=== PATIENT | male | born 1935 | race Caucasian/White ===

== ENCOUNTER 2017-02-11 15:13 | Inpatient (IN) | payer MEDICARE, BC ==
[~2017-02-11] VITALS: Ht 172.7 cm; Wt 70.3 kg
[2017-02-11 16:18] VITALS: BP 129/75
[2017-02-11] MEDS ORDERED: Zolpidem 5mg tab ORAL PRN (16:45)
--- NOTE | 2017-02-11 17:42 | General Progress Note ---
Subjective Allergies: Coded Allergies: No Known Allergies (Unverified , 02/11/17) info obtained from caregiver Objective Last 24 Hour Vital Signs Date Time Temp Pulse Resp B/P (MAP) Pulse Ox O2 Delivery O2 Flow Rate FiO2 02/11/17 16:18 97.7 73 20 129/75 99 Room Air Laboratory Tests 02/11/17 17:25: White Blood Count [Pending], Red Blood Count [Pending], Hemoglobin [Pending], Hematocrit [Pending], Mean Corpuscular Volume [Pending], Mean Corpuscular Hemoglobin [Pending], Mean Corpuscular Hemoglobin Concent [Pending], Red Cell Distribution Width [Pending], Platelet Count [Pending], Mean Platelet Volume [ Pending], Neutrophils (%) (Auto) [Pending], Lymphocytes (%) (Auto) [Pending], Monocytes (%) (Auto) [Pending], Eosinophils (%) (Auto) [Pending], Basophils (%) (Auto) [Pending], Sodium Level [Pending], Potassium Level [Pending], Chloride Level [Pending], Carbon Dioxide Level [Pending], Blood Urea Nitrogen [Pending], Creatinine [Pending], Estimat Glomerular Filtration Rate [Pending], Glucose Level [Pending], Uric Acid [Pending], Calcium Level [Pending], Lactate Dehydrogenase [Pending] Height (Feet): 5 Height (Inches): 8.00 Weight (Pounds): 155 WU SANTOS Feb 11, 2017 17:42
--- NOTE | 2017-02-11 17:43 | History & Physical ---
History and Physical History & Physicial HPI 81 year old male with known mild renal insufficiency noted to have significant worsening in his labs on routine lab draw with worsening lab parameters. Patient without any new intervention at home. He is only using Remeron for now. Patient without falls. Patient without trauma. NO fevers or chills. Care noted and reviewed with the son and patient now being admitted for further evaluation. Patient noted to have adequate urine output. Patient currently comfortable but confused Last 24 Hour Vital Signs Date Time Temp Pulse Resp B/P (MAP) Pulse Ox O2 Delivery O2 Flow Rate FiO2 02/11/17 16:18 97.7 73 20 129/75 99 Room Air Laboratory Tests 02/11/17 17:25: still pending Active Medications (reviewed today): REMERON 15 MG ORAL TABS (MIRTAZAPINE) 1 qhs No Known Drug Allergies Past History Past Medical History: dementia urinary incontinence anemia mildly elevated PSA Surgical History (reviewed - no changes required): None Family History (reviewed - no changes required): Father ; unknown Mother ; alzheimer's Social History (reviewed - no changes required): ; 1 child: lives alone; born in [place]; 4 dogs at home; house with caregivers [employer] (resides in [facility]) Risk Factors: Smoked Tobacco Use: Never smoker Tobacco Use Comments: remote [facility] Caffeine use: <1 drinks per day Alcohol use: no Review of Systems General: fatigue disheveled Eyes: denies blurring, diplopia, irritation, discharge, vision loss, eye pain, photophobia Ear/Nose/Throat: denies ear pain or discharge, tinnitus, decreased hearing, nasal obstruction or discharge, nosebleeds, sore throat, hoarseness, dysphagia Cardiovascular: Denies chest pain, palpitations, syncope, dyspnea on exertion, orthopnea, PND, peripheral edema Respiratory: Denies cough, dyspnea, excessive sputum, hemoptysis, wheezing Gastrointestinal: Denies nausea, vomiting, diarrhea, constipation, change in bowel habits, abdominal pain, melena, hematochezia, jaundice Genitourinary: incontinence Musculoskeletal: fall with coccyx injury Skin: denies rash, itching, dryness, suspicious lesions Neurologic: denies transient paralysis, weakness, paresthesias, seizures, syncope, tremors, vertigo Psychiatric: SEE HPI Endocrine: denies cold intolerance, heat intolerance, polydipsia, polyphagia, polyuria, weight change Hematologic/Lymphatic: denies abnormal bruising, bleeding, enlarged lymph nodes Allergic/Immunologic: denies urticaria, hay fever, persistent infections, HIV exposure Physical Exam General Appearance: well nourished, well hydrated, no acute distress WDWN NAD clear breath sounds bilaterally without rhonchi or wheeze [id number] without MRG NABS nontender no HSM no CCE nonfocal IMPRESSION Dementia acute on chronic renal failure agitation incontinence confusion PLAN IV hydration renal US check labs consider renal evaluation check urine and culture check CK level update son HOMARWU JOHNSON Feb 11, 2017 17:43
[2017-02-11 17:45] LABS: MEAN CORPUSCULAR HEMOGLOBIN 34.1 PG (27.0-31.0); MEAN CORPUSCULAR HGB CONC 31.8 G/DL (32.0-36.0); MEAN CORPUSCULAR VOLUME 107 FL (80-99); MEAN PLATELET VOLUME 5.8 FL (6.5-10.1); PLATELET COUNT 479 K/UL (150-450); RED BLOOD COUNT 2.44 M/UL (4.70-6.10); RED CELL DISTRIBUTION WIDTH 12.4 % (11.6-14.8); WHITE BLOOD COUNT 15.1 K/UL (4.8-10.8)
[2017-02-11] MEDS ORDERED: MIRTAZAPINE15 MG ORAL (17:48)
[2017-02-11] MEDS ORDERED: DOCUSATE SODIU250 MG ORAL (17:48)
[2017-02-11] MEDS ORDERED: MULTIVITAMINS1 EAC2 ORAL (17:48)
[2017-02-11] MEDS ORDERED: Docusate 100mg cap ORAL PRN (18:00)
[2017-02-11 18:19] LABS: ANION GAP 14 mmol/L (5-15); CARBON DIOXIDE 19 MMOL/L (21-32); CHLORIDE 109 MMOL/L (98-107); CREATININE 4.7 MG/DL (0.55-1.30); LACTATE DEHYDROGENASE 147 U/L (81-234); POTASSIUM 5.7 MMOL/L (3.5-5.1); SODIUM 142 MMOL/L (136-145); URIC ACID 8.3 MG/DL (2.6-7.2)
[2017-02-11 18:32] LABS: BAND NEUTROPHILS % (MANUAL) 2 % (0-8); LYMPHOCYTES % (MANUAL) 11 % (20-45); NEUTROPHILS % (MANUAL) 84 % (45-75); TOTAL CELLS COUNTED 100
[2017-02-11 18:33] LABS: ANISOCYTOSIS 1+; BASOPHILS % (MANUAL) 0 % (0-2); EOSINOPHILS % (MANUAL) 0 % (0-3); PLATELET ESTIMATE INCREASED
[2017-02-11 18:34] LABS: MACROCYTES 2+; PLATELET MORPHOLOGY NORMAL; POLYCHROMASIA 1+
[2017-02-11 18:37] LABS: PATH BLOOD SMEAR/OMC SENT TO PATHOLOGIST
[2017-02-11] MEDS ORDERED: Sodium Polystyrene Sulfonate 15gm Powder ORAL ONE (19:45)
[2017-02-11 20:00] VITALS: BP 125/72
[2017-02-11] MEDS ORDERED: Cefepime HCl 1 GM in D5W 55 ML IVPB ONE (20:30)
[2017-02-11 21:52] LABS: APPEARANCE,URINE CLOUDY; KETONES,URINE NEGATIVE (NEGATIVE); LEUKOCYTE ESTERASE ,URINE 3+ (NEGATIVE); NITRITE,URINE NEGATIVE (NEGATIVE); PH,URINE 5 (4.5-8.0); PROTEIN,URINE 3+ (NEGATIVE); UROBILINOGEN,URINE NORMAL MG/DL (0.0-1.0)
[2017-02-11 22:05] LABS: BACTERIA,URINE MODERATE /HPF; WBC,URINE TNTC /HPF (0 - 0)
[2017-02-12 00:11] VITALS: BP 153/76
[2017-02-12 04:00] VITALS: BP 139/69
[2017-02-12 08:00] VITALS: BP 147/76
--- NOTE | 2017-02-12 08:41 | General Progress Note ---
Assessment/Plan Assessment/Plan IMPRESSION Dementia acute on chronic renal failure agitation incontinence confusion leukocytosis elevated PSA PLAN IV hydration renal US check labs on follow up consider renal evaluation check urine and culture check CK level- normal renal evaluation pending update son Subjective Allergies: Coded Allergies: No Known Allergies (Unverified , 02/11/17) info obtained from caregiver Subjective comfortable underwent transfusion Objective Last 24 Hour Vital Signs Date Time Temp Pulse Resp B/P (MAP) Pulse Ox O2 Delivery O2 Flow Rate FiO2 02/12/17 04:00 96 Room Air 02/12/17 04:00 97.6 61 18 139/69 96 02/12/17 00:11 97.8 61 18 153/76 95 Room Air 02/11/17 20:00 97.7 64 18 125/72 97 02/11/17 20:00 97 Room Air 02/11/17 16:18 97.7 73 20 129/75 99 Room Air Laboratory Tests 02/11/17 17:25: White Blood Count 15.1H, Red Blood Count 2.44L, Hemoglobin 8.3L, Hematocrit 26.1L, Mean Corpuscular Volume 107H, Mean Corpuscular Hemoglobin 34.1H, Mean Corpuscular Hemoglobin Concent 31.8L, Red Cell Distribution Width 12.4, Platelet Count 479H, Mean Platelet Volume 5.8L, Neutrophils (%) (Auto) , Lymphocytes (%) (Auto) , Monocytes (%) (Auto) , Eosinophils (%) (Auto) , Basophils (%) (Auto) , Differential Total Cells Counted 100, Neutrophils % ( Manual) 84H, Lymphocytes % (Manual) 11L, Monocytes % (Manual) 3, Eosinophils % ( Manual) 0, Basophils % (Manual) 0, Band Neutrophils 2, Platelet Estimate IncreasedH, Platelet Morphology Normal, Polychromasia 1+, Anisocytosis 1+, Macrocytosis 2+, Sodium Level 142, Potassium Level 5.7H, Chloride Level 109H, Carbon Dioxide Level 19L, Anion Gap 14, Blood Urea Nitrogen 110H, Creatinine 4.7H, Estimat Glomerular Filtration Rate , Glucose Level 119H, Uric Acid 8.3H, Calcium Level 9.0, Lactate Dehydrogenase 147, Total Creatine Kinase 24L 02/11/17 20:45: Urine Color Pale yellow, Urine Appearance Cloudy, Urine pH 5, Urine Specific Crystal 1.010, Urine Protein 3+H, Urine Glucose (UA) Negative, Urine Ketones Negative, Urine Occult Blood 4+H, Urine Nitrite Negative, Urine Bilirubin Negative, Urine Urobilinogen Normal, Urine Leukocyte Esterase 3+H, Urine RBC 5- 10H, Urine WBC TntcH, Urine Squamous Epithelial Cells None, Urine Bacteria ModerateH Height (Feet): 5 Height (Inches): 8.00 Weight (Pounds): 155 Objective WDWN NAD clear breath sounds bilaterally without rhonchi or wheeze [id number] without MRG NABS nontender no HSM no CCE nonfocal WU SANTOS Feb 12, 2017 08:41
--- NOTE | 2017-02-12 11:45 | Consultation ---
Consult Note Consult Note asked to eval for renal failure 81 year old male with known mild renal insufficiency noted to have significant worsening in his labs on routine lab draw with worsening lab parameters. Patient without any new intervention at home. He is only using Remeron for now. Patient without falls. Patient without trauma. NO fevers or chills. Care noted and reviewed with the son and patient now being admitted for further evaluation. Patient noted to have adequate urine output. Patient currently comfortable but confused examined- not historian- talked to RN and disabilities caregiver Assessment/Plan 1- Renal failure, etiology? Seems acute on chronic 2- Anemia: Etiology ? CKD ? GI loss 3- Proteinuria Partly UTI, Partly Renal Ds Other conditions: - Dementia with periodic agitation - Urinary incontinence - High PSA Plan: Kidney SALINA Bladder scan: Zero urine Anemia dinero monitor renal parameters avoid Nephrotoxics Urine studies per orders KIERA MOY Feb 12, 2017 11:45
[2017-02-12 12:00] VITALS: BP 134/76
[2017-02-12] MEDS ORDERED: Docusate 100mg cap ORAL SCH (15:00)
[2017-02-12] MEDS ORDERED: Milk of Magnesia 30ml Ud ORAL PRN (15:00)
[2017-02-12 16:00] VITALS: BP 128/84
--- NOTE | 2017-02-12 17:00 | Consultation ---
DATE OF CONSULTATION: 02/12/2017 PODIATRIC CONSULTATION HISTORY OF PRESENT ILLNESS: This is an 81-year-old white male, who was admitted to the hospital on 02/11/2017 for workup of abnormal kidneys lab tests. His caregiver requested podiatric care for neglected nails and foot hygiene. PAST MEDICAL HISTORY: He is remarkable for dementia, anemia, and urinary incontinence. MEDICATIONS: Remeron. ALLERGIES: No known drug allergies. PODIATRIC PHYSICAL EXAMINATION: VASCULAR EXAM: Dorsalis pedis and posterior tibial arteries are not palpable bilaterally. The capillary filling time is less than 6 seconds to all digits bilaterally. Homans sign is negative. Mild varicosities are noted in bilateral lower extremity. NEUROLOGICAL EXAMINATION: Reflexes, Achilles and patellar are measuring 1/4 bilaterally. Sensation and vibration examinations were deferred due to non-response from the patient. Babinski was negative. Clonus was absent in bilateral lower extremity. MUSCULOSKELETAL EXAMINATION: Reveals bilateral hallux abductovalgus with bunion deformity. The digits second through fifth are exhibiting semi-reducible hammertoe deformities. Range of motions of the digits, metatarsophalangeal joints is reduced bilaterally. No crepitation was noted. Range of motion of the ankle joint was also reduced bilaterally. DERMATOLOGICAL EXAMINATION: Reveals cold and atrophic skin bilaterally. The nails where dystrophic, mycotic, and elongated bilaterally. There were no ulcerations, scars, or lesions in bilateral foot and ankle. ASSESSMENT: 1. Onychomycosis/onychogryphosis bilaterally. 2. Dementia. PLAN: Debridement of nails, 1 through 5 performed at bedside. Thank you, Dr. Marcos, for allowing me to see this patient in consultation. Steve Valero D.P.M. DR: SOULEYMANE JOB#: [id number] CC:
--- NOTE | 2017-02-12 18:09 | Diagnostic Imaging Report ---
Indication: Cough Technique: XRAY CHEST 1 V Comparison: None Findings: Heart size and mediastinal contours are within normal limits given technique. There is no focal consolidation, pneumothorax or pleural effusion. Osseous structures demonstrate no acute abnormality. Impression: No focal airspace consolidation.
[2017-02-12] MEDS: Docusate 100mg cap ORAL SCH (18:30)
[2017-02-12] MEDS ORDERED: Cefepime 500mg in D5W 55ml IVPB SCH (20:30)
[2017-02-12] MEDS: Epogen (for non ESRD use) SUBQ SCH (21:15)
[2017-02-13] VITALS: BP 123/56
[2017-02-13 04:00] VITALS: BP 124/65
--- NOTE | 2017-02-13 04:00 | Consultation ---
DATE OF CONSULTATION: 02/12/2017 UROLOGY CONSULTATION REASON FOR CONSULTATION: The patient is an 81-year-old male, admitted with multiple medical problems and urinary retention. Nurses were unable to place the Mark catheter. I was consulted to place a Mark catheter. PHYSICAL EXAMINATION: Bladder felt distended and I proceeded with procedure of complicated Mark catheter placement. PROCEDURE PERFORMED: I prepped the penis. I then, per local anesthetic into the urethra, proceeded with a catheter guide with a 16-Green[place]ic Mark catheter and placed it into the bladder with mild resistance in the bulbar urethra and clear urine came from Mark catheter. RECOMMENDATIONS: My recommendations are to leave the Mark catheter in place as long as is beneficial for the medical care of this patient however after the Mark catheter may be removed and replaced if needed in the future. Thank you very much for requesting urologic consultation on this patent. Escobar Tracy DR: LITO JOB#: [id number] CC:
[2017-02-13 08:00] VITALS: BP 134/52
[2017-02-13] MEDS: Docusate 100mg cap ORAL SCH ×3 (09:00→17:35)
--- NOTE | 2017-02-13 09:07 | Nephrology Progress Note ---
Assessment/Plan Problem List: (1) Acute renal failure (2) Obstructive uropathy Assessment 1- Renal failure, etiology? Seems acute on chronic, rule out Obstruction 2- Anemia: Etiology ? CKD ? GI loss 3- Proteinuria Partly UTI, Partly Renal Ds Other conditions: - Dementia with periodic agitation - Urinary incontinence - High PSA Plan Plan: Kidney SALINA: verbal report , bilateral hydro and urinary retention: LOPEZ is in now Bladder scan: Zero urine was reported initially Anemia dinero monitor renal parameters avoid Nephrotoxics Urine studies per orders Subjective ROS Limited/Unobtainable: No Objective Objective Last 24 Hour Vital Signs Date Time Temp Pulse Resp B/P (MAP) Pulse Ox O2 Delivery O2 Flow Rate FiO2 02/13/17 04:00 97.7 80 20 124/65 95 Room Air 02/13/17 00:00 98.6 83 20 123/56 95 Room Air 02/12/17 16:00 97.1 78 20 128/84 99 02/12/17 12:00 97.3 66 20 134/76 98 Laboratory Tests 02/13/17 05:00: Urine Eosinophils [Pending] Height (Feet): 5 Height (Inches): 8.00 Weight (Pounds): 155 General Appearance: no apparent distress Cardiovascular: normal rate Respiratory/Chest: lungs clear Abdomen: soft Genitourinary/Rectal: other - lopez in KIERA MOY Feb 13, 2017 09:07
[2017-02-13 09:48] LABS: ANION GAP 14 mmol/L (5-15); CALCIUM 8.9 MG/DL (8.5-10.1); CARBON DIOXIDE 20 MMOL/L (21-32); CHLORIDE 115 MMOL/L (98-107); CREATININE 4.4 MG/DL (0.55-1.30); MEAN CORPUSCULAR HGB CONC 32.5 G/DL (32.0-36.0); MEAN CORPUSCULAR VOLUME 105 FL (80-99); MEAN PLATELET VOLUME 6.4 FL (6.5-10.1); PLATELET COUNT 434 K/UL (150-450); RED BLOOD COUNT 3.15 M/UL (4.70-6.10); RED CELL DISTRIBUTION WIDTH 14.3 % (11.6-14.8); SODIUM 149 MMOL/L (136-145)
[2017-02-13 09:51] LABS: WHITE BLOOD COUNT 24.9 K/UL (4.8-10.8)
--- NOTE | 2017-02-13 09:52 | General Progress Note ---
Assessment/Plan Assessment/Plan IMPRESSION Dementia acute on chronic renal failure agitation incontinence confusion leukocytosis elevated PSA urinary retention hydronephrosis bacteremia ? contaminant onychomycosis PLAN add Vanco for now IV hydration renal US noted follow up labs await labs call ID with positive Bcx renal evaluation pending update son Subjective ROS Limited/Unobtainable: Yes Allergies: Coded Allergies: No Known Allergies (Unverified , 02/11/17) info obtained from caregiver Subjective significant urinary retention lopez placed hydronephrosis noted d/w renal and uro Objective Last 24 Hour Vital Signs Date Time Temp Pulse Resp B/P (MAP) Pulse Ox O2 Delivery O2 Flow Rate FiO2 02/13/17 04:00 97.7 80 20 124/65 95 Room Air 02/13/17 00:00 98.6 83 20 123/56 95 Room Air 02/12/17 16:00 97.1 78 20 128/84 99 02/12/17 12:00 97.3 66 20 134/76 98 Laboratory Tests 02/13/17 05:00: Urine Eosinophils None seen 02/13/17 08:52: White Blood Count [Pending], Red Blood Count [Pending], Hemoglobin [Pending], Hematocrit [Pending], Mean Corpuscular Volume [Pending], Mean Corpuscular Hemoglobin [Pending], Mean Corpuscular Hemoglobin Concent [Pending], Red Cell Distribution Width [Pending], Platelet Count [Pending], Mean Platelet Volume [ Pending], Neutrophils (%) (Auto) [Pending], Lymphocytes (%) (Auto) [Pending], Monocytes (%) (Auto) [Pending], Eosinophils (%) (Auto) [Pending], Basophils (%) (Auto) [Pending], Sodium Level [Pending], Potassium Level [Pending], Chloride Level [Pending], Carbon Dioxide Level [Pending], Blood Urea Nitrogen [Pending], Creatinine [Pending], Estimat Glomerular Filtration Rate [Pending], Glucose Level [Pending], Hemoglobin A1c [Pending], Uric Acid [Pending], Calcium Level [ Pending], Phosphorus Level [Pending], Magnesium Level [Pending], Ferritin [ Pending], Total Bilirubin [Pending], Gamma Glutamyl Transpeptidase [Pending], Aspartate Amino Transf (AST/SGOT) [Pending], Alanine Aminotransferase (ALT/SGPT ) [Pending], Alkaline Phosphatase [Pending], C-Reactive Protein, Quantitative [ Pending], Pro-B-Type Natriuretic Peptide [Pending], Total Protein [Pending], Albumin [Pending], Globulin [Pending], Triglycerides Level [Pending], Cholesterol Level [Pending], LDL Cholesterol [Pending], HDL Cholesterol [Pending ], Cholesterol/HDL Ratio [Pending], Prostate Specific Antigen [Pending], Vitamin B12 Level [Pending], Folate [Pending], Thyroid Stimulating Hormone (TSH ) [Pending] Height (Feet): 5 Height (Inches): 8.00 Weight (Pounds): 155 Objective WDWN NAD clear breath sounds bilaterally without rhonchi or wheeze [id number] without MRG NABS nontender no HSM no CCE nonfocal WU SANTOS Feb 13, 2017 09:52
[2017-02-13] MEDS: Tamsulosin 0.4mg cap ORAL SCH ×2 (09:58→17:35)
[2017-02-13] MEDS ORDERED: Vancomycin 1.5 GM/D5W 250ML IVPB ONE (10:00)
[2017-02-13 10:03] LABS: ALANINE AMINOTRANSFERASE 32 U/L (12-78); ALBUMIN/GLOBULIN RATIO 0.4 (1.0-2.7); ASPARTATE AMINO TRANSFERASE 24 U/L (15-37); CHOLESTEROL 125 MG/DL (< 200); CHOLESTEROL/HDL RATIO 2.9 (3.3-4.4); CRP QUANT 15.7 mg/dL (0.00-0.90); FERRITIN 745 NG/ML (8-388); MAGNESIUM 2.4 MG/DL (1.8-2.4); THYROID STIMULATING HORMONE 1.198 uiU/mL (0.358-3.740); TOTAL PROTEIN 8.5 G/DL (6.4-8.2)
[2017-02-13 10:27] LABS: FOLIC ACID 33.9 NG/ML (8.6-58.9)
[2017-02-13 10:49] LABS: ANION GAP 17 mmol/L (5-15); CALCIUM 8.7 MG/DL (8.5-10.1); CARBON DIOXIDE 18 MMOL/L (21-32); CHLORIDE 119 MMOL/L (98-107); CREATININE 4.5 MG/DL (0.55-1.30); POTASSIUM 4.3 MMOL/L (3.5-5.1); SODIUM 154 MMOL/L (136-145)
[2017-02-13 10:54] LABS: ANISOCYTOSIS 1+; BAND NEUTROPHILS % (MANUAL) 1 % (0-8); BASOPHILS % (MANUAL) 0 % (0-2); EOSINOPHILS % (MANUAL) 0 % (0-3); HYPOCHROMASIA 1+; LYMPHOCYTES % (MANUAL) 3 % (20-45); MACROCYTES 1+; NEUTROPHILS % (MANUAL) 94 % (45-75); PLATELET ESTIMATE ADEQUATE; PLATELET MORPHOLOGY NORMAL; TOTAL CELLS COUNTED 100
--- NOTE | 2017-02-13 11:03 | Diagnostic Imaging Report ---
Indication: Abnormal renal function test Technique: Renal ultrasound Comparison: None Findings: Right kidney measures 11.1 cm in length. Left kidney measures 11.6 cm in length. Moderate bilateral hydronephrosis is seen. No sonographically evident renal calculi are identified. Bladder is distended with debris. Visualized IVC is grossly unremarkable. Impression: Moderate bilateral hydronephrosis. Distended bladder with debris. Correlation with urinalysis recommended. Findings discussed with the patient's 4E nurse reporting a Mark catheter has been placed.
[2017-02-13 11:10] LABS: HEMOGLOBIN A1C 6.8 % (4.3-6.0)
[2017-02-13] MEDS ORDERED: Vancomycin 1.5gm/D5W 250ml 250 ML IVPB ONE (11:15)
[2017-02-13 12:00] VITALS: BP 136/58
[2017-02-13 12:01] LABS: FOLIC ACID 33.4 NG/ML (8.6-58.9)
[2017-02-13] MEDS: D5 1/2NS 1,000 ML IV SCH ×2 (12:21→20:43)
--- NOTE | 2017-02-13 12:29 | Neurology Progress Note ---
Interim History Interim History ROS Limited/Unobtainable: Yes Objective Physical Exam Last Vital Signs Date Time Temp Pulse Resp B/P (MAP) Pulse Ox O2 Delivery O2 Flow Rate FiO2 02/13/17 08:00 97.0 100 20 134/52 95 Room Air Laboratory Tests Test 02/13/17 05:00 02/13/17 08:52 Urine Eosinophils None seen White Blood Count 24.9 K/UL (4.8-10.8) *H Red Blood Count 3.15 M/UL (4.70-6.10) L Hemoglobin 10.7 G/DL (14.2-18.0) L Hematocrit 33.0 % (42.0-52.0) L Mean Corpuscular Volume 105 FL (80-99) H Mean Corpuscular Hemoglobin 34.0 PG (27.0-31.0) H Mean Corpuscular Hemoglobin Concent 32.5 G/DL (32.0-36.0) Red Cell Distribution Width 14.3 % (11.6-14.8) Platelet Count 434 K/UL (150-450) Mean Platelet Volume 6.4 FL (6.5-10.1) L Neutrophils (%) (Auto) % (45.0-75.0) Lymphocytes (%) (Auto) % (20.0-45.0) Monocytes (%) (Auto) % (1.0-10.0) Eosinophils (%) (Auto) % (0.0-3.0) Basophils (%) (Auto) % (0.0-2.0) Differential Total Cells Counted 100 Neutrophils % (Manual) 94 % (45-75) H Lymphocytes % (Manual) 3 % (20-45) L Monocytes % (Manual) 2 % (1-10) Eosinophils % (Manual) 0 % (0-3) Basophils % (Manual) 0 % (0-2) Band Neutrophils 1 % (0-8) Platelet Estimate Adequate Platelet Morphology Normal Hypochromasia 1+ Anisocytosis 1+ Macrocytosis 1+ Sodium Level 149 MMOL/L (136-145) H Potassium Level 4.0 MMOL/L (3.5-5.1) Chloride Level 115 MMOL/L (98-107) H Carbon Dioxide Level 20 MMOL/L (21-32) L Anion Gap 14 mmol/L (5-15) Blood Urea Nitrogen 97 mg/dL (7-18) H Creatinine 4.4 MG/DL (0.55-1.30) H Estimat Glomerular Filtration Rate mL/min (>60) Glucose Level 132 MG/DL (74-106) H Hemoglobin A1c 6.8 % (4.3-6.0) H Uric Acid Pending Calcium Level 8.9 MG/DL (8.5-10.1) Phosphorus Level Pending Magnesium Level Pending Ferritin Pending Total Bilirubin 0.5 MG/DL (0.2-1.0) Gamma Glutamyl Transpeptidase Pending Aspartate Amino Transf (AST/SGOT) 24 U/L (15-37) Alanine Aminotransferase (ALT/SGPT) 32 U/L (12-78) Alkaline Phosphatase 90 U/L (46-116) C-Reactive Protein, Quantitative Pending Pro-B-Type Natriuretic Peptide Pending Total Protein 8.5 G/DL (6.4-8.2) H Albumin 2.6 G/DL (3.4-5.0) L Globulin 5.9 g/dL Albumin/Globulin Ratio 0.4 (1.0-2.7) L Triglycerides Level Pending Cholesterol Level Pending LDL Cholesterol Pending HDL Cholesterol Pending Cholesterol/HDL Ratio Pending Prostate Specific Antigen Pending Vitamin B12 Level 1030 PG/ML (193-986) H Folate 33.4 NG/ML (8.6-58.9) Thyroid Stimulating Hormone (TSH) Pending Impression/Recommendations Problems: (1) senile dementia, advanced (2) Parkinsonian syndrome (3) Depressed affect (4) abnormal gait (5) Obstructive uropathy (6) Acute renal failure Status: unchanged Recommendations #[id number] NADINE RUIZ Feb 13, 2017 12:29
[2017-02-13] MEDS: Depakote 125mg Sprinkles ORAL SCH ×2 (12:49→20:41)
[2017-02-13 14:06] LABS: CHOLESTEROL 132 MG/DL (< 200); CRP QUANT 17.1 mg/dL (0.00-0.90); FERRITIN 800 NG/ML (8-388); MAGNESIUM 2.5 MG/DL (1.8-2.4); PHOSPHORUS 5.2 MG/DL (2.5-4.9); PSA TOTAL 11.59 ng/mL (0.13-4.0); THYROID STIMULATING HORMONE 1.291 uiU/mL (0.358-3.740); URIC ACID 7.6 MG/DL (2.6-7.2)
[2017-02-13] MEDS: Piperacillin/Tazobactam 2.25 GM in D5W 55 ML IVPB SCH ×2 (14:10→21:47)
[2017-02-13 16:15] VITALS: BP 117/56
--- NOTE | 2017-02-13 16:30 | Consultation ---
DATE OF CONSULTATION: 02/13/2017 INFECTIOUS DISEASES CONSULTATION CONSULTING PHYSICIAN: April Orourke M.D. REFERRING PHYSICIAN: Catracho Marcos M.D. REASON FOR CONSULTATION: Sepsis. HISTORY OF PRESENTING ILLNESS: This is an 81-year-old gentleman with history of . PAST MEDICAL HISTORY: 1. History of dementia. 2. Urinary incontinence. 3. Elevated PSA. SOCIAL HISTORY: Unknown. FAMILY HISTORY: Unknown. REVIEW OF SYSTEMS: Unable to obtain currently. MEDICATIONS: As an inpatient, the patient is on IV vancomycin, Flomax, Epogen, Cefepime, Protonix, Remeron, Tylenol, and Ambien. ALLERGIES: No known drug allergies. PHYSICAL EXAMINATION: VITAL SIGNS: Temperature of 97 degrees, T-max of 98.6 degrees, pulse of 100, respiratory rate 20, blood pressure 134/52, and O2 saturation of 95% . HEENT: Pupils equally reactive to light and accommodation. Mouth appears clean without thrush. NECK: Supple. No adenopathy. No JVD. CARDIOVASCULAR: Regular rate and rhythm. No murmurs. LUNGS: Clear to auscultation bilaterally. No crackles. No wheezes. ABDOMEN: Soft and nontender. No organomegaly. EXTREMITIES: No cyanosis, no clubbing, no edema. LABORATORY DATA: White count of 24.9, hemoglobin 10.7, hematocrit 33, MCV 105, platelet count of 434,000, neutrophils of 94%. Sodium 149, potassium 4, chloride 115, bicarbonate 20, BUN 97, creatinine 4.4, glucose 132, calcium 8.9. AST 24, ALT 32, and alkaline phosphatase 90. LDH 147. CK of 24. Beta-natriuretic peptide 2820. Total protein 8.5. Albumin 2.6. Cholesterol of 125. UA showing too numerous to count white cells. Blood culture is growing gram-positive cocci. Urine culture is growing gram-negative rods, two types. Chest x-ray is showing no consolidation. Renal ultrasound showing moderate bilateral hydronephrosis. ASSESSMENT: 1. This is an 81-year-old gentleman with history of dementia and urinary incontinence, who comes in and is found to have gram-positive sepsis. 2. The patient has a gram-negative urinary tract infection. 3. Renal failure. 4. Leukocytosis is increasing. PLAN: 1. Discontinue vancomycin and cefepime. 2. We will start the patient on linezolid and Zosyn. 3. We will follow up cultures and adjust antibiotics accordingly. I would like to thank Dr. Marcos for this consultation. [place] Zoie Orourke DR: MELISSA JOB#: [id number] CC: Catracho Marcos M.D.; Fax#: [phone]
[2017-02-13] MEDS ORDERED: Tubing Blood Filter IV ONE (17:34)
[2017-02-13] MEDS ORDERED: Tubing IV Secondary IV ONE (17:34)
[2017-02-13] MEDS ORDERED: NS 500ML ONE (17:34)
[2017-02-13] MEDS ORDERED: D5 1/2NS 1000ml IV ONE (17:34)
--- NOTE | 2017-02-13 19:15 | Consultation ---
DATE OF CONSULTATION: 02/13/2017 NEUROLOGICAL CONSULTATION CONSULTING PHYSICIAN: Myles Box M.D. REQUESTING PHYSICIAN: Catracho Marcos M.D. HISTORY OF PRESENT ILLNESS: This is an 81-year-old man, who is seen in neurological consultation to evaluate the progressive changes in mental status, involuntary tremors, and abnormal gait. The patient was admitted to this hospital after it was noted that he developed abnormal labs. The patient was unable to provide me with any history and this was compiled from medical records and my conversation with the two caregivers. Currently, the patient who had no major medical problems, lived alone with a couple of dogs, started to develop behavioral abnormalities with some cognitive deficiency, and in November 2015, his son, who lives in [facility] hired a caregiver. They noticed that the patient continues to be rapidly deteriorating cognitively and behaviorally. Finally, in the last couple of months, he was unable to recognize his son. He developed the tremors in his both upper extremities, shuffling unsteady gait, spending most of the day predominantly lying in bed or sitting. He developed urinary incontinence and now unable to provide himself with any activities of daily living. The patient was brought today for the assessment. His vital signs described as stable. He was afebrile with blood pressure 129/75 and temperature 97.7 degrees. His imaging studies included renal ultrasound. Renal ultrasound revealed moderate bilateral hydronephrosis and distended bladder. His chest x-ray, no acute abnormality. His lab work included a CBC study with WBC 15.1, repeat study 12.9, anemia with hemoglobin 8.3, hematocrit 26.1, and elevated MCV and MCH. Chemistry panel included potassium 5.7, BUN of 110, creatinine 4.7, and glucose 119. Elevated SGOT 15.7, BNP of 20, elevated total protein 8.5, but normal B12, folate, and TSH. Anion gap was elevated at 17. Blood sugar was 130. He developed hypernatremia at 154 and hemoglobin A1c of 6.8. His urinalysis, WBC too numerous to count, 3+ protein. Since admission until present time, there were no further changes in his status. SOCIAL HISTORY: He lives alone, but has around the clock caregivers for the last year. No evidence of alcohol or drug abuse. Nonsmoker. FAMILY HISTORY: Unavailable. REVIEW OF SYMPTOMS: Unable to obtain due the patient's status. PHYSICAL EXAMINATION: GENERAL: A well-developed, well-nourished man, not in acute distress, lying in bed. His caregivers are at bedside. VITAL SIGNS: Now stable. Temperature 97.3 degrees and blood pressure 134/76. HEENT: Head, normocephalic. There is no evidence of trauma. Eyes, ears, and throat are clear. NECK: Rigid in all directions. MUSCULOSKELETAL EXAMINATION: No deformities noted. Peripheral pulses 1+ symmetric. MENTAL STATUS: The patient fully awake. He has a very angry expression. He is not compliant with examination. Withdrawing his arms and legs when touched. He is responding yes or no. Indicating his age as 31. He is unable to give the place, time, or describe his condition. He was noncompliant and non-cooperative. CRANIAL NERVES II: Pupils, 2 mm responding to light and accommodation. Extraocular movements full range. CRANIAL NERVES V: Normal corneal responses. CRANIAL NERVES VII: No facial asymmetry. CRANIAL NERVES VIII: Grossly normal hearing. CRANIAL NERVES IX THROUGH XII: Tongue is in midline. Symmetric palate elevation. MOTOR EXAMINATION: Revealed diffuse rigidity. Some slowness of movement. There are intermittent resting tremors of both upper extremities. Deep tendon reflexes are 1+, bilaterally symmetric. Plantar responses flexor. SENSORY EXAMINATION: Withdrawing to pin stimulation. Gait, the patient was reluctant to sit or stand up, but caregiver described the patient having a shuffling slow gait, able to ambulate without assistance, prefers to stay in bed or in chair. IMPRESSION: 1. Senile dementia, advanced. 2. Parkinsonian features. 3. Depression. 4. Acute renal failure. 5. Urinary tract infection. RECOMMENDATIONS: A baseline CT scan of the brain (the patient will be unable to comply with MRI). The patient to start on Aricept 5 mg, Depakote 125 mg b.i.d. for mood stabilization and presence of behavioral abnormalities. Vitamin D, okay with Remeron 7.5 mg daily. Hold use of Sinemet or antiparkinson agents at this time. Continue with the current treatment related to urinary tract infection and renal failure. Thank you for allowing me to see this interesting patient in neurological consultation. Myles Box M.D. DR: Garima JOB#: [id number] CC:
[2017-02-13 20:00] VITALS: BP 122/67
[2017-02-13] MEDS: Donepezil 5mg Tab ORAL SCH (20:41)
[2017-02-14] VITALS (7 sets, daily range): BP systolic 104–121; BP diastolic 55–78
[2017-02-14] MEDS: Piperacillin/Tazobactam 2.25 GM in D5W 55 ML IVPB SCH ×2 (05:49→14:32)
[2017-02-14] MEDS: D5 1/2NS 1,000 ML IV SCH ×3 (07:15→21:07)
[2017-02-14] MEDS: Depakote 125mg Sprinkles ORAL SCH ×2 (08:45→21:00)
[2017-02-14] MEDS: Docusate 100mg cap ORAL SCH ×3 (08:46→17:42)
[2017-02-14] MEDS: Tamsulosin 0.4mg cap ORAL SCH ×2 (08:47→17:42)
[2017-02-14] MEDS ORDERED: D5 1/2NS 1000ml IV ONE (10:02)
--- NOTE | 2017-02-14 10:03 | Infectious Diseases Prog Note ---
Assessment/Plan Assessment/Plan A; Sepsis UTI CoANS in blood likely contamination Acute renal failure Bilateral Hydronephrosis Dementia P: Continue Zosyn Discontinue Linezolid will f/u cultures Subjective ROS Limited/Unobtainable: Yes Allergies: Coded Allergies: No Known Allergies (Unverified , 02/11/17) info obtained from caregiver Objective Vital Signs Last 24 Hour Vital Signs Date Time Temp Pulse Resp B/P (MAP) Pulse Ox O2 Delivery O2 Flow Rate FiO2 02/14/17 08:00 96.4 58 20 117/63 98 02/14/17 04:00 97.2 55 21 104/55 100 02/14/17 00:00 97.7 63 20 116/78 96 02/13/17 20:00 99.3 74 20 122/67 98 02/13/17 16:15 99.5 77 21 117/56 97 Room Air 02/13/17 12:00 97.7 70 18 136/58 96 Height (Feet): 5 Height (Inches): 8.00 Weight (Pounds): 155 General Appearance: no acute distress HEENT: mucous membranes moist Respiratory/Chest: lungs clear Cardiovascular: normal rate Abdomen: soft, non tender Extremities: no edema Neurologic/Psychiatric: other - sleeping Microbiology Date/Time Source Procedure Growth Status 02/11/17 19:43 Blood Blood Culture - Preliminary Staphylococcus Sp Coag Neg Resulted 02/11/17 19:15 Blood Blood Culture - Preliminary Staphylococcus Sp Coag Neg Resulted 02/11/17 20:45 Urine,Clean Catch Urine Culture - Final Escherichia Coli Proteus Mirabilis Complete 02/11/17 20:45 Urine,Ureter/Kidney Urine Culture - Final Escherichia Coli Complete Laboratory Tests Test 02/14/17 05:50 Urine Eosinophils Positive Current Medications Medications (Trade) Dose Ordered Sig/Tracee Route PRN Reason Start Time Stop Time Status Last Admin Dose Admin Acetaminophen (Tylenol) 650 mg Q4H PRN ORAL Mild Pain/Temp > 100.5 02/11/17 16:45 03/13/17 16:44 Dextrose/Sodium Chloride 1,000 ml @ 100 mls/hr Q10H IV 02/13/17 11:15 03/15/17 11:14 02/13/17 20:43 Divalproex Sodium (Depakote Sprinkles) 125 mg EVERY 12 HOURS ORAL 02/13/17 12:30 03/15/17 12:29 02/14/17 08:45 Docusate Sodium (Colace) 100 mg THREE TIMES A DAY ORAL 02/13/17 13:00 03/15/17 12:59 02/14/17 08:46 Donepezil HCl (Aricept) 5 mg QHS ORAL 02/13/17 21:00 03/15/17 20:59 02/13/17 20:41 Epoetin Mykel (Procrit (for non ESRD use)) 10,000 units WED-WED-WED SUBQ 02/12/17 21:00 03/14/17 20:59 02/12/17 21:15 Linezolid 300 ml @ 300 mls/hr Q12H IVPB 02/13/17 13:00 02/20/17 12:59 02/14/17 01:21 Mirtazapine (Remeron) 7.5 mg BEDTIME ORAL 02/11/17 21:00 03/13/17 20:59 02/13/17 20:41 Pantoprazole (Protonix) 40 mg DAILY ORAL 02/12/17 09:00 03/14/17 08:59 02/14/17 08:45 Piperacillin Sod/ Tazobactam Sod 2.25 gm/Dextrose 55 ml @ 110 mls/hr Q8HR IVPB 02/13/17 14:00 02/20/17 13:59 02/14/17 05:49 Tamsulosin HCl (Flomax) 0.4 mg BID ORAL 02/13/17 09:15 03/15/17 09:14 02/14/17 08:47 Zolpidem Tartrate (Ambien) 5 mg HSPRN PRN ORAL Insomnia 02/11/17 16:45 02/18/17 16:44 KAREY HAILE Feb 14, 2017 10:03
--- NOTE | 2017-02-14 10:20 | Diagnostic Imaging Report ---
Indication: Chest pain Technique: XRAY CHEST 1 V. Comparison: 02/12/17 Findings: The cardiomediastinal silhouette is unchanged. No new infiltrates are identified. Impression: No significant change from prior examination.
[2017-02-14 10:34] LABS: BASOPHILS % (AUTO) 0.6 % (0.0-2.0); EOSINOPHILS % (AUTO) 2.8 % (0.0-3.0); LYMPHOCYTES % (AUTO) 16.2 % (20.0-45.0); MEAN CORPUSCULAR HEMOGLOBIN 34.6 PG (27.0-31.0); MEAN CORPUSCULAR HGB CONC 33.2 G/DL (32.0-36.0); MEAN CORPUSCULAR VOLUME 104 FL (80-99); MONOCYTES % (AUTO) 8.5 % (1.0-10.0); NEUTROPHILS % (AUTO) 71.9 % (45.0-75.0); PLATELET COUNT 279 K/UL (150-450); RED BLOOD COUNT 2.49 M/UL (4.70-6.10); RED CELL DISTRIBUTION WIDTH 13.8 % (11.6-14.8); WHITE BLOOD COUNT 10.2 K/UL (4.8-10.8)
--- NOTE | 2017-02-14 10:50 | General Progress Note ---
Assessment/Plan Assessment/Plan IMPRESSION Dementia acute on chronic renal failure agitation incontinence confusion leukocytosis elevated PSA urinary retention hydronephrosis bacteremia ? contaminant onychomycosis PLAN antibiotics noted await further improvement renal US noted follow up labs await labs cxr negative renal noted uro noted updated son not stable for dc Subjective Allergies: Coded Allergies: No Known Allergies (Unverified , 02/11/17) info obtained from caregiver Subjective labs pending care reviewed ID noted d/w renal and uro Objective Last 24 Hour Vital Signs Date Time Temp Pulse Resp B/P (MAP) Pulse Ox O2 Delivery O2 Flow Rate FiO2 02/14/17 08:00 96.4 58 20 117/63 98 02/14/17 04:00 97.2 55 21 104/55 100 02/14/17 00:00 97.7 63 20 116/78 96 02/13/17 20:00 99.3 74 20 122/67 98 02/13/17 16:15 99.5 77 21 117/56 97 Room Air 02/13/17 12:00 97.7 70 18 136/58 96 Intake and Output 02/14/17 02/15/17 19:00 07:00 Intake Total 200 ml Balance 200 ml IV Total 200 ml Laboratory Tests 02/14/17 05:50: Urine Eosinophils Positive 02/14/17 10:20: White Blood Count [Pending], Red Blood Count [Pending], Hemoglobin [Pending], Hematocrit [Pending], Mean Corpuscular Volume [Pending], Mean Corpuscular Hemoglobin [Pending], Mean Corpuscular Hemoglobin Concent [Pending], Red Cell Distribution Width [Pending], Platelet Count [Pending], Mean Platelet Volume [ Pending], Neutrophils (%) (Auto) [Pending], Lymphocytes (%) (Auto) [Pending], Monocytes (%) (Auto) [Pending], Eosinophils (%) (Auto) [Pending], Basophils (%) (Auto) [Pending], Sodium Level [Pending], Potassium Level [Pending], Chloride Level [Pending], Carbon Dioxide Level [Pending], Blood Urea Nitrogen [Pending], Creatinine [Pending], Estimat Glomerular Filtration Rate [Pending], Glucose Level [Pending], Calcium Level [Pending], Phosphorus Level [Pending], Magnesium Level [Pending], Total Bilirubin [Pending], Aspartate Amino Transf (AST/SGOT) [ Pending], Alanine Aminotransferase (ALT/SGPT) [Pending], Alkaline Phosphatase [ Pending], Total Protein [Pending], Albumin [Pending], Globulin [Pending] Height (Feet): 5 Height (Inches): 8.00 Weight (Pounds): 155 Objective WDWN NAD clear breath sounds bilaterally without rhonchi or wheeze [id number] without MRG NABS nontender no HSM no CCE nonfocal WU SANTOS Feb 14, 2017 10:49
--- NOTE | 2017-02-14 11:19 | Nephrology Progress Note ---
Assessment/Plan Problem List: (1) Acute renal failure (2) Obstructive uropathy Assessment 1- Renal failure, etiology? Seems acute on chronic, rule out Obstruction 2- Anemia: Etiology ? CKD ? GI loss 3- Proteinuria Partly UTI, Partly Renal Ds Other conditions: - Dementia with periodic agitation - Urinary incontinence - High PSA Plan Plan: Kidney SALINA: verbal report , bilateral hydro and urinary retention: JOHNSON is in now Bladder scan: Zero urine was reported initially Anemia dinero monitor renal parameters avoid Nephrotoxics Urine studies per orders Subjective ROS Limited/Unobtainable: No Constitutional: Reports: malaise Objective Objective Last 24 Hour Vital Signs Date Time Temp Pulse Resp B/P (MAP) Pulse Ox O2 Delivery O2 Flow Rate FiO2 02/14/17 08:00 96.4 58 20 117/63 98 02/14/17 04:00 97.2 55 21 104/55 100 02/14/17 00:00 97.7 63 20 116/78 96 02/13/17 20:00 99.3 74 20 122/67 98 02/13/17 16:15 99.5 77 21 117/56 97 Room Air 02/13/17 12:00 97.7 70 18 136/58 96 Intake and Output 02/14/17 02/15/17 19:00 07:00 Intake Total 300 ml Balance 300 ml IV Total 300 ml Laboratory Tests 02/14/17 05:50: Urine Eosinophils Positive 02/14/17 10:20: White Blood Count 10.2#, Red Blood Count 2.49L, Hemoglobin 8.6L, Hematocrit 26.0L, Mean Corpuscular Volume 104H, Mean Corpuscular Hemoglobin 34.6H, Mean Corpuscular Hemoglobin Concent 33.2, Red Cell Distribution Width 13.8, Platelet Count 279, Mean Platelet Volume 6.0L, Neutrophils (%) (Auto) 71.9, Lymphocytes ( %) (Auto) 16.2L, Monocytes (%) (Auto) 8.5, Eosinophils (%) (Auto) 2.8, Basophils (%) (Auto) 0.6, Sodium Level [Pending], Potassium Level [Pending], Chloride Level [Pending], Carbon Dioxide Level [Pending], Blood Urea Nitrogen [ Pending], Creatinine [Pending], Estimat Glomerular Filtration Rate [Pending], Glucose Level [Pending], Calcium Level [Pending], Phosphorus Level [Pending], Magnesium Level [Pending], Total Bilirubin [Pending], Aspartate Amino Transf ( AST/SGOT) [Pending], Alanine Aminotransferase (ALT/SGPT) [Pending], Alkaline Phosphatase [Pending], Total Protein [Pending], Albumin [Pending], Globulin [ Pending] Height (Feet): 5 Height (Inches): 8.00 Weight (Pounds): 155 General Appearance: no apparent distress Objective no change KIERA MOY Feb 14, 2017 11:19
[2017-02-14 11:20] LABS: MAGNESIUM 1.9 MG/DL (1.8-2.4); PHOSPHORUS 4.1 MG/DL (2.5-4.9)
[2017-02-14 11:23] LABS: ALANINE AMINOTRANSFERASE 21 U/L (12-78); ALBUMIN/GLOBULIN RATIO 0.4 (1.0-2.7); ANION GAP 13 mmol/L (5-15); ASPARTATE AMINO TRANSFERASE 15 U/L (15-37); CALCIUM 7.6 MG/DL (8.5-10.1); CARBON DIOXIDE 18 MMOL/L (21-32); CHLORIDE 111 MMOL/L (98-107); CREATININE 3.9 MG/DL (0.55-1.30); POTASSIUM 3.3 MMOL/L (3.5-5.1); SODIUM 142 MMOL/L (136-145); TOTAL PROTEIN 6.7 G/DL (6.4-8.2)
--- NOTE | 2017-02-14 17:44 | Wound Care Consultation ---
Wound Assessment Wound Assessment #1: Wound Number: 1 Wound Present on Admission: Yes New Wound: No Status Change of Wound: No Wound Location Body Site Modif: left Wound Location Body Site: temporal region Wound Type: traumatic injury Jinny Test: Does not Jinny Wound Length: 2.0 Wound Width: 1.0 Wound Depth: utd Percent of Wound Purple/Maroon: 100 - dry Wound Drainage Amount: None Wound Drainage Odor: None/Absent Tissue Surrounding Wound: Intact Wound General Appearance: Reddened Wound Assessment #2: Wound Number: 2 Wound Present on Admission: Yes New Wound: No Status Change of Wound: No Wound Location Body Site Modif: right Wound Location Body Site: buttocks Wound Type: other - folloculitis Jinny Test: Does not Jinny Description: Single Site Wound Thickness: Full Thickness Wound Length: 0.2 Wound Width: 0.2 Wound Depth: utd Percent of Wound Bed Yellow/Wh: 100 Wound Drainage Amount: None Wound Drainage Odor: None/Absent Tissue Surrounding Wound: Intact Wound General Appearance: Open to air Wound Comment #1 Left temporal bone area traumatic dry wound. #2 Right buttock with one single folliculitis. Recommendation -Leave areas open to air -Assess and f/u with MD for s/s of infection -Optimize nutrition -Keep clean and dry BENJAMÍN AVENDANO RN Feb 14, 2017 17:44
[2017-02-14] MEDS: Donepezil 5mg Tab ORAL SCH (20:59)
[2017-02-14] MEDS: Zosyn 3.375gm q12h **Extended infusion IVPB SCH ×2 (22:04)
[2017-02-15 04:00] VITALS: BP 123/63
[2017-02-15 08:00] VITALS: BP 133/65
--- NOTE | 2017-02-15 08:52 | General Progress Note ---
Assessment/Plan Assessment/Plan IMPRESSION Dementia acute on chronic renal failure agitation incontinence confusion leukocytosis elevated PSA urinary retention hydronephrosis bacteremia ? contaminant onychomycosis PLAN antibiotics noted await further improvement and clearance by ID follow up labs cxr negative renal noted uro noted updated son as to plan not stable for dc as of yet impression, plan, and exam edited and reviewed in detail care discussed with RN Subjective Allergies: Coded Allergies: No Known Allergies (Unverified , 02/11/17) info obtained from caregiver Subjective labs pending care reviewed ID noted d/w renal and uro appears nontoxic Objective Last 24 Hour Vital Signs Date Time Temp Pulse Resp B/P (MAP) Pulse Ox O2 Delivery O2 Flow Rate FiO2 02/15/17 08:00 98.2 63 20 133/65 97 02/15/17 04:00 97.3 57 18 123/63 97 02/14/17 23:59 97.6 58 18 118/60 98 02/14/17 20:00 97.4 59 18 120/63 97 02/14/17 16:00 97.3 61 18 112/57 98 02/14/17 12:00 97.0 62 18 121/66 96 Laboratory Tests 02/14/17 10:20: White Blood Count 10.2#, Red Blood Count 2.49L, Hemoglobin 8.6L, Hematocrit 26.0L, Mean Corpuscular Volume 104H, Mean Corpuscular Hemoglobin 34.6H, Mean Corpuscular Hemoglobin Concent 33.2, Red Cell Distribution Width 13.8, Platelet Count 279, Mean Platelet Volume 6.0L, Neutrophils (%) (Auto) 71.9, Lymphocytes ( %) (Auto) 16.2L, Monocytes (%) (Auto) 8.5, Eosinophils (%) (Auto) 2.8, Basophils (%) (Auto) 0.6, Sodium Level 142, Potassium Level 3.3L, Chloride Level 111H, Carbon Dioxide Level 18L, Anion Gap 13, Blood Urea Nitrogen 74H, Creatinine 3.9H, Estimat Glomerular Filtration Rate , Glucose Level 151H, Calcium Level 7.6L, Phosphorus Level 4.1, Magnesium Level 1.9, Total Bilirubin 0.3, Aspartate Amino Transf (AST/SGOT) 15, Alanine Aminotransferase (ALT/SGPT) 21, Alkaline Phosphatase 64, Total Protein 6.7, Albumin 1.9L, Globulin 4.8, Albumin/Globulin Ratio 0.4L 02/15/17 05:50: Sodium Level [Pending], Potassium Level [Pending], Chloride Level [Pending], Carbon Dioxide Level [Pending], Blood Urea Nitrogen [Pending], Creatinine [ Pending], Estimat Glomerular Filtration Rate [Pending], Glucose Level [Pending] , Calcium Level [Pending], Magnesium Level [Pending], Total Bilirubin [Pending] , Aspartate Amino Transf (AST/SGOT) [Pending], Alanine Aminotransferase (ALT/ SGPT) [Pending], Alkaline Phosphatase [Pending], Total Protein [Pending], Albumin [Pending], Globulin [Pending], Random Vancomycin Level 10.3 02/15/17 07:15: Urine Eosinophils Occasional Height (Feet): 5 Height (Inches): 8.00 Weight (Pounds): 155 Objective WDWN NAD clear breath sounds bilaterally without rhonchi or wheeze [id number] without MRG NABS nontender no HSM no CCE nonfocal WU SANTOS Feb 15, 2017 08:51
[2017-02-15 09:02] LABS: ANION GAP 12 mmol/L (5-15); CALCIUM 7.8 MG/DL (8.5-10.1); CARBON DIOXIDE 20 MMOL/L (21-32); CHLORIDE 109 MMOL/L (98-107); CREATININE 3.5 MG/DL (0.55-1.30); POTASSIUM 4.8 MMOL/L (3.5-5.1); SODIUM 141 MMOL/L (136-145)
[2017-02-15 09:06] LABS: ALANINE AMINOTRANSFERASE 26 U/L (12-78); ALBUMIN/GLOBULIN RATIO 0.4 (1.0-2.7); ASPARTATE AMINO TRANSFERASE 26 U/L (15-37); MAGNESIUM 1.9 MG/DL (1.8-2.4); TOTAL PROTEIN 6.8 G/DL (6.4-8.2)
[2017-02-15] MEDS: Docusate 100mg cap ORAL SCH ×3 (09:22→18:14)
[2017-02-15] MEDS: Zosyn 3.375gm q12h **Extended infusion IVPB SCH ×2 (09:22)
[2017-02-15] MEDS: Tamsulosin 0.4mg cap ORAL SCH ×2 (09:22→18:14)
[2017-02-15] MEDS: Depakote 125mg Sprinkles ORAL SCH ×2 (09:23→20:36)
--- NOTE | 2017-02-15 10:04 | Nephrology Progress Note ---
Assessment/Plan Problem List: (1) Acute renal failure (2) Obstructive uropathy Assessment 1- Renal failure, etiology? cr lowering Seems acute on chronic, rule out Obstruction 2- Anemia: Etiology ? CKD ? GI loss 3- Proteinuria Partly UTI, Partly Renal Ds Other conditions: - Dementia with periodic agitation - Urinary incontinence - High PSA Plan Plan: Kidney SALINA: verbal report , bilateral hydro and urinary retention: JOHNSON is in now Bladder scan: Zero urine was reported initially Anemia dinero monitor renal parameters avoid Nephrotoxics Urine studies per orders Subjective ROS Limited/Unobtainable: No Constitutional: Reports: malaise Objective Objective Last 24 Hour Vital Signs Date Time Temp Pulse Resp B/P (MAP) Pulse Ox O2 Delivery O2 Flow Rate FiO2 02/15/17 08:00 98.2 63 20 133/65 97 02/15/17 04:00 97.3 57 18 123/63 97 02/14/17 23:59 97.6 58 18 118/60 98 02/14/17 20:00 97.4 59 18 120/63 97 02/14/17 16:00 97.3 61 18 112/57 98 02/14/17 12:00 97.0 62 18 121/66 96 Laboratory Tests 02/14/17 10:20: White Blood Count 10.2#, Red Blood Count 2.49L, Hemoglobin 8.6L, Hematocrit 26.0L, Mean Corpuscular Volume 104H, Mean Corpuscular Hemoglobin 34.6H, Mean Corpuscular Hemoglobin Concent 33.2, Red Cell Distribution Width 13.8, Platelet Count 279, Mean Platelet Volume 6.0L, Neutrophils (%) (Auto) 71.9, Lymphocytes ( %) (Auto) 16.2L, Monocytes (%) (Auto) 8.5, Eosinophils (%) (Auto) 2.8, Basophils (%) (Auto) 0.6, Sodium Level 142, Potassium Level 3.3L, Chloride Level 111H, Carbon Dioxide Level 18L, Anion Gap 13, Blood Urea Nitrogen 74H, Creatinine 3.9H, Estimat Glomerular Filtration Rate , Glucose Level 151H, Calcium Level 7.6L, Phosphorus Level 4.1, Magnesium Level 1.9, Total Bilirubin 0.3, Aspartate Amino Transf (AST/SGOT) 15, Alanine Aminotransferase (ALT/SGPT) 21, Alkaline Phosphatase 64, Total Protein 6.7, Albumin 1.9L, Globulin 4.8, Albumin/Globulin Ratio 0.4L 02/15/17 05:50: Sodium Level 141, Potassium Level 4.8, Chloride Level 109H, Carbon Dioxide Level 20L, Anion Gap 12, Blood Urea Nitrogen 61H, Creatinine 3.5H, Estimat Glomerular Filtration Rate , Glucose Level 124H, Calcium Level 7.8L, Magnesium Level 1.9, Total Bilirubin 0.3, Aspartate Amino Transf (AST/SGOT) 26, Alanine Aminotransferase (ALT/SGPT) 26, Alkaline Phosphatase 67, Total Protein 6.8, Albumin 2.1L, Globulin 4.7, Albumin/Globulin Ratio 0.4L, Random Vancomycin Level 10.3 02/15/17 07:15: Urine Eosinophils Occasional Height (Feet): 5 Height (Inches): 8.00 Weight (Pounds): 155 General Appearance: confused Objective no change KIERA MOY Feb 15, 2017 10:04
[2017-02-15 12:00] VITALS: BP 141/76
[2017-02-15] MEDS: D5 1/2NS 1,000 ML IV SCH (12:56)
--- NOTE | 2017-02-15 13:10 | Infectious Diseases Prog Note ---
Assessment/Plan Assessment/Plan A; Sepsis UTI with E. Coli & Proteus CoANS in blood likely contamination Acute renal failure Bilateral Hydronephrosis Dementia P: Change Zosyn to PO Levaquin Subjective ROS Limited/Unobtainable: Yes Allergies: Coded Allergies: No Known Allergies (Unverified , 02/11/17) info obtained from caregiver Objective Vital Signs Last 24 Hour Vital Signs Date Time Temp Pulse Resp B/P (MAP) Pulse Ox O2 Delivery O2 Flow Rate FiO2 02/15/17 12:00 97.3 59 20 141/76 99 02/15/17 08:00 98.2 63 20 133/65 97 02/15/17 04:00 97.3 57 18 123/63 97 02/14/17 23:59 97.6 58 18 118/60 98 02/14/17 20:00 97.4 59 18 120/63 97 02/14/17 16:00 97.3 61 18 112/57 98 Height (Feet): 5 Height (Inches): 8.00 Weight (Pounds): 155 General Appearance: no acute distress HEENT: mucous membranes moist Respiratory/Chest: lungs clear Cardiovascular: normal rate Extremities: no edema Neurologic/Psychiatric: alert, responsive, disoriented Laboratory Tests Test 02/15/17 05:50 02/15/17 07:15 Sodium Level 141 MMOL/L (136-145) Potassium Level 4.8 MMOL/L (3.5-5.1) Chloride Level 109 MMOL/L (98-107) H Carbon Dioxide Level 20 MMOL/L (21-32) L Anion Gap 12 mmol/L (5-15) Blood Urea Nitrogen 61 mg/dL (7-18) H Creatinine 3.5 MG/DL (0.55-1.30) H Estimat Glomerular Filtration Rate mL/min (>60) Glucose Level 124 MG/DL (74-106) H Calcium Level 7.8 MG/DL (8.5-10.1) L Magnesium Level 1.9 MG/DL (1.8-2.4) Total Bilirubin 0.3 MG/DL (0.2-1.0) Aspartate Amino Transf (AST/SGOT) 26 U/L (15-37) Alanine Aminotransferase (ALT/SGPT) 26 U/L (12-78) Alkaline Phosphatase 67 U/L (46-116) Total Protein 6.8 G/DL (6.4-8.2) Albumin 2.1 G/DL (3.4-5.0) L Globulin 4.7 g/dL Albumin/Globulin Ratio 0.4 (1.0-2.7) L Random Vancomycin Level 10.3 ug/mL Urine Eosinophils Occasional Current Medications Medications (Trade) Dose Ordered Sig/Tracee Route PRN Reason Start Time Stop Time Status Last Admin Dose Admin Acetaminophen (Tylenol) 650 mg Q4H PRN ORAL Mild Pain/Temp > 100.5 02/11/17 16:45 03/13/17 16:44 Dextrose/Sodium Chloride 1,000 ml @ 75 mls/hr [id number] IV 02/15/17 11:00 03/17/17 10:59 02/15/17 12:56 Divalproex Sodium (Depakote Sprinkles) 125 mg EVERY 12 HOURS ORAL 02/13/17 12:30 03/15/17 12:29 02/15/17 09:23 Docusate Sodium (Colace) 100 mg THREE TIMES A DAY ORAL 02/13/17 13:00 03/15/17 12:59 02/15/17 09:22 Donepezil HCl (Aricept) 10 mg QHS ORAL 02/15/17 21:00 03/17/17 20:59 Epoetin Mykle (Procrit (for non ESRD use)) 10,000 units WED-WED-WED SUBQ 02/12/17 21:00 03/14/17 20:59 02/12/17 21:15 Mirtazapine (Remeron) 7.5 mg BEDTIME ORAL 02/11/17 21:00 03/13/17 20:59 02/14/17 20:59 Pantoprazole (Protonix) 40 mg DAILY ORAL 02/12/17 09:00 03/14/17 08:59 02/15/17 09:23 Piperacillin Sod/ Tazobactam Sod 3.375 gm/Dextrose 55 ml @ 13.75 mls/ hr EVERY 12 HOURS IVPB 02/14/17 21:00 02/19/17 20:59 02/15/17 09:22 Tamsulosin HCl (Flomax) 0.4 mg BID ORAL 02/13/17 09:15 03/15/17 09:14 02/15/17 09:22 Zolpidem Tartrate (Ambien) 5 mg HSPRN PRN ORAL Insomnia 02/11/17 16:45 02/18/17 16:44 KAREY HAILE Feb 15, 2017 13:10
[2017-02-15 16:00] VITALS: BP 156/80
[2017-02-15] MEDS ORDERED: D5 1/2NS 1000ml IV ONE ×2 (16:54→16:57)
[2017-02-15 20:00] VITALS: BP 126/70
[2017-02-15] MEDS: Donepezil 10mg tab ORAL SCH (20:36)
[2017-02-15] MEDS: Epogen (for non ESRD use) SUBQ SCH (20:37)
[2017-02-16] VITALS: BP 147/78
[2017-02-16] MEDS: D5 1/2NS 1,000 ML IV SCH ×2 (00:38→14:40)
[2017-02-16 04:00] VITALS: BP 135/87
[2017-02-16 06:47] LABS: BASOPHILS % (AUTO) 0.9 % (0.0-2.0); EOSINOPHILS % (AUTO) 5.2 % (0.0-3.0); LYMPHOCYTES % (AUTO) 17.9 % (20.0-45.0); MEAN CORPUSCULAR HEMOGLOBIN 35.6 PG (27.0-31.0); MEAN CORPUSCULAR HGB CONC 34.4 G/DL (32.0-36.0); MEAN CORPUSCULAR VOLUME 103 FL (80-99); MEAN PLATELET VOLUME 6.4 FL (6.5-10.1); MONOCYTES % (AUTO) 8.5 % (1.0-10.0); NEUTROPHILS % (AUTO) 67.5 % (45.0-75.0); PLATELET COUNT 345 K/UL (150-450); RED BLOOD COUNT 2.88 M/UL (4.70-6.10); RED CELL DISTRIBUTION WIDTH 13.6 % (11.6-14.8); WHITE BLOOD COUNT 9.7 K/UL (4.8-10.8)
[2017-02-16 07:30] LABS: ALANINE AMINOTRANSFERASE 28 U/L (12-78); ALBUMIN/GLOBULIN RATIO 0.4 (1.0-2.7); ANION GAP 10 mmol/L (5-15); ASPARTATE AMINO TRANSFERASE 17 U/L (15-37); CALCIUM 8.7 MG/DL (8.5-10.1); CARBON DIOXIDE 23 MMOL/L (21-32); CHLORIDE 110 MMOL/L (98-107); CREATININE 3.5 MG/DL (0.55-1.30); CRP QUANT 5.1 mg/dL (0.00-0.90); MAGNESIUM 1.8 MG/DL (1.8-2.4); PHOSPHORUS 3.7 MG/DL (2.5-4.9); POTASSIUM 4.4 MMOL/L (3.5-5.1); SODIUM 143 MMOL/L (136-145); TOTAL PROTEIN 7.4 G/DL (6.4-8.2)
[2017-02-16 08:17] VITALS: BP 144/72
[2017-02-16] MEDS ORDERED: Flu Vaccine Quadrivalent 0.5ml IM ONE (10:00)
[2017-02-16] MEDS: Docusate 100mg cap ORAL SCH ×3 (10:42→17:56)
[2017-02-16] MEDS: Depakote 125mg Sprinkles ORAL SCH ×2 (10:43→21:19)
[2017-02-16] MEDS: Tamsulosin 0.4mg cap ORAL SCH ×2 (10:43→17:55)
[2017-02-16 11:34] VITALS: BP 141/77
--- NOTE | 2017-02-16 11:35 | General Progress Note ---
Assessment/Plan Assessment/Plan IMPRESSION Dementia acute on chronic renal failure agitation incontinence confusion leukocytosis elevated PSA urinary retention hydronephrosis bacteremia ? contaminant onychomycosis PLAN antibiotics noted await further improvement and clearance by ID follow up labs uro noted updated son as to plan not stable for dc as of yet await ID and renal clearance impression, plan, and exam edited and reviewed in detail care discussed with RN Subjective Allergies: Coded Allergies: No Known Allergies (Unverified , 02/11/17) info obtained from caregiver Subjective labs pending care reviewed ID noted d/w renal and uro appears nontoxic and comfortable Objective Last 24 Hour Vital Signs Date Time Temp Pulse Resp B/P (MAP) Pulse Ox O2 Delivery O2 Flow Rate FiO2 02/16/17 08:17 97.6 58 19 144/72 99 Room Air 02/16/17 04:00 98.1 72 19 135/87 92 02/16/17 04:00 Room Air 02/16/17 00:00 98.1 59 17 147/78 97 02/16/17 00:00 Room Air 02/15/17 20:00 97.9 61 19 126/70 97 02/15/17 20:00 Room Air 02/15/17 16:00 98.0 67 20 156/80 98 02/15/17 12:00 97.3 59 20 141/76 99 Intake and Output 02/16/17 02/17/17 19:00 07:00 # Bowel Movements 1 Laboratory Tests 02/15/17 19:20: Urine Osmolality 224L 02/16/17 04:55: White Blood Count 9.7, Red Blood Count 2.88L, Hemoglobin 10.2L, Hematocrit 29.8L , Mean Corpuscular Volume 103H, Mean Corpuscular Hemoglobin 35.6H, Mean Corpuscular Hemoglobin Concent 34.4, Red Cell Distribution Width 13.6, Platelet Count 345, Mean Platelet Volume 6.4L, Neutrophils (%) (Auto) 67.5, Lymphocytes ( %) (Auto) 17.9L, Monocytes (%) (Auto) 8.5, Eosinophils (%) (Auto) 5.2H, Basophils (%) (Auto) 0.9, Sodium Level 143, Potassium Level 4.4, Chloride Level 110H, Carbon Dioxide Level 23, Anion Gap 10, Blood Urea Nitrogen 49H, Creatinine 3.5H, Estimat Glomerular Filtration Rate , Glucose Level 118H, Uric Acid 6.0, Calcium Level 8.7, Phosphorus Level 3.7, Magnesium Level 1.8, Total Bilirubin 0.3, Aspartate Amino Transf (AST/SGOT) 17, Alanine Aminotransferase ( ALT/SGPT) 28, Alkaline Phosphatase 76, C-Reactive Protein, Quantitative 5.1H, Pro-B-Type Natriuretic Peptide 1872H, Total Protein 7.4, Albumin 2.1L, Globulin 5.3, Albumin/Globulin Ratio 0.4L Height (Feet): 5 Height (Inches): 8.00 Weight (Pounds): 155 Objective WDWN NAD clear breath sounds bilaterally without rhonchi or wheeze [id number] without MRG NABS nontender no HSM no CCE nonfocal WU SANTOS Feb 16, 2017 11:35
--- NOTE | 2017-02-16 11:47 | Nephrology Progress Note ---
Assessment/Plan Problem List: (1) Acute renal failure (2) Obstructive uropathy (3) Encephalopathy acute Assessment mental status somewhat improved 1- Renal failure, etiology? cr lowering. 3.5 stable Seems acute on chronic, rule out Obstruction 2- Anemia: Etiology ? CKD ? GI loss 3- Proteinuria Partly UTI, Partly Renal Ds Other conditions: - Dementia with periodic agitation - Urinary incontinence - High PSA Plan Plan: as is- OK to DC from renal stand point , foly stays in , Uro eval as out patient Kidney SALINA: verbal report , bilateral hydro and urinary retention: JOHNSON is in now Bladder scan: Zero urine was reported initially Anemia dinero monitor renal parameters avoid Nephrotoxics Urine studies per orders Subjective ROS Limited/Unobtainable: No Constitutional: Reports: malaise Objective Objective Last 24 Hour Vital Signs Date Time Temp Pulse Resp B/P (MAP) Pulse Ox O2 Delivery O2 Flow Rate FiO2 02/16/17 11:34 97.5 65 19 141/77 98 Room Air 02/16/17 08:17 97.6 58 19 144/72 99 Room Air 02/16/17 04:00 98.1 72 19 135/87 92 02/16/17 04:00 Room Air 02/16/17 00:00 98.1 59 17 147/78 97 02/16/17 00:00 Room Air 02/15/17 20:00 97.9 61 19 126/70 97 02/15/17 20:00 Room Air 02/15/17 16:00 98.0 67 20 156/80 98 02/15/17 12:00 97.3 59 20 141/76 99 Intake and Output 02/16/17 02/17/17 19:00 07:00 Intake Total 375 ml Balance 375 ml IV Total 375 ml # Bowel Movements 1 Laboratory Tests 02/15/17 19:20: Urine Osmolality 224L 02/16/17 04:55: White Blood Count 9.7, Red Blood Count 2.88L, Hemoglobin 10.2L, Hematocrit 29.8L , Mean Corpuscular Volume 103H, Mean Corpuscular Hemoglobin 35.6H, Mean Corpuscular Hemoglobin Concent 34.4, Red Cell Distribution Width 13.6, Platelet Count 345, Mean Platelet Volume 6.4L, Neutrophils (%) (Auto) 67.5, Lymphocytes ( %) (Auto) 17.9L, Monocytes (%) (Auto) 8.5, Eosinophils (%) (Auto) 5.2H, Basophils (%) (Auto) 0.9, Sodium Level 143, Potassium Level 4.4, Chloride Level 110H, Carbon Dioxide Level 23, Anion Gap 10, Blood Urea Nitrogen 49H, Creatinine 3.5H, Estimat Glomerular Filtration Rate , Glucose Level 118H, Uric Acid 6.0, Calcium Level 8.7, Phosphorus Level 3.7, Magnesium Level 1.8, Total Bilirubin 0.3, Aspartate Amino Transf (AST/SGOT) 17, Alanine Aminotransferase ( ALT/SGPT) 28, Alkaline Phosphatase 76, C-Reactive Protein, Quantitative 5.1H, Pro-B-Type Natriuretic Peptide 1872H, Total Protein 7.4, Albumin 2.1L, Globulin 5.3, Albumin/Globulin Ratio 0.4L Height (Feet): 5 Height (Inches): 8.00 Weight (Pounds): 155 General Appearance: confused Cardiovascular: normal rate Respiratory/Chest: lungs clear Abdomen: soft Objective no change KIERA MOY Feb 16, 2017 11:47
--- NOTE | 2017-02-16 12:25 | Infectious Diseases Prog Note ---
"Assessment/Plan Assessment/Plan antibiotics : levoquin A 1. e.coli | proteus UTI 2. + blood cultures with coag neg staph likely contaminated 3. renal failure improving 4. leucocytosis resolved P 1. continue levoquin until tomorrow 2. will follow up cultures Subjective Constitutional: Denies: fever, chills Respiratory: Denies: shortness of breath, dry cough Gastrointestinal/Abdominal: Denies: nausea, vomiting, diarrhea Musculoskeletal: Denies: pain Allergies: Coded Allergies: No Known Allergies (Unverified , 02/11/17) info obtained from caregiver Objective Vital Signs Last 24 Hour Vital Signs Date Time Temp Pulse Resp B/P (MAP) Pulse Ox O2 Delivery O2 Flow Rate FiO2 02/16/17 11:34 97.5 65 19 141/77 98 Room Air 02/16/17 08:17 97.6 58 19 144/72 99 Room Air 02/16/17 04:00 98.1 72 19 135/87 92 02/16/17 04:00 Room Air 02/16/17 00:00 98.1 59 17 147/78 97 02/16/17 00:00 Room Air 02/15/17 20:00 97.9 61 19 126/70 97 02/15/17 20:00 Room Air 02/15/17 16:00 98.0 67 20 156/80 98 Height (Feet): 5 Height (Inches): 8.00 Weight (Pounds): 155 Respiratory/Chest: lungs clear Cardiovascular: normal rate, regular rhythm, no gallop/murmur Abdomen: soft, non tender Extremities: no edema Laboratory Tests Test 02/15/17 19:20 02/16/17 04:55 Urine Osmolality 224 mOsm/kg (429-449) L White Blood Count 9.7 K/UL (4.8-10.8) Red Blood Count 2.88 M/UL (4.70-6.10) L Hemoglobin 10.2 G/DL (14.2-18.0) L Hematocrit 29.8 % (42.0-52.0) L Mean Corpuscular Volume 103 FL (80-99) H Mean Corpuscular Hemoglobin 35.6 PG (27.0-31.0) H Mean Corpuscular Hemoglobin Concent 34.4 G/DL (32.0-36.0) Red Cell Distribution Width 13.6 % (11.6-14.8) Platelet Count 345 K/UL (150-450) Mean Platelet Volume 6.4 FL (6.5-10.1) L Neutrophils (%) (Auto) 67.5 % (45.0-75.0) Lymphocytes (%) (Auto) 17.9 % (20.0-45.0) L Monocytes (%) (Auto) 8.5 % (1.0-10.0) Eosinophils (%) (Auto) 5.2 % (0.0-3.0) H Basophils (%) (Auto) 0.9 % (0.0-2.0) Sodium Level 143 MMOL/L (136-145) Potassium Level 4.4 MMOL/L (3.5-5.1) Chloride Level 110 MMOL/L (98-107) H Carbon Dioxide Level 23 MMOL/L (21-32) Anion Gap 10 mmol/L (5-15) Blood Urea Nitrogen 49 mg/dL (7-18) H Creatinine 3.5 MG/DL (0.55-1.30) H Estimat Glomerular Filtration Rate mL/min (>60) Glucose Level 118 MG/DL (74-106) H Uric Acid 6.0 MG/DL (2.6-7.2) Calcium Level 8.7 MG/DL (8.5-10.1) Phosphorus Level 3.7 MG/DL (2.5-4.9) Magnesium Level 1.8 MG/DL (1.8-2.4) Total Bilirubin 0.3 MG/DL (0.2-1.0) Aspartate Amino Transf (AST/SGOT) 17 U/L (15-37) Alanine Aminotransferase (ALT/SGPT) 28 U/L (12-78) Alkaline Phosphatase 76 U/L (46-116) C-Reactive Protein, Quantitative 5.1 mg/dL (0.00-0.90) H Pro-B-Type Natriuretic Peptide 1872 pg/mL (0-125) H Total Protein 7.4 G/DL (6.4-8.2) Albumin 2.1 G/DL (3.4-5.0) L Globulin 5.3 g/dL Albumin/Globulin Ratio 0.4 (1.0-2.7) L MACI MERCADO Feb 16, 2017 12:25"
[2017-02-16 15:46] VITALS: BP 135/78
--- NOTE | 2017-02-16 18:46 | Progress Note ---
DATE: 02/16/2017 UROLOGY PROGRESS NOTE SUBJECTIVE: The patient is currently laying in bed comfortably with a Mark catheter in place. The patient has been draining excellent urine and is without complaints. The patient's abdomen is soft and nontender. Genitourinary exam, Mark catheter is in place. Scrotum is without significant swelling. OBJECTIVE: VITAL SIGNS: He is afebrile. Pulse is 77, respiratory rate of 20, and blood pressure 135/78. HEAD AND NECK: Normal. ABDOMEN: Soft and nontender. LABORATORY DATA: The patient's laboratory values include white blood cell count 9.7 and hemoglobin 10.2. The patient has been treated for urine culture positive for E. coli. Currently, on Levaquin. Renal ultrasound shows bilateral moderate hydronephrosis and his creatinine has come down to 3.5. 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 He is on Flomax twice a day. I recommend that this be continued. If the patient seems to be retaining urine with the volume over 500 mL, then a Mark catheter may be reinserted and I will order that the bladder be scanned at least three times after the Mark catheter is removed and the Mark catheter can be reinserted if needed. Please call with any need for Urology input. Escobar Tracy DR: LAKSHMI JOB#: [id number] CC:
[2017-02-16] MEDS ORDERED: D5 1/2NS 1000ml IV ONE (18:56)
[2017-02-16 20:00] VITALS: BP 139/88
[2017-02-16] MEDS: Donepezil 10mg tab ORAL SCH (21:18)
--- NOTE | 2017-02-16 22:47 | Consultation ---
History of Present Illness General Date patient seen: Feb 15, 2017 Present Illness HPI 81 year old male with known mild renal insufficiency noted to have significant worsening in his labs on routine lab draw with worsening lab parameters. the complex care nurse practitioner was at bedside. the pt responds to internal stimuli and has mood lability. the pt has responded well to remeron. the pt would benefit from an antipsychotics however the family is oppose to that/ Allergies: Coded Allergies: No Known Allergies (Unverified , 02/11/17) info obtained from caregiver Medication History Scheduled Mirtazapine* (Remeron*), 7.5 MG ORAL BEDTIME, (Reported) Multivitamins* (Multivitamins*), 1 TAB ORAL DAILY, (Reported) Miscellaneous Medications Docusate Sodium* (Docusate Sodium*), 250 MG ORAL, (Reported) Patient History Limited by: medical condition History Provided By: Patient, Medical Record, Caregiver, PMD Healthcare decision maker Michele Brothers Resuscitation status Full Code Advanced Directive on File Past Medical/Surgical History Past Medical/Surgical History: (1) Acute renal failure (2) Obstructive uropathy (3) Parkinsonian syndrome (4) Depressed affect (5) abnormal gait (6) senile dementia, advanced (7) Encephalopathy acute Physical Exam Last 24 Hour Vital Signs Date Time Temp Pulse Resp B/P (MAP) Pulse Ox O2 Delivery O2 Flow Rate FiO2 02/16/17 20:00 97.9 68 20 139/88 98 Room Air 02/16/17 15:46 97.5 77 20 135/78 97 Room Air 02/16/17 11:34 97.5 65 19 141/77 98 Room Air 02/16/17 08:17 97.6 58 19 144/72 99 Room Air 02/16/17 04:00 98.1 72 19 135/87 92 02/16/17 04:00 Room Air 02/16/17 00:00 98.1 59 17 147/78 97 02/16/17 00:00 Room Air Intake and Output 02/16/17 02/17/17 19:00 07:00 Intake Total 1095 ml Output Total 1000 ml Balance 95 ml Intake Oral 720 ml IV Total 375 ml Output Urine Total 1000 ml # Bowel Movements 2 Laboratory Tests Test 02/16/17 04:55 White Blood Count 9.7 K/UL (4.8-10.8) Red Blood Count 2.88 M/UL (4.70-6.10) L Hemoglobin 10.2 G/DL (14.2-18.0) L Hematocrit 29.8 % (42.0-52.0) L Mean Corpuscular Volume 103 FL (80-99) H Mean Corpuscular Hemoglobin 35.6 PG (27.0-31.0) H Mean Corpuscular Hemoglobin Concent 34.4 G/DL (32.0-36.0) Red Cell Distribution Width 13.6 % (11.6-14.8) Platelet Count 345 K/UL (150-450) Mean Platelet Volume 6.4 FL (6.5-10.1) L Neutrophils (%) (Auto) 67.5 % (45.0-75.0) Lymphocytes (%) (Auto) 17.9 % (20.0-45.0) L Monocytes (%) (Auto) 8.5 % (1.0-10.0) Eosinophils (%) (Auto) 5.2 % (0.0-3.0) H Basophils (%) (Auto) 0.9 % (0.0-2.0) Sodium Level 143 MMOL/L (136-145) Potassium Level 4.4 MMOL/L (3.5-5.1) Chloride Level 110 MMOL/L (98-107) H Carbon Dioxide Level 23 MMOL/L (21-32) Anion Gap 10 mmol/L (5-15) Blood Urea Nitrogen 49 mg/dL (7-18) H Creatinine 3.5 MG/DL (0.55-1.30) H Estimat Glomerular Filtration Rate mL/min (>60) Glucose Level 118 MG/DL (74-106) H Uric Acid 6.0 MG/DL (2.6-7.2) Calcium Level 8.7 MG/DL (8.5-10.1) Phosphorus Level 3.7 MG/DL (2.5-4.9) Magnesium Level 1.8 MG/DL (1.8-2.4) Total Bilirubin 0.3 MG/DL (0.2-1.0) Aspartate Amino Transf (AST/SGOT) 17 U/L (15-37) Alanine Aminotransferase (ALT/SGPT) 28 U/L (12-78) Alkaline Phosphatase 76 U/L (46-116) C-Reactive Protein, Quantitative 5.1 mg/dL (0.00-0.90) H Pro-B-Type Natriuretic Peptide 1872 pg/mL (0-125) H Total Protein 7.4 G/DL (6.4-8.2) Albumin 2.1 G/DL (3.4-5.0) L Globulin 5.3 g/dL Albumin/Globulin Ratio 0.4 (1.0-2.7) L Height (Feet): 5 Height (Inches): 8.00 Weight (Pounds): 155 Medications Current Medications Medications (Trade) Dose Ordered Sig/Tracee Route PRN Reason Start Time Stop Time Status Last Admin Dose Admin Acetaminophen (Tylenol) 650 mg Q4H PRN ORAL Mild Pain/Temp > 100.5 02/11/17 16:45 03/13/17 16:44 Dextrose/Sodium Chloride 1,000 ml @ 75 mls/hr [id number] IV 02/15/17 11:00 03/17/17 10:59 02/16/17 14:40 Divalproex Sodium (Depakote Sprinkles) 125 mg EVERY 12 HOURS ORAL 02/13/17 12:30 03/15/17 12:29 02/16/17 21:19 Docusate Sodium (Colace) 100 mg THREE TIMES A DAY ORAL 02/13/17 13:00 03/15/17 12:59 02/16/17 17:56 Donepezil HCl (Aricept) 10 mg QHS ORAL 02/15/17 21:00 03/17/17 20:59 02/16/17 21:18 Epoetin Mykel (Procrit (for non ESRD use)) 10,000 units WED-WED-WED SUBQ 02/12/17 21:00 03/14/17 20:59 02/15/17 20:37 Levofloxacin (Levaquin) 250 mg DAILY ORAL 02/15/17 14:00 02/22/17 13:59 02/16/17 10:43 Mirtazapine (Remeron) 7.5 mg BEDTIME ORAL 02/11/17 21:00 03/13/17 20:59 02/16/17 21:18 Pantoprazole (Protonix) 40 mg DAILY ORAL 02/12/17 09:00 03/14/17 08:59 02/16/17 10:43 Tamsulosin HCl (Flomax) 0.4 mg BID ORAL 02/13/17 09:15 03/15/17 09:14 02/16/17 17:55 Zolpidem Tartrate (Ambien) 5 mg HSPRN PRN ORAL Insomnia 02/11/17 16:45 02/18/17 16:44 Assessment/Plan Status: stable Assessment/Plan dementia psychosis -remeron -Lashay Walker M.D. Feb 16, 2017 22:47
[2017-02-17] VITALS: BP 134/60
[2017-02-17] MEDS: D5 1/2NS 1,000 ML IV SCH (03:00)
[2017-02-17 04:00] VITALS: BP 142/82
[2017-02-17 08:38] VITALS: BP 167/87
[2017-02-17] MEDS: Depakote 125mg Sprinkles ORAL SCH ×2 (09:36→21:33)
[2017-02-17] MEDS: Docusate 100mg cap ORAL SCH ×4 (09:36→18:00)
[2017-02-17] MEDS: Tamsulosin 0.4mg cap ORAL SCH ×2 (09:36→17:25)
--- NOTE | 2017-02-17 10:58 | General Progress Note ---
Assessment/Plan Assessment/Plan IMPRESSION Dementia acute on chronic renal failure agitation incontinence confusion leukocytosis elevated PSA urinary retention hydronephrosis bacteremia ? contaminant onychomycosis PLAN ID noted await further improvement and clearance by ID follow up labs today uro noted- voiding trial updated son as to plan not stable for dc as of yet await ID and renal clearance hope to dc in am with uro followup impression, plan, and exam edited and reviewed in detail care discussed with RN Subjective Allergies: Coded Allergies: No Known Allergies (Unverified , 02/11/17) info obtained from caregiver Subjective labs pending for today care reviewed ID noted d/w renal and uro possible voiding trial today Objective Last 24 Hour Vital Signs Date Time Temp Pulse Resp B/P (MAP) Pulse Ox O2 Delivery O2 Flow Rate FiO2 02/17/17 08:38 97.4 111 20 167/87 95 Room Air 02/17/17 04:00 97.3 74 20 142/82 96 Room Air 02/17/17 00:00 97.7 66 20 134/60 98 Room Air 02/16/17 20:00 97.9 68 20 139/88 98 Room Air 02/16/17 15:46 97.5 77 20 135/78 97 Room Air 02/16/17 11:34 97.5 65 19 141/77 98 Room Air Height (Feet): 5 Height (Inches): 8.00 Weight (Pounds): 155 Objective WDWN NAD clear breath sounds bilaterally without rhonchi or wheeze [id number] without MRG NABS nontender no HSM no CCE nonfocal WU SANTOS Feb 17, 2017 10:58
[2017-02-17 12:06] VITALS: BP 156/79
--- NOTE | 2017-02-17 12:13 | Nephrology Progress Note ---
Assessment/Plan Problem List: (1) Acute renal failure (2) Obstructive uropathy (3) Encephalopathy acute Assessment mental status somewhat improved 1- Renal failure, etiology? cr lowering. 3.5 stable Seems acute on chronic, rule out Obstruction 2- Anemia: Etiology ? CKD ? GI loss 3- Proteinuria Partly UTI, Partly Renal Ds Other conditions: - Dementia with periodic agitation - Urinary incontinence - High PSA Plan Plan: as is- OK to DC from renal stand point , DC lopez and voiding trial per Uro Kidney SALINA: verbal report , bilateral hydro and urinary retention: LOPEZ is in now Bladder scan: Zero urine was reported initially Anemia dinero monitor renal parameters avoid Nephrotoxics Urine studies per orders Subjective ROS Limited/Unobtainable: No Objective Objective Last 24 Hour Vital Signs Date Time Temp Pulse Resp B/P (MAP) Pulse Ox O2 Delivery O2 Flow Rate FiO2 02/17/17 12:06 97.5 75 16 156/79 96 Room Air 02/17/17 08:38 97.4 111 20 167/87 95 Room Air 02/17/17 04:00 97.3 74 20 142/82 96 Room Air 02/17/17 00:00 97.7 66 20 134/60 98 Room Air 02/16/17 20:00 97.9 68 20 139/88 98 Room Air 02/16/17 15:46 97.5 77 20 135/78 97 Room Air Laboratory Tests 02/17/17 12:00: White Blood Count [Pending], Red Blood Count [Pending], Hemoglobin [Pending], Hematocrit [Pending], Mean Corpuscular Volume [Pending], Mean Corpuscular Hemoglobin [Pending], Mean Corpuscular Hemoglobin Concent [Pending], Red Cell Distribution Width [Pending], Platelet Count [Pending], Mean Platelet Volume [ Pending], Neutrophils (%) (Auto) [Pending], Lymphocytes (%) (Auto) [Pending], Monocytes (%) (Auto) [Pending], Eosinophils (%) (Auto) [Pending], Basophils (%) (Auto) [Pending], Sodium Level [Pending], Potassium Level [Pending], Chloride Level [Pending], Carbon Dioxide Level [Pending], Blood Urea Nitrogen [Pending], Creatinine [Pending], Estimat Glomerular Filtration Rate [Pending], Glucose Level [Pending], Calcium Level [Pending] Height (Feet): 5 Height (Inches): 8.00 Weight (Pounds): 155 General Appearance: no apparent distress, confused Cardiovascular: normal rate Respiratory/Chest: lungs clear Abdomen: soft Objective no change KIERA MOY Feb 17, 2017 12:13
--- NOTE | 2017-02-17 12:16 | Infectious Diseases Prog Note ---
"Assessment/Plan Assessment/Plan antibiotics : levoquin A 1. e.coli | proteus UTI s/p rx 2. + blood cultures with coag neg staph likely contaminated 3. renal failure improving 4. leucocytosis resolved P 1. d/c levoquin 2. observe off antibiotics Subjective Constitutional: Denies: fever, chills Respiratory: Denies: shortness of breath, dry cough Gastrointestinal/Abdominal: Denies: nausea, vomiting, diarrhea Musculoskeletal: Denies: pain Allergies: Coded Allergies: No Known Allergies (Unverified , 02/11/17) info obtained from caregiver Objective Vital Signs Last 24 Hour Vital Signs Date Time Temp Pulse Resp B/P (MAP) Pulse Ox O2 Delivery O2 Flow Rate FiO2 02/17/17 12:06 97.5 75 16 156/79 96 Room Air 02/17/17 08:38 97.4 111 20 167/87 95 Room Air 02/17/17 04:00 97.3 74 20 142/82 96 Room Air 02/17/17 00:00 97.7 66 20 134/60 98 Room Air 02/16/17 20:00 97.9 68 20 139/88 98 Room Air 02/16/17 15:46 97.5 77 20 135/78 97 Room Air Height (Feet): 5 Height (Inches): 8.00 Weight (Pounds): 155 Respiratory/Chest: lungs clear Cardiovascular: normal rate, regular rhythm, no gallop/murmur Abdomen: soft, non tender Extremities: no edema Laboratory Tests Test 02/17/17 12:00 White Blood Count Pending Red Blood Count Pending Hemoglobin Pending Hematocrit Pending Mean Corpuscular Volume Pending Mean Corpuscular Hemoglobin Pending Mean Corpuscular Hemoglobin Concent Pending Red Cell Distribution Width Pending Platelet Count Pending Mean Platelet Volume Pending Neutrophils (%) (Auto) Pending Lymphocytes (%) (Auto) Pending Monocytes (%) (Auto) Pending Eosinophils (%) (Auto) Pending Basophils (%) (Auto) Pending Sodium Level Pending Potassium Level Pending Chloride Level Pending Carbon Dioxide Level Pending Blood Urea Nitrogen Pending Creatinine Pending Estimat Glomerular Filtration Rate Pending Glucose Level Pending Calcium Level Pending MACI MERCADO Feb 17, 2017 12:16"
[2017-02-17 12:26] LABS: BASOPHILS % (AUTO) 1.3 % (0.0-2.0); EOSINOPHILS % (AUTO) 6.1 % (0.0-3.0); LYMPHOCYTES % (AUTO) 27.3 % (20.0-45.0); MEAN CORPUSCULAR HEMOGLOBIN 31.7 PG (27.0-31.0); MEAN CORPUSCULAR HGB CONC 30.6 G/DL (32.0-36.0); MEAN CORPUSCULAR VOLUME 104 FL (80-99); MEAN PLATELET VOLUME 5.5 FL (6.5-10.1); MONOCYTES % (AUTO) 10.2 % (1.0-10.0); NEUTROPHILS % (AUTO) 55.1 % (45.0-75.0); PLATELET COUNT 400 K/UL (150-450); RED BLOOD COUNT 3.29 M/UL (4.70-6.10); RED CELL DISTRIBUTION WIDTH 13.4 % (11.6-14.8); WHITE BLOOD COUNT 9.2 K/UL (4.8-10.8)
[2017-02-17 12:45] LABS: ANION GAP 9 mmol/L (5-15); CALCIUM 8.8 MG/DL (8.5-10.1); CARBON DIOXIDE 25 MMOL/L (21-32); CHLORIDE 110 MMOL/L (98-107); POTASSIUM 3.8 MMOL/L (3.5-5.1); SODIUM 144 MMOL/L (136-145)
[2017-02-17 16:30] VITALS: BP 130/78
[2017-02-17 20:00] VITALS: BP 143/82
[2017-02-17] MEDS ORDERED: Epogen (for non ESRD use) SUBQ SCH (21:00)
--- NOTE | 2017-02-17 21:30 | Progress Note ---
DATE: 02/17/2017 SUBJECTIVE: The patient is calm. Caregiver at bedside. No behavior issues. Still endorses auditory hallucination. Decreased agitation and cognitive impairment. MENTAL STATUS EXAMINATION: The patient is alert and disoriented. Mood is neutral. Affect is flat. Thought process, there is a paucity of thought content. Thought content, no suicidal or homicidal ideation. Positive auditory hallucinations. Cognition is impaired. ASSESSMENT: 1. Dementia. 2. Agitation. PLAN: 1. The patient will be continued on Remeron 7.5 mg at bedtime. 2. We will continue the risperidone. 3. We will continue to follow and readjust the medications. Lashay Flanagan M.D. DR: PHANI JOB#: [id number] CC:
[2017-02-17] MEDS: Donepezil 10mg tab ORAL SCH (21:32)
[2017-02-18] VITALS: BP 135/73
[2017-02-18 04:00] VITALS: BP 130/76
[2017-02-18 07:21] LABS: BASOPHILS % (AUTO) 1.1 % (0.0-2.0); EOSINOPHILS % (AUTO) 5.3 % (0.0-3.0); LYMPHOCYTES % (AUTO) 22.6 % (20.0-45.0); MEAN CORPUSCULAR HEMOGLOBIN 34.5 PG (27.0-31.0); MEAN CORPUSCULAR HGB CONC 33.3 G/DL (32.0-36.0); MEAN CORPUSCULAR VOLUME 104 FL (80-99); MEAN PLATELET VOLUME 6.6 FL (6.5-10.1); MONOCYTES % (AUTO) 9.2 % (1.0-10.0); NEUTROPHILS % (AUTO) 61.8 % (45.0-75.0); PLATELET COUNT 377 K/UL (150-450); RED BLOOD COUNT 2.85 M/UL (4.70-6.10); RED CELL DISTRIBUTION WIDTH 13.4 % (11.6-14.8); WHITE BLOOD COUNT 9.7 K/UL (4.8-10.8)
[2017-02-18 07:32] LABS: ANION GAP 8 mmol/L (5-15); CALCIUM 9.1 MG/DL (8.5-10.1); CARBON DIOXIDE 25 MMOL/L (21-32); CHLORIDE 110 MMOL/L (98-107); CREATININE 2.9 MG/DL (0.55-1.30); POTASSIUM 4.4 MMOL/L (3.5-5.1); SODIUM 143 MMOL/L (136-145)
[2017-02-18] MEDS: Depakote 125mg Sprinkles ORAL SCH (08:34)
[2017-02-18] MEDS: Tamsulosin 0.4mg cap ORAL SCH (08:34)
[2017-02-18] MEDS: Docusate 100mg cap ORAL SCH ×2 (08:34→13:08)
--- NOTE | 2017-02-18 08:44 | General Progress Note ---
Assessment/Plan Assessment/Plan IMPRESSION Dementia acute on chronic renal failure agitation incontinence confusion leukocytosis elevated PSA urinary retention hydronephrosis bacteremia ? contaminant onychomycosis PLAN dc home lopez out monitor renal function off antibiotics home health Subjective Allergies: Coded Allergies: No Known Allergies (Unverified , 02/11/17) info obtained from caregiver Subjective d/w son lopez out stable off antibiotics Objective Last 24 Hour Vital Signs Date Time Temp Pulse Resp B/P (MAP) Pulse Ox O2 Delivery O2 Flow Rate FiO2 02/18/17 04:00 97.2 58 20 130/76 98 Room Air 02/18/17 00:00 97.9 67 20 135/73 96 Room Air 02/17/17 20:00 97.9 75 20 143/82 95 Room Air 02/17/17 16:30 97.7 73 16 130/78 99 Room Air 02/17/17 12:06 97.5 75 16 156/79 96 Room Air Laboratory Tests 02/17/17 12:00: White Blood Count 9.2, Red Blood Count 3.29L, Hemoglobin 10.4L, Hematocrit 34.1L , Mean Corpuscular Volume 104H, Mean Corpuscular Hemoglobin 31.7H, Mean Corpuscular Hemoglobin Concent 30.6L, Red Cell Distribution Width 13.4, Platelet Count 400, Mean Platelet Volume 5.5L, Neutrophils (%) (Auto) 55.1, Lymphocytes (%) (Auto) 27.3, Monocytes (%) (Auto) 10.2H, Eosinophils (%) (Auto) 6.1H, Basophils (%) (Auto) 1.3, Sodium Level 144, Potassium Level 3.8, Chloride Level 110H, Carbon Dioxide Level 25, Anion Gap 9, Blood Urea Nitrogen 45H, Creatinine 3.0H, Estimat Glomerular Filtration Rate , Glucose Level 111H, Calcium Level 8.8 02/18/17 04:35: White Blood Count 9.7, Red Blood Count 2.85L, Hemoglobin 9.8L, Hematocrit 29.6L , Mean Corpuscular Volume 104H, Mean Corpuscular Hemoglobin 34.5H, Mean Corpuscular Hemoglobin Concent 33.3, Red Cell Distribution Width 13.4, Platelet Count 377, Mean Platelet Volume 6.6, Neutrophils (%) (Auto) 61.8, Lymphocytes (% ) (Auto) 22.6, Monocytes (%) (Auto) 9.2, Eosinophils (%) (Auto) 5.3H, Basophils (%) (Auto) 1.1, Sodium Level 143, Potassium Level 4.4, Chloride Level 110H, Carbon Dioxide Level 25, Anion Gap 8, Blood Urea Nitrogen 47H, Creatinine 2.9H, Estimat Glomerular Filtration Rate , Glucose Level 89, Calcium Level 9.1 Height (Feet): 5 Height (Inches): 8.00 Weight (Pounds): 155 Objective WDWN NAD clear breath sounds bilaterally without rhonchi or wheeze [id number] without MRG NABS nontender no HSM no CCE nonfocal WU SANTOS Feb 18, 2017 08:44
[2017-02-18 08:46] VITALS: BP 136/79
--- NOTE | 2017-02-18 10:15 | Infectious Diseases Prog Note ---
Assessment/Plan Assessment/Plan A; Sepsis UTI with E. Coli & Proteus s/p treatmen CoANS in blood likely contamination Acute renal failure Bilateral Hydronephrosis Dementia P: Observe off antibiotic Agree with discharge Subjective ROS Limited/Unobtainable: Yes Allergies: Coded Allergies: No Known Allergies (Unverified , 02/11/17) info obtained from caregiver Objective Vital Signs Last 24 Hour Vital Signs Date Time Temp Pulse Resp B/P (MAP) Pulse Ox O2 Delivery O2 Flow Rate FiO2 02/18/17 08:46 98.0 66 20 136/79 99 02/18/17 04:00 97.2 58 20 130/76 98 Room Air 02/18/17 00:00 97.9 67 20 135/73 96 Room Air 02/17/17 20:00 97.9 75 20 143/82 95 Room Air 02/17/17 16:30 97.7 73 16 130/78 99 Room Air 02/17/17 12:06 97.5 75 16 156/79 96 Room Air Height (Feet): 5 Height (Inches): 8.00 Weight (Pounds): 155 General Appearance: no acute distress HEENT: mucous membranes moist Respiratory/Chest: lungs clear Cardiovascular: normal rate Abdomen: soft, non tender Extremities: no edema Neurologic/Psychiatric: other - sleeping Laboratory Tests Test 02/17/17 12:00 02/18/17 04:35 White Blood Count 9.2 K/UL (4.8-10.8) 9.7 K/UL (4.8-10.8) Red Blood Count 3.29 M/UL (4.70-6.10) L 2.85 M/UL (4.70-6.10) L Hemoglobin 10.4 G/DL (14.2-18.0) L 9.8 G/DL (14.2-18.0) L Hematocrit 34.1 % (42.0-52.0) L 29.6 % (42.0-52.0) L Mean Corpuscular Volume 104 FL (80-99) H 104 FL (80-99) H Mean Corpuscular Hemoglobin 31.7 PG (27.0-31.0) H 34.5 PG (27.0-31.0) H Mean Corpuscular Hemoglobin Concent 30.6 G/DL (32.0-36.0) L 33.3 G/DL (32.0-36.0) Red Cell Distribution Width 13.4 % (11.6-14.8) 13.4 % (11.6-14.8) Platelet Count 400 K/UL (150-450) 377 K/UL (150-450) Mean Platelet Volume 5.5 FL (6.5-10.1) L 6.6 FL (6.5-10.1) Neutrophils (%) (Auto) 55.1 % (45.0-75.0) 61.8 % (45.0-75.0) Lymphocytes (%) (Auto) 27.3 % (20.0-45.0) 22.6 % (20.0-45.0) Monocytes (%) (Auto) 10.2 % (1.0-10.0) H 9.2 % (1.0-10.0) Eosinophils (%) (Auto) 6.1 % (0.0-3.0) H 5.3 % (0.0-3.0) H Basophils (%) (Auto) 1.3 % (0.0-2.0) 1.1 % (0.0-2.0) Sodium Level 144 MMOL/L (136-145) 143 MMOL/L (136-145) Potassium Level 3.8 MMOL/L (3.5-5.1) 4.4 MMOL/L (3.5-5.1) Chloride Level 110 MMOL/L (98-107) H 110 MMOL/L (98-107) H Carbon Dioxide Level 25 MMOL/L (21-32) 25 MMOL/L (21-32) Anion Gap 9 mmol/L (5-15) 8 mmol/L (5-15) Blood Urea Nitrogen 45 mg/dL (7-18) H 47 mg/dL (7-18) H Creatinine 3.0 MG/DL (0.55-1.30) H 2.9 MG/DL (0.55-1.30) H Estimat Glomerular Filtration Rate mL/min (>60) mL/min (>60) Glucose Level 111 MG/DL (74-106) H 89 MG/DL (74-106) Calcium Level 8.8 MG/DL (8.5-10.1) 9.1 MG/DL (8.5-10.1) Current Medications Medications (Trade) Dose Ordered Sig/Tracee Route PRN Reason Start Time Stop Time Status Last Admin Dose Admin Acetaminophen (Tylenol) 650 mg Q4H PRN ORAL Mild Pain/Temp > 100.5 02/11/17 16:45 03/13/17 16:44 Divalproex Sodium (Depakote Sprinkles) 125 mg EVERY 12 HOURS ORAL 02/13/17 12:30 03/15/17 12:29 02/18/17 08:34 Docusate Sodium (Colace) 100 mg THREE TIMES A DAY ORAL 02/13/17 13:00 03/15/17 12:59 02/18/17 08:34 Donepezil HCl (Aricept) 10 mg QHS ORAL 02/15/17 21:00 03/17/17 20:59 02/17/17 21:32 Epoetin Mykel (Procrit (for non ESRD use)) 7,500 units WED-WED-WED SUBQ 02/17/17 21:00 03/19/17 20:59 02/17/17 21:42 Mirtazapine (Remeron) 7.5 mg BEDTIME ORAL 02/11/17 21:00 03/13/17 20:59 02/17/17 21:32 Pantoprazole (Protonix) 40 mg DAILY ORAL 02/12/17 09:00 03/14/17 08:59 02/18/17 08:34 Risperidone (RisperDAL) 1 mg HSPRN PRN ORAL Agitation 02/17/17 18:45 03/19/17 18:44 Tamsulosin HCl (Flomax) 0.4 mg BID ORAL 02/13/17 09:15 03/15/17 09:14 02/18/17 08:34 Zolpidem Tartrate (Ambien) 5 mg HSPRN PRN ORAL Insomnia 02/11/17 16:45 02/18/17 16:44 KAREY HAILE Feb 18, 2017 10:15
--- NOTE | 2017-02-18 11:01 | Diagnostic Imaging Report ---
APPROVED REPORT CPT Code: 20301 Present Symptoms Comments: R/O DVT BILATERAL: Imaging reveals a patent deep venous system bilaterally. There is no evidence of thrombus within the femoral, popliteal or tibial segments. The greater saphenous veins are also within normal limits. Doppler indicates normal spontaneous flow within these segments.
[2017-02-18 12:09] VITALS: BP 130/80
--- NOTE | 2017-02-18 13:33 | Nephrology Progress Note ---
Assessment/Plan Problem List: (1) Acute renal failure (2) Obstructive uropathy (3) Encephalopathy acute Assessment Voiding without lopez - mental status somewhat improved 1- Renal failure, etiology? cr lowering. 2.9 now stable Seems acute on chronic, rule out Obstruction 2- Anemia: Etiology ? CKD ? GI loss 3- Proteinuria Partly UTI, Partly Renal Ds Other conditions: - Dementia with periodic agitation - Urinary incontinence - High PSA Plan Plan: as is- OK to DC from renal stand point , DC lopez and voiding trial per Uro Kidney SALINA: verbal report , bilateral hydro and urinary retention: LOPEZ is in now Bladder scan: Zero urine was reported initially Anemia dinero monitor renal parameters avoid Nephrotoxics Urine studies per orders Subjective ROS Limited/Unobtainable: No Constitutional: Reports: malaise Objective Objective Last 24 Hour Vital Signs Date Time Temp Pulse Resp B/P (MAP) Pulse Ox O2 Delivery O2 Flow Rate FiO2 02/18/17 12:09 97.8 73 20 130/80 98 Room Air 02/18/17 08:46 98.0 66 20 136/79 99 02/18/17 04:00 97.2 58 20 130/76 98 Room Air 02/18/17 00:00 97.9 67 20 135/73 96 Room Air 02/17/17 20:00 97.9 75 20 143/82 95 Room Air 02/17/17 16:30 97.7 73 16 130/78 99 Room Air Intake and Output 02/18/17 02/19/17 19:00 07:00 Intake Total 480 ml Balance 480 ml Intake Oral 480 ml # Voids 1 # Bowel Movements 1 Laboratory Tests 02/18/17 04:35: White Blood Count 9.7, Red Blood Count 2.85L, Hemoglobin 9.8L, Hematocrit 29.6L , Mean Corpuscular Volume 104H, Mean Corpuscular Hemoglobin 34.5H, Mean Corpuscular Hemoglobin Concent 33.3, Red Cell Distribution Width 13.4, Platelet Count 377, Mean Platelet Volume 6.6, Neutrophils (%) (Auto) 61.8, Lymphocytes (% ) (Auto) 22.6, Monocytes (%) (Auto) 9.2, Eosinophils (%) (Auto) 5.3H, Basophils (%) (Auto) 1.1, Sodium Level 143, Potassium Level 4.4, Chloride Level 110H, Carbon Dioxide Level 25, Anion Gap 8, Blood Urea Nitrogen 47H, Creatinine 2.9H, Estimat Glomerular Filtration Rate , Glucose Level 89, Calcium Level 9.1 Height (Feet): 5 Height (Inches): 8.00 Weight (Pounds): 155 General Appearance: no apparent distress Objective no change KIERA MOY Feb 18, 2017 13:33
[2017-02-18] MEDS ORDERED: FLOMAX0.4 MG ORAL (14:53)
[2017-02-18] MEDS ORDERED: DEPAKOTE SPRIN125 MG PO (14:54)
[2017-02-18 16:15] VITALS: BP 147/81
--- NOTE | 2017-02-19 05:00 | Progress Note ---
SUBJECTIVE: he patient was calm in bed, resting. No behavioral issues. Still has episodes of auditory hallucinations. MENTAL STATUS EXAMINATION: The patient is disoriented. Mood is neutral. Affect is constricted. Congruent mood. Thought process is concrete. Thought content, no suicidal or homicidal ideation. ASSESSMENT: Dementia and psychosis. PLAN: We will continue current medications. Lashay Flanagan M.D. DR: Brittany JOB#: [id number] CC:
--- NOTE | 2017-02-19 15:44 | Discharge Summary ---
Discharge Summary Hospital Course Date of Admission Feb 11, 2017 at 15:56 Date of Discharge Feb 18, 2017 at 18:27 Admitting Diagnosis HPI Zev Bautista is a 81 year old male who was admitted on Feb 11, 2017 at 15:56 for Acute Renal Failure Hospital Course [id number] Discharge Discharge Disposition Patient was discharged to Home with Home Health(06) Discharge Diagnoses: Dana Oneal NP Feb 19, 2017 15:44
--- NOTE | 2017-02-20 02:31 | Discharge Summary 2 SIG ---
DATE OF ADMISSION: 02/11/2017 DATE OF DISCHARGE: 02/18/2017 CONSULTANTS: 1. Lashay Flanagan M.D. 2. Roland Mohamud M.D. 3. April Orourke M.D. 4. Escobar Tracy M.D. 5. Steve Valero D.P.M. 6. Myles oBx M.D. BRIEF HOSPITAL COURSE: The patient is an 81-year-old male with known renal insufficiency and was noted to have significant worsening on his laboratories during routine blood draw. The patient was without any new intervention at home and is only using Remeron. He denied falls or any history of trauma. No fever or chills. He was direct admit and was admitted to medical floor for evaluation of acute renal failure. Creatinine was 4.7. Dr. Mohamud was consulted. Kidney ultrasound done showed moderate bilateral hydronephrosis with distended bladder. Mark catheter was unable to be inserted by the nurses. Dr. Tracy was then consulted and was able to insert a 16-Wolof Mark catheter. There was mild resistance in the bulbar urethra, however, clear urine was draining. He was given Flomax b.i.d. He was also seen by podiatry for onychomycosis and underwent debridement of nails. He was pancultured and was found to have gram-positive sepsis. He was initially started on vancomycin and cefepime. Urinalysis showed urine WBC too many to count with 3+ leukocyte esterase, negative nitrite. He underwent neurologic and psychiatric evaluation. The patient has progressive change in mental status with involuntary tremor and abnormal gait. 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 for mood stabilization. He was given Remeron 7.5 nightly. Antibiotic was switched to linezolid and was subsequently changed to Zosyn. Cultures showed growth of E. coli in urine and blood culture with growth of coagulase-negative Staph, suspect contaminant. Antibiotic was switched to Levaquin. His renal function improved. He also had an episode of anemia and received 2 units of packed RBC blood transfusion on 02/11/2017. He was placed on [facility]. The patient was observed off antibiotic treatment and Mark catheter was removed. He was voiding well. He was advised to continue Flomax twice a day. He came in with folliculitis on the right buttock and a traumatic wound on the left temporal bone. He was given wound treatment. He was eventually discharged home with home health. FINAL DIAGNOSES: 1. Acute on chronic renal failure. 2. Obstructive uropathy. 3. Acute encephalopathy. 4. Acute anemia, requiring blood transfusion. 5. Proteinuria. 6. Elevated PSA. 7. Urinary retention. 8. Hydronephrosis. 9. Bacteremia, possibly contaminant. 10. Urinary tract infection with Escherichia coli and Proteus. 11. Psychosis. 12. Onychomycosis, status post debridement of nails. DISPOSITION: The patient was discharged home with home health. DISCHARGE MEDICATIONS: Refer to medication list. FOLLOWUP: Follow up as an outpatient in a week. Catracho Marcos M.D. I have been assigned to dictate discharge summary on this account and I was not involved in the patient's management. Dana Oneal N.P. DR: Chao JOB#: [id number] CC:
== END 2017-02-18 18:27 | disposition home health service (06) | DRG 871 ==
LOC: 4E 15:56
PROC: 30233N1 Transfusion of Nonautologous Red Blood Cells into Peripheral Vein, Percutaneous Approach (ICD-10-PCS; principal; 2017-02-11)
PROC: 3E03328 Introduction of Oxazolidinones into Peripheral Vein, Percutaneous Approach (ICD-10-PCS; 2017-02-13)
DX: A41.9 Sepsis, unspecified organism (principal); G93.40 Encephalopathy, unspecified; N17.9 Acute kidney failure, unspecified; N13.30 Unspecified hydronephrosis; B35.1 Tinea unguium; N39.0 Urinary tract infection, site not specified; F03.90 Unspecified dementia, unspecified severity, without behavioral disturbance, psychotic disturbance, mood disturbance, and anxiety; N18.9 Chronic kidney disease, unspecified; R41.0 Disorientation, unspecified; R97.20 Elevated prostate specific antigen [PSA]; R26.9 Unspecified abnormalities of gait and mobility; R25.1 Tremor, unspecified; R32 Unspecified urinary incontinence; R45.1 Restlessness and agitation; N13.9 Obstructive and reflux uropathy, unspecified; R33.8 Other retention of urine; B96.20 Unspecified Escherichia coli [E. coli] as the cause of diseases classified elsewhere; B96.4 Proteus (mirabilis) (morganii) as the cause of diseases classified elsewhere; D64.9 Anemia, unspecified; L73.9 Follicular disorder, unspecified; S01.80XA Unspecified open wound of other part of head, initial encounter; X58.XXXA Exposure to other specified factors, initial encounter; Z23 Encounter for immunization
CPT/HCPCS: 36415; 71010; 76775; 80048; 80053; 80061; 80202; 81001; 82550; 82607; 82728; 82746; 82977; 83036; 83615; 83735; 83880; 83935; 84100; 84153; 84300; 84443; 84550; 85007; 85025; 85060; 86140; 86850; 86900; 86901; 86920; 87040; 87086; 87181; 89050; 90630; 93970

== ENCOUNTER 2018-02-17 21:33 | Inpatient (IN) | payer MEDICARE, BC ==
[~2018-02-17] VITALS: Ht 162.6 cm; Wt 73.7 kg
[~2018-02-17 21:33] MED LIST: DEPAKOTE SPRIN125 MG PO; DOCUSATE SODIU250 MG ORAL; FLOMAX0.4 MG ORAL; KALEXATE PO; MIRTAZAPINE15 MG ORAL; MULTIVITAMINS1 EAC2 ORAL
--- NOTE | 2018-02-17 21:57 | Emergency Room Report ---
History of Present Illness General Chief Complaint: Abnormal Labs Source: Medical Record, Caregiver Present Illness HPI Is an 82-year-old male with a history of chronic renal insufficiency not on dialysis. Also history of Parkinson. 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 Onset for last 3 days. Baseline he is more active. Now his been listless and not moving much. No nausea no vomiting. No fever chills. Recent blood work showed creatinine of 7.1. Baseline is around 4-4.5. No chest pain. No fever. No cough. Allergies: Coded Allergies: No Known Allergies (Unverified , 02/11/17) info obtained from caregiver Patient History Past Medical History: see triage record, old chart reviewed, HTN, renal disease Past Surgical History: other Pertinent Family History: none Social History: Denies: smoking Immunizations: other Reviewed Nursing Documentation: PMH: Agreed; PSxH: Agreed Nursing Documentation-PMH Past Medical History: No History, Except For Hx Cardiac Problems: No Hx Cancer: No Hx Gastrointestinal Problems: No - kidney failure Hx Neurological Problems: Yes - dementia Hx Dementia: Yes Hx Tremors: Yes Hx Weakness: Yes Review of Systems Constitutional: Reports: malaise, weakness Eye: Denies: eye pain, blurred vision ENT: Denies: ear pain, nose congestion, throat swelling Respiratory: Denies: cough, shortness of breath Cardiovascular: Denies: chest pain, palpitations Gastrointestinal: Denies: abdominal pain, diarrhea, nausea, vomiting Musculoskeletal: Denies: back pain, joint pain Skin: Denies: rash Neurological: Denies: headache, numbness Endocrine: Denies: increased thirst, increased urine Hematologic/Lymphatic: Denies: easy bruising All Other Systems: negative except mentioned in HPI Physical Exam Vital Signs Date Time Temp Pulse Resp B/P (MAP) Pulse Ox O2 Delivery O2 Flow Rate FiO2 02/17/18 21:40 98.1 60 18 122/72 95 Room Air vitals normal Sp02 EP Interpretation: reviewed, normal General Appearance: well appearing, no apparent distress, alert, Chronically Ill Head: normocephalic, atraumatic Eyes: bilateral eye PERRL, bilateral eye EOMI ENT: hearing grossly normal, normal pharynx Neck: full range of motion, supple, no meningismus Respiratory: chest non-tender, lungs clear, normal breath sounds Cardiovascular #1: regular rate, rhythm, no murmur Gastrointestinal: normal bowel sounds, non tender, no mass, no organomegaly, no bruit, non-distended Musculoskeletal: back normal, normal range of motion Psychiatric: mood/affect normal Skin: warm/dry Medical Decision Making Diagnostic Impression: Primary Impression: Acute metabolic encephalopathy Additional Impressions: Acute renal failure Qualified Codes: N17.9 - Acute kidney failure, unspecified UTI (urinary tract infection) Qualified Codes: N30.00 - Acute cystitis without hematuria Dehydration Proteinuria Qualified Codes: R80.9 - Proteinuria, unspecified ER Course Patient presents with acute on chronic renal failure secondary to dehydration from infection. Antibiotics given here. Fluids given here. No evidence of hyperkalemia. No evidence of ACS, PE, dissection to name a few. We'll admit for IV fluid, IV antibiotics and recheck. I contacted Dr. Berry for admission. Lab Results Impression labs with elevated BUN/creatinine EKG Diagnostic Results Rate: normal ST Segments: no acute changes Rhythm Strip Diag. Results Rhythm Strip Time: 00:45 EP Interpretation: yes Rate: 60 Rhythm: NSR, no PVC's, no ectopy Chest X-Ray Diagnostic Results Chest X-Ray Diagnostic Results : Chest X-Ray Ordered: Yes # of Views/Limited/Complete: 1 View Indication: Chest Pain EP Interpretation: Yes Interpretation: no consolidation, no effusion, no pneumothorax, no acute cardiopulmonary disease Impression: No acute disease Electronically Signed by: Forrest Conway MD Last Vital Signs Date Time Temp Pulse Resp B/P (MAP) Pulse Ox O2 Delivery O2 Flow Rate FiO2 02/17/18 21:40 98.1 60 18 122/72 95 Room Air Status: improved Disposition: ADMITTED INPATIENT Condition: Serious Forrest Conway MD Feb 17, 2018 21:57
[2018-02-17 22:11] VITALS: BP 122/72
[2018-02-17 22:19] LABS: BASOPHILS % (AUTO) 1.4 % (0.0-2.0); EOSINOPHILS % (AUTO) 2.3 % (0.0-3.0); HEMATOCRIT 41.4 % (42.0-52.0); HEMOGLOBIN 13.5 G/DL (14.2-18.0); LYMPHOCYTES % (AUTO) 16.6 % (20.0-45.0); MEAN CORPUSCULAR VOLUME 101 FL (80-99); NEUTROPHILS % (AUTO) 66.6 % (45.0-75.0); PLATELET COUNT 676 K/UL (150-450); RED BLOOD COUNT 4.08 M/UL (4.70-6.10); RED CELL DISTRIBUTION WIDTH 11.9 % (11.6-14.8); WHITE BLOOD COUNT 8.8 K/UL (4.8-10.8)
[2018-02-17 22:33] LABS: ANION GAP 16 mmol/L (5-15); BLOOD UREA NITROGEN 98 mg/dL (7-18); CALCIUM 8.8 MG/DL (8.5-10.1); CARBON DIOXIDE 18 MMOL/L (21-32); CHLORIDE 96 MMOL/L (98-107); CREATININE 6.8 MG/DL (0.55-1.30); POTASSIUM 4.9 MMOL/L (3.5-5.1); SODIUM 130 MMOL/L (136-145)
[2018-02-17 22:45] LABS: ALANINE AMINOTRANSFERASE 32 U/L (12-78); ALBUMIN/GLOBULIN RATIO 0.5 (1.0-2.7); ALKALINE PHOSPHATASE 152 U/L (46-116); ASPARTATE AMINO TRANSFERASE 12 U/L (15-37); BILIRUBIN,TOTAL 0.3 MG/DL (0.2-1.0); CKMB 1.7 NG/ML (0.0-3.6); CREATINE KINASE 51 U/L (26-308)
[2018-02-17 23:09] LABS: APPEARANCE,URINE VERY CLOUDY; BILIRUBIN, URINE NEGATIVE (NEGATIVE); COLOR,URINE PALE YELLOW; GLUCOSE, URINE (UA) NEGATIVE (NEGATIVE); KETONES,URINE NEGATIVE (NEGATIVE); LEUKOCYTE ESTERASE ,URINE 3+ (NEGATIVE); NITRITE,URINE NEGATIVE (NEGATIVE); PH,URINE 5 (4.5-8.0); PROTEIN,URINE 3+ (NEGATIVE); UROBILINOGEN,URINE NORMAL MG/DL (0.0-1.0)
[2018-02-18] VITALS (9 sets, daily range): BP systolic 106–164; BP diastolic 58–86
[2018-02-18] MEDS ORDERED: cefTRIAXone 1 GM in NS 55 ML IVPB ONE ×2
[2018-02-18] MEDS ORDERED: Sodium Chloride 500ML 500 ML IVLG SCH (00:49)
[2018-02-18 08:58] LABS: ANION GAP 13 mmol/L (5-15); BLOOD UREA NITROGEN 98 mg/dL (7-18); CARBON DIOXIDE 19 MMOL/L (21-32); CHLORIDE 102 MMOL/L (98-107); CREATININE 6.7 MG/DL (0.55-1.30); POTASSIUM 4.6 MMOL/L (3.5-5.1); SODIUM 134 MMOL/L (136-145)
[2018-02-18] MEDS: Sodium Bicarbonate 650mg Tab ORAL SCH ×3 (10:27→18:04)
[2018-02-18] MEDS: Heparin 5000 units/ml inj SUBQ SCH ×2 (10:28→20:54)
--- NOTE | 2018-02-18 13:47 | Diagnostic Imaging Report ---
Indication: Dyspnea Comparison: 11/29/2017 A single view chest radiograph was obtained. Findings: Left hilar calcifications are again noted. Heart size is normal. The aorta is mildly enlarged. The bones are osteopenic. Mild left basal atelectasis noted. IMPRESSION: No acute disease.
--- NOTE | 2018-02-18 16:00 | Cardiology Report ---
APPROVED REPORT EKG Measurement Heart [id number] Normal sinus rhythm Normal ECG
[2018-02-18] MEDS: Tamsulosin 0.4mg cap ORAL SCH (18:04)
--- NOTE | 2018-02-18 18:15 | Consultation ---
DATE OF CONSULTATION: 02/18/2018 DATE OF ADMISSION: 02/18/2018 DATE OF CONSULTATION: 02/18/2018 CONSULTING PHYSICIAN: Austin Kat M.D. REFERRING PHYSICIAN: Catracho Marcos M.D. REASON FOR CONSULTATION: 1. Acute kidney injury. 2. Chronic kidney disease, stage 5. HISTORY OF PRESENT ILLNESS: The patient is an 82-year-old gentleman with caregiver at bedside. The son makes medical decisions as the patient currently is not very verbal and also has known Parkinson's. He has history of renal dysfunction with baseline creatinine of approximately 4.5. Dialysis had been declined in the past. Currently, BUN is 98, creatinine 6.8 with hemoglobin of 13.5. PAST MEDICAL HISTORY: 1. Hypertension. 2. CKD, stage 5. 3. Metabolic acidosis. 4. BPH. ALLERGIES: No known drug allergies. SURGICAL HISTORY: Noncontributory. SOCIAL HISTORY: No tobacco, alcohol, or illicit drug use. LABORATORY DATA: Dated February 17, 2018, sodium 130, BUN 98, creatinine 6.8, chloride . Hemoglobin 13.5, white cell count 8.8, and platelet count 676,000. PHYSICAL EXAMINATION: VITAL SIGNS: Blood pressure 139/73, 93% oxygen saturation on room air, pulse 58, temperature 97.3. GENERAL: The patient is awake, flat affect, minimally verbal. HEENT: Extraocular muscles intact. No lymphadenopathy. Oropharyngeal mucosa is clear and dry. CARDIOVASCULAR: S1 and S2. No rubs or gallops. PULMONARY: Mild upper airway rhonchi. Fair air movement in all stephenson. ABDOMEN: Nondistended and nontender. EXTREMITIES: No edema. ASSESSMENT AND PLAN: 1. Acute kidney injury on chronic kidney disease, stage 5. At this time, we will try to contact the son with future [id number] decision care of decision regarding renal replacement therapy if necessary. We will repeat morning laboratories and discuss with the son the necessity of hemodialysis if such arises. 2. Weakness. The patient slightly uremic. BUN 98 yesterday. Repeat laboratories are pending. We will discuss with the son issue of hemodialysis. 3. Metabolic acidosis secondary to renal insufficiency. We will start oral bicarbonate. Continue IV hydration. We will also order renal ultrasound to ensure that the patient does not have RTA type 4 acidosis from obstruction. 4. Anemia. Hemoglobin currently stable. Let me take this opportunity to thank Dr. Marcos. Austin Kat MD DR: Emilia JOB#: [id number] CC:
--- NOTE | 2018-02-18 20:15 | History and Physical Report ---
DATE OF ADMISSION: 02/18/2018 REASON FOR ADMISSION: Renal failure. HISTORY OF PRESENT ILLNESS: This is an 82-year-old male who has known history of chronic kidney disease. Son has elected to have conservative management, does not want dialysis. The patient apparently was found to be a bit more restless, more fatigued, and blood work was done showing worsening renal function. The patient admitted for IV hydration. The patient's caregivers at the bedside. No other issues. No other concerns. The patient's urine output has decreased. The patient's blood work is now showing worsening renal function. Multiple discussions with the son regarding dialysis in the past, but the son has elected to treat his father conservatively due to advanced dementia. No fevers or chills. No falls or trauma. PAST MEDICAL HISTORY: Notable for the above, hypertension, chronic kidney disease, and worsening dementia. MEDICATIONS: Reviewed. ALLERGIES: Reviewed. SOCIAL HISTORY: He lives with caregiver. He has a son who is his durable power. REVIEW OF SYSTEMS: Unobtainable. PHYSICAL EXAMINATION: GENERAL: A well-developed male, appears to be comfortable. VITAL SIGNS: 98.3, pulse 58, respiratory rate 20, blood pressure 139/73, and sats 93%. HEENT: Overall negative. Extraocular movements are grossly intact. NECK: Supple. No adenopathy. LUNGS: Fairly clear. Symmetric. No rhonchi or wheezes. CARDIAC: Normal S1 and S2. Regular rate and rhythm without murmurs, rubs, or gallops. ABDOMEN: Soft, nontender, and nondistended. EXTREMITIES: No cyanosis, clubbing, or edema. NEUROLOGICAL: Very confused. LABORATORY DATA: Reviewed. BUN 98, creatinine 6.7, and sodium 134. CBC, white count 8.8, hematocrit 21, and platelets 676,000. IMPRESSION: 1. Acute on chronic renal failure. 2. Chronic encephalopathy. 3. Chronic dementia. 4. Mild hyponatremia. 5. Mild protein-calorie malnutrition. 6. Parkinsonism. 7. Gait disturbance. 8. Incontinence. 9. Obstructive uropathy. RECOMMENDATIONS: 1. Supportive care. 2. Resume medications from home. 3. IV hydration. 4. Renal evaluation. 5. Conservative management at present. 6. No plan for aggressive intervention. 7. We will update son and discuss code status. 8. We will continue to follow and recommend. Catracho Marcos M.D. DR: KHADIJAH JOB#: [id number] CC: LIZZY
[2018-02-18] MEDS: Depakote 125mg Sprinkles ORAL SCH (20:52)
--- NOTE | 2018-02-18 22:59 | Diagnostic Imaging Report ---
EXAM: US Retroperitoneal Limited, Renal CLINICAL HISTORY: RENAL-A TECHNIQUE: Real-time ultrasound of the retroperitoneum (limited) with image documentation. COMPARISON: 02/12/17. FINDINGS: Right kidney: The right kidney measures 9.4 cm in length. Moderate to severe right sided hydronephrosis. Left kidney: The left kidney measures 9.3 cm in length. Moderate to severe left-sided hydronephrosis. Bladder: Debris is seen within the bladder. Bilateral ureteral jets are noted. The bladder volume measures approximately 365 mL. IMPRESSION: Bilateral moderate to severe hydronephrosis. Debris within the bladder. Critical Value [employer] 02/18/18 23:11 Verify Receipt with Nurse Verified receipt with GUMARO Jay in 3E on 02/18 23:10 (-08:00)
[2018-02-19] VITALS (7 sets, daily range): BP systolic 86–201; BP diastolic 54–101
[2018-02-19 08:06] LABS: ANION GAP 13 mmol/L (5-15); BLOOD UREA NITROGEN 103 mg/dL (7-18); CALCIUM 8.6 MG/DL (8.5-10.1); CARBON DIOXIDE 17 MMOL/L (21-32); CHLORIDE 110 MMOL/L (98-107); CREATININE 6.7 MG/DL (0.55-1.30); POTASSIUM 4.9 MMOL/L (3.5-5.1); SODIUM 140 MMOL/L (136-145)
--- NOTE | 2018-02-19 08:07 | Nephrology Progress Note ---
Assessment/Plan Assessment/Plan A/P 1) NEENA on CKD 4- AM labs pending - per family request, No HD 2) B/L [place]- severe - consult Urology 3) Dementia- flat affect - comfort care Subjective Date patient seen: Feb 19, 2018 Time patient seen: 08:02 ROS Limited/Unobtainable: Yes Allergies: Coded Allergies: No Known Allergies (Unverified , 02/11/17) info obtained from caregiver Subjective Patient with flat affect. No overt distress Objective Last 24 Hour Vital Signs Date Time Temp Pulse Resp B/P (MAP) Pulse Ox O2 Delivery O2 Flow Rate FiO2 02/19/18 04:04 97.4 62 18 145/73 (97) 98 02/19/18 00:28 98.4 67 19 124/69 (87) 96 02/18/18 22:25 Room Air 02/18/18 20:00 98.2 84 19 158/86 (110) 96 02/18/18 15:57 98.2 64 20 141/69 (93) 99 02/18/18 12:00 98.1 54 19 106/58 (74) 97 02/18/18 10:13 60 133/69 (90) 02/18/18 09:00 Room Air Intake and Output 02/18/18 02/19/18 18:59 06:59 Intake Total 1185 ml 825 ml Balance 1185 ml 825 ml Intake Oral 435 ml IV Total 750 ml 825 ml # Voids 7 1 Laboratory Tests 02/18/18 08:30: Sodium Level 134L, Potassium Level 4.6, Chloride Level 102, Carbon Dioxide Level 19L, Anion Gap 13, Blood Urea Nitrogen 98H, Creatinine 6.7H, Estimat Glomerular Filtration Rate , Glucose Level 150H, Calcium Level 9.0 02/19/18 07:05: Sodium Level [Pending], Potassium Level [Pending], Chloride Level [Pending], Carbon Dioxide Level [Pending], Blood Urea Nitrogen [Pending], Creatinine [ Pending], Estimat Glomerular Filtration Rate [Pending], Glucose Level [Pending] , Calcium Level [Pending] Height (Feet): 5 Height (Inches): 4.00 Weight (Pounds): 160 General Appearance: no apparent distress, alert EENT: normal ENT inspection Neck: normal alignment, supple Cardiovascular: normal rate, regular rhythm Respiratory/Chest: lungs clear, normal breath sounds Abdomen: non tender, soft Edema: no edema noted Arm (L), no edema noted Arm (R), no edema noted Leg (L), no edema noted Leg (R), no edema noted Pedal (L), no edema noted Pedal (R), no edema noted Generalized Austin Kat MD Feb 19, 2018 08:07
[2018-02-19] MEDS: Tamsulosin 0.4mg cap ORAL SCH ×2 (08:59→18:34)
[2018-02-19] MEDS: Depakote 125mg Sprinkles ORAL SCH ×2 (08:59→21:22)
[2018-02-19] MEDS: Sodium Bicarbonate 650mg Tab ORAL SCH ×3 (08:59→18:34)
[2018-02-19] MEDS: Heparin 5000 units/ml inj SUBQ SCH ×2 (09:00→21:25)
[2018-02-19] MEDS ORDERED: Lidocaine HCl 2% Jelly 6ml Tube TOPIC SCH (10:45)
--- NOTE | 2018-02-19 15:34 | Pulmonology Progress Note ---
Assessment/Plan Assessment/Plan Pulmonary Progress Note REASON FOR ADMISSION: Renal failure. HISTORY OF PRESENT ILLNESS: This is an 82-year-old male who has known history of chronic kidney disease. Son has elected to have conservative management, does not want dialysis. The patient apparently was found to be a bit more restless, more fatigued, and blood work was done showing worsening renal function. The patient admitted for IV hydration. The patient's caregivers at the bedside. No other issues. No other concerns. The patient's urine output has decreased. The patient's blood work is now showing worsening renal function. Multiple discussions with the son about dialysis in the past, but the son has elected to treat his father conservatively due to advanced dementia. No fevers or chills. No falls or trauma. No new complaints PAST MEDICAL HISTORY: Notable for the above, hypertension, chronic kidney disease, and worsening dementia. MEDICATIONS: Reviewed. ALLERGIES: Reviewed. SOCIAL HISTORY: He lives with caregiver. He has a son who is his durable power. REVIEW OF SYSTEMS: Unobtainable. PHYSICAL EXAMINATION: GENERAL: A well-developed male, appears to be comfortable. VITAL SIGNS: , pulse 58, respiratory rate 20, blood pressure 139/73, and sats 93%. HEENT: Overall negative. Extraocular movements are grossly intact. NECK: Supple. No adenopathy. LUNGS: Fairly clear. Symmetric. No rhonchi or wheezes. CARDIAC: Normal S1 and S2. Regular rate and rhythm without murmurs, rubs, or gallops. ABDOMEN: Soft, nontender, and nondistended. EXTREMITIES: No cyanosis, clubbing, or edema. NEUROLOGICAL: Very confused. LABORATORY DATA: Reviewed. BUN 98, creatinine 6.7, and sodium 134. CBC, white count 8.8, hematocrit 21, and platelets 676,000. IMPRESSION: 1. Acute on chronic renal failure. 2. Chronic encephalopathy. 3. Chronic dementia. 4. Mild hyponatremia. 5. Mild protein-calorie malnutrition. 6. Parkinsonism. 7. Gait disturbance. 8. Incontinence. 9. Obstructive uropathy. RECOMMENDATIONS: 1. Supportive care. 2. Resume medications from home. 3. IV hydration. 4. Renal evaluation. 5. Conservative management at present. 6. No plan for aggressive intervention. 7. We will update son and discuss code status. 8. We will continue to follow and recommend. 9. Urology referral Subjective ROS Limited/Unobtainable: No Allergies: Coded Allergies: No Known Allergies (Unverified , 02/11/17) info obtained from caregiver Objective Last 24 Hour Vital Signs Date Time Temp Pulse Resp B/P (MAP) Pulse Ox O2 Delivery O2 Flow Rate FiO2 02/19/18 12:26 97.4 02/19/18 04:04 97.4 62 18 145/73 (97) 98 02/19/18 00:28 98.4 67 19 124/69 (87) 96 02/18/18 22:25 Room Air 02/18/18 20:00 98.2 84 19 158/86 (110) 96 02/18/18 15:57 98.2 64 20 141/69 (93) 99 Intake and Output 02/18/18 02/19/18 19:00 07:00 Intake Total 1260 ml 750 ml Balance 1260 ml 750 ml Intake Oral 435 ml IV Total 825 ml 750 ml # Voids 7 1 Microbiology Date/Time Source Procedure Growth Status 02/17/18 22:54 Urine,Clean Catch Urine Culture - Preliminary Strep Agalactiae Group B Resulted Laboratory Tests 02/19/18 07:05: Sodium Level 140, Potassium Level 4.9, Chloride Level 110H, Carbon Dioxide Level 17L, Anion Gap 13, Blood Urea Nitrogen 103H, Creatinine 6.7H, Estimat Glomerular Filtration Rate , Glucose Level 109H, Calcium Level 8.6 Current Medications Medications (Trade) Dose Ordered Sig/Tracee Route PRN Reason Start Time Stop Time Status Last Admin Dose Admin Divalproex Sodium (Depakote Sprinkles) 125 mg Q12HR ORAL 02/18/18 21:00 03/20/18 20:59 02/19/18 08:59 Heparin Sodium (Porcine) (Heparin 5000 units/ml) 5,000 units EVERY 12 HOURS SUBQ 02/18/18 10:15 03/20/18 10:14 02/19/18 09:00 Hydromorphone HCl (Dilaudid) 2 mg Q3H PRN IVP Severe Pain (Pain Scale 7-10) 02/19/18 10:45 02/26/18 10:44 02/19/18 11:56 Mirtazapine (Remeron) 7.5 mg BEDTIME ORAL 02/18/18 21:00 03/20/18 20:59 02/18/18 20:53 Multivitamins (Multivitamins) 1 tab DAILY ORAL 02/19/18 09:00 03/21/18 08:59 02/19/18 08:59 Sodium Bicarbonate (NaHCO3) 650 mg THREE TIMES A DAY ORAL 02/18/18 09:00 03/20/18 08:59 02/19/18 13:19 Sodium Chloride 1,000 ml @ 75 mls/hr [id number] IV 02/18/18 08:15 03/20/18 08:14 02/18/18 21:03 Tamsulosin HCl (Flomax) 0.4 mg BID ORAL 02/18/18 18:00 03/20/18 17:59 02/19/18 08:59 Marcin Patel MD Feb 19, 2018 15:34
[2018-02-19] MEDS ORDERED: HydrALAZINE 25mg tab ORAL PRN (21:00)
[2018-02-20] VITALS: BP 133/75
[2018-02-20 04:00] VITALS: BP 157/72
[2018-02-20 07:52] LABS: ANION GAP 13 mmol/L (5-15); BLOOD UREA NITROGEN 101 mg/dL (7-18); CALCIUM 8.7 MG/DL (8.5-10.1); CARBON DIOXIDE 17 MMOL/L (21-32); CHLORIDE 111 MMOL/L (98-107); CREATININE 6.5 MG/DL (0.55-1.30); POTASSIUM 5.3 MMOL/L (3.5-5.1); SODIUM 141 MMOL/L (136-145)
[2018-02-20 08:00] VITALS: BP 160/69
--- NOTE | 2018-02-20 08:25 | Nephrology Progress Note ---
Assessment/Plan Assessment/Plan A/P 1) NEENA on CKD 4- BUN 101/Cr 6.5 - per family request, No HD 2) B/L [place]- severe - Urology Dr Keating notified and consulted 3) Dementia- flat affect - comfort care 4) Mild Hyperkalemia- due to RTA 4 / obstruction-acidosis - recheck at 1 pm Subjective Date patient seen: Feb 20, 2018 Time patient seen: 08:21 ROS Limited/Unobtainable: Yes Allergies: Coded Allergies: No Known Allergies (Unverified , 02/11/17) info obtained from caregiver Subjective Patient with flat affect sleeping well Objective Last 24 Hour Vital Signs Date Time Temp Pulse Resp B/P (MAP) Pulse Ox O2 Delivery O2 Flow Rate FiO2 02/20/18 04:00 99.4 70 20 157/72 (100) 98 02/20/18 00:00 97.7 70 20 133/75 (94) 96 02/19/18 21:00 Room Air 02/19/18 21:00 98.5 87 18 133/96 (108) 94 02/19/18 20:00 97.8 88 18 201/101 (134) 98 02/19/18 16:00 97.8 76 18 130/89 (103) 98 02/19/18 12:26 97.4 02/19/18 12:00 97.8 76 18 86/54 (65) 98 02/19/18 09:00 Room Air Intake and Output 02/19/18 02/20/18 19:00 07:00 Intake Total 350 ml Output Total 1300 ml 1450 ml Balance -950 ml -1450 ml Intake Oral 350 ml Output Urine Total 1300 ml 1450 ml # Voids 3 Laboratory Tests 02/20/18 06:40: Sodium Level 141, Potassium Level 5.3H, Chloride Level 111H, Carbon Dioxide Level 17L, Anion Gap 13, Blood Urea Nitrogen 101H, Creatinine 6.5H, Estimat Glomerular Filtration Rate , Glucose Level 100, Calcium Level 8.7 Height (Feet): 5 Height (Inches): 4.00 Weight (Pounds): 160 General Appearance: no apparent distress EENT: normal ENT inspection Neck: normal alignment, supple Cardiovascular: normal rate, regular rhythm Respiratory/Chest: lungs clear, normal breath sounds Abdomen: non tender, soft Edema: no edema noted Arm (L), no edema noted Arm (R), no edema noted Leg (L), no edema noted Leg (R), no edema noted Pedal (L), no edema noted Pedal (R), no edema noted Generalized Austin Kat MD Feb 20, 2018 08:25
[2018-02-20] MEDS: Sodium Bicarbonate 650mg Tab ORAL SCH ×3 (08:55→18:29)
[2018-02-20] MEDS: Tamsulosin 0.4mg cap ORAL SCH ×2 (08:55→18:29)
[2018-02-20] MEDS: Heparin 5000 units/ml inj SUBQ SCH ×2 (08:56→20:31)
[2018-02-20] MEDS: Depakote 125mg Sprinkles ORAL SCH ×2 (08:56→20:28)
[2018-02-20 12:00] VITALS: BP 154/73
[2018-02-20 16:00] VITALS: BP 135/69
[2018-02-20 20:00] VITALS: BP 158/85
--- NOTE | 2018-02-20 21:25 | Pulmonology Progress Note ---
Assessment/Plan Assessment/Plan Pulmonary Progress Note REASON FOR ADMISSION: Renal failure. HISTORY OF PRESENT ILLNESS: This is an 82-year-old male who has known history of chronic kidney disease. Son has elected to have conservative management, does not want dialysis. The patient apparently was found to be a bit more restless, more fatigued, and blood work was done showing worsening renal function. The patient admitted for IV hydration. The patient's caregivers at the bedside. No other issues. No other concerns. The patient's urine output has decreased. The patient's blood work is now showing worsening renal function. Multiple discussions with the son about dialysis in the past, but the son has elected to treat his father conservatively due to advanced dementia. No fevers or chills. No falls or trauma. No new complaints PAST MEDICAL HISTORY: Notable for the above, hypertension, chronic kidney disease, and worsening dementia. MEDICATIONS: Reviewed. ALLERGIES: Reviewed. SOCIAL HISTORY: He lives with caregiver. He has a son who is his durable power. REVIEW OF SYSTEMS: Unobtainable. PHYSICAL EXAMINATION: GENERAL: A well-developed male, appears to be comfortable. VITAL SIGNS: , pulse 58, respiratory rate 20, blood pressure 139/73, and sats 93%. HEENT: Overall negative. Extraocular movements are grossly intact. NECK: Supple. No adenopathy. LUNGS: Fairly clear. Symmetric. No rhonchi or wheezes. CARDIAC: Normal S1 and S2. Regular rate and rhythm without murmurs, rubs, or gallops. ABDOMEN: Soft, nontender, and nondistended. EXTREMITIES: No cyanosis, clubbing, or edema. NEUROLOGICAL: Very confused. LABORATORY DATA: Reviewed. BUN 98, creatinine 6.7, and sodium 134. CBC, white count 8.8, hematocrit 21, and platelets 676,000. IMPRESSION: 1. Acute on chronic renal failure. 2. Chronic encephalopathy. 3. Chronic dementia. 4. Mild hyponatremia. 5. Mild protein-calorie malnutrition. 6. Parkinsonism. 7. Gait disturbance. 8. Incontinence. 9. Obstructive uropathy. RECOMMENDATIONS: 1. Supportive care. 2. Resume medications from home. 3. IV hydration. 4. Renal evaluation. 5. Conservative management at present. 6. No plan for aggressive intervention. 7. We will update son and discuss code status. 8. We will continue to follow and recommend. 9. Urology referral Subjective ROS Limited/Unobtainable: No Allergies: Coded Allergies: No Known Allergies (Unverified , 02/11/17) info obtained from caregiver Objective Last 24 Hour Vital Signs Date Time Temp Pulse Resp B/P (MAP) Pulse Ox O2 Delivery O2 Flow Rate FiO2 02/20/18 18:00 97.9 02/20/18 16:00 99.6 67 18 135/69 (91) 98 02/20/18 12:00 99.1 63 18 154/73 (100) 97 02/20/18 09:00 Room Air 02/20/18 08:55 66 160/69 02/20/18 08:00 99.1 66 18 160/69 (99) 96 02/20/18 04:00 99.4 70 20 157/72 (100) 98 02/20/18 00:00 97.7 70 20 133/75 (94) 96 Intake and Output 02/19/18 02/20/18 19:00 07:00 Intake Total 350 ml 75 ml Output Total 1300 ml 1450 ml Balance -950 ml -1375 ml Intake Oral 350 ml IV Total 75 ml Output Urine Total 1300 ml 1450 ml # Voids 3 Microbiology Date/Time Source Procedure Growth Status 02/19/18 12:30 Indwelling Cath Urine Culture - Preliminary Resulted 02/17/18 22:54 Urine,Clean Catch Urine Culture - Final Strep Agalactiae Group B Complete Laboratory Tests 02/20/18 06:40: Sodium Level 141, Potassium Level 5.3H, Chloride Level 111H, Carbon Dioxide Level 17L, Anion Gap 13, Blood Urea Nitrogen 101H, Creatinine 6.5H, Estimat Glomerular Filtration Rate , Glucose Level 100, Calcium Level 8.7 02/20/18 15:00: Potassium Level 5.0 Current Medications Medications (Trade) Dose Ordered Sig/Tracee Route PRN Reason Start Time Stop Time Status Last Admin Dose Admin Amlodipine Besylate (Norvasc) 5 mg DAILY ORAL 02/20/18 09:00 03/22/18 08:59 02/20/18 08:55 Divalproex Sodium (Depakote Sprinkles) 125 mg Q12HR ORAL 02/18/18 21:00 03/20/18 20:59 02/20/18 20:28 Heparin Sodium (Porcine) (Heparin 5000 units/ml) 5,000 units EVERY 12 HOURS SUBQ 02/18/18 10:15 03/20/18 10:14 02/20/18 20:31 Hydralazine HCl (Apresoline) 25 mg Q6H PRN ORAL For High Blood Pressure 02/19/18 21:00 03/21/18 20:59 Hydromorphone HCl (Dilaudid) 2 mg Q3H PRN IVP Severe Pain (Pain Scale 7-10) 02/19/18 10:45 02/26/18 10:44 02/20/18 16:12 Mirtazapine (Remeron) 7.5 mg BEDTIME ORAL 02/18/18 21:00 03/20/18 20:59 02/20/18 20:28 Multivitamins (Multivitamins) 1 tab DAILY ORAL 02/19/18 09:00 03/21/18 08:59 02/20/18 08:55 Sodium Bicarbonate (NaHCO3) 650 mg THREE TIMES A DAY ORAL 02/18/18 09:00 03/20/18 08:59 02/20/18 18:29 Sodium Chloride 1,000 ml @ 75 mls/hr [id number] IV 02/18/18 08:15 03/20/18 08:14 02/20/18 14:13 Tamsulosin HCl (Flomax) 0.4 mg BID ORAL 02/18/18 18:00 03/20/18 17:59 02/20/18 18:29 Marcin Patel MD Feb 20, 2018 21:24
[2018-02-21] VITALS: BP 151/79
[2018-02-21 04:00] VITALS: BP 158/78
[2018-02-21 08:00] VITALS: BP 150/78
--- NOTE | 2018-02-21 08:28 | Nephrology Progress Note ---
Assessment/Plan Assessment/Plan A/P 1) NEENA on CKD 4 - per family request, No HD - am labs pending, lopez in place - OK for DC from renal standpoint 2) B/L [place]- severe - Urology Dr Keating notified and consulted 3) Dementia- flat affect - comfort care 4) Mild Hyperkalemia- due to RTA 4 / obstruction-acidosis - am labs pending Subjective Date patient seen: Feb 21, 2018 Time patient seen: 08:25 ROS Limited/Unobtainable: Yes Allergies: Coded Allergies: No Known Allergies (Unverified , 02/11/17) info obtained from caregiver Subjective Patient in no overt distress. Caregiver at bedside Objective Last 24 Hour Vital Signs Date Time Temp Pulse Resp B/P (MAP) Pulse Ox O2 Delivery O2 Flow Rate FiO2 02/21/18 08:00 99.5 59 18 150/78 (102) 98 02/21/18 04:00 98.2 62 22 158/78 (104) 95 02/21/18 00:00 98.5 63 18 151/79 (103) 96 02/20/18 21:00 Room Air 02/20/18 20:00 99.0 68 18 158/85 (109) 97 02/20/18 18:00 97.9 02/20/18 16:00 99.6 67 18 135/69 (91) 98 02/20/18 12:00 99.1 63 18 154/73 (100) 97 02/20/18 09:00 Room Air 02/20/18 08:55 66 160/69 Intake and Output 02/20/18 02/21/18 19:00 07:00 Intake Total 1620 ml 825 ml Output Total 900 ml 1200 ml Balance 720 ml -375 ml Intake Oral 720 ml IV Total 900 ml 825 ml Output Urine Total 900 ml 1200 ml Laboratory Tests 02/20/18 15:00: Potassium Level 5.0 Height (Feet): 5 Height (Inches): 4.00 Weight (Pounds): 160 General Appearance: no apparent distress, alert EENT: normal ENT inspection Neck: normal alignment, supple Cardiovascular: normal rate, regular rhythm Respiratory/Chest: lungs clear, normal breath sounds Abdomen: non tender, soft Edema: no edema noted Arm (L), no edema noted Arm (R), no edema noted Leg (L), no edema noted Leg (R), no edema noted Pedal (L), no edema noted Pedal (R), no edema noted Generalized Austin Kat MD Feb 21, 2018 08:28
[2018-02-21 09:01] LABS: ANION GAP 14 mmol/L (5-15); BLOOD UREA NITROGEN 93 mg/dL (7-18); CALCIUM 8.4 MG/DL (8.5-10.1); CARBON DIOXIDE 17 MMOL/L (21-32); CHLORIDE 112 MMOL/L (98-107); CREATININE 6.1 MG/DL (0.55-1.30); SODIUM 143 MMOL/L (136-145)
--- NOTE | 2018-02-21 09:18 | General Progress Note ---
Assessment/Plan Assessment/Plan IMPRESSION: 1. Acute on chronic renal failure. 2. Chronic encephalopathy. 3. Chronic dementia. 4. Mild hyponatremia. 5. Mild protein-calorie malnutrition. 6. Parkinsonism. 7. Gait disturbance. 8. Incontinence. 9. Obstructive uropathy with hydronephrosis PLAN ? dc lopez urology pending await nephro to clear son confirms conservative care and does not want HD will dispo hopefully today pending final clearance impression, plan, and exam edited and reviewed in detail care discussed with RN Subjective ROS Limited/Unobtainable: Yes Allergies: Coded Allergies: No Known Allergies (Unverified , 02/11/17) info obtained from caregiver Subjective care noted comfortable d/w son d/w nephro Objective Last 24 Hour Vital Signs Date Time Temp Pulse Resp B/P (MAP) Pulse Ox O2 Delivery O2 Flow Rate FiO2 02/21/18 08:00 99.5 59 18 150/78 (102) 98 02/21/18 04:00 98.2 62 22 158/78 (104) 95 02/21/18 00:00 98.5 63 18 151/79 (103) 96 02/20/18 21:00 Room Air 02/20/18 20:00 99.0 68 18 158/85 (109) 97 02/20/18 18:00 97.9 02/20/18 16:00 99.6 67 18 135/69 (91) 98 02/20/18 12:00 99.1 63 18 154/73 (100) 97 Intake and Output 02/20/18 02/21/18 19:00 07:00 Intake Total 1620 ml 825 ml Output Total 900 ml 1200 ml Balance 720 ml -375 ml Intake Oral 720 ml IV Total 900 ml 825 ml Output Urine Total 900 ml 1200 ml Laboratory Tests 02/20/18 15:00: Potassium Level 5.0 02/21/18 06:45: Potassium Level 5.0, Sodium Level 143, Chloride Level 112H, Carbon Dioxide Level 17L, Anion Gap 14, Blood Urea Nitrogen 93H, Creatinine 6.1H, Estimat Glomerular Filtration Rate , Glucose Level 81, Calcium Level 8.4L Height (Feet): 5 Height (Inches): 4.00 Weight (Pounds): 160 Objective WDWN NAD clear breath sounds bilaterally without rhonchi or wheeze [id number] without MRG NABS nontender no HSM no CCE nonfocal no distress confused Catracho Marcos MD Feb 21, 2018 09:18
[2018-02-21] MEDS: Sodium Bicarbonate 650mg Tab ORAL SCH ×3 (09:25→17:32)
[2018-02-21] MEDS: Depakote 125mg Sprinkles ORAL SCH ×2 (09:26→21:07)
[2018-02-21] MEDS: Tamsulosin 0.4mg cap ORAL SCH ×2 (09:26→17:32)
[2018-02-21] MEDS: Heparin 5000 units/ml inj SUBQ SCH ×2 (09:27→21:12)
[2018-02-21 12:00] VITALS: BP 154/72
[2018-02-21 16:00] VITALS: BP 146/70
[2018-02-21 20:00] VITALS: BP 153/72
[2018-02-22] VITALS: BP 145/82
[2018-02-22 04:47] VITALS: BP 137/68
[2018-02-22 07:36] LABS: ANION GAP 12 mmol/L (5-15); BLOOD UREA NITROGEN 91 mg/dL (7-18); CALCIUM 8.2 MG/DL (8.5-10.1); CARBON DIOXIDE 18 MMOL/L (21-32); CHLORIDE 114 MMOL/L (98-107); CREATININE 5.3 MG/DL (0.55-1.30); SODIUM 144 MMOL/L (136-145)
[2018-02-22 08:00] VITALS: BP 153/76
--- NOTE | 2018-02-22 08:28 | Nephrology Progress Note ---
Assessment/Plan Assessment/Plan A/P 1) NEENA on CKD 4 - per family request, No HD - BUN/Cr back to baseline 2) B/L [place]- severe - Urology Dr Keating notified - DC lopez today and STAT Renal US. If B/L [place] resolved then ok for DC with Urology f/u 3) Dementia- flat affect - comfort care 4) Mild Hyperkalemia- due to RTA 4 / obstruction-acidosis - resolved Subjective Date patient seen: Feb 22, 2018 Time patient seen: 08:24 ROS Limited/Unobtainable: Yes Allergies: Coded Allergies: No Known Allergies (Unverified , 02/11/17) info obtained from caregiver Subjective Patient in no overt distress. Caregiver at bedside with flat affect Objective Last 24 Hour Vital Signs Date Time Temp Pulse Resp B/P (MAP) Pulse Ox O2 Delivery O2 Flow Rate FiO2 02/22/18 04:47 98.0 59 18 137/68 (91) 96 02/22/18 00:00 99.0 66 18 145/82 (103) 98 02/21/18 21:00 Room Air 02/21/18 20:00 98.3 66 18 153/72 (99) 97 02/21/18 16:00 99.4 66 18 146/70 (95) 98 02/21/18 12:00 98.0 60 18 154/72 (99) 95 02/21/18 09:26 59 150/78 02/21/18 09:00 Room Air Intake and Output 02/21/18 02/22/18 19:00 07:00 Intake Total 375 ml 1465 ml Output Total 1550 ml 1400 ml Balance -1175 ml 65 ml Intake Oral 300 ml 640 ml IV Total 75 ml 825 ml Output Urine Total 1550 ml 1400 ml Laboratory Tests 02/22/18 06:10: Sodium Level 144, Potassium Level 5.0, Chloride Level 114H, Carbon Dioxide Level 18L, Anion Gap 12, Blood Urea Nitrogen 91H, Creatinine 5.3H, Estimat Glomerular Filtration Rate , Glucose Level 87, Calcium Level 8.2L Height (Feet): 5 Height (Inches): 4.00 Weight (Pounds): 160 General Appearance: no apparent distress EENT: normal ENT inspection Neck: normal alignment, supple Cardiovascular: normal rate, regular rhythm Respiratory/Chest: lungs clear, normal breath sounds Abdomen: non tender, soft Edema: no edema noted Arm (L), no edema noted Arm (R), no edema noted Leg (L), no edema noted Leg (R), no edema noted Pedal (L), no edema noted Pedal (R), no edema noted Generalized Austin Kat MD Feb 22, 2018 08:28
--- NOTE | 2018-02-22 08:39 | General Progress Note ---
Assessment/Plan Assessment/Plan IMPRESSION: 1. Acute on chronic renal failure. 2. Chronic encephalopathy. 3. Chronic dementia. 4. Mild hyponatremia. 5. Mild protein-calorie malnutrition. 6. Parkinsonism. 7. Gait disturbance. 8. Incontinence. 9. Obstructive uropathy with hydronephrosis\ 10. UTI PLAN dc lopez and recheck us amoxicillin urology -unable to obtain await nephro to clear son confirms conservative care and does not want HD will dispo hopefully today pending final clearance fro mnephro impression, plan, and exam edited and reviewed in detail care discussed with RN Subjective Allergies: Coded Allergies: No Known Allergies (Unverified , 02/11/17) info obtained from caregiver Subjective care noted comfortable d/w son d/w nephro unable to get urology Objective Last 24 Hour Vital Signs Date Time Temp Pulse Resp B/P (MAP) Pulse Ox O2 Delivery O2 Flow Rate FiO2 02/22/18 08:00 97.7 64 19 153/76 (101) 96 02/22/18 04:47 98.0 59 18 137/68 (91) 96 02/22/18 00:00 99.0 66 18 145/82 (103) 98 02/21/18 21:00 Room Air 02/21/18 20:00 98.3 66 18 153/72 (99) 97 02/21/18 16:00 99.4 66 18 146/70 (95) 98 02/21/18 12:00 98.0 60 18 154/72 (99) 95 02/21/18 09:26 59 150/78 02/21/18 09:00 Room Air Intake and Output 02/21/18 02/22/18 19:00 07:00 Intake Total 375 ml 1465 ml Output Total 1550 ml 1400 ml Balance -1175 ml 65 ml Intake Oral 300 ml 640 ml IV Total 75 ml 825 ml Output Urine Total 1550 ml 1400 ml Laboratory Tests 02/22/18 06:10: Sodium Level 144, Potassium Level 5.0, Chloride Level 114H, Carbon Dioxide Level 18L, Anion Gap 12, Blood Urea Nitrogen 91H, Creatinine 5.3H, Estimat Glomerular Filtration Rate , Glucose Level 87, Calcium Level 8.2L Height (Feet): 5 Height (Inches): 4.00 Weight (Pounds): 160 Objective WDWN NAD clear breath sounds bilaterally without rhonchi or wheeze [id number] without MRG NABS nontender no HSM no CCE nonfocal no distress confused Catracho Marcos MD Feb 22, 2018 08:39
[2018-02-22] MEDS: Tamsulosin 0.4mg cap ORAL SCH ×2 (10:08→17:37)
[2018-02-22] MEDS: Depakote 125mg Sprinkles ORAL SCH ×2 (10:08→21:34)
[2018-02-22] MEDS: Sodium Bicarbonate 650mg Tab ORAL SCH ×3 (10:09→17:37)
[2018-02-22] MEDS: Heparin 5000 units/ml inj SUBQ SCH ×2 (10:11→21:36)
--- NOTE | 2018-02-22 10:43 | Diagnostic Imaging Report ---
Indication: Acute renal failure Technique: Grayscale and duplex images of the kidneys, retroperitoneum, and bladder were obtained. Comparison: 02/18/2018 Findings: Right kidney measures 10 cm in length. Left kidney measures 9.8 cm in length. Both kidneys demonstrate normal echogenicity. Bilateral hydronephrosis is again demonstrated, not significant changed. Questionable 7 mm calculus seen in the upper pole of the left kidney. Questionable 3 mm calculus in the upper pole of the right kidney.. Normal inferior vena cava. Bladder is nondistended. Bilateral ureteral jets are demonstrated despite the hydronephrosis. Previously demonstrated bladder debris is no longer evident. Prostate is enlarged, volume 78 mL. It contains calcifications. Impression: Bilateral hydronephrosis, also demonstrated on previous study of 02/12/2017, etiology not demonstrated Urinary jets are seen within the bladder despite the hydronephrosis, indicating degree of obstruction is incomplete Possible nonobstructive intrarenal calculi, versus artifact Previously demonstrated bladder debris is no longer evident Prostatomegaly.
[2018-02-22 12:00] VITALS: BP 145/60
[2018-02-22 16:00] VITALS: BP 162/76
[2018-02-22 21:00] VITALS: BP 136/87
[2018-02-22] MEDS ORDERED: Gastrograffin 30ml ORAL PRN (21:00)
--- NOTE | 2018-02-22 22:00 | Consultation ---
DATE OF CONSULTATION: 02/22/2018 UROLOGY CONSULTATION CONSULTING PHYSICIAN: Misael Hamilton M.D. ATTENDING/CONSULTING PHYSICIAN: Catracho Marcos M.D. CHIEF COMPLAINT/HISTORY OF PRESENT ILLNESS: I was asked by Dr. Marcos to evaluate this 82-year-old gentleman regarding a history of bilateral hydronephrosis noted incidentally on renal ultrasound. Briefly, the patient has a history of chronic kidney disease. He has been on conservative management as his family has opted for him not to have dialysis given his worsening dementia. Recently, the patient was found to be more fatigued and restless and blood work showed worsening renal function. He was admitted for IV hydration and further evaluation of the same. Renal ultrasound was also done to evaluate his worsening renal function and that revealed moderate bilateral hydronephrosis. As such, I was asked to evaluate the patient. PAST MEDICAL HISTORY: 1. Hypertension. 2. Chronic renal insufficiency. 3. Worsening dementia. MEDICATIONS: Please see the chart for current medications and administration details. ALLERGIES: No known drug allergies. SOCIAL HISTORY: Unremarkable for tobacco, alcohol, or drug use. FAMILY HISTORY: Noncontributory. REVIEW OF SYSTEMS: A 14-system review of systems could not be done as the patient cannot cooperate much with questioning. PHYSICAL EXAMINATION: GENERAL: The patient is an elderly gentleman, resting comfortably, in no obvious distress. HEENT: NC/AT. Oropharynx is clear. NECK: Supple. CHEST: Within normal limits. ABDOMEN: Soft, flat, nontender, and nondistended. EXTREMITIES: Well perfused. No cyanosis, clubbing, or edema. BACK: No CVA tenderness to percussion. GENITOURINARY: Exam reveals normal male external genitalia. LABORATORY DATA: Sodium 144, potassium 5.0, chloride 114, bicarbonate 18, BUN 91, and creatinine 5.3 down from 6.7 on admission. Glucose 87. Calcium 8.2. White blood cell count 8.8, hematocrit 41.4, and platelets 676,000. PT 10.7, INR 1.0, and PTT 29. Urinalysis, specific gravity 1.010, pH 5.0. Dip test is notable for 3+ protein, 5+ occult blood, and 3+ leukocyte esterase. Microanalysis with too numerous to count white and 60 to 80 red blood cells per high-power field, and many bacteria seen. Urine culture with Strep group B greater than 100,000 colonies. The patient has been receiving amoxicillin for antibiotic coverage. He is also maintained on . DIAGNOSTIC IMAGING: Renal ultrasound reveals bilateral hydronephrosis with questionable calculus in the upper pole of left kidney and a questionable calculus in the lower and the upper pole of the right kidney. The bladder is nondistended. Bilateral ureteral jets were demonstrated despite the hydronephrosis. The prostate is enlarged and it contains calcifications. ASSESSMENT AND PLAN: In summary, the patient is an 82-year-old gentleman with a history of worsening dementia and worsening renal function. He presented to the hospital with some fatigue. Workup revealed worsening renal function and an ultrasound revealed bilateral hydronephrosis of unclear etiology. There was some questionable kidney stones, but no evidence of ureteral stone and ureteral jets were visualized on ultrasound. Physical exam reveals an elderly gentleman resting comfortably. Laboratory data is notable for a creatinine of 5.5, although this is down from admission. It also reveals evidence of urinary tract infection and urine infection has grown Strep group B, which is being treated with amoxicillin. I would order a CAT scan for this patient to better evaluate the source of his hydronephrosis, it may be that he has obstructive uropathy given enlarged prostate. He may also have bilateral ureteral stones given the possible stones seen on ultrasound. Another possibility is vesicoureteral reflux, which would likely be congenital. I favor the former as the most likely possibility, but a CT scan will give us additional information to make that judgment. I agree with treating the patient's infection as this could also be affecting his mental status and his energy levels. Based on test results, we will make a plan for the patient in terms of his kidney drainage. Thank you for allowing me to participate in care of this nice gentleman. Please do not hesitate to contact me with any questions that you may further have regarding his care. Misael Hamilton M.D. DR: ANNALISA JOB#: [id number] CC:
[2018-02-23] VITALS: BP 132/82
[2018-02-23 04:00] VITALS: BP 155/78
[2018-02-23 08:00] VITALS: BP 164/76
--- NOTE | 2018-02-23 08:42 | General Progress Note ---
Assessment/Plan Assessment/Plan IMPRESSION: 1. Acute on chronic renal failure. 2. Chronic encephalopathy. 3. Chronic dementia. 4. Mild hyponatremia. 5. Mild protein-calorie malnutrition. 6. Parkinsonism. 7. Gait disturbance. 8. Incontinence. 9. Obstructive uropathy with hydronephrosis\ 10. UTI PLAN Ct pending amoxicillin urology -appreciated hope to dc today son confirms conservative care and does not want HD will dispo hopefully today pending final clearance fro mnephro impression, plan, and exam edited and reviewed in detail care discussed with RN Subjective Allergies: Coded Allergies: No Known Allergies (Unverified , 02/11/17) info obtained from caregiver Subjective care noted comfortable d/w son d/w nephro d/w urology Objective Last 24 Hour Vital Signs Date Time Temp Pulse Resp B/P (MAP) Pulse Ox O2 Delivery O2 Flow Rate FiO2 02/23/18 04:00 99.0 67 20 155/78 (103) 98 02/23/18 00:00 97.2 67 20 132/82 (99) 97 02/22/18 21:14 Room Air 02/22/18 21:00 97.0 77 20 136/87 (103) 98 02/22/18 16:00 99.0 73 20 162/76 (104) 96 02/22/18 12:00 98.7 61 20 145/60 (88) 97 02/22/18 10:09 64 153/76 02/22/18 09:00 Room Air Intake and Output 02/22/18 02/23/18 19:00 07:00 Intake Total 1797.5 ml 1185 ml Output Total 1840 ml Balance -42.5 ml 1185 ml Intake Oral 860 ml 360 ml IV Total 937.5 ml 825 ml Output Urine Total 1400 ml Drainage Total 40 ml Other 400 ml # Voids 5 # Bowel Movements 1 Height (Feet): 5 Height (Inches): 4.00 Weight (Pounds): 162 Objective WDWN NAD clear breath sounds bilaterally without rhonchi or wheeze [id number] without MRG NABS nontender no HSM no CCE nonfocal no distress confused Catracho Marcos MD Feb 23, 2018 08:42
--- NOTE | 2018-02-23 09:40 | Nephrology Progress Note ---
Assessment/Plan Assessment/Plan A/P 1) NEENA on CKD 4 - per family request, No HD - BUN/Cr back to baseline. AM labs pending 2) B/L [place]- severe - Appreciate Dr Arndt evaluation. CT pending 3) Dementia- flat affect - comfort care 4) Mild Hyperkalemia- due to RTA 4 / obstruction-acidosis - resolved Subjective Date patient seen: Feb 23, 2018 Time patient seen: 09:38 ROS Limited/Unobtainable: Yes Allergies: Coded Allergies: No Known Allergies (Unverified , 02/11/17) info obtained from caregiver Subjective Patient in no overt distress. Caregiver at bedside. CT pending Objective Last 24 Hour Vital Signs Date Time Temp Pulse Resp B/P (MAP) Pulse Ox O2 Delivery O2 Flow Rate FiO2 02/23/18 08:00 98.5 68 20 164/76 (105) 95 02/23/18 04:00 99.0 67 20 155/78 (103) 98 02/23/18 00:00 97.2 67 20 132/82 (99) 97 02/22/18 21:14 Room Air 02/22/18 21:00 97.0 77 20 136/87 (103) 98 02/22/18 16:00 99.0 73 20 162/76 (104) 96 02/22/18 12:00 98.7 61 20 145/60 (88) 97 02/22/18 10:09 64 153/76 Intake and Output 02/22/18 02/23/18 19:00 07:00 Intake Total 1797.5 ml 1185 ml Output Total 1840 ml Balance -42.5 ml 1185 ml Intake Oral 860 ml 360 ml IV Total 937.5 ml 825 ml Output Urine Total 1400 ml Drainage Total 40 ml Other 400 ml # Voids 5 # Bowel Movements 1 Laboratory Tests 02/23/18 06:40: Sodium Level [Pending], Potassium Level [Pending], Chloride Level [Pending], Carbon Dioxide Level [Pending], Blood Urea Nitrogen [Pending], Creatinine [ Pending], Estimat Glomerular Filtration Rate [Pending], Glucose Level [Pending] , Calcium Level [Pending] Height (Feet): 5 Height (Inches): 4.00 Weight (Pounds): 162 General Appearance: no apparent distress EENT: normal ENT inspection Neck: normal alignment, supple Cardiovascular: regular rhythm Respiratory/Chest: lungs clear, normal breath sounds Abdomen: non tender, soft Edema: no edema noted Arm (L), no edema noted Arm (R), no edema noted Leg (L), no edema noted Leg (R), no edema noted Pedal (L), no edema noted Pedal (R), no edema noted Generalized Austin Kat MD Feb 23, 2018 09:40
[2018-02-23 09:52] LABS: ANION GAP 14 mmol/L (5-15); BLOOD UREA NITROGEN 89 mg/dL (7-18); CALCIUM 8.4 MG/DL (8.5-10.1); CARBON DIOXIDE 16 MMOL/L (21-32); CHLORIDE 117 MMOL/L (98-107); CREATININE 5.1 MG/DL (0.55-1.30); POTASSIUM 4.8 MMOL/L (3.5-5.1); SODIUM 147 MMOL/L (136-145)
[2018-02-23] MEDS: Sodium Bicarbonate 650mg Tab ORAL SCH ×3 (11:43→17:48)
[2018-02-23] MEDS: Tamsulosin 0.4mg cap ORAL SCH ×2 (11:44→17:48)
[2018-02-23] MEDS: Depakote 125mg Sprinkles ORAL SCH ×2 (11:44→22:07)
[2018-02-23] MEDS: Heparin 5000 units/ml inj SUBQ SCH ×2 (11:55→22:08)
--- NOTE | 2018-02-23 11:56 | Diagnostic Imaging Report ---
Indication: Chronic renal failure, hydronephrosis on recent ultrasound Technique: Spiral acquisitions obtained through the abdomen and pelvis. No oral contrast, per emergency room physician request No IV contrast utilized, per referring physician request.. Multiplanar reconstructions were generated. Total dose length product 729.1 mGycm. CTDIvol(s) 13.51 mGy. Dose reduction achieved using automated exposure control Comparison: No comparison CT scans. Reference made to ultrasound of the kidneys 02/22/2018 Findings: The bladder is distended. The bladder wall appears minimally thickened, slightly edematous. The prostate is enlarged, measuring 4.6 cm AP by 6 cm transverse by 6.4 cm craniocaudad. It contains some calcifications. There is moderate to severe bilateral hydronephrosis, with some thinning of the renal cortices. There is bilateral moderate to severe hydroureter, hydroureter extending to the ureterovesical junctions bilaterally. There is a slight degree of infiltration of the periureteral fat, particularly on the left. There is a slight degree of perinephric fat stranding bilaterally. Lack of IV contrast limits assessment of the renal parenchyma. No gross renal parenchymal cysts or mass demonstrated. Lack of IV contrast limits assessment of the other solid organs. The liver demonstrates a subcentimeter low-attenuation lesion in segment 8, too small to characterize, most likely benign simple cysts. The gallbladder, bile ducts, pancreas are unremarkable. The spleen demonstrates granulomatous calcifications. The adrenals are unremarkable. No pelvic mass or adenopathy. The lack of enteric contrast limits assessment of the GI tract. The rectum is very slightly distended by stool. The colon demonstrates diverticulosis. No evidence of acute diverticulitis. The appendix is not definitely visualized, but no findings to suggest acute appendicitis are evident. No small bowel distention. No free or loculated intraperitoneal gas or fluid is evident. There is compressive and dependent atelectatic change at both lung bases, left greater than right. Some parenchymal calcifications are seen within the atelectatic left lung. There is a granulomatous calcification also seen within the lingula, with some associated surrounding scarring. A 3 mm nodular opacity is seen in the right costophrenic sulcus, image 21 of series 5. The bones demonstrate degenerative spondylosis changes. Impression: Prostatomegaly. Distended bladder, likely related to such. There is equivocal mild bladder wall edema which could indicate cystitis. Correlate with clinical findings Bilateral hydronephrosis and hydroureter, hydroureter extending to the ureterovesical junctions bilaterally with out evidence of obstructing lesion. Most likely on the basis of chronic bladder outlet obstruction. This appears to be long-standing, as there is thinning and volume loss of the renal cortices bilaterally Very slight rectal distention by stool, could indicate very mild fecal impaction pericolic clinical findings Colonic diverticulosis. No evidence of diverticulitis Evidence of old granulomatous disease within the left lung and spleen Basilar pulmonary parenchymal scarring and atelectasis, as described Mild degenerative spondylosis changes The CT scanner at [facility] is accredited by the [employer] and the scans are performed using protocols designed to limit radiation exposure to as low as reasonably achievable to attain images of sufficient resolution adequate for diagnostic evaluation.
[2018-02-23 12:00] VITALS: BP 166/69
[2018-02-23 16:00] VITALS: BP 148/75
--- NOTE | 2018-02-23 18:59 | General Progress Note ---
Progress Note Progress Note No events AFVSS PE- abd soft, NT, ND - no changes Ext WWP CT A/P- BPH/ obstruction with bladder distention and bilateral hydro 2/2 same c/ w obstructive uropathy A/P- BPH/ obstruction with bladder distention and bilateral hydro 2/2 same c/w obstructive uropathy No evidence of obstructing stones or mass Cont Flomax/ Proscar Cont abx for UTI Misael Hamilton M.D. Feb 23, 2018 18:59
[2018-02-23 20:00] VITALS: BP 112/62
[2018-02-24] VITALS: BP 142/68
[2018-02-24 04:00] VITALS: BP 138/64
--- NOTE | 2018-02-24 07:37 | General Progress Note ---
Assessment/Plan Assessment/Plan IMPRESSION: 1. Acute on chronic renal failure. 2. Chronic encephalopathy. 3. Chronic dementia. 4. Mild hyponatremia. 5. Mild protein-calorie malnutrition. 6. Parkinsonism. 7. Gait disturbance. 8. Incontinence. 9. Obstructive uropathy with hydronephrosis likely due to enlarged prostate 10. UTI PLAN dc to home d/w son flomax and proscar on discharge amoxicillin urology -appreciated hope to dc today conservative care impression, plan, and exam edited and reviewed in detail care discussed with RN Subjective Allergies: Coded Allergies: No Known Allergies (Unverified , 02/11/17) info obtained from caregiver Subjective care noted comfortable d/w son d/w nephro d/w urology Objective Last 24 Hour Vital Signs Date Time Temp Pulse Resp B/P (MAP) Pulse Ox O2 Delivery O2 Flow Rate FiO2 02/24/18 04:00 99.0 65 20 138/64 (88) 97 02/24/18 00:00 97.3 66 19 142/68 (92) 96 02/23/18 21:00 Room Air 02/23/18 20:00 99.0 69 20 112/62 (79) 97 02/23/18 16:00 98.5 68 18 148/75 (99) 96 02/23/18 12:00 99.8 75 23 166/69 (101) 96 02/23/18 11:43 75 166/69 02/23/18 09:00 Room Air 02/23/18 08:00 98.5 68 20 164/76 (105) 95 Intake and Output 02/23/18 02/24/18 19:00 07:00 Intake Total 1597 ml 1230 ml Balance 1597 ml 1230 ml Intake Oral 697 ml 480 ml IV Total 900 ml 750 ml # Voids 6 6 # Bowel Movements 2 Height (Feet): 5 Height (Inches): 4.00 Weight (Pounds): 162 Objective WDWN NAD clear breath sounds bilaterally without rhonchi or wheeze [id number] without MRG NABS nontender no HSM no CCE nonfocal no distress confused Catracho Marcos MD Feb 24, 2018 07:37
[2018-02-24 08:00] VITALS: BP 147/82
[2018-02-24] MEDS: Sodium Bicarbonate 650mg Tab ORAL SCH ×4 (08:29→13:43)
[2018-02-24] MEDS: Depakote 125mg Sprinkles ORAL SCH (08:29)
[2018-02-24] MEDS: Tamsulosin 0.4mg cap ORAL SCH (08:29)
--- NOTE | 2018-02-24 08:34 | Nephrology Progress Note ---
Assessment/Plan Assessment/Plan A/P 1) CKD 4- Cr dowbn to 5 in baseline range - per family request, No HD 2) B/L [place]- severe - Flomax/Proscar due to HOLMAN from enlarged prostate 3) Dementia- flat affect - comfort care 4) Mild Hyperkalemia- due to RTA 4 / obstruction-acidosis - resolved Subjective Date patient seen: Feb 24, 2018 Time patient seen: 08:33 ROS Limited/Unobtainable: Yes Allergies: Coded Allergies: No Known Allergies (Unverified , 02/11/17) info obtained from caregiver Subjective Patient in no overt distress. Set for DC today Objective Last 24 Hour Vital Signs Date Time Temp Pulse Resp B/P (MAP) Pulse Ox O2 Delivery O2 Flow Rate FiO2 02/24/18 08:30 60 147/82 02/24/18 04:00 99.0 65 20 138/64 (88) 97 02/24/18 00:00 97.3 66 19 142/68 (92) 96 02/23/18 21:00 Room Air 02/23/18 20:00 99.0 69 20 112/62 (79) 97 02/23/18 16:00 98.5 68 18 148/75 (99) 96 02/23/18 12:00 99.8 75 23 166/69 (101) 96 02/23/18 11:43 75 166/69 02/23/18 09:00 Room Air Intake and Output 02/23/18 02/24/18 19:00 07:00 Intake Total 1597 ml 1230 ml Balance 1597 ml 1230 ml Intake Oral 697 ml 480 ml IV Total 900 ml 750 ml # Voids 6 6 # Bowel Movements 2 Laboratory Tests 02/24/18 07:15: Sodium Level [Pending], Potassium Level [Pending], Chloride Level [Pending], Carbon Dioxide Level [Pending], Blood Urea Nitrogen [Pending], Creatinine [ Pending], Estimat Glomerular Filtration Rate [Pending], Glucose Level [Pending] , Calcium Level [Pending] Height (Feet): 5 Height (Inches): 4.00 Weight (Pounds): 162 General Appearance: no apparent distress, alert EENT: normal ENT inspection Cardiovascular: normal rate, regular rhythm Respiratory/Chest: lungs clear, normal breath sounds Abdomen: non tender, soft Edema: no edema noted Arm (L), no edema noted Arm (R), no edema noted Leg (L), no edema noted Leg (R), no edema noted Pedal (L), no edema noted Pedal (R), no edema noted Generalized Austin Kat MD Feb 24, 2018 08:34
[2018-02-24 08:36] LABS: ANION GAP 11 mmol/L (5-15); BLOOD UREA NITROGEN 87 mg/dL (7-18); CALCIUM 7.9 MG/DL (8.5-10.1); CARBON DIOXIDE 18 MMOL/L (21-32); CHLORIDE 118 MMOL/L (98-107); CREATININE 4.5 MG/DL (0.55-1.30); POTASSIUM 5.4 MMOL/L (3.5-5.1); SODIUM 147 MMOL/L (136-145)
[2018-02-24] MEDS: Heparin 5000 units/ml inj SUBQ SCH (08:36)
[2018-02-24 12:00] VITALS: BP 144/71
--- NOTE | 2018-02-25 13:34 | Discharge Summary ---
Discharge Summary Discharge Summary _ DATE OF ADMISSION: 02/18/2018 DATE OF DISCHARGE: 02/24/2018 DISCHARGED BY: Dr. Mary Anne Marcos CONSULTANTS: Dr. Misael Kat BRIEF HOSPITAL COURSE: Patient is an 82-year-old male, who has a known history of chronic kidney disease. Son elected to have conservative management and does not want dialysis. The patient apparently was found to be more restless, more fatigued, and blood work done showed worsening renal function. Patient was admitted for IV hydration. Multiple discussions were made with the son regarding hemodialysis in the past who elected to treat his father conservatively due to dementia. Training Associate was consulted. Creatinine was elevated to 6.8. Metabolic acidosis due to renal insufficiency. He was given oral bicarbonate. He was given IV hydration. Ultrasound showed bilateral moderate to severe hydronephrosis with debris within the bladder. Urologist was consulted to evaluate hydronephrosis. CT scan showed prostatomegaly with distended bladder. There was a equivocal mild bladder wall edema which could indicate cystitis. There was no evidence of erupting lesion on the ureterovesical junctions bilaterally. He was given Flomax and Proscar. Creatinine levels were trending down. Urine culture showed growth of group B strep. He was then cleared for discharge to continue home antibiotics. FINAL DIAGNOSES: Acute on chronic renal failure Chronic encephalopathy Chronic dementia Mild hyponatremia Mild protein calorie malnutrition Parkinsonism Gait disturbance Incontinence Obstructive uropathy with hydronephrosis likely due to enlarged prostate UTI CKD stage IV Mild hyperkalemia DISPOSITION: Patient was discharged home with HH. DISCHARGE MEDICATIONS: Refer to Discharge Medication List. DISCHARGE INSTRUCTIONS: Follow-up in a week. I have been assigned to dictate discharge summary on this account, and I was not involved in the patient's management. Dana Oneal NP Feb 25, 2018 13:34
== END 2018-02-24 14:30 | disposition home health service (06) | DRG 683 ==
LOC: EMR 22:00 → 3E 02-18 00:04 → EDBEDREQ 02-18 00:40 → 3E 02-18 01:40
DX: N17.9 Acute kidney failure, unspecified (principal); E44.1 Mild protein-calorie malnutrition; E87.1 Hypo-osmolality and hyponatremia; G93.40 Encephalopathy, unspecified; N13.8 Other obstructive and reflux uropathy; N39.0 Urinary tract infection, site not specified; G20 Parkinson's disease; F02.80 Dementia in other diseases classified elsewhere, unspecified severity, without behavioral disturbance, psychotic disturbance, mood disturbance, and anxiety; I12.9 Hypertensive chronic kidney disease with stage 1 through stage 4 chronic kidney disease, or unspecified chronic kidney disease; R26.89 Other abnormalities of gait and mobility; R32 Unspecified urinary incontinence; N40.1 Benign prostatic hyperplasia with lower urinary tract symptoms; B95.1 Streptococcus, group B, as the cause of diseases classified elsewhere; N18.4 Chronic kidney disease, stage 4 (severe); E87.5 Hyperkalemia; Z53.29 Procedure and treatment not carried out because of patient's decision for other reasons
CPT/HCPCS: 36415; 71045; 74176; 76770; 80048; 80053; 81003; 82550; 82553; 82962; 83880; 84132; 84484; 85025; 85610; 85730; 87086; 93005; 96361; 96365; 99285

== ENCOUNTER 2018-04-19 17:20 | Inpatient (IN) | payer MEDICARE, BC ==
[~2018-04-19] VITALS: Ht 172.7 cm; Wt 72.6 kg
--- NOTE | 2018-04-19 17:35 | NUR ---
ED Nurse Note: patient brought into ED from home by caregiver, caregiver reports patient being abnormal than usual, also BP was below 90 per caregiver and HR above 90, so caregiver was concerned. patient has his eyes closed, non verbal at this time.
--- NOTE | 2018-04-19 18:10 | Emergency Room Report ---
History of Present Illness General Chief Complaint: General Complaint Source: Caregiver Present Illness HPI Patient brought in for abnormal vital signs taken by bicycle rental clerk. Apparently his blood pressure was low, pulse rate was rapid and his oxygen saturation was low also. The patient does not communicate and therefore cannot give any history. Apparently was here in February with a UTI and sepsis. He was discharged on antibiotics mainly ciprofloxacin for 5 days. He had another course of a few weeks ago. According to the bicycle rental clerk he does have turbid urine at this time and they suspect a urinary tract infection again. When he was in the hospital his potassium was apparently high. 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 UTI CKD stage IV Mild hyperkalemia Allergies: Coded Allergies: No Known Allergies (Unverified , 02/11/17) info obtained from caregiver Patient History Limited by: medical condition Past Medical History: see triage record, old chart reviewed Social History Narrative At home with bicycle rental clerk Reviewed Nursing Documentation: PMH: Agreed; PSxH: Agreed Nursing Documentation-PMH Past Medical History: No History, Except For Hx Cardiac Problems: No Hx Cancer: No Hx Gastrointestinal Problems: No Hx Neurological Problems: Yes Hx Dementia: Yes Hx Parkinson's Disease: Yes Hx Tremors: Yes Hx Weakness: Yes Review of Systems All Other Systems: limited Physical Exam Vital Signs Date Time Temp Pulse Resp B/P (MAP) Pulse Ox O2 Delivery O2 Flow Rate FiO2 04/19/18 17:25 97.3 69 18 121/70 96 Room Air Sp02 EP Interpretation: reviewed, normal General Appearance: no apparent distress, other - Eyes are open but does not communicate, Chronically Ill ENT: moist mucus membranes Neck: no meningismus, other - Minimal rigidity Respiratory: chest non-tender, lungs clear, normal breath sounds Cardiovascular #1: regular rate, rhythm Cardiovascular #2: 2+ radial (L) Gastrointestinal: non tender, decreased bowel sounds Genitourinary: no CVA tenderness Musculoskeletal: digits/nails normal Neurologic: motor weakness - Cogwheel, no resting tremor, other - Minimal responsiveness to external stimuli Psychiatric: depressed affect Skin: no rash Medical Decision Making Diagnostic Impression: Primary Impression: Sepsis Qualified Codes: A41.9 - Sepsis, unspecified organism Additional Impressions: Hyponatremia Renal failure Qualified Codes: N17.9 - Acute kidney failure, unspecified UTI (urinary tract infection) Qualified Codes: N39.0 - Urinary tract infection, site not specified ER Course Patient presents with abnormal vital signs. I differential includes acute myocardial infarction, sepsis, occult infection, electrolyte abnormality amongst others. Evaluation will be with EKG, chest x-ray and labs. The patient will be treated with mild IV hydration at this time. Chest x-ray no infiltrates. EKG without injury. Labs with leukocytosis. Low sodium and renal failure. Normal lactate. Pyuria. Antibiotics begun for urinary tract infection/SIRS. Patient vital signs remained stable. Patient is admitted to the hospital for continued treatment. Laboratory Tests Test 04/19/18 18:00 04/19/18 18:53 White Blood Count 25.2 K/UL (4.8-10.8) *H Red Blood Count 2.54 M/UL (4.70-6.10) L Hemoglobin 8.5 G/DL (14.2-18.0) L Hematocrit 25.7 % (42.0-52.0) L Mean Corpuscular Volume 101 FL (80-99) H Mean Corpuscular Hemoglobin 33.3 PG (27.0-31.0) H Mean Corpuscular Hemoglobin Concent 32.9 G/DL (32.0-36.0) Red Cell Distribution Width 12.0 % (11.6-14.8) Platelet Count 336 K/UL (150-450) Mean Platelet Volume 5.4 FL (6.5-10.1) L Neutrophils (%) (Auto) % (45.0-75.0) Lymphocytes (%) (Auto) % (20.0-45.0) Monocytes (%) (Auto) % (1.0-10.0) Eosinophils (%) (Auto) % (0.0-3.0) Basophils (%) (Auto) % (0.0-2.0) Differential Total Cells Counted 100 Neutrophils % (Manual) 77 % (45-75) H Lymphocytes % (Manual) 8 % (20-45) L Monocytes % (Manual) 6 % (1-10) Eosinophils % (Manual) 1 % (0-3) Basophils % (Manual) 0 % (0-2) Metamyelocytes % 2 % (0-0) H Myelocytes % 2 % (0-0) H Band Neutrophils 4 % (0-8) Platelet Estimate Adequate Platelet Morphology Normal Polychromasia 1+ Anisocytosis 1+ Macrocytosis 2+ Prothrombin Time 10.7 SEC (9.30-11.50) Prothrombin Time INR 1.0 (0.9-1.1) PTT 28 SEC (23-33) Sodium Level 127 MMOL/L (136-145) L Potassium Level 5.1 MMOL/L (3.5-5.1) Chloride Level 93 MMOL/L (98-107) L Carbon Dioxide Level 19 MMOL/L (21-32) L Anion Gap 15 mmol/L (5-15) Blood Urea Nitrogen 92 mg/dL (7-18) H Creatinine 6.3 MG/DL (0.55-1.30) H Estimate Glomerular Filtration Rate mL/min (>60) Glucose Level 98 MG/DL (74-106) Lactic Acid Level 1.40 mmol/L (0.4-2.0) Calcium Level 8.5 MG/DL (8.5-10.1) Magnesium Level 2.5 MG/DL (1.8-2.4) H Total Bilirubin 0.3 MG/DL (0.2-1.0) Aspartate Amino Transferase (AST) 25 U/L (15-37) Alanine Aminotransferase (ALT) 53 U/L (12-78) Alkaline Phosphatase 196 U/L (46-116) H Total Creatine Kinase 235 U/L (26-308) Troponin I 0.000 ng/mL (0.000-0.056) Pro-B-Type Natriuretic Peptide 2755 pg/mL (0-125) H Total Protein 7.9 G/DL (6.4-8.2) Albumin 2.1 G/DL (3.4-5.0) L Globulin 5.8 g/dL Albumin/Globulin Ratio 0.4 (1.0-2.7) L Urine Color Pale yellow Urine Appearance Clear Urine pH 6 (4.5-8.0) Urine Specific [place] 1.005 (1.005-1.035) Urine Protein 3+ (NEGATIVE) H Urine Glucose (UA) Negative (NEGATIVE) Urine Ketones Negative (NEGATIVE) Urine Blood 5+ (NEGATIVE) H Urine Nitrite Negative (NEGATIVE) Urine Bilirubin Negative (NEGATIVE) Urine Urobilinogen Normal MG/DL (0.0-1.0) Urine Leukocyte Esterase 3+ (NEGATIVE) H Urine RBC 5-10 /HPF (0 - 0) H Urine WBC Tntc /HPF (0 - 0) H Urine Squamous Epithelial Cells None /LPF (NONE/OCC) Urine Bacteria Many /HPF (NONE) H Microbiology Date/Time Source Procedure Growth Status 04/19/18 18:00 Nasal Nares Influenza Types A,B Antigen (LUIZ) - Final Complete EKG Diagnostic Results Rate: normal Rhythm: NSR ST Segments: no acute changes Rhythm Strip Diag. Results EP Interpretation: yes Rhythm: NSR, no PVC's, no ectopy Chest X-Ray Diagnostic Results Chest X-Ray Diagnostic Results : Chest X-Ray Ordered: Yes # of Views/Limited/Complete: 1 View Indication: Other EP Interpretation: Yes Interpretation: no effusion, no pneumothorax, other - rotated Impression: Other Electronically Signed by: Electronically signed by Marcin Perdue MD Status: improved Disposition: ADMITTED INPATIENT Condition: Serious Marcin Perdue MD Apr 19, 2018 18:10
[2018-04-19 18:12] LABS: HEMATOCRIT 25.7 % (42.0-52.0); HEMOGLOBIN 8.5 G/DL (14.2-18.0); MEAN CORPUSCULAR VOLUME 101 FL (80-99); PLATELET COUNT 336 K/UL (150-450); RED BLOOD COUNT 2.54 M/UL (4.70-6.10)
[2018-04-19] MEDS ORDERED: DIVALPROEX SOD125 M1 PO (18:14)
[2018-04-19] MEDS ORDERED: DEPAKOTE125 MG PO (18:14)
[2018-04-19 18:15] LABS: WHITE BLOOD COUNT 25.2 K/UL (4.8-10.8)
[2018-04-19] MEDS ORDERED: CENTRUM SILVER1 EAC4 PO (18:24)
[2018-04-19] MEDS ORDERED: PROSCAR5 MG ORAL (18:24)
[2018-04-19] MEDS ORDERED: FERROUS SULFAT325 MG ORAL (18:24)
[2018-04-19] MEDS ORDERED: ASCORBIC ACID500 MG ORAL (18:24)
[2018-04-19 18:26] LABS: ANION GAP 15 mmol/L (5-15); BLOOD UREA NITROGEN 92 mg/dL (7-18); CALCIUM 8.5 MG/DL (8.5-10.1); CARBON DIOXIDE 19 MMOL/L (21-32); CHLORIDE 93 MMOL/L (98-107); CREATININE 6.3 MG/DL (0.55-1.30); POTASSIUM 5.1 MMOL/L (3.5-5.1); SODIUM 127 MMOL/L (136-145)
[2018-04-19] MEDS ORDERED: Cefepime HCl 1 GM in D5W 55 ML IVPB ONE (18:30)
[2018-04-19] MEDS ORDERED: OYSTER SHELL 21 EAC1 PO (18:36)
[2018-04-19 18:37] LABS: ALANINE AMINOTRANSFERASE 53 U/L (12-78); ALBUMIN 2.1 G/DL (3.4-5.0); ALBUMIN/GLOBULIN RATIO 0.4 (1.0-2.7); ALKALINE PHOSPHATASE 196 U/L (46-116); ASPARTATE AMINO TRANSFERASE 25 U/L (15-37); BILIRUBIN,TOTAL 0.3 MG/DL (0.2-1.0); CREATINE KINASE 235 U/L (26-308)
[2018-04-19 19:01] VITALS: BP 106/60
--- NOTE | 2018-04-19 19:07 | NUR ---
HAND-OFF: Report given to Kashif NAIK. patient is in stable condition
--- NOTE | 2018-04-19 19:20 | NUR ---
ED Nurse Note: Pt presents with an unknown skin abscess on the L side of head. no active bleeding noted.
[2018-04-19 19:39] LABS: APPEARANCE,URINE CLEAR; BILIRUBIN, URINE NEGATIVE (NEGATIVE); COLOR,URINE PALE YELLOW; GLUCOSE, URINE (UA) NEGATIVE (NEGATIVE); KETONES,URINE NEGATIVE (NEGATIVE); LEUKOCYTE ESTERASE ,URINE 3+ (NEGATIVE); NITRITE,URINE NEGATIVE (NEGATIVE); PH,URINE 6 (4.5-8.0); PROTEIN,URINE 3+ (NEGATIVE); UROBILINOGEN,URINE NORMAL MG/DL (0.0-1.0)
[2018-04-19 20:38] VITALS: BP 107/58
[2018-04-19 21:55] VITALS: BP 105/56
--- NOTE | 2018-04-19 22:07 | NUR ---
ED Nurse Note: pt is transfered to MED SURG with RN ERENDIRA. pt status, condition and vital signs is reported to ERMD and receving RN. pt is stable for transfer. pt transfered with all belongings.
--- NOTE | 2018-04-19 22:30 | NUR ---
NURSE NOTES: Pt is admitted from ER with Dx of sepsis. Report received from KashifER nurse. Physical assessment performed. Vitals stable. Pt is non-verbal. Pt moans when touched.Pt was given a bed bath and linen changed. Pt has a old scab on left hindu. Pt's upper extremities are contracted. Dr. Marcos was called and admission orders received. Bed low in position,side rails up and call light within reach.
[2018-04-20] VITALS: BP 134/66
[2018-04-20] MEDS ORDERED: Vancomycin 1gm/D5W 275ml IVPB ONE ×2 (03:00)
--- NOTE | 2018-04-20 03:45 | History and Physical Report ---
DATE OF ADMISSION: 04/19/2018 REASON FOR ADMISSION: Sepsis. HISTORY OF PRESENT ILLNESS: This is an 82-year-old debilitated male who has been in failure to thrive. The patient with end-stage renal failure and son has opted not to have dialysis. The patient presented with low blood pressure, rapid pulse, oxygen desaturation. The patient is seen and evaluated and being admitted for diagnosis of sepsis. The patient is noted to have leukocytosis. He is a poor historian. Unable to assist in anyway at this time. The patient has had prior admissions to [facility]. The patient's care has been discussed with his son and notably the patient has been failing to thrive. The patient's events are fairly acute in nature. The patient was noted to be increasingly weaker overall. The patient's prior history was reviewed. PAST MEDICAL HISTORY: Notable for obstructive uropathy, benign prostatic hyperplasia, senile dementia advanced, unsteady gait, prior falls, chronic renal failure, hydronephrosis, possible prior CVA, and sepsis. MEDICATIONS: Reviewed. ALLERGIES: Reviewed. SOCIAL HISTORY: He lives with caregiver. Do Not Resuscitate per discussion with son. REVIEW OF SYSTEMS: Unobtainable at this time. PHYSICAL EXAMINATION: GENERAL: A well-developed male, debilitated. VITAL SIGNS: Blood pressure 107/58, pulse 73, respirations 14, oxygen saturation 100%, and temperature 97.3. No fevers noted. HEENT: Negative. Oropharynx is dry. NECK: Supple. SKIN: Skin turgor slightly reduced. LUNGS: With moderate air entry. No rhonchi or wheezes. CARDIAC: Normal S1, S2. Regular rate and rhythm without murmurs, rubs, or gallops. ABDOMEN: Soft, nontender. No distention. EXTREMITIES: No cyanosis, clubbing, or edema. NEUROLOGICAL: Confused. Nonverbal overall. LABORATORY AND DIAGNOSTIC DATA: Laboratory data reviewed. White count is 25.2, hemoglobin 8.5, hematocrit 35, and platelets 336,000. Chemistry noted and reviewed. Sodium 127, BUN 92, and creatinine 6.3. BNP 2755. Albumin 2.1. Bicarbonate 19. IMPRESSION: 1. Sepsis. 2. Leukocytosis. 3. Anemia, possibly due to chronic disease versus blood loss. 4. Acute on chronic renal failure. 5. Severe protein-calorie malnutrition. 6. Hyponatremia. 7. Advanced dementia. 8. Acute on chronic encephalopathy. RECOMMENDATIONS: Supportive care. Intravenous hydration. Empiric antibiotics. ID evaluation. Renal evaluation. Discussed with son as to code status and plan of care. Will continue to further attempt to stabilize and we will plan for more conservative management overall. Prognosis overall poor for meaningful recovery. We will follow clinically for any changes. Catracho Marcos M.D. DR: ARNOLD JOB#: [id number] CC: LIZZY
[2018-04-20 04:00] VITALS: BP 125/65
[2018-04-20] MEDS ORDERED: Piperacillin/Tazobactam 3.375 GM in D5W 110 ML IVPB SCH ×4 (06:00)
[2018-04-20 07:05] LABS: ANION GAP 15 mmol/L (5-15); BLOOD UREA NITROGEN 92 mg/dL (7-18); CALCIUM 8.4 MG/DL (8.5-10.1); CARBON DIOXIDE 18 MMOL/L (21-32); CHLORIDE 96 MMOL/L (98-107); POTASSIUM 4.7 MMOL/L (3.5-5.1); SODIUM 129 MMOL/L (136-145)
[2018-04-20] MEDS: Piperacillin/Tazobactam 2.25 GM in D5W 110 ML IV SCH ×3 (07:09→22:13)
[2018-04-20 07:12] LABS: HEMATOCRIT 23.7 % (42.0-52.0); HEMOGLOBIN 7.9 G/DL (14.2-18.0); MEAN CORPUSCULAR VOLUME 103 FL (80-99); PLATELET COUNT 316 K/UL (150-450); RED BLOOD COUNT 2.31 M/UL (4.70-6.10); RED CELL DISTRIBUTION WIDTH 12.5 % (11.6-14.8); WHITE BLOOD COUNT 20.3 K/UL (4.8-10.8)
--- NOTE | 2018-04-20 07:27 | NUR ---
HAND-OFF: Report given to Sage Dee RN. Informed Sage to verify the Divalproex order with Dr Marcos.
--- NOTE | 2018-04-20 07:33 | NUR ---
NURSE NOTES: PT RESTING IN BED, IN NO APPARENT DISTRESS AT THIS TIME. PT DENIES PAIN. BED IN LOWEST POSITION WITH BED IN LOWEST POSITION. BEDSIDE RAILS X2 RAISED. CALL LIGHT WITHIN REACH. WILL CONTINUE TO MONITOR.
[2018-04-20 08:00] VITALS: BP 122/68
--- NOTE | 2018-04-20 08:45 | Diagnostic Imaging Report ---
Indication: Shortness of breath Technique: One view of the chest Comparison: 02/17/2018 Findings: Granulomatous calcifications are seen in the aortopulmonary window and left pulmonary hilum. There is some atelectasis at the left lung base. Slight left costophrenic angle blunting persists. The remainder of the lungs and pleural spaces are clear. No significant interim change Old healed left rib fracture deformity noted. Impression: Left costophrenic angle blunting, may reflect a small amount of pleural fluid versus pleural scarring, similar to previous study of 02/17/2018 Minimal left basilar atelectasis No acute process otherwise Evidence of old granulomatous disease
--- NOTE | 2018-04-20 09:03 | General Progress Note ---
Assessment/Plan Assessment/Plan IMPRESSION: 1. Sepsis. 2. Leukocytosis. 3. Anemia, possibly due to chronic disease versus blood loss. 4. Acute on chronic renal failure. 5. Severe protein-calorie malnutrition. 6. Hyponatremia. 7. Advanced dementia. 8. Acute on chronic encephalopathy. PLAN care noted antibiotics IV hydration ID and renal evaluation d/w son as to aggressiveness of care impression, plan, and exam edited and reviewed in detail care discussed with RN Subjective Allergies: Coded Allergies: No Known Allergies (Unverified , 02/11/17) info obtained from caregiver Subjective care noted and reviewed Objective Last 24 Hour Vital Signs Date Time Temp Pulse Resp B/P (MAP) Pulse Ox O2 Delivery O2 Flow Rate FiO2 04/20/18 08:00 98.1 69 18 122/68 (86) 97 04/20/18 04:00 98.2 64 18 125/65 (85) 94 04/20/18 02:17 Room Air 04/20/18 00:00 97.6 66 16 134/66 (88) 100 04/19/18 22:08 97.3 72 14 105/56 100 Room Air 04/19/18 21:55 97.3 72 14 105/56 100 Room Air 04/19/18 20:38 97.3 73 14 107/58 100 Room Air 04/19/18 19:05 63 11 Room Air 04/19/18 19:01 97.3 63 11 106/60 94 Room Air 04/19/18 17:25 97.3 69 18 121/70 96 Room Air Laboratory Tests 04/19/18 18:00: White Blood Count 25.2*H, Red Blood Count 2.54L, Hemoglobin 8.5L, Hematocrit 25.7L, Mean Corpuscular Volume 101H, Mean Corpuscular Hemoglobin 33.3H, Mean Corpuscular Hemoglobin Concent 32.9, Red Cell Distribution Width 12.0, Platelet Count 336, Mean Platelet Volume 5.4L, Neutrophils (%) (Auto) , Lymphocytes (%) ( Auto) , Monocytes (%) (Auto) , Eosinophils (%) (Auto) , Basophils (%) (Auto) , Differential Total Cells Counted 100, Neutrophils % (Manual) 77H, Lymphocytes % (Manual) 8L, Monocytes % (Manual) 6, Eosinophils % (Manual) 1, Basophils % ( Manual) 0, Metamyelocytes % 2H, Myelocytes % 2H, Band Neutrophils 4, Platelet Estimate Adequate, Platelet Morphology Normal, Polychromasia 1+, Anisocytosis 1+ , Macrocytosis 2+, Prothrombin Time 10.7, Prothromb Time International Ratio 1.0 , Activated Partial Thromboplast Time 28, Sodium Level 127L, Potassium Level 5.1 , Chloride Level 93L, Carbon Dioxide Level 19L, Anion Gap 15, Blood Urea Nitrogen 92H, Creatinine 6.3H, Estimat Glomerular Filtration Rate , Glucose Level 98, Lactic Acid Level 1.40, Calcium Level 8.5, Magnesium Level 2.5H, Total Bilirubin 0.3, Aspartate Amino Transf (AST/SGOT) 25, Alanine Aminotransferase (ALT/SGPT) 53, Alkaline Phosphatase 196H, Total Creatine Kinase 235, Troponin I 0.000, Pro-B-Type Natriuretic Peptide 2755H, Total Protein 7.9, Albumin 2.1L, Globulin 5.8, Albumin/Globulin Ratio 0.4L 04/19/18 18:53: Urine Color Pale yellow, Urine Appearance Clear, Urine pH 6, Urine Specific [place] 1.005, Urine Protein 3+H, Urine Glucose (UA) Negative, Urine Ketones Negative, Urine Blood 5+H, Urine Nitrite Negative, Urine Bilirubin Negative, Urine Urobilinogen Normal, Urine Leukocyte Esterase 3+H, Urine RBC 5-10H, Urine WBC TntcH, Urine Squamous Epithelial Cells None, Urine Bacteria ManyH 04/20/18 06:00: White Blood Count 20.3H, Red Blood Count 2.31L, Hemoglobin 7.9L, Hematocrit 23.7L, Mean Corpuscular Volume 103H, Mean Corpuscular Hemoglobin 34.3H, Mean Corpuscular Hemoglobin Concent 33.4, Red Cell Distribution Width 12.5, Platelet Count 316, Mean Platelet Volume 6.3L, Neutrophils (%) (Auto) , Lymphocytes (%) ( Auto) , Monocytes (%) (Auto) , Eosinophils (%) (Auto) , Basophils (%) (Auto) , Neutrophils % (Manual) [Pending], Lymphocytes % (Manual) [Pending], Platelet Estimate [Pending], Platelet Morphology [Pending], Sodium Level 129L, Potassium Level 4.7, Chloride Level 96L, Carbon Dioxide Level 18L, Anion Gap 15, Blood Urea Nitrogen 92H, Creatinine 6.0H, Estimat Glomerular Filtration Rate , Glucose Level 96, Calcium Level 8.4L Height (Feet): 5 Height (Inches): 8.00 Weight (Pounds): 160 Objective GENERAL: A well-developed male, debilitated. HEENT: Negative. Oropharynx is dry. NECK: Supple. SKIN: Skin turgor slightly reduced. LUNGS: With moderate air entry. No rhonchi or wheezes. CARDIAC: Normal S1, S2. Regular rate and rhythm without murmurs, rubs, or gallops. ABDOMEN: Soft, nontender. No distention. EXTREMITIES: No cyanosis, clubbing, or edema. NEUROLOGICAL: Confused. Nonverbal overall. Catracho Marcos MD Apr 20, 2018 09:03
[2018-04-20] MEDS: Ascorbic Acid 500mg tab ORAL SCH (09:36)
[2018-04-20] MEDS: Heparin 5000 units/ml inj SUBQ SCH ×2 (09:56→21:35)
[2018-04-20] MEDS: Sodium Bicarbonate 650mg Tab ORAL SCH ×3 (10:30→21:00)
[2018-04-20 12:00] VITALS: BP 126/71
--- NOTE | 2018-04-20 13:46 | NUR ---
NURSE NOTES: PT WITH VERY POOR ORAL INTAKE. DR SANTOS MADE AWARE OF POOR PO INTAKE AND HGB 7.9. NEW ORDERS RECEIVED FOR CALORIE COUNT 48HOURS AND 2 UNITS PRBC TRANSFUSION. RN SPOKE TO SON, KIRAN ZAFAR JR AND RECEIVED CONSENT. SPEECH EVAL NOT DONE DUE TO PT NOT ALERT AND UNABLE TO PARTICIPATE. IN NO APPARENT DISTRESS AT THIS TIME. WILL CONTINUE TO MONITOR.
--- NOTE | 2018-04-20 14:05 | NUR ---
ST NOTE: BEDSIDE SWALLOW EVAL/CONSULT RECEIVED BEDSIDE SWALLOW EVAL ORDER CHART REVIEWED PRIOR THE EVALUATION COMPLETED SWALLOW CONSULT PT IS A 82-YEAR-OLD MALE WHO WAS ADMITTED DUE TO SEPSIS. PER ER NOTE, PT'S BP WAS LOW, RAPID PULSE RATE AND LOW O2. DYSPHAGIA RISK FACTORS: PARKINSON'S DZ, SENILE ADVANCED DEMENTIA, WEAKNESS, FAILURE TO THRIVE, END-STAGE RENAL FAILURE, PER MD NOTE, SON OPTED NOT TO HAVE DIALYSIS AND POSSIBLE PRIOR CVA. PLOF: PT RESIDES AT HOME WITH CAREGIVER. PER DIAZ NAIK, CAREGIVER REPORTED THAT PT WAS EATING REGULAR FOOD AT HOME AND WITHOUT DIFFICULTY. ABOVE A MONTH AGO, PT'S CONDITIONS HAS BEEN DECLINED, AND NOT EATING WELL. PER DR. CHRISTINE CRUZ'S NOTE, PT'S SON PREFERRED DNR STATUS. HOWEVER, NO POLST WAS NOTED IN THE CHART AND REGARDING TUBE FEEDING IF INDICATED. PT IS ON REMERON AND DEPAKOTE. CURRENT STATUS: PT SEEN AT BEDSIDE IN LATE AM AND EARLY PM. PT WAS SLEEPING AND DID NOT WAKE UP EVEN GIVEN MAX CUES. SOME TREMOR AT REST WAS NOTED. PER RN, PT OPENED HIS EYES THIS MORNING AND TOOK THE CRUSHED MED AND THIN LIQUIDS, PT WAS ABLE TO TOLERATE IT WITHOUT OVERT S/S OF ASPIRATION, BUT DID NOT EAT ANY PUREED FOOD. QUESTIONABLE DEGREE OF OROPHARYNGEAL DYSPHAGIA DUE TO PT HAS H/O PARKINSON'S DZ AND ADVANCED DEMENTIA, PT HAS HIGH (SILENT) ASPIRATION RISK. RECOMMENDATIONS: 1. FOR QUALITY OF LIFE, CONTINUE ORAL DIET CHANGED DIET TO LIQUIFIED PUREED, LIKE NECTAR THICK SOUP CONSISTENCY WITH NECTAR THICK LIQUIDS WITH STRICT ASPIRATION PRECAUTIONS WITH 1TO1 FEEDING. 2. VIDEOSWALLOW STUDY ONLY IF PT RECEPTIVELY AGREES TO PARTICIPATE. 3. CONSIDER CALORIE COUNT 4. CONSIDER COMFORT MEASURE. D/W DIAZ NAIK. POSTED ASPIRATION PRECAUTIONS SIGN. Addendum: 04/20/18 at 1508 by [employer] SPOKE TO PT'S CAREGIVER. PER CAREGIVER, PT DECLINED VERY QUICK RECENTLY. AND SOMETIMES COUGHED WITH THIN LIQUIDS. PROBABLE MODERATE OR WORSENED OROPHARYNGEAL DYSPHAGIA DECREASED RANGE OF MOTION OF THE JAW, RIGIDITY, GIVEN NECTAR THICK X 1(TSP), INCREASED ORAL TRANSIT TIME TIME AND OROPHARYNGEAL TRANSIT TIME, FAIR LARYNGEAL ELEVATION, NO OVERT S/S OF ASPIRATION. CONTINUE CURRENT DIET WITH STRICT ASPIRATION PRECAUTIONS WITH 1TO1 FEEDING(WHEN ALERT). NPO IF PT'S ALERTNESS DOES NOT IMPROVE. CONSIDER TEMPORARILY NONORAL FEEDING MEANS IF NEEDED. [facility] ST[facility] D/W RN, DIAZ AND CAREGIVER.
[2018-04-20] MEDS ORDERED: Varibar Thin Liquid powder 148gm MC PRN (14:45)
[2018-04-20] MEDS ORDERED: Varibar Pudding 230ml MC PRN (14:45)
[2018-04-20] MEDS ORDERED: Varibar Nectar 240ml MC PRN (14:45)
[2018-04-20] MEDS ORDERED: Varibar Honey 250ml MC PRN (14:45)
[2018-04-20] MEDS: Depakote 125mg Sprinkles ORAL SCH ×2 (15:05→21:00)
--- NOTE | 2018-04-20 15:30 | NUR ---
NURSE NOTES: RN SPOKE TO CHATA IN LAB, AND MADE AWARE OF TYPE AND CROSS. PER CHATA, NIGHT CLERK AUDITOR IS ON THE FLOOR.
[2018-04-20 15:55] VITALS: BP 157/57
--- NOTE | 2018-04-20 16:49 | NUR ---
CHARGE NURSE NOTE: Pt is scheduled to have a blood transfusion today. Primary nurse already called to ask, if blood is ready. Charge nurse called second time, type and cross is not drawn yet. rvda master certified rv technician explained that they were busy afternoon, unable to draw blood on time, but they will do it shortly.
--- NOTE | 2018-04-20 16:54 | Cardiology Report ---
APPROVED REPORT EKG Measurement Heart [id number] Normal sinus rhythm Nonspecific ST abnormality Abnormal ECG
--- NOTE | 2018-04-20 17:15 | Consultation ---
DATE OF CONSULTATION: 04/20/2018 CONSULTING PHYSICIAN: Austin Kat M.D. REFERRING PHYSICIAN: Catracho Marcos M.D. REASON FOR CONSULTATION: 1. Acute kidney injury. 2. CKD stage 5. HISTORY OF PRESENT ILLNESS: The patient is an 82-year-old gentleman, well known to my nephrological service. The patient has CKD stage 5 with baseline creatinine of approximately 5. Per family and the patient wishes, dialysis is not an option. He is being admitted for further evaluation of failure to thrive. He is also being evaluated for leukocytosis, possible sepsis, and further treatment. His creatinine currently is 6 with BUN of 92. No nausea, vomiting, or diarrhea. ALLERGIES: No known drug allergies. SOCIAL HISTORY: The patient lives with caregiver. DNR. No tobacco, alcohol, or illicit drug use. PAST MEDICAL HISTORY: 1. CKD stage 5. 2. Obstructive uropathy. 3. BPH. 4. Senile dementia, advanced. 5. Prior falls. 6. Hydronephrosis. 7. CVA. 8. Sepsis. REVIEW OF SYSTEMS: Unable to obtain as the patient does not answer questions. FAMILY HISTORY: Noncontributory. PHYSICAL EXAMINATION: VITAL SIGNS: Blood pressure 122/68, respiratory rate 18, pulse 69, temperature 98.1, and 97% oxygen saturation on room air. GENERAL: The patient awake, alert, not otherwise in distress. HEENT: Extraocular muscles intact. No lymphadenopathy noted. Oropharyngeal mucosa clear and dry. CARDIOVASCULAR: S1 and S2. No rubs or gallops. PULMONARY: Clear to auscultation bilaterally. No rales, rhonchi, or wheeze. ABDOMEN: Nondistended and nontender. EXTREMITIES: No edema. LABORATORY DATA: Labs dated April 20, 2018, sodium 129, potassium 4.7, BUN 92, creatinine 6, calcium 8.4. Hemoglobin 10.4, white cell count 9.2, and platelet count 400,000. ASSESSMENT AND PLAN: 1. Acute kidney injury on CKD stage 5, baseline creatinine approximately 5. Per family wishes, end-of-life decision states no hemodialysis. At this time, we will continue gentle hydration with conservative renal care. As long as renal function is improving with hydration and treating of underlying sepsis, we will just monitor conservatively. 2. Metabolic acidosis secondary to renal insufficiency with a component of RTA from obstruction. We will add sodium bicarbonate tablets and monitor carefully with conservative management. 3. Leukocytosis with sepsis. IV hydration and empiric antibiotics per primary care physician. 4. Hyponatremia. Due to volume depletion. Sodium has improved to 129. Continue isotonic solution. 5. Advanced dementia with severe protein malnutrition. Continue to monitor and defer to primary care physician for possible treatment options to improve protein status. Austin Kat MD DR: Emilia JOB#: [id number] CC: LIZZY
[2018-04-20] MEDS ORDERED: Depakote 125mg Sprinkles ORAL SCH (18:00)
--- NOTE | 2018-04-20 18:51 | NUR ---
NURSE NOTES: RN SPOKE TO BLOOD BANK. BLOOD IS NOT READY AT THIS TIME. CRN MADE AWARE.
--- NOTE | 2018-04-20 19:52 | NUR ---
HAND-OFF: Report given to Chapo ARRIAGA RN.
[2018-04-20 20:00] VITALS: BP 141/78
--- NOTE | 2018-04-20 20:03 | NUR ---
NURSE NOTES: Received report from Sage Meyers RN. Nonverbal. caregiver services home at the bedside. Patient on room air, no signs of distress or labored breathing. IV intact, patent, and infusing IV fluids. Bed in lowest position with call light in reach.
[2018-04-20] MEDS: Tamsulosin 0.4mg cap ORAL SCH (21:00)
[2018-04-20] MEDS: Epoetin Alfa-EPBX (NON ESRD)10,000 unit/ml vial SUBQ SCH (21:34)
--- NOTE | 2018-04-20 22:00 | Consultation ---
DATE OF CONSULTATION: 04/20/2018 INFECTIOUS DISEASES CONSULTATION CONSULTING PHYSICIAN: Eloy Amaya M.D. This consult is for coverage Dr. Orourke. PRIMARY ATTENDING PHYSICIAN: Catracho Marcos M.D. REASON FOR CONSULTATION: Sepsis and UTI. HISTORY OF PRESENT ILLNESS: This is an 82-year-old white male, admitted yesterday from home after the caregiver noticed that he has decrease in blood pressure, decrease in O2 saturation, and increase in heart rate. He was found to have leukocytosis of 25,000 in the ER. he is not the source of history. PAST MEDICAL HISTORY: Significant for end-stage renal disease, family decided against dialysis, dementia, BPH, and hydronephrosis. ALLERGIES: No known drug allergy. MEDICATIONS: Getting Epogen, Remeron, Flomax, sodium bicarbonate, vitamin C, ferrous sulfate, finasteride, Zosyn, heparin, and vancomycin. SOCIAL HISTORY: Lives at home, single. No other history is obtainable. PHYSICAL EXAMINATION: VITAL SIGNS: Temperature 98.1, pulse 69, and blood pressure 122/68. GENERAL APPEARANCE: Seems to be well developed, in no acute distress. HEAD AND NECK: Dyer conjunctiva. HEART: Regular. LUNGS: Clear. ABDOMEN: Soft and nontender. EXTREMITIES: No edema. LABORATORY AND DIAGNOSTIC DATA: WBC 20.3, hemoglobin 7.9, hematocrit 23.7, and platelets is 316,000. Sodium 129, potassium 4.7, chloride 96, bicarbonate 18, BUN 92, and creatinine 6. UA showed wbc too numerous to count, rbc 5 to 10, and leukocyte esterase 2+. Urine culture growing gram-negative rods. Influenza A and B test is negative. IMPRESSION: 1. Sepsis. 2. UTI, likely complicated. 3. Advanced dementia. 4. History of BPH. 5. Hyponatremia. 6. End-stage renal disease. RECOMMENDATION: Continue with Zosyn. Discontinue IV vancomycin. We will follow up the cultures. At the end of my exam, I thank Dr. Marcos, for involving me in the care of this patient. Eloy Amaya M.D. DR: /MI JOB#: [id number] CC: LIZZY
[2018-04-21] VITALS: BP 114/65
[2018-04-21 04:00] VITALS: BP 117/64
[2018-04-21] MEDS: Piperacillin/Tazobactam 2.25 GM in D5W 110 ML IV SCH (06:40)
--- NOTE | 2018-04-21 07:33 | NUR ---
HAND-OFF: Report given to Sage Meyers RN.
[2018-04-21 08:00] VITALS: BP 133/68
--- NOTE | 2018-04-21 08:16 | Nephrology Progress Note ---
Assessment/Plan Assessment/Plan A/P 1) NEENA on CKD 5- Cr yesterday 6 - AM labs pending, history of hydronephrosis - monitor renal function - patient/family decline HD 2) Sepsis- UTI, Abx per ID 3) Acidosis- AM labs, on bicarb pills 4) Dementia- at baeline 5) Poor Nutritional state- ? GTube Subjective ROS Limited/Unobtainable: Yes Allergies: Coded Allergies: No Known Allergies (Unverified , 02/11/17) info obtained from caregiver All Systems: reviewed and negative except above Subjective Patient in no distress at bedside Objective Last 24 Hour Vital Signs Date Time Temp Pulse Resp B/P (MAP) Pulse Ox O2 Delivery O2 Flow Rate FiO2 04/21/18 04:00 98.1 55 18 117/64 (81) 98 04/21/18 00:00 97.9 63 18 114/65 (81) 100 04/20/18 21:00 Room Air 04/20/18 20:00 98.3 77 18 141/78 (99) 100 04/20/18 15:55 97.5 60 18 157/57 (90) 96 04/20/18 12:00 98.3 71 18 126/71 (89) 98 Intake and Output 04/20/18 04/21/18 19:00 07:00 Intake Total 950.0 ml 900 ml Balance 950.0 ml 900 ml Intake Oral 240 ml IV Total 710.0 ml 400 ml Blood Product 500 ml # Voids 6 4 # Bowel Movements 2 1 Height (Feet): 5 Height (Inches): 8.00 Weight (Pounds): 160 General Appearance: no apparent distress, alert EENT: normal ENT inspection Neck: normal alignment, supple Cardiovascular: normal rate, regular rhythm Respiratory/Chest: lungs clear, normal breath sounds Abdomen: non tender, soft Edema: no edema noted Arm (L), no edema noted Arm (R), no edema noted Leg (L), no edema noted Leg (R), no edema noted Pedal (L), no edema noted Pedal (R), no edema noted Generalized Austin Kat MD Apr 21, 2018 08:16
[2018-04-21] MEDS: Ascorbic Acid 500mg tab ORAL SCH (08:22)
[2018-04-21] MEDS: Depakote 125mg Sprinkles ORAL SCH ×2 (08:22→21:22)
[2018-04-21] MEDS: Sodium Bicarbonate 650mg Tab ORAL SCH ×4 (08:22→17:57)
--- NOTE | 2018-04-21 08:22 | General Progress Note ---
Assessment/Plan Assessment/Plan IMPRESSION: 1. Sepsis. 2. Leukocytosis. 3. Anemia, possibly due to chronic disease versus blood loss. 4. Acute on chronic renal failure. 5. Severe protein-calorie malnutrition. 6. Hyponatremia. 7. Advanced dementia. 8. Acute on chronic encephalopathy. PLAN care noted antibiotics IV hydration ID and renal evaluation noted and reviewed will try to call neurology ? PD code status and advanced directives to be confirmed d/w son as to aggressiveness of care impression, plan, and exam edited and reviewed in detail care discussed with RN Subjective Allergies: Coded Allergies: No Known Allergies (Unverified , 02/11/17) info obtained from caregiver Subjective care noted and reviewed awaiting neuro evaluation Objective Last 24 Hour Vital Signs Date Time Temp Pulse Resp B/P (MAP) Pulse Ox O2 Delivery O2 Flow Rate FiO2 04/21/18 04:00 98.1 55 18 117/64 (81) 98 04/21/18 00:00 97.9 63 18 114/65 (81) 100 04/20/18 21:00 Room Air 04/20/18 20:00 98.3 77 18 141/78 (99) 100 04/20/18 15:55 97.5 60 18 157/57 (90) 96 04/20/18 12:00 98.3 71 18 126/71 (89) 98 Intake and Output 04/20/18 04/21/18 19:00 07:00 Intake Total 950.0 ml 900 ml Balance 950.0 ml 900 ml Intake Oral 240 ml IV Total 710.0 ml 400 ml Blood Product 500 ml # Voids 6 4 # Bowel Movements 2 1 Height (Feet): 5 Height (Inches): 8.00 Weight (Pounds): 160 Objective GENERAL: A well-developed male, debilitated. HEENT: Negative. Oropharynx is dry. NECK: Supple. SKIN: Skin turgor slightly reduced. LUNGS: With moderate air entry. No rhonchi or wheezes. CARDIAC: Normal S1, S2. Regular rate and rhythm without murmurs, rubs, or gallops. ABDOMEN: Soft, nontender. No distention. EXTREMITIES: No cyanosis, clubbing, or edema. NEUROLOGICAL: Confused. Nonverbal overall. Catracho Marcos MD Apr 21, 2018 08:22
[2018-04-21] MEDS: Heparin 5000 units/ml inj SUBQ SCH ×2 (08:27→21:25)
[2018-04-21 08:58] LABS: ANION GAP 15 mmol/L (5-15); BLOOD UREA NITROGEN 92 mg/dL (7-18); CALCIUM 8.8 MG/DL (8.5-10.1); CARBON DIOXIDE 18 MMOL/L (21-32); CHLORIDE 104 MMOL/L (98-107); CREATININE 6.2 MG/DL (0.55-1.30); POTASSIUM 4.9 MMOL/L (3.5-5.1); SODIUM 137 MMOL/L (136-145)
--- NOTE | 2018-04-21 11:27 | NUR ---
NURSE NOTES: PT RESTING IN BED. VSS. IN NO APPARENT DISTRESS AT THIS TIME. IN HIGH PALM'S POSITION WITH HOB ELEVATED. BED IN LOWEST POSITION WITH BEDSIDE RAILS X2 RAISED. BED ALARM ON. PT DOES NOT WAKE UP TO EAT BREAKFAST. PRIVATE CAREGIVER AT BEDSIDE. WILL CONTINUE TO MONITOR.
[2018-04-21 11:57] LABS: BASOPHILS % (AUTO) 0.7 % (0.0-2.0); EOSINOPHILS % (AUTO) 0.4 % (0.0-3.0); HEMATOCRIT 30.1 % (42.0-52.0); HEMOGLOBIN 9.7 G/DL (14.2-18.0); LYMPHOCYTES % (AUTO) 8.9 % (20.0-45.0); MEAN CORPUSCULAR VOLUME 97 FL (80-99); MONOCYTES % (AUTO) 7.6 % (1.0-10.0); NEUTROPHILS % (AUTO) 82.4 % (45.0-75.0); PLATELET COUNT 300 K/UL (150-450); RED BLOOD COUNT 3.09 M/UL (4.70-6.10); RED CELL DISTRIBUTION WIDTH 16.3 % (11.6-14.8); WHITE BLOOD COUNT 16.9 K/UL (4.8-10.8)
[2018-04-21 12:00] VITALS: BP 145/72
--- NOTE | 2018-04-21 12:40 | NUR ---
NURSE NOTES: Pt received from Sage for continuation of care
--- NOTE | 2018-04-21 12:42 | NUR ---
HAND-OFF: Report given to Koby GLORIA RN.
--- NOTE | 2018-04-21 13:07 | Infectious Diseases Prog Note ---
Assessment/Plan Assessment/Plan A: 1. Sepsis. 2. Klebsiella UTI, likely complicated. 3. Advanced dementia. 4. History of BPH. 5. Hyponatremia. 6. End-stage renal disease. RECOMMENDATION: Change Zosyn to Rocephin Subjective ROS Limited/Unobtainable: Yes Constitutional: Reports: no symptoms Allergies: Coded Allergies: No Known Allergies (Unverified , 02/11/17) info obtained from caregiver Objective Vital Signs Last 24 Hour Vital Signs Date Time Temp Pulse Resp B/P (MAP) Pulse Ox O2 Delivery O2 Flow Rate FiO2 04/21/18 12:00 98.6 58 19 145/72 (96) 98 04/21/18 09:00 Room Air 04/21/18 08:00 97.8 61 17 133/68 (89) 100 04/21/18 04:00 98.1 55 18 117/64 (81) 98 04/21/18 00:00 97.9 63 18 114/65 (81) 100 04/20/18 21:00 Room Air 04/20/18 20:00 98.3 77 18 141/78 (99) 100 04/20/18 15:55 97.5 60 18 157/57 (90) 96 Height (Feet): 5 Height (Inches): 8.00 Weight (Pounds): 160 General Appearance: no acute distress HEENT: mucous membranes moist Respiratory/Chest: lungs clear Cardiovascular: bradycardia Abdomen: soft, non tender Skin: ulcers, other - left temporal ilcer, chronic Neurologic/Psychiatric: aphasia, other - tremor Microbiology Date/Time Source Procedure Growth Status 04/19/18 18:00 Nasal Nares Influenza Types A,B Antigen (LUIZ) - Final Complete 04/19/18 18:53 Urine,Catheterized Urine Culture - Final Klebsiella Pneumoniae Complete Laboratory Tests Test 04/21/18 08:00 04/21/18 08:20 White Blood Count 16.9 K/UL (4.8-10.8) H Red Blood Count 3.09 M/UL (4.70-6.10) L Hemoglobin 9.7 G/DL (14.2-18.0) L Hematocrit 30.1 % (42.0-52.0) L Mean Corpuscular Volume 97 FL (80-99) Mean Corpuscular Hemoglobin 31.4 PG (27.0-31.0) H Mean Corpuscular Hemoglobin Concent 32.2 G/DL (32.0-36.0) Red Cell Distribution Width 16.3 % (11.6-14.8) H Platelet Count 300 K/UL (150-450) Mean Platelet Volume 5.8 FL (6.5-10.1) L Neutrophils (%) (Auto) 82.4 % (45.0-75.0) H Lymphocytes (%) (Auto) 8.9 % (20.0-45.0) L Monocytes (%) (Auto) 7.6 % (1.0-10.0) Eosinophils (%) (Auto) 0.4 % (0.0-3.0) Basophils (%) (Auto) 0.7 % (0.0-2.0) Sodium Level 137 MMOL/L (136-145) Potassium Level 4.9 MMOL/L (3.5-5.1) Chloride Level 104 MMOL/L (98-107) Carbon Dioxide Level 18 MMOL/L (21-32) L Anion Gap 15 mmol/L (5-15) Blood Urea Nitrogen 92 mg/dL (7-18) H Creatinine 6.2 MG/DL (0.55-1.30) H Estimat Glomerular Filtration Rate mL/min (>60) Glucose Level 89 MG/DL (74-106) Calcium Level 8.8 MG/DL (8.5-10.1) Current Medications Medications (Trade) Dose Ordered Sig/Tracee Route PRN Reason Start Time Stop Time Status Last Admin Dose Admin Ascorbic Acid (Vitamin C) 500 mg DAILY ORAL 04/20/18 09:00 05/20/18 08:59 04/21/18 08:22 Barium Sulfate (Varibar Honey) 250 ml NOW PRN RAD 04/20/18 14:45 04/22/18 14:44 Barium Sulfate (Varibar [place]) 240 ml NOW PRN MC RAD 04/20/18 14:45 04/22/18 14:44 Barium Sulfate (Varibar Pudding) 230 ml NOW PRN RAD 04/20/18 14:45 04/22/18 14:44 Barium Sulfate (Varibar Thin Liquid powder) 148 gm NOW PRN RAD 04/20/18 14:45 04/22/18 14:44 Divalproex Sodium (Depakote Sprinkles) 125 mg Q12HR ORAL 04/20/18 14:30 05/20/18 14:29 04/21/18 08:22 Epoetin Mykel (Epoetin Mykel-EPBX(NON ESRD)) 10,000 unit WED-WED-WED SUBQ 04/20/18 21:00 05/20/18 20:59 04/20/18 21:34 Ferrous Sulfate (Feosol) 325 mg DAILY ORAL 04/20/18 09:00 05/20/18 08:59 04/21/18 08:22 Finasteride (Proscar) 5 mg DAILY ORAL 04/20/18 09:00 05/20/18 08:59 04/21/18 08:22 Heparin Sodium (Porcine) (Heparin 5000 units/ml) 5,000 units EVERY 12 HOURS SUBQ 04/20/18 09:00 05/20/18 08:59 04/21/18 08:27 Mirtazapine (Remeron) 15 mg BEDTIME ORAL 04/20/18 21:00 05/20/18 20:59 Piperacillin Sod/ Tazobactam Sod 2.25 gm/Dextrose 55 ml @ 110 mls/hr Q8HR IV 04/21/18 22:00 04/28/18 21:59 Sodium Bicarbonate (NaHCO3) 650 mg THREE TIMES A DAY ORAL 04/20/18 10:30 05/20/18 10:29 04/21/18 08:22 Sodium Chloride 1,000 ml @ 100 mls/hr Q10H IV 04/20/18 01:15 05/20/18 01:14 04/21/18 12:23 Tamsulosin HCl (Flomax) 0.4 mg QHS ORAL 04/20/18 21:00 05/20/18 20:59 Eloy Amaya MD Apr 21, 2018 13:07
--- NOTE | 2018-04-21 13:28 | NUR ---
NURSE NOTES: Pt caregiver is at bedside. Reported that pt has been having intermittent, facial grimace, also reported that pt has not been eating. phoned to possibly change Tylenol to suppository, or liquid, to facilitate administration
[2018-04-21] MEDS: Acetaminophen 650mg/20.3ml ORAL PRN ×3 (14:07→23:42)
--- NOTE | 2018-04-21 14:54 | NUR ---
ST NOTE: SWALLOW STATUS FOLLOWED UP PT'S CONDITIONS. PT SEEN AT BEDSIDE IN AM. ASLEEP. PER CAREGIVER AT BEDSIDE, PT ATE ABOUT 25% BREAKFAST THIS MORNING. PER CAREGIVER, PT TOLERATED NECTAR THICK SOUP CONSISTENCY WITH NECTAR THICK LIQUIDS WITHOUT OVERT S/S OF ASPIRATION. DUE TO PT IS ASLEEP, UNABLE TO COMPLETE VIDEOSWALLOW STUDY AT THIS TIME. D/W , DR. CORNELIUS RE:PT'S CONDITIONS. EXPRESSED THE CONCERN RE: PT'S CONDITIONS AND POOR PO INTAKE. PT PROBABLY WILL BENEFIT FROM LONG-TERM NONORAL FEEDING MEANS TO MEET NUTRITION AND HYDRATION NEEDS IF PT'S PO INTAKE IS SUBOPTIMAL. FOR QUALITY OF LIFE, CONTINUE CURRENT DIET WITH STRICT ASPIRATION PRECAUTIONS WITH 1TO1 FEEDING. D/W THE STAFF.
--- NOTE | 2018-04-21 15:15 | NUR ---
NURSE NOTES: Attempted to give patient scheduled medications along with Tylenol liquid for mild pain. Pt sleeping difficult to arouse. Per caregiver once pt is sleeping he is difficult to wake up. No signs of distress sleeping comfortably
[2018-04-21] MEDS: cefTRIAXone 1 GM in D5W 55 ML IVPB SCH (15:32)
[2018-04-21 16:00] VITALS: BP 112/60
--- NOTE | 2018-04-21 19:30 | NUR ---
NURSE NOTES: RECEIVED PATIENT LYING IN BED, OPTIFOAM DRESSING INTACT TO LEFT SIDE OF FOREHEAD. APPEAR TO BE ASLEEP, AWAKENED TO TACTILE STIMULI, NON VERBAL, ALL NEEDS ANTICIPATED AND MET BY NURSING STAFF. CAREGIVER AT BEDSIDE. NO SIGNS AND SYMPTOMS OF ACUTE CARDIO RESPIRATORY DISTRESS/SHORTNESS OF BREATH. ABDOMEN SOFT/NON DISTENDED/BOWEL SOUNDS AUDIBLE, CONDOM CATHETER INTACT, PATENT, DRAINING YELLOW URINE VIA GRAVITY, ANCHOR INTACT TO THIGH, DRAINAGE BAG POSITIONED BELOW LEVEL OF WAIST TO PREVENT URINE BACKFLOW. REPOSITIONED PATIENT FOR COMFORT/PRESSURE RELIEF, TOLERATED WELL. SIDE RAILS UP X3/BED IN LOWEST POSITION FOR SAFETY. CALL LIGHT WITHIN REACH. BED ALARM ACTIVATED FOR SAFETY. FREQUENT ROUNDS FOR NEEDS.
--- NOTE | 2018-04-21 19:31 | NUR ---
NURSE NOTES: All anticipated need met caregiver is at the bedside. Sleeping comfortably
--- NOTE | 2018-04-21 19:44 | NUR ---
NURSE NOTES: Per caregiver pt ate 100 of breakfast which was given mid afternoon,because pt was sleeping, and he ate 100 percent of dinner. Pt sleeping most of shift. No possible effects noted related to antibiotic use
--- NOTE | 2018-04-21 19:45 | NUR ---
HAND-OFF: Report given to Ara MONTIEL.
[2018-04-21 20:00] VITALS: BP 108/57
[2018-04-21] MEDS: Tamsulosin 0.4mg cap ORAL SCH (21:23)
[2018-04-21] MEDS ORDERED: Piperacillin/Tazobactam 2.25 GM in D5W 55 ML IV SCH (22:00)
[2018-04-22] VITALS: BP 130/64
[2018-04-22 04:00] VITALS: BP 127/59
--- NOTE | 2018-04-22 06:36 | NUR ---
NURSE NOTES: RESTED WELL, NO SIGNIFICANT CHANGE OF CONDITION NOTED THROUGHOUT THE NIGHT. SAFETY MAINTAINED. NAD.
--- NOTE | 2018-04-22 07:30 | NUR ---
HAND-OFF: Report given to GUMARO GONZALEZ.
--- NOTE | 2018-04-22 07:30 | NUR ---
NURSE NOTES: Received pt from GUMARO MCMANUS. Pt is nonverbal and orient x1. No SOB or acute respiratory distress noted. pt has open wound L fore head. pt has intact iv access R Wrist 22g is running well. pt has private anesthesiologist and critical care sitting on bed side. all needs attended, bed is locked and is in the lowest position. call light within easy reach. will continue to monitor.
[2018-04-22 08:00] VITALS: BP 130/65
[2018-04-22] MEDS: Sodium Bicarbonate 650mg Tab ORAL SCH ×3 (08:58→17:44)
[2018-04-22] MEDS: Depakote 125mg Sprinkles ORAL SCH ×2 (08:58→22:25)
[2018-04-22] MEDS: Ascorbic Acid 500mg tab ORAL SCH (08:58)
[2018-04-22] MEDS: Heparin 5000 units/ml inj SUBQ SCH ×2 (09:07→22:30)
--- NOTE | 2018-04-22 09:07 | Nephrology Progress Note ---
Assessment/Plan Assessment/Plan A/P 1) NEENA on CKD 5- Cr 6.2 - monitor renal function - patient/family decline HD. I they change their mind then HD 2) Sepsis- UTI, Abx per ID 3) Acidosis-on bicarb pills 4) Dementia- at baeline 5) Poor Nutritional state-monitor calorie count Subjective Date patient seen: Apr 22, 2018 Time patient seen: 09:05 ROS Limited/Unobtainable: Yes Allergies: Coded Allergies: No Known Allergies (Unverified , 02/11/17) info obtained from caregiver Subjective Patient in no distress Objective Last 24 Hour Vital Signs Date Time Temp Pulse Resp B/P (MAP) Pulse Ox O2 Delivery O2 Flow Rate FiO2 04/22/18 08:00 98.0 60 18 130/65 (86) 95 04/22/18 04:00 97.6 55 20 127/59 (81) 98 04/22/18 00:12 97.7 04/22/18 00:00 99.7 68 20 130/64 (86) 95 04/21/18 21:05 Room Air 04/21/18 20:00 99.6 73 20 108/57 (74) 96 04/21/18 16:00 97.8 66 18 112/60 (77) 04/21/18 12:00 98.6 58 19 145/72 (96) 98 Intake and Output 04/21/18 04/22/18 19:00 07:00 Intake Total 1555 ml 1440 ml Balance 1555 ml 1440 ml Intake Oral 240 ml IV Total 1155 ml 1200 ml Other 400 ml Height (Feet): 5 Height (Inches): 8.00 Weight (Pounds): 160 General Appearance: no apparent distress, alert EENT: normal ENT inspection Neck: normal alignment, supple Cardiovascular: normal rate, regular rhythm Respiratory/Chest: lungs clear, normal breath sounds Abdomen: non tender, soft Edema: no edema noted Arm (L), no edema noted Arm (R), no edema noted Leg (L), no edema noted Leg (R), no edema noted Pedal (L), no edema noted Pedal (R), no edema noted Generalized Austin Kat MD Apr 22, 2018 09:07
--- NOTE | 2018-04-22 09:21 | Infectious Diseases Prog Note ---
Assessment/Plan Assessment/Plan antibiotics : ceftriaxone A 1. klebsiella UTI 2. leucocytosis improving 3. renal failure 4. BPH 5. dementia P 1. continue ceftriaxone 3 more days 2. will follow up cultures Subjective ROS Limited/Unobtainable: Yes Allergies: Coded Allergies: No Known Allergies (Unverified , 02/11/17) info obtained from caregiver Objective Vital Signs Last 24 Hour Vital Signs Date Time Temp Pulse Resp B/P (MAP) Pulse Ox O2 Delivery O2 Flow Rate FiO2 04/22/18 08:00 98.0 60 18 130/65 (86) 95 04/22/18 04:00 97.6 55 20 127/59 (81) 98 04/22/18 00:12 97.7 04/22/18 00:00 99.7 68 20 130/64 (86) 95 04/21/18 21:05 Room Air 04/21/18 20:00 99.6 73 20 108/57 (74) 96 04/21/18 16:00 97.8 66 18 112/60 (77) 04/21/18 12:00 98.6 58 19 145/72 (96) 98 Height (Feet): 5 Height (Inches): 8.00 Weight (Pounds): 160 Respiratory/Chest: lungs clear Cardiovascular: normal rate, regular rhythm Abdomen: soft, non tender Extremities: no edema Microbiology Date/Time Source Procedure Growth Status 04/19/18 18:00 Blood Blood Culture - Preliminary NO GROWTH AFTER 48 HOURS Resulted 04/19/18 18:00 Blood Blood Culture - Preliminary NO GROWTH AFTER 48 HOURS Resulted 04/19/18 18:00 Nasal Nares Influenza Types A,B Antigen (LUIZ) - Final Complete 04/19/18 18:53 Urine,Catheterized Urine Culture - Final Klebsiella Pneumoniae Complete Current Medications Medications (Trade) Dose Ordered Sig/Tracee Route PRN Reason Start Time Stop Time Status Last Admin Dose Admin Acetaminophen (Tylenol) 650 mg Q4H PRN ORAL pain/ fever 04/21/18 13:45 05/21/18 13:44 04/21/18 23:42 Ascorbic Acid (Vitamin C) 500 mg DAILY ORAL 04/20/18 09:00 05/20/18 08:59 04/22/18 08:58 Barium Sulfate (Varibar Honey) 250 ml NOW PRN MC RAD 04/20/18 14:45 04/22/18 14:44 Barium Sulfate (Varibar [place]) 240 ml NOW PRN MC RAD 04/20/18 14:45 04/22/18 14:44 Barium Sulfate (Varibar Pudding) 230 ml NOW PRN MC RAD 04/20/18 14:45 04/22/18 14:44 Barium Sulfate (Varibar Thin Liquid powder) 148 gm NOW PRN MC RAD 04/20/18 14:45 04/22/18 14:44 Ceftriaxone Sodium 1 gm/ Dextrose 55 ml @ 110 mls/hr Q24H IVPB 04/21/18 14:30 04/28/18 14:29 04/21/18 15:32 Divalproex Sodium (Depakote Sprinkles) 125 mg Q12HR ORAL 04/20/18 14:30 05/20/18 14:29 04/22/18 08:58 Epoetin Mykel (Epoetin Mykel-EPBX(NON ESRD)) 10,000 unit WED-WED-WED SUBQ 04/20/18 21:00 05/20/18 20:59 04/20/18 21:34 Ferrous Sulfate (Feosol) 325 mg DAILY ORAL 04/20/18 09:00 05/20/18 08:59 04/22/18 08:58 Finasteride (Proscar) 5 mg DAILY ORAL 04/20/18 09:00 05/20/18 08:59 04/22/18 08:58 Heparin Sodium (Porcine) (Heparin 5000 units/ml) 5,000 units EVERY 12 HOURS SUBQ 04/20/18 09:00 05/20/18 08:59 04/22/18 09:07 Mirtazapine (Remeron) 15 mg BEDTIME ORAL 04/20/18 21:00 05/20/18 20:59 04/21/18 21:22 Sodium Bicarbonate (NaHCO3) 650 mg THREE TIMES A DAY ORAL 04/20/18 10:30 05/20/18 10:29 04/22/18 08:58 Sodium Chloride 1,000 ml @ 100 mls/hr Q10H IV 04/20/18 01:15 05/20/18 01:14 04/22/18 09:17 Tamsulosin HCl (Flomax) 0.4 mg QHS ORAL 04/20/18 21:00 05/20/18 20:59 04/21/18 21:23 April Orourke MD Apr 22, 2018 09:21
--- NOTE | 2018-04-22 11:33 | NUR ---
ST NOTE: SWALLOW STATUS FOLLOWED PT'S CONDITIONS IN AM. CAREGIVER IS AT BEDSIDE. PER CAREGIVER, PT TOLERATED LIQUIFIED PUREED, LIKE NECTAR THICK SOUP CONSISTENCY WITH NECTAR THICK LIQUIDS WITHOUT OVERT S/S OF ASPIRATION. AND CONSUMED 100% OF MEAL YESTERDAY DINNER AND BREAKFAST THIS MORNING. AND PER CG, POSSIBLE TO UPGRADE DIET TO PUREE WITH NECTAR THICK LIQUIDS. ATTEMPTED TO SEE PT IN AM. PT ASLEEP, UNABLE TO RE-ASSESS PT'S SWALLOWING FUNCTION. FOR QUALITY OF LIFE, CONTINUE LIQUIFIED PUREED, LIKE NECTAR THICK SOUP CONSISTENCY WITH NECTAR THICK LIQUIDS WITH 1TO1 FEEDING. OKAY TO HAVE APPLE SAUCE.
[2018-04-22 12:00] VITALS: BP 115/49
[2018-04-22] MEDS: cefTRIAXone 1 GM in D5W 55 ML IVPB SCH (13:36)
--- NOTE | 2018-04-22 13:38 | NUR ---
NURSE NOTES:WOUND CARE NOTES:Pt presents with an atypical wound L temporal. Per caregiver Pt has had wound for many months but had declined to see a doctor in past. L temporal wound bed red,raised and shiny with brownish area centrally. Small amt sanguineous exudate noted. No odor noted. Non-blanching erythema without induration sacrum and bilat gluteal clefts.Bilat heels boggy but pink. Recommendations:Cleanse wound L temporal with saline.Apply Silvasorb gel.Cover with Optifoam drsg .Change Q 3 days and PRN. Apply Moisture Barrier Paste to buttocks with each perineal care. Apply Cavilon Skin Barrier to Both heels daily. Reposition at least every 2hours or as tolerated. Off-load heels with pillow. APM/MARK mattress
--- NOTE | 2018-04-22 14:48 | NUR ---
RD ASSESSMENT & RECOMMENDATIONS SEE CARE ACTIVITY FOR COMPLETE ASSESSMENT DAILY ESTIMATED NEEDS: Needs based on Renal failure, 71kg 25-30 kcals/kg 0932-2509 total kcals 0.6-0.8 g protein/kg 43-57 g total protein 25-30 mL/kg 1384-3480 total fluid mLs NUTRITION DIAGNOSIS: 1) Altered nutrition related lab values r/t NEENA on CKD 5 as evidenced by elev BUN (92), elev Creat (6.2), no HD per family. 2) Swallowing difficulty R/T dysphagia as evidenced by SENIOR ELECTRONICS DESIGN ENGINEER recommends liquify pureed, NTL at this time. CURRENT DIET:REGULAR/ liquify pureed, NLT PO DIET RECOMMENDATIONS: RENAL + 60g protein restriction/ texture per SENIOR ELECTRONICS DESIGN ENGINEER ADDITIONAL RECOMMENDATIONS: 1) Calibrate bed scale for accurate CBW 2) Monitor lytes and renal fxn closely- no HD per family 3) Check phos level 4) Renal diet is recommended to keep lytes wnl (CKD V) 5) Nepro BID while on liquify pureed texture diet 6) Follow up w/ calorie count x48 hrs (started 04/20 D -> 215 D)
[2018-04-22 16:00] VITALS: BP 107/51
[2018-04-22 20:00] VITALS: BP 127/68
--- NOTE | 2018-04-22 20:28 | NUR ---
HAND-OFF: Report given to GUMARO FUNG.
--- NOTE | 2018-04-22 20:34 | NUR ---
NURSE NOTES: Pt received asleep, bed in lowest position, call light within reach, caregiver at the bedside, condom catheter off will replace, IV bag finished and new one hung. will monitor. Addendum: 04/22/18 at 2319 by KENTON HINKLE RN NURSE NOTES: Pt caregiver Diogo is at the bedside since beginning of shift.
--- NOTE | 2018-04-22 21:04 | Pulmonology Progress Note ---
Assessment/Plan Assessment/Plan Pulmonary Progress Note Assessment/Plan IMPRESSION: 1. Sepsis. 2. Leukocytosis. 3. Anemia, possibly due to chronic disease versus blood loss. 4. Acute on chronic renal failure. 5. Severe protein-calorie malnutrition. 6. Hyponatremia. 7. Advanced dementia. 8. Acute on chronic encephalopathy. PLAN care noted antibiotics IV hydration ID and renal evaluation noted and reviewed will try to call neurology ? PD code status and advanced directives to be confirmed d/w son as to aggressiveness of care impression, plan, and exam edited and reviewed in detail care discussed with RN Subjective Allergies: Coded Allergies: No Known Allergies (Unverified , 02/11/17) info obtained from caregiver Subjective care noted and reviewed awaiting neuro evaluation Objective Vital Signs Noted Height (Feet): 5 Height (Inches): 8.00 Weight (Pounds): 160 Objective GENERAL: A well-developed male, debilitated. HEENT: Negative. Oropharynx is dry. NECK: Supple. SKIN: Skin turgor slightly reduced. LUNGS: With moderate air entry. No rhonchi or wheezes. CARDIAC: Normal S1, S2. Regular rate and rhythm without murmurs, rubs, or gallops. ABDOMEN: Soft, nontender. No distention. EXTREMITIES: No cyanosis, clubbing, or edema. NEUROLOGICAL: Confused. Nonverbal overall. Subjective ROS Limited/Unobtainable: No Allergies: Coded Allergies: No Known Allergies (Unverified , 02/11/17) info obtained from caregiver Objective Last 24 Hour Vital Signs Date Time Temp Pulse Resp B/P (MAP) Pulse Ox O2 Delivery O2 Flow Rate FiO2 04/22/18 16:00 98.4 65 18 107/51 (69) 98 04/22/18 12:00 98.5 53 19 115/49 (71) 99 04/22/18 09:00 Room Air 04/22/18 08:00 98.0 60 18 130/65 (86) 95 04/22/18 04:00 97.6 55 20 127/59 (81) 98 04/22/18 00:12 97.7 04/22/18 00:00 99.7 68 20 130/64 (86) 95 04/21/18 21:05 Room Air Intake and Output 04/21/18 04/22/18 19:00 07:00 Intake Total 1555 ml 1440 ml Balance 1555 ml 1440 ml Intake Oral 240 ml IV Total 1155 ml 1200 ml Other 400 ml Current Medications Medications (Trade) Dose Ordered Sig/Tracee Route PRN Reason Start Time Stop Time Status Last Admin Dose Admin Acetaminophen (Tylenol) 650 mg Q4H PRN ORAL pain/ fever 04/21/18 13:45 05/21/18 13:44 04/21/18 23:42 Ascorbic Acid (Vitamin C) 500 mg DAILY ORAL 04/20/18 09:00 05/20/18 08:59 04/22/18 08:58 Ceftriaxone Sodium 1 gm/ Dextrose 55 ml @ 110 mls/hr Q24H IVPB 04/21/18 14:30 04/28/18 14:29 04/22/18 13:36 Divalproex Sodium (Depakote Sprinkles) 125 mg Q12HR ORAL 04/20/18 14:30 05/20/18 14:29 04/22/18 08:58 Epoetin Mykel (Epoetin Mykel-EPBX(NON ESRD)) 10,000 unit WED-WED-WED SUBQ 04/20/18 21:00 05/20/18 20:59 04/20/18 21:34 Ferrous Sulfate (Feosol) 325 mg DAILY ORAL 04/20/18 09:00 05/20/18 08:59 04/22/18 08:58 Finasteride (Proscar) 5 mg DAILY ORAL 04/20/18 09:00 05/20/18 08:59 04/22/18 08:58 Heparin Sodium (Porcine) (Heparin 5000 units/ml) 5,000 units EVERY 12 HOURS SUBQ 04/20/18 09:00 05/20/18 08:59 04/22/18 09:07 Mirtazapine (Remeron) 15 mg BEDTIME ORAL 04/20/18 21:00 05/20/18 20:59 04/21/18 21:22 Sodium Bicarbonate (NaHCO3) 650 mg THREE TIMES A DAY ORAL 04/20/18 10:30 05/20/18 10:29 04/22/18 17:44 Sodium Chloride 1,000 ml @ 100 mls/hr Q10H IV 04/20/18 01:15 05/20/18 01:14 04/22/18 09:17 Tamsulosin HCl (Flomax) 0.4 mg QHS ORAL 04/20/18 21:00 05/20/18 20:59 04/21/18 21:23 Marcin Patel MD Apr 22, 2018 21:04
[2018-04-22] MEDS: Tamsulosin 0.4mg cap ORAL SCH (22:27)
[2018-04-22] MEDS: Epoetin Alfa-EPBX (NON ESRD)10,000 unit/ml vial SUBQ SCH (22:28)
[2018-04-23] VITALS (8 sets, daily range): BP systolic 117–165; BP diastolic 58–77
--- NOTE | 2018-04-23 07:18 | NUR ---
HAND-OFF: Report given to GUMARO Childers.
--- NOTE | 2018-04-23 07:26 | NUR ---
NURSE NOTES: Received pt from GUMARO FUNG. Pt is nonverbal and orient x1. No SOB or acute respiratory distress noted. pt has intact iv access R wrist 22g is running well. pt has private rn patient care on bed site. pt has condom cath in place is running well. all needs attended, bed is locked and is in the lowest position. call light within easy reach. will continue to monitor.
[2018-04-23] MEDS: Depakote 125mg Sprinkles ORAL SCH ×2 (08:12→22:12)
[2018-04-23] MEDS: Sodium Bicarbonate 650mg Tab ORAL SCH ×3 (08:12→17:23)
[2018-04-23] MEDS: Ascorbic Acid 500mg tab ORAL SCH (08:13)
[2018-04-23] MEDS: Heparin 5000 units/ml inj SUBQ SCH ×2 (08:15→22:13)
--- NOTE | 2018-04-23 08:50 | Nephrology Progress Note ---
Assessment/Plan Assessment/Plan A/P 1) CKD 5- Cr 6.2 - spoke with son yesterday. Comfort care only. No HD - OK for DC from renal point 2) Sepsis- UTI, Abx per ID 3) Acidosis-on bicarb pills 4) Dementia- at [facility] 5) Poor Nutritional state-monitor calorie count Subjective Date patient seen: Apr 23, 2018 Time patient seen: 08:49 ROS Limited/Unobtainable: Yes Allergies: Coded Allergies: No Known Allergies (Unverified , 02/11/17) info obtained from caregiver Subjective Patient in no distress. Caregiver at bedside Objective Last 24 Hour Vital Signs Date Time Temp Pulse Resp B/P (MAP) Pulse Ox O2 Delivery O2 Flow Rate FiO2 04/23/18 04:00 97.7 65 19 137/65 (89) 95 04/23/18 00:00 98.2 55 17 132/67 (88) 96 04/22/18 21:00 Room Air 04/22/18 20:00 99.0 67 18 127/68 (87) 98 04/22/18 16:00 98.4 65 18 107/51 (69) 98 04/22/18 12:00 98.5 53 19 115/49 (71) 99 04/22/18 09:00 Room Air Intake and Output 04/22/18 04/23/18 18:59 06:59 Intake Total 2015 ml 200 ml Output Total 800 ml 400 ml Balance 1215 ml -200 ml Intake Oral 960 ml IV Total 1055 ml 200 ml Output Urine Total 800 ml 400 ml # Voids 3 # Bowel Movements 2 Height (Feet): 5 Height (Inches): 8.00 Weight (Pounds): 160 General Appearance: no apparent distress EENT: normal ENT inspection Neck: normal alignment, supple Cardiovascular: regular rhythm Respiratory/Chest: lungs clear, normal breath sounds Abdomen: non tender, soft Edema: no edema noted Arm (L), no edema noted Arm (R), no edema noted Leg (L), no edema noted Leg (R), no edema noted Pedal (L), no edema noted Pedal (R), no edema noted Generalized Austin Kat MD Apr 23, 2018 08:50
--- NOTE | 2018-04-23 09:00 | NUR ---
NURSE NOTES: called Dr qiu regarding HTN, left massage waiting to call back. will continue to monitor.
--- NOTE | 2018-04-23 11:40 | General Progress Note ---
Assessment/Plan Assessment/Plan IMPRESSION: 1. Sepsis. 2. Leukocytosis. 3. Anemia, possibly due to chronic disease versus blood loss. 4. Acute on chronic renal failure. 5. Severe protein-calorie malnutrition. 6. Hyponatremia. 7. Advanced dementia. 8. Acute on chronic encephalopathy. PLAN care noted antibiotics over the weekend IV hydration ID and renal evaluation noted and reviewed will try to call neurology ? PD; maybe able to get someone wednesday code status and advanced directives to be confirmed hope to dc wednesday impression, plan, and exam edited and reviewed in detail care discussed with RN Subjective Allergies: Coded Allergies: No Known Allergies (Unverified , 02/11/17) info obtained from caregiver Subjective care noted and reviewed unable to get neuro evaluation Objective Last 24 Hour Vital Signs Date Time Temp Pulse Resp B/P (MAP) Pulse Ox O2 Delivery O2 Flow Rate FiO2 04/23/18 10:00 148/69 (95) 04/23/18 09:00 154/72 (99) 04/23/18 09:00 Room Air 04/23/18 08:00 98.3 70 17 165/77 (106) 94 04/23/18 04:00 97.7 65 19 137/65 (89) 95 04/23/18 00:00 98.2 55 17 132/67 (88) 96 04/22/18 21:00 Room Air 04/22/18 20:00 99.0 67 18 127/68 (87) 98 04/22/18 16:00 98.4 65 18 107/51 (69) 98 04/22/18 12:00 98.5 53 19 115/49 (71) 99 Intake and Output 04/22/18 04/23/18 18:59 06:59 Intake Total 2015 ml 200 ml Output Total 800 ml 400 ml Balance 1215 ml -200 ml Intake Oral 960 ml IV Total 1055 ml 200 ml Output Urine Total 800 ml 400 ml # Voids 3 # Bowel Movements 2 Height (Feet): 5 Height (Inches): 8.00 Weight (Pounds): 160 Objective GENERAL: A well-developed male, debilitated. HEENT: Negative. Oropharynx is dry. NECK: Supple. SKIN: Skin turgor slightly reduced. LUNGS: With moderate air entry. No rhonchi or wheezes. CARDIAC: Normal S1, S2. Regular rate and rhythm without murmurs, rubs, or gallops. ABDOMEN: Soft, nontender. No distention. EXTREMITIES: No cyanosis, clubbing, or edema. NEUROLOGICAL: Confused. Nonverbal overall. Catracho Marcos MD Apr 23, 2018 11:40
[2018-04-23] MEDS: cefTRIAXone 1 GM in D5W 55 ML IVPB SCH (13:31)
--- NOTE | 2018-04-23 19:08 | NUR ---
HAND-OFF: Report given to KENTON.
--- NOTE | 2018-04-23 19:56 | NUR ---
NURSE NOTES: Pt received asleep with Caregiver Diogo at bedside, bed in lowest position, call light within reach, condom cath in place, IV site possibly infiltrated, will replace IV.
[2018-04-23] MEDS: Tamsulosin 0.4mg cap ORAL SCH (22:12)
[2018-04-24] VITALS (7 sets, daily range): BP systolic 120–156; BP diastolic 64–86
--- NOTE | 2018-04-24 07:34 | NUR ---
NURSE NOTES: Patient asleep, on room air, no sign of distress and shortness of breath, no sign of chest pain. Condom cath in place, drains well. Left temporal open wound. Personal healthcare management at the bed side. IV R-wrist run NS @100cc. Bed at lowest position, side rails up x2, breaks engaged. Will keep monitoring.
--- NOTE | 2018-04-24 07:36 | NUR ---
HAND-OFF: Report given to GUMARO Hutchins.
[2018-04-24 07:51] LABS: ANION GAP 15 mmol/L (5-15); BLOOD UREA NITROGEN 74 mg/dL (7-18); CARBON DIOXIDE 16 MMOL/L (21-32); CHLORIDE 114 MMOL/L (98-107); CREATININE 5.8 MG/DL (0.55-1.30); POTASSIUM 4.5 MMOL/L (3.5-5.1); SODIUM 145 MMOL/L (136-145)
[2018-04-24] MEDS: Sodium Bicarbonate 650mg Tab ORAL SCH ×3 (08:20→17:24)
[2018-04-24] MEDS: Depakote 125mg Sprinkles ORAL SCH ×2 (08:20→21:38)
[2018-04-24] MEDS: Ascorbic Acid 500mg tab ORAL SCH (08:21)
--- NOTE | 2018-04-24 09:08 | Nephrology Progress Note ---
Assessment/Plan Assessment/Plan A/P 1) CKD 5- Cr within baseline range and BUN down to 74 - spoke with son yesterday. Comfort care only. No HD 2) Sepsis- UTI, Abx per ID 3) Acidosis-on bicarb pills and NaCL IVFs stopped 4) Dementia- at [facility] 5) Hyponatremia- resolved Subjective Date patient seen: Apr 24, 2018 Time patient seen: 09:04 ROS Limited/Unobtainable: Yes Allergies: Coded Allergies: No Known Allergies (Unverified , 02/11/17) info obtained from caregiver Subjective Patient in no distress. Eating 80% of food Objective Last 24 Hour Vital Signs Date Time Temp Pulse Resp B/P (MAP) Pulse Ox O2 Delivery O2 Flow Rate FiO2 04/24/18 04:00 98.7 57 18 131/68 (89) 96 04/24/18 00:00 98.9 59 16 141/76 (97) 95 04/23/18 21:00 Room Air 04/23/18 20:00 98.5 56 16 143/71 (95) 98 04/23/18 16:00 97.7 60 17 117/58 (77) 97 04/23/18 12:00 97.9 60 18 138/68 (91) 98 04/23/18 10:00 148/69 (95) Intake and Output 04/23/18 04/24/18 19:00 07:00 Intake Total 1495 ml 700 ml Output Total 1400 ml 803 ml Balance 95 ml -103 ml Intake Oral 540 ml IV Total 955 ml 700 ml Output Urine Total 1400 ml 800 ml Stool Total 3 ml # Bowel Movements 1 Laboratory Tests 04/24/18 05:55: Sodium Level 145, Potassium Level 4.5, Chloride Level 114H, Carbon Dioxide Level 16L, Anion Gap 15, Blood Urea Nitrogen 74H, Creatinine 5.8H, Estimat Glomerular Filtration Rate , Glucose Level 89, Calcium Level 8.0L Height (Feet): 5 Height (Inches): 8.00 Weight (Pounds): 160 General Appearance: no apparent distress EENT: normal ENT inspection Neck: normal alignment, supple Cardiovascular: normal rate, regular rhythm Respiratory/Chest: normal breath sounds Abdomen: non tender, soft Edema: no edema noted Arm (L), no edema noted Arm (R), no edema noted Leg (L), no edema noted Leg (R), no edema noted Pedal (L), no edema noted Pedal (R), no edema noted Generalized Austin Kat MD Apr 24, 2018 09:08
[2018-04-24] MEDS: Acetaminophen 650mg/20.3ml ORAL PRN (09:39)
[2018-04-24] MEDS: Heparin 5000 units/ml inj SUBQ SCH ×2 (09:41→21:40)
--- NOTE | 2018-04-24 10:25 | General Progress Note ---
Assessment/Plan Assessment/Plan IMPRESSION: 1. Sepsis. 2. Leukocytosis. 3. Anemia, possibly due to chronic disease versus blood loss. 4. Acute on chronic renal failure. 5. Severe protein-calorie malnutrition. 6. Hyponatremia. 7. Advanced dementia. 8. Acute on chronic encephalopathy. PLAN care noted antibiotics over the weekend and dc in am IV hydration ID and renal evaluation noted and reviewed will try to call neurology ? PD; possibly in am code status and advanced directives to be confirmed hope to dc wednesday if stable; recheck wbc impression, plan, and exam edited and reviewed in detail care discussed with RN Subjective Allergies: Coded Allergies: No Known Allergies (Unverified , 02/11/17) info obtained from caregiver Subjective care noted and reviewed unable to get neuro evaluation possibly in am caregiver at bedside Objective Last 24 Hour Vital Signs Date Time Temp Pulse Resp B/P (MAP) Pulse Ox O2 Delivery O2 Flow Rate FiO2 04/24/18 09:00 Room Air 04/24/18 08:00 99.0 77 20 155/86 (109) 95 04/24/18 04:00 98.7 57 18 131/68 (89) 96 04/24/18 00:00 98.9 59 16 141/76 (97) 95 04/23/18 21:00 Room Air 04/23/18 20:00 98.5 56 16 143/71 (95) 98 04/23/18 16:00 97.7 60 17 117/58 (77) 97 04/23/18 12:00 97.9 60 18 138/68 (91) 98 Intake and Output 04/23/18 04/24/18 19:00 07:00 Intake Total 1495 ml 700 ml Output Total 1400 ml 803 ml Balance 95 ml -103 ml Intake Oral 540 ml IV Total 955 ml 700 ml Output Urine Total 1400 ml 800 ml Stool Total 3 ml # Bowel Movements 1 Laboratory Tests 04/24/18 05:55: Sodium Level 145, Potassium Level 4.5, Chloride Level 114H, Carbon Dioxide Level 16L, Anion Gap 15, Blood Urea Nitrogen 74H, Creatinine 5.8H, Estimat Glomerular Filtration Rate , Glucose Level 89, Calcium Level 8.0L Height (Feet): 5 Height (Inches): 8.00 Weight (Pounds): 160 Objective GENERAL: A well-developed male, debilitated. HEENT: Negative. Oropharynx is dry. NECK: Supple. SKIN: Skin turgor slightly reduced. LUNGS: With moderate air entry. No rhonchi or wheezes. CARDIAC: Normal S1, S2. Regular rate and rhythm without murmurs, rubs, or gallops. ABDOMEN: Soft, nontender. No distention. EXTREMITIES: No cyanosis, clubbing, or edema. NEUROLOGICAL: Confused. Nonverbal overall. Catracho Marcos MD Apr 24, 2018 10:25
--- NOTE | 2018-04-24 10:57 | NUR ---
RD ASSESSMENT & RECOMMENDATIONS SEE CARE ACTIVITY FOR COMPLETE ASSESSMENT DAILY ESTIMATED NEEDS: Needs based on Renal failure, 71kg 25-30 kcals/kg 0844-0317 total kcals 0.6-0.8 g protein/kg 43-57 g total protein 25-30 mL/kg 8206-7736 total fluid mLs NUTRITION DIAGNOSIS: 1) Altered nutrition related lab values r/t NEENA on CKD 5 as evidenced by elev BUN (92-> 74), elev Creat (6.2-> 5.8), no HD per family. 2) Swallowing difficulty R/T dysphagia as evidenced by [employer]TERN [employer] recommends liquify pureed, NTL at this time. CURRENT DIET: REGULAR/ liquify pureed, NLT PO DIET RECOMMENDATIONS: RENAL + 60g protein restriction/ texture per [employer]TERN [employer] ADDITIONAL RECOMMENDATIONS: 1) Calibrate bed scale for accurate CBW 2) Monitor lytes and renal fxn closely- no HD per family 3) Check phos level 4) Renal diet is recommended to keep lytes wnl (CKD V), currently K wnl 5) Nepro daily while on liquify pureed texture diet if intake is fair 6) Follow up w/ calorie count-> good po intake ---- 48 HOUR KCAL COUNT: B1: 100% all items B2: 100% all items L1: 100% all items L2: 70% of menu, not specified D1: 100% all items D2: 80% of menu, not specified - Pt presents w/ good overall po intake. Meeting >75% est needs.
[2018-04-24 12:56] LABS: BASOPHILS % (AUTO) 0.7 % (0.0-2.0); EOSINOPHILS % (AUTO) 0.2 % (0.0-3.0); HEMATOCRIT 26.1 % (42.0-52.0); HEMOGLOBIN 8.5 G/DL (14.2-18.0); LYMPHOCYTES % (AUTO) 12.8 % (20.0-45.0); MEAN CORPUSCULAR VOLUME 98 FL (80-99); MONOCYTES % (AUTO) 7.1 % (1.0-10.0); NEUTROPHILS % (AUTO) 79.2 % (45.0-75.0); PLATELET COUNT 364 K/UL (150-450); RED BLOOD COUNT 2.66 M/UL (4.70-6.10); RED CELL DISTRIBUTION WIDTH 16.2 % (11.6-14.8); WHITE BLOOD COUNT 14.4 K/UL (4.8-10.8)
[2018-04-24] MEDS: cefTRIAXone 1 GM in D5W 55 ML IVPB SCH (13:20)
--- NOTE | 2018-04-24 13:56 | Infectious Diseases Prog Note ---
Assessment/Plan Assessment/Plan A: 1. Sepsis. 2. Klebsiella UTI, likely complicated. 3. Advanced dementia. 4. History of BPH. 5. Hyponatremia. 6. End-stage renal disease. RECOMMENDATION: Continue Rocephin X 1 day Subjective ROS Limited/Unobtainable: Yes Allergies: Coded Allergies: No Known Allergies (Unverified , 02/11/17) info obtained from caregiver Objective Vital Signs Last 24 Hour Vital Signs Date Time Temp Pulse Resp B/P (MAP) Pulse Ox O2 Delivery O2 Flow Rate FiO2 04/24/18 12:00 98.0 66 18 120/71 (87) 97 04/24/18 10:09 98.0 04/24/18 09:00 Room Air 04/24/18 08:00 99.0 77 20 155/86 (109) 95 04/24/18 04:00 98.7 57 18 131/68 (89) 96 04/24/18 00:00 98.9 59 16 141/76 (97) 95 04/23/18 21:00 Room Air 04/23/18 20:00 98.5 56 16 143/71 (95) 98 04/23/18 16:00 97.7 60 17 117/58 (77) 97 Height (Feet): 5 Height (Inches): 8.00 Weight (Pounds): 160 General Appearance: no acute distress HEENT: mucous membranes moist Respiratory/Chest: lungs clear Cardiovascular: normal rate Abdomen: soft, non tender Extremities: no edema Neurologic/Psychiatric: aphasia Laboratory Tests Test 04/24/18 05:55 04/24/18 12:10 Sodium Level 145 MMOL/L (136-145) Potassium Level 4.5 MMOL/L (3.5-5.1) Chloride Level 114 MMOL/L (98-107) H Carbon Dioxide Level 16 MMOL/L (21-32) L Anion Gap 15 mmol/L (5-15) Blood Urea Nitrogen 74 mg/dL (7-18) H Creatinine 5.8 MG/DL (0.55-1.30) H Estimat Glomerular Filtration Rate mL/min (>60) Glucose Level 89 MG/DL (74-106) Calcium Level 8.0 MG/DL (8.5-10.1) L White Blood Count 14.4 K/UL (4.8-10.8) H Red Blood Count 2.66 M/UL (4.70-6.10) L Hemoglobin 8.5 G/DL (14.2-18.0) L Hematocrit 26.1 % (42.0-52.0) L Mean Corpuscular Volume 98 FL (80-99) Mean Corpuscular Hemoglobin 32.1 PG (27.0-31.0) H Mean Corpuscular Hemoglobin Concent 32.7 G/DL (32.0-36.0) Red Cell Distribution Width 16.2 % (11.6-14.8) H Platelet Count 364 K/UL (150-450) Mean Platelet Volume 5.8 FL (6.5-10.1) L Neutrophils (%) (Auto) 79.2 % (45.0-75.0) H Lymphocytes (%) (Auto) 12.8 % (20.0-45.0) L Monocytes (%) (Auto) 7.1 % (1.0-10.0) Eosinophils (%) (Auto) 0.2 % (0.0-3.0) Basophils (%) (Auto) 0.7 % (0.0-2.0) Current Medications Medications (Trade) Dose Ordered Sig/Tracee Route PRN Reason Start Time Stop Time Status Last Admin Dose Admin Acetaminophen (Tylenol) 650 mg Q4H PRN ORAL pain/ fever 04/21/18 13:45 05/21/18 13:44 04/24/18 09:39 Ascorbic Acid (Vitamin C) 500 mg DAILY ORAL 04/20/18 09:00 05/20/18 08:59 04/24/18 08:21 Ceftriaxone Sodium 1 gm/ Dextrose 55 ml @ 110 mls/hr Q24H IVPB 04/21/18 14:30 04/28/18 14:29 04/24/18 13:20 Clonidine HCl (Catapres Tab) 0.1 mg Q4H PRN ORAL For High Blood Pressure 04/23/18 10:45 05/23/18 10:44 Divalproex Sodium (Depakote Sprinkles) 125 mg Q12HR ORAL 04/20/18 14:30 05/20/18 14:29 04/24/18 08:20 Epoetin Mykel (Epoetin Mykel-EPBX(NON ESRD)) 10,000 unit WED-WED-FRI SUBQ 04/20/18 21:00 05/20/18 20:59 04/22/18 22:28 Ferrous Sulfate (Feosol) 325 mg DAILY ORAL 04/20/18 09:00 05/20/18 08:59 04/24/18 08:20 Finasteride (Proscar) 5 mg DAILY ORAL 04/20/18 09:00 05/20/18 08:59 04/24/18 08:20 Heparin Sodium (Porcine) (Heparin 5000 units/ml) 5,000 units EVERY 12 HOURS SUBQ 04/20/18 09:00 05/20/18 08:59 04/24/18 09:41 Mirtazapine (Remeron) 15 mg BEDTIME ORAL 04/20/18 21:00 05/20/18 20:59 04/23/18 22:12 Sodium Bicarbonate (NaHCO3) 650 mg THREE TIMES A DAY ORAL 04/20/18 10:30 05/20/18 10:29 04/24/18 13:09 Tamsulosin HCl (Flomax) 0.4 mg QHS ORAL 04/20/18 21:00 05/20/18 20:59 04/23/18 22:12 Eloy Amaya MD Apr 24, 2018 13:56
--- NOTE | 2018-04-24 19:14 | NUR ---
HAND-OFF: Report given to GUMARO Torres.
--- NOTE | 2018-04-24 19:41 | NUR ---
NURSE NOTES: Pt received asleep with caregiver at bedside, bed in lowest position, call light within reach, condom cath in place, IV patent, will continue to monitor.
[2018-04-24] MEDS: Tamsulosin 0.4mg cap ORAL SCH (21:37)
[2018-04-25] VITALS: BP 128/61
[2018-04-25 04:00] VITALS: BP 139/67
--- NOTE | 2018-04-25 07:30 | NUR ---
NURSE NOTES: Patient asleep, on room air, no sign of distress and shortness of breath; no sign of chest pain; Condom cath in place, drains clear yellow urine; IV R-Wrist runs NS TKO; Left temporal OptiForm in place, dry and intact; md do resident urgent care at the bed side. Side rails up x2, breaks engaged, bed at lowest position. Call light within reach. Will keep monitoring.
--- NOTE | 2018-04-25 07:33 | NUR ---
HAND-OFF: Report given to GUMARO Hutchins.
[2018-04-25 07:44] LABS: BASOPHILS % (AUTO) 1.2 % (0.0-2.0); EOSINOPHILS % (AUTO) 1.6 % (0.0-3.0); HEMATOCRIT 27.1 % (42.0-52.0); HEMOGLOBIN 8.7 G/DL (14.2-18.0); LYMPHOCYTES % (AUTO) 20.3 % (20.0-45.0); MEAN CORPUSCULAR VOLUME 99 FL (80-99); MONOCYTES % (AUTO) 8.6 % (1.0-10.0); NEUTROPHILS % (AUTO) 68.4 % (45.0-75.0); PLATELET COUNT 327 K/UL (150-450); RED BLOOD COUNT 2.73 M/UL (4.70-6.10); RED CELL DISTRIBUTION WIDTH 16.8 % (11.6-14.8); WHITE BLOOD COUNT 9.3 K/UL (4.8-10.8)
[2018-04-25 08:00] VITALS: BP 158/71
--- NOTE | 2018-04-25 08:26 | Nephrology Progress Note ---
Assessment/Plan Assessment/Plan A/P 1) CKD 5- Cr within baseline range - spoke with son yesterday. Comfort care only. No HD - h/o chronic hydro. Mark in place, outpt Urology 2) Sepsis- UTI, Abx per ID. WBC down 3) Acidosis-on bicarb pills. BMP nimo if not DCed today 4) Dementia- at [facility] 5) Hyponatremia- resolved Subjective Date patient seen: Apr 25, 2018 Time patient seen: 08:25 ROS Limited/Unobtainable: Yes Allergies: Coded Allergies: No Known Allergies (Unverified , 02/11/17) info obtained from caregiver Subjective Patient in no distress. Caregiver at bedside Objective Last 24 Hour Vital Signs Date Time Temp Pulse Resp B/P (MAP) Pulse Ox O2 Delivery O2 Flow Rate FiO2 04/25/18 04:00 97.3 50 18 139/67 (91) 99 04/25/18 00:00 97.6 52 18 128/61 (83) 95 04/24/18 21:00 Room Air 04/24/18 20:00 97.8 55 18 125/64 (84) 97 04/24/18 16:00 97.9 70 18 144/76 (98) 95 04/24/18 14:34 156/78 04/24/18 14:27 97.0 87 17 156/78 (104) 99 04/24/18 12:00 98.0 66 18 120/71 (87) 97 04/24/18 10:09 98.0 04/24/18 09:00 Room Air Intake and Output 04/24/18 04/25/18 19:00 07:00 Intake Total 600 ml Output Total 1600 ml Balance -1000 ml Intake Oral 600 ml Output Urine Total 1600 ml # Voids 5 Laboratory Tests 04/24/18 12:10: White Blood Count 14.4H, Red Blood Count 2.66L, Hemoglobin 8.5L, Hematocrit 26.1L, Mean Corpuscular Volume 98, Mean Corpuscular Hemoglobin 32.1H, Mean Corpuscular Hemoglobin Concent 32.7, Red Cell Distribution Width 16.2H, Platelet Count 364, Mean Platelet Volume 5.8L, Neutrophils (%) (Auto) 79.2H, Lymphocytes (%) (Auto) 12.8L, Monocytes (%) (Auto) 7.1, Eosinophils (%) (Auto) 0.2, Basophils (%) (Auto) 0.7 04/25/18 06:20: White Blood Count 9.3, Red Blood Count 2.73L, Hemoglobin 8.7L, Hematocrit 27.1L , Mean Corpuscular Volume 99, Mean Corpuscular Hemoglobin 31.8H, Mean Corpuscular Hemoglobin Concent 32.2, Red Cell Distribution Width 16.8H, Platelet Count 327, Mean Platelet Volume 6.1L, Neutrophils (%) (Auto) 68.4, Lymphocytes (%) (Auto) 20.3, Monocytes (%) (Auto) 8.6, Eosinophils (%) (Auto) 1.6, Basophils (%) (Auto) 1.2 Height (Feet): 5 Height (Inches): 8.00 Weight (Pounds): 160 General Appearance: no apparent distress, alert EENT: normal ENT inspection Neck: normal alignment, supple Cardiovascular: normal rate, regular rhythm Respiratory/Chest: lungs clear, normal breath sounds Abdomen: non tender, soft Edema: no edema noted Arm (L), no edema noted Arm (R), no edema noted Leg (L), no edema noted Leg (R), no edema noted Pedal (L), no edema noted Pedal (R), no edema noted Generalized Austin Kat MD Apr 25, 2018 08:26
--- NOTE | 2018-04-25 08:43 | General Progress Note ---
Assessment/Plan Assessment/Plan IMPRESSION: 1. Sepsis. 2. Leukocytosis. 3. Anemia, possibly due to chronic disease versus blood loss. 4. Acute on chronic renal failure. 5. Severe protein-calorie malnutrition. 6. Hyponatremia. 7. Advanced dementia. 8. Acute on chronic encephalopathy. PLAN care noted antibiotics over the weekend and dc in am dc antibiotics dc home epogen at home conservative therapy overall impression, plan, and exam edited and reviewed in detail care discussed with RN Subjective ROS Limited/Unobtainable: Yes Allergies: Coded Allergies: No Known Allergies (Unverified , 02/11/17) info obtained from caregiver Subjective care noted and reviewed unable to get neuro evaluation caregiver at bedside Objective Last 24 Hour Vital Signs Date Time Temp Pulse Resp B/P (MAP) Pulse Ox O2 Delivery O2 Flow Rate FiO2 04/25/18 04:00 97.3 50 18 139/67 (91) 99 04/25/18 00:00 97.6 52 18 128/61 (83) 95 04/24/18 21:00 Room Air 04/24/18 20:00 97.8 55 18 125/64 (84) 97 04/24/18 16:00 97.9 70 18 144/76 (98) 95 04/24/18 14:34 156/78 04/24/18 14:27 97.0 87 17 156/78 (104) 99 04/24/18 12:00 98.0 66 18 120/71 (87) 97 04/24/18 10:09 98.0 04/24/18 09:00 Room Air Intake and Output 04/24/18 04/25/18 19:00 07:00 Intake Total 600 ml Output Total 1600 ml Balance -1000 ml Intake Oral 600 ml Output Urine Total 1600 ml # Voids 5 Laboratory Tests 04/24/18 12:10: White Blood Count 14.4H, Red Blood Count 2.66L, Hemoglobin 8.5L, Hematocrit 26.1L, Mean Corpuscular Volume 98, Mean Corpuscular Hemoglobin 32.1H, Mean Corpuscular Hemoglobin Concent 32.7, Red Cell Distribution Width 16.2H, Platelet Count 364, Mean Platelet Volume 5.8L, Neutrophils (%) (Auto) 79.2H, Lymphocytes (%) (Auto) 12.8L, Monocytes (%) (Auto) 7.1, Eosinophils (%) (Auto) 0.2, Basophils (%) (Auto) 0.7 04/25/18 06:20: White Blood Count 9.3, Red Blood Count 2.73L, Hemoglobin 8.7L, Hematocrit 27.1L , Mean Corpuscular Volume 99, Mean Corpuscular Hemoglobin 31.8H, Mean Corpuscular Hemoglobin Concent 32.2, Red Cell Distribution Width 16.8H, Platelet Count 327, Mean Platelet Volume 6.1L, Neutrophils (%) (Auto) 68.4, Lymphocytes (%) (Auto) 20.3, Monocytes (%) (Auto) 8.6, Eosinophils (%) (Auto) 1.6, Basophils (%) (Auto) 1.2 Height (Feet): 5 Height (Inches): 8.00 Weight (Pounds): 160 Objective GENERAL: A well-developed male, debilitated. HEENT: Negative. Oropharynx is dry. NECK: Supple. SKIN: Skin turgor slightly reduced. LUNGS: With moderate air entry. No rhonchi or wheezes. CARDIAC: Normal S1, S2. Regular rate and rhythm without murmurs, rubs, or gallops. ABDOMEN: Soft, nontender. No distention. EXTREMITIES: No cyanosis, clubbing, or edema. NEUROLOGICAL: Confused. Nonverbal overall. Catracho Marcos MD Apr 25, 2018 08:43
[2018-04-25] MEDS: Sodium Bicarbonate 650mg Tab ORAL SCH ×2 (08:58→12:46)
[2018-04-25] MEDS: Depakote 125mg Sprinkles ORAL SCH (08:58)
[2018-04-25] MEDS: Ascorbic Acid 500mg tab ORAL SCH (08:58)
[2018-04-25] MEDS: Heparin 5000 units/ml inj SUBQ SCH (09:00)
--- NOTE | 2018-04-25 09:15 | NUR ---
*-* DISCHARGE PLANNING *-* PATIENT HAS BEEN REFERRED TO: JOVANNY 2000 P:[phone] F:[phone] Addendum: 04/25/18 at 1133 by MAMIE ROSARIO CM PROGRESSIVE TO CONTINUE TO FOLLOW PATIENT
--- NOTE | 2018-04-25 11:37 | Infectious Diseases Prog Note ---
Assessment/Plan Assessment/Plan antibiotics : ceftriaxone A 1. klebsiella UTI s/p rx 2. leucocytosis resolved 3. renal failure 4. BPH 5. dementia P 1. d/c ceftriaxone 2. observe off antibiotics Subjective Constitutional: Denies: fever, chills Respiratory: Denies: shortness of breath, dry cough Gastrointestinal/Abdominal: Denies: nausea, vomiting, diarrhea Musculoskeletal: Denies: pain Allergies: Coded Allergies: No Known Allergies (Unverified , 02/11/17) info obtained from caregiver Objective Vital Signs Last 24 Hour Vital Signs Date Time Temp Pulse Resp B/P (MAP) Pulse Ox O2 Delivery O2 Flow Rate FiO2 04/25/18 09:00 Room Air 04/25/18 08:00 97.1 50 19 158/71 (100) 98 04/25/18 04:00 97.3 50 18 139/67 (91) 99 04/25/18 00:00 97.6 52 18 128/61 (83) 95 04/24/18 21:00 Room Air 04/24/18 20:00 97.8 55 18 125/64 (84) 97 04/24/18 16:00 97.9 70 18 144/76 (98) 95 04/24/18 14:34 156/78 04/24/18 14:27 97.0 87 17 156/78 (104) 99 04/24/18 12:00 98.0 66 18 120/71 (87) 97 Height (Feet): 5 Height (Inches): 8.00 Weight (Pounds): 160 Respiratory/Chest: lungs clear Cardiovascular: normal rate, regular rhythm, no gallop/murmur Abdomen: soft, non tender Extremities: no edema Laboratory Tests Test 04/24/18 12:10 04/25/18 06:20 White Blood Count 14.4 K/UL (4.8-10.8) H 9.3 K/UL (4.8-10.8) Red Blood Count 2.66 M/UL (4.70-6.10) L 2.73 M/UL (4.70-6.10) L Hemoglobin 8.5 G/DL (14.2-18.0) L 8.7 G/DL (14.2-18.0) L Hematocrit 26.1 % (42.0-52.0) L 27.1 % (42.0-52.0) L Mean Corpuscular Volume 98 FL (80-99) 99 FL (80-99) Mean Corpuscular Hemoglobin 32.1 PG (27.0-31.0) H 31.8 PG (27.0-31.0) H Mean Corpuscular Hemoglobin Concent 32.7 G/DL (32.0-36.0) 32.2 G/DL (32.0-36.0) Red Cell Distribution Width 16.2 % (11.6-14.8) H 16.8 % (11.6-14.8) H Platelet Count 364 K/UL (150-450) 327 K/UL (150-450) Mean Platelet Volume 5.8 FL (6.5-10.1) L 6.1 FL (6.5-10.1) L Neutrophils (%) (Auto) 79.2 % (45.0-75.0) H 68.4 % (45.0-75.0) Lymphocytes (%) (Auto) 12.8 % (20.0-45.0) L 20.3 % (20.0-45.0) Monocytes (%) (Auto) 7.1 % (1.0-10.0) 8.6 % (1.0-10.0) Eosinophils (%) (Auto) 0.2 % (0.0-3.0) 1.6 % (0.0-3.0) Basophils (%) (Auto) 0.7 % (0.0-2.0) 1.2 % (0.0-2.0) Current Medications Medications (Trade) Dose Ordered Sig/Tracee Route PRN Reason Start Time Stop Time Status Last Admin Dose Admin Acetaminophen (Tylenol) 650 mg Q4H PRN ORAL pain/ fever 04/21/18 13:45 05/21/18 13:44 04/24/18 09:39 Ascorbic Acid (Vitamin C) 500 mg DAILY ORAL 04/20/18 09:00 05/20/18 08:59 04/25/18 08:58 Ceftriaxone Sodium 1 gm/ Dextrose 55 ml @ 110 mls/hr Q24H IVPB 04/21/18 14:30 04/28/18 14:29 04/24/18 13:20 Clonidine HCl (Catapres Tab) 0.1 mg Q4H PRN ORAL For High Blood Pressure 04/23/18 10:45 05/23/18 10:44 04/24/18 14:34 Divalproex Sodium (Depakote Sprinkles) 125 mg Q12HR ORAL 04/20/18 14:30 05/20/18 14:29 04/25/18 08:58 Epoetin Mykel (Epoetin Mykel-EPBX(NON ESRD)) 10,000 unit WED-WED-WED SUBQ 04/20/18 21:00 05/20/18 20:59 04/22/18 22:28 Ferrous Sulfate (Feosol) 325 mg DAILY ORAL 04/20/18 09:00 05/20/18 08:59 04/25/18 08:59 Finasteride (Proscar) 5 mg DAILY ORAL 04/20/18 09:00 05/20/18 08:59 04/25/18 08:58 Heparin Sodium (Porcine) (Heparin 5000 units/ml) 5,000 units EVERY 12 HOURS SUBQ 04/20/18 09:00 05/20/18 08:59 04/25/18 09:00 Mirtazapine (Remeron) 15 mg BEDTIME ORAL 04/20/18 21:00 05/20/18 20:59 04/24/18 21:40 Sodium Bicarbonate (NaHCO3) 650 mg THREE TIMES A DAY ORAL 04/20/18 10:30 05/20/18 10:29 04/25/18 08:58 Tamsulosin HCl (Flomax) 0.4 mg QHS ORAL 04/20/18 21:00 05/20/18 20:59 04/24/18 21:37 April Orourke MD Apr 25, 2018 11:36
[2018-04-25 12:00] VITALS: BP 116/74
--- NOTE | 2018-04-25 15:20 | NUR ---
NURSE NOTES: Patient left the floor accompanied by two ambulance personnel by junaid. Patient discharged to home. IV access and name tag remove upon discharge; printed material given to ambulance personel. Patient's son Zev Bautista Jr regarding patient's discharge to home. Patient doesn't have belongings upon discharge. Patient was stable. Wound care provided and picture taken upon discharge.
--- NOTE | 2018-04-25 16:20 | NUR ---
NURSE NOTES: Charge Nurse, Priscila spoke to Ara, social work case manager, regarding patient's Home Health with [facility]. As[employer] Ara flynn follow up with that.
[2018-04-25] MEDS ORDERED: Tubing IV Secondary IV ONE (20:23)
[2018-04-25] MEDS ORDERED: D5W 275ml ONE (20:23)
[2018-04-25] MEDS ORDERED: NS 500ML ONE (20:23)
[2018-04-25] MEDS ORDERED: Tubing Blood Filter IV ONE (20:23)
--- NOTE | 2018-04-25 21:50 | Diagnostic Imaging Report ---
APPROVED REPORT CPT Code: 78942 Present Symptoms Comments: Screening Hx of Sepsis BILATERAL: Imaging reveals a patent deep venous system bilaterally. There is no evidence of thrombus within the common femoral, superficial femoral, popliteal or tibial segments. The greater saphenous veins are also within normal limits. Doppler indicates normal spontaneous flow within these segments.
--- NOTE | 2018-04-27 13:35 | Discharge Summary ---
Discharge Summary Discharge Summary _ DATE OF ADMISSION: 04/19/2018 DATE OF DISCHARGE: 04/25/[address] Marcos: REASON FOR ADMISSION: 81 years old male with past medical history of chronic renal failure, chronic hydronephrosis , obstructive uropathy , BPH, advanced senile dementia, recurrent falls, possible history of CVA presented , was brought to emergency room for evaluation by his flight attendant ramp due to low blood pressure, elevated heart rate and low oxygen saturation - as per flight attendant ramp. Patient by himself was unable to provide any information. Patient with end-stage renal failure , but son opted not to have dialysis. Laboratory workup revealed leukocytosis with WBC 25.2, hemoglobin 8.5, hematocrit 35, platelets 336. Sodium 127. BUN 92, creatinine 6.3, consistent with known hsitroy of end-stage renal disease. Pro BNP 2755. Troponin was negative. EKG revealed sinus rhythm , without acute ischemic changes. Albumin 2.1. Bicarbonate 19. Chest x-ray revealed left minimal basilar atelectasis , no acute process otherwise. Urinalysis was grossly positive for UTI. Patient was admitted for further management. CONSULTANTS: pulmonary Dr. Kat ID specialist Dr. Orourke [facility] COURSE: Patient admitted and started on intravenous hydration and empiric antibiotic as per ID specialist recommendation. Blood cultures were negative. Urine culture revealed Klebsiella . Rapid influenza screen test was negative. Antibiotic optimized based on sensitivity as per ID specialist recommendations. Leukocytosis resolved. Patient remained afebrile. Patient completed antibiotic course for treatment of urinary tract infection. ID specialist recommended to observe patient off antibiotics Sausage Mixer followed. Renal parameters and electrolytes were closely monitored. Nephrotoxins were avoided. Patient condition and prognosis were discussed with patient's son , who opted for comfort care only, no dialysis. Mark catheter was in place due to chronic hydronephrosis and obstructive uropathy. Patient follows-up with outpatient urologist. Patient noted to have acidosis and was on bicarbonate pills. Bicarb down to 16. Hyponatremia resolved with IV hydration. Sodium 145 prior to discharge. Creatinine 5.8 , BUN 74. The next day after admission noted hemoglobin 7.9 and hematocrit 23.7. Patient undergone transfusion of 2 units of packed red blood cells. Hemoglobin and hematocrit were closely monitored with goal to keep hemoglobin above 7. Patient was on Epogen 3 times a week as per evaluation engineer. Iron supplement was continued. Prior to discharge hemoglobin 8.7 hematocrit 27.1. Flomax and Proscar were continued. DVT prophylaxis provided. Supportive care provided. Bowel regimen instituted. Vacuum Truck Driver recommendations implemented in plan of care. Prognosis was discussed with patient's son. Patient remains full code, but son prefers comfort measures only, and no initiation of hemodialysis. Patient stabilized and was ready for discharge home with [facility]. FINAL DIAGNOSES: Sepsis Klebsiella UTI , status post treatment Leukocytosis-resolved Acute on chronic renal failure with chronic kidney disease stage V Chronic hydronephrosis Hyponatremia-resolved Severe protein calorie malnutrition Anemia of chronic kidney diseas, s/p blood transfusion Acute on chronic encephalopathy BPH Advanced dementia DISCHARGE MEDICATIONS: See Medication Reconciliation list. DISCHARGE INSTRUCTIONS: Patient was discharged home with home health services/[facility].. Follow up with primary care provider in one week. I have been assigned to dictate discharge summary for this account. I was not involved in the patient's management. Yasmeen Yin NP Apr 27, 2018 13:35
== END 2018-04-25 15:20 | disposition home health service (06) | DRG 871 ==
LOC: EMR 18:05 → 4E 19:38 → EDBEDREQ 21:52 → 4E 04-20 01:07
PROC: 30233N1 Transfusion of Nonautologous Red Blood Cells into Peripheral Vein, Percutaneous Approach (ICD-10-PCS; principal; 2018-04-21)
DX: A41.9 Sepsis, unspecified organism (principal); E43 Unspecified severe protein-calorie malnutrition; N18.6 End stage renal disease; N39.0 Urinary tract infection, site not specified; E87.1 Hypo-osmolality and hyponatremia; N17.9 Acute kidney failure, unspecified; G93.40 Encephalopathy, unspecified; N13.30 Unspecified hydronephrosis; D64.9 Anemia, unspecified; N18.9 Chronic kidney disease, unspecified; F03.90 Unspecified dementia, unspecified severity, without behavioral disturbance, psychotic disturbance, mood disturbance, and anxiety; B96.1 Klebsiella pneumoniae [K. pneumoniae] as the cause of diseases classified elsewhere; D63.1 Anemia in chronic kidney disease; N40.0 Benign prostatic hyperplasia without lower urinary tract symptoms; Z66 Do not resuscitate
CPT/HCPCS: 36415; 71045; 80048; 80053; 81003; 82550; 83605; 83735; 83880; 84484; 85007; 85025; 85610; 85730; 86710; 86850; 86900; 86901; 86920; 87040; 87086; 87181; 93005; 93970; 96365; 96367; 99285

== ENCOUNTER 2018-06-13 18:49 | Inpatient (IN) | payer MEDICARE, BC ==
[~2018-06-13] VITALS: Ht 172.7 cm; Wt 74.9 kg
[~2018-06-13 18:49] MED LIST changes: +ASCORBIC ACID500 MG ORAL; +CENTRUM SILVER1 EAC4 PO; +DEPAKOTE125 MG PO; +DIVALPROEX SOD125 M1 PO; +FERROUS SULFAT325 MG ORAL; +OYSTER SHELL 21 EAC1 PO; +PROSCAR5 MG ORAL
[2018-06-13 19:22] VITALS: BP 143/82
--- NOTE | 2018-06-13 19:29 | NUR ---
ED Nurse Note: pt brought in by caregiver, per caregiver statement home health nurse advised caregiver to take pt to hospital for low hgb =6.2. Pt nonverbal, skin warm dry and pale, resp even and unlabored on RA, -n/v/d, BUE/BLE contracted. NSR and VSS at this time, will cont monitor. caregiver at the bedside.
[2018-06-13] MEDS ORDERED: VITAMIN C500 M1 ORAL (19:39)
[2018-06-13] MEDS ORDERED: CENTRUM SILVER1 EAC4 PO (19:41)
[2018-06-13] MEDS ORDERED: SINEMET 25-1001 EAC1 ORAL (19:44)
[2018-06-13] MEDS ORDERED: GINKGO BILOBA120 MG PO (19:47)
[2018-06-13 19:48] LABS: HEMATOCRIT 18.7 % (42.0-52.0); MEAN CORPUSCULAR VOLUME 96 FL (80-99); PLATELET COUNT 455 K/UL (150-450); RED BLOOD COUNT 1.95 M/UL (4.70-6.10); RED CELL DISTRIBUTION WIDTH 15.3 % (11.6-14.8); WHITE BLOOD COUNT 13.5 K/UL (4.8-10.8)
[2018-06-13] MEDS ORDERED: COL-RITE100 MG PO (19:48)
[2018-06-13] MEDS ORDERED: CIPROFLOXACIN500 M2 ORAL (19:50)
[2018-06-13 19:54] LABS: ANION GAP 19 mmol/L (5-15); BLOOD UREA NITROGEN 113 mg/dL (7-18); CALCIUM 8.9 MG/DL (8.5-10.1); CARBON DIOXIDE 15 MMOL/L (21-32); CHLORIDE 93 MMOL/L (98-107); CREATININE 6.5 MG/DL (0.55-1.30); POTASSIUM 5.5 MMOL/L (3.5-5.1); SODIUM 126 MMOL/L (136-145)
[2018-06-13 19:57] LABS: HEMOGLOBIN 6.2 G/DL (14.2-18.0)
--- NOTE | 2018-06-13 20:00 | NUR ---
ED Nurse Note: received consent from son via telephone for blood transfusion. 2 RN carlos a the form.
[2018-06-13 20:07] LABS: ALANINE AMINOTRANSFERASE 10 U/L (12-78); ALBUMIN 2.9 G/DL (3.4-5.0); ALBUMIN/GLOBULIN RATIO 0.6 (1.0-2.7); ALKALINE PHOSPHATASE 77 U/L (46-116); ASPARTATE AMINO TRANSFERASE 18 U/L (15-37); BILIRUBIN,TOTAL 0.3 MG/DL (0.2-1.0)
[2018-06-13 20:22] VITALS: BP 159/67
--- NOTE | 2018-06-13 20:24 | NUR ---
ED Nurse Note: pt cleaned and changed into gown, warm blanket provided for comfort.
--- NOTE | 2018-06-13 20:38 | NUR ---
ED Nurse Note: Spoke with pt's son, Isidro BautistaJr ([phone]) for transfusion consent and to confirm "no dialysis".
--- NOTE | 2018-06-13 20:45 | NUR ---
ED Nurse Note: blood transfusion started per ERMD order.
--- NOTE | 2018-06-13 21:00 | NUR ---
ED Nurse Note: no adverse reaction occured during blood transfusion initial 15 min.
--- NOTE | 2018-06-13 21:15 | NUR ---
ED Nurse Note: called tele floor to give report, receiving rn unable to take report at this time, nurse stated she will call back in 3 min per Calixto tatmichelle.
[2018-06-13 21:22] VITALS: BP 141/64
--- NOTE | 2018-06-13 21:45 | Emergency Room Report ---
History of Present Illness General Chief Complaint: Abnormal Labs Source: Medical Record Present Illness HPI Patient is an 83-year-old male brought in by caregiver for increased decrease patient was noted to have recent laboratory testing which showed some anemia at his blood count primary care physician's office. Patient was noted to have some prior history of dementia as well as renal disease. He had previously been seen by nephrology and was noted to have some evidence of renal failure. Patient's family previously declined placing the patient on dialysis.Hemoglobin was approximately 6.2. Allergies: Coded Allergies: No Known Allergies (Unverified , 02/11/17) info obtained from caregiver Patient History Past Medical History: see triage record Reviewed Nursing Documentation: PMH: Agreed; PSxH: Agreed Nursing Documentation-PMH Past Medical History: No History, Except For Hx Cardiac Problems: No - parkinson dz Hx Cancer: No Hx Gastrointestinal Problems: No Hx Dialysis: No - CKD Hx Neurological Problems: Yes Hx Dementia: Yes Hx Parkinson's Disease: Yes Hx Tremors: Yes Hx Weakness: Yes Review of Systems All Other Systems: negative except mentioned in HPI Physical Exam Vital Signs Date Time Temp Pulse Resp B/P (MAP) Pulse Ox O2 Delivery O2 Flow Rate FiO2 06/13/18 18:50 97.3 69 18 152/74 100 Room Air 06/13/18 20:22 2.0 Sp02 EP Interpretation: reviewed, normal General Appearance: alert, Chronically Ill Head: atraumatic ENT: normal ENT inspection, hearing grossly normal, normal voice Neck: normal inspection, supple, no bony tend, limited range of motion Respiratory: normal inspection, lungs clear, normal breath sounds, no respiratory distress, no retraction, no wheezing Cardiovascular #1: regular rate, rhythm Gastrointestinal: normal inspection, normal bowel sounds, non tender, soft, no guarding, no hernia Genitourinary: no CVA tenderness Musculoskeletal: normal inspection, back normal, normal range of motion Neurologic: alert, responsive, speech normal, motor weakness Psychiatric: mood/affect normal, depressed affect Skin: normal inspection, normal color, no rash Medical Decision Making Diagnostic Impression: Primary Impression: Chronic renal disease Additional Impressions: Hyperkalemia Severe anemia ER Course Patient presented for generalized weakness and abnormal lab test. Differential diagnosis include was not limited to anemia, hemolysis, bleeding among others. Per the patient's caregiver the patient had not been having any bloody stools. Patient was noted to have chronic anemia likely due to renal insufficiency. Patient family member was consented for blood transfusion. Patient was noted to have hyperkalemia as well as renal insufficiency and will likely require further workup. patient's family had previously declined dialysis.Dr. Catracho Marcos was contacted for inpatient management. Labs Test 06/13/18 19:15 White Blood Count 13.5 K/UL (4.8-10.8) Red Blood Count 1.95 M/UL (4.70-6.10) Hemoglobin 6.2 G/DL (14.2-18.0) Hematocrit 18.7 % (42.0-52.0) Mean Corpuscular Volume 96 FL (80-99) Mean Corpuscular Hemoglobin 31.7 PG (27.0-31.0) Mean Corpuscular Hemoglobin Concent 33.1 G/DL (32.0-36.0) Red Cell Distribution Width 15.3 % (11.6-14.8) Platelet Count 455 K/UL (150-450) Mean Platelet Volume 4.9 FL (6.5-10.1) Neutrophils (%) (Auto) % (45.0-75.0) Lymphocytes (%) (Auto) % (20.0-45.0) Monocytes (%) (Auto) % (1.0-10.0) Eosinophils (%) (Auto) % (0.0-3.0) Basophils (%) (Auto) % (0.0-2.0) Differential Total Cells Counted 100 Neutrophils % (Manual) 80 % (45-75) Lymphocytes % (Manual) 8 % (20-45) Monocytes % (Manual) 9 % (1-10) Eosinophils % (Manual) 2 % (0-3) Basophils % (Manual) 1 % (0-2) Band Neutrophils 0 % (0-8) Platelet Estimate Increased Platelet Morphology Normal Hypochromasia 1+ Anisocytosis 1+ Prothrombin Time 10.6 SEC (9.30-11.50) Prothromb Time International Ratio 1.0 (0.9-1.1) Activated Partial Thromboplast Time 26 SEC (23-33) Sodium Level 126 MMOL/L (136-145) Potassium Level 5.5 MMOL/L (3.5-5.1) Chloride Level 93 MMOL/L (98-107) Carbon Dioxide Level 15 MMOL/L (21-32) Anion Gap 19 mmol/L (5-15) Blood Urea Nitrogen 113 mg/dL (7-18) Creatinine 6.5 MG/DL (0.55-1.30) Estimat Glomerular Filtration Rate mL/min (>60) Glucose Level 91 MG/DL (74-106) Calcium Level 8.9 MG/DL (8.5-10.1) Total Bilirubin 0.3 MG/DL (0.2-1.0) Aspartate Amino Transf (AST/SGOT) 18 U/L (15-37) Alanine Aminotransferase (ALT/SGPT) 10 U/L (12-78) Alkaline Phosphatase 77 U/L (46-116) Total Protein 7.5 G/DL (6.4-8.2) Albumin 2.9 G/DL (3.4-5.0) Globulin 4.6 g/dL Albumin/Globulin Ratio 0.6 (1.0-2.7) Thyroid Stimulating Hormone (TSH) 2.878 uiU/mL (0.358-3.740) Last Vital Signs Date Time Temp Pulse Resp B/P (MAP) Pulse Ox O2 Delivery O2 Flow Rate FiO2 06/13/18 21:22 97.7 66 16 141/64 100 Nasal Cannula 2.0 Status: improved Disposition: ADMITTED INPATIENT Condition: Stable Referrals: Catracho Marcos MD (PCP) Migue Tineo MD Jun 13, 2018 21:45
[2018-06-13 22:10] VITALS: BP 157/82
--- NOTE | 2018-06-13 22:10 | NUR ---
NURSE NOTES: Received pt. from ED via junaid. Pt. transferred to unit and bed without any incident. Pt. is A/Ox1; nonverbal, alert only to name. Murphy pt. to unit, room, and hospital policies. Received report from GUMARO Ayers. media monitor is in placed, IV site intact, asymptomatic, patent and is currently running packed RBC at 150cc/hr. Bed is in the lowest position and locked. Call light within reach. Belongings list checked and accounted. No signs and symptoms of acute distress noted at this time. Will continue plan of care and contact Dr. Marcos for admission orders.
--- NOTE | 2018-06-13 22:16 | NUR ---
NURSE NOTES: Received admission orders from Dr. Marcos. Will note and carry out.
--- NOTE | 2018-06-13 22:50 | NUR ---
NURSE NOTES: Packed RBC started in ER. Completed first unit of packed RBC at 2250. Vital signs are stable. No adverse reaction noted.
--- NOTE | 2018-06-13 23:45 | NUR ---
NURSE NOTES: Started 2nd unit of packed RBC at 2330. Vital signs are stable. No adverse reaction after 15 mins.
[2018-06-14] VITALS: BP 157/72
--- NOTE | 2018-06-14 01:57 | NUR ---
NURSE NOTES: Completed second unit of packed RBC. No adverse reaction noted. Vital signs are stable. Addendum: 06/14/18 at 0201 by Zohreh Whalen Mai, RN completed blood transfusion at 0140.
--- NOTE | 2018-06-14 02:05 | NUR ---
NURSE NOTES: Dr. Marcos ordered third unit of packed RBC. Contacted blood bank and was notified that they ran out of pt's blood type; awaiting for more blood. They will call once the blood arrives. Notified Dr. Marcos.
[2018-06-14 04:00] VITALS: BP 141/68
--- NOTE | 2018-06-14 06:00 | NUR ---
NURSE NOTES: Followed up with blood bank regarding last unit of packed RBCs. Awaiting call back.
--- NOTE | 2018-06-14 06:27 | NUR ---
NURSE NOTES: Per director of labor and deliveryMarta, they will wait for CBC (hgb/hct) to result before prepping third bag of packed RBCs.
[2018-06-14 06:33] LABS: EOSINOPHILS % (AUTO) 2.8 % (0.0-3.0); HEMATOCRIT 23.2 % (42.0-52.0); LYMPHOCYTES % (AUTO) 11.2 % (20.0-45.0); MEAN CORPUSCULAR VOLUME 91 FL (80-99); PLATELET COUNT 390 K/UL (150-450); RED BLOOD COUNT 2.54 M/UL (4.70-6.10); RED CELL DISTRIBUTION WIDTH 15.1 % (11.6-14.8); WHITE BLOOD COUNT 13.4 K/UL (4.8-10.8)
[2018-06-14 06:41] LABS: ANION GAP 19 mmol/L (5-15); BLOOD UREA NITROGEN 112 mg/dL (7-18); CALCIUM 8.7 MG/DL (8.5-10.1); CARBON DIOXIDE 13 MMOL/L (21-32); CHLORIDE 97 MMOL/L (98-107); CREATININE 6.5 MG/DL (0.55-1.30); POTASSIUM 5.1 MMOL/L (3.5-5.1); SODIUM 129 MMOL/L (136-145)
--- NOTE | 2018-06-14 07:30 | NUR ---
NURSE NOTES: Blood bank called and said they will call back once packed RBCs bag is ready. Endorsed to GUMARO Powell to follow up.
--- NOTE | 2018-06-14 07:57 | NUR ---
HAND-OFF: Report given to GUMARO Powell.
--- NOTE | 2018-06-14 07:59 | NUR ---
NURSE NOTES: Received report from Nila/RN, patient is awake, eating breakfast, No distress/SOB noted at this time. machinist bench at bed side. Bed in low position, Call light within reach. Will continue plan of care.
[2018-06-14 08:00] VITALS: BP 130/80
--- NOTE | 2018-06-14 08:24 | NUR ---
CASE MANAGEMENT:REVIEW 83 YR OLD MALE FROM HOME TO ER WITH CAREGIVER CC: ABNORMAL LABS. WEAKNESS PMH: SON REFUSING DIALYSIS SI: SEVERE ANEMIA. HYPERKALEMIA. CKD 97.3 69 18 152/74 100% ON RA WBC+13.5H/H-6.2/18.7 NA-126 BUN+113 CR+6.5 IS: IV PEPCID TYPE & SCREEN TRANSFUSE 2 UNITS PRBC'S : TO TELEMETRY IS: IVF@100/HR INTERQUAL CRITERIA MET
--- NOTE | 2018-06-14 08:35 | History & Physical ---
History and Physical History & Physicial REASON FOR ADMISSION: anemia HISTORY OF PRESENT ILLNESS: 83-year-old debilitated male who has been failing to thrive. The patient with end-stage renal failure and son has opted not to have dialysis. The patient presented with worsening anemia and renal failure. The patient is noted to have worsening anemia. He is a poor historian. The patient has had prior admissions to [facility] for sepsis, renal failure, and anemia. The patient's care has been discussed with his son and notably the patient has been failing to thrive. The patient's events are fairly acute in nature and family required admission. The patient was noted to be increasingly weaker overall. The patient's prior history was reviewed and doing poorly. PAST MEDICAL HISTORY: Notable for obstructive uropathy, benign prostatic hyperplasia, senile dementia advanced, unsteady gait, prior falls, chronic renal failure, hydronephrosis, possible prior CVA, and sepsis, anemia MEDICATIONS: Reviewed. ALLERGIES: Reviewed. SOCIAL HISTORY: He lives with caregiver. Do Not Resuscitate per discussion with son. nonsmoker and nondrinker REVIEW OF SYSTEMS: Unobtainable at this time. PHYSICAL EXAMINATION: GENERAL: A well-developed male, debilitated. HEENT: Negative. Oropharynx is dry. NECK: Supple. SKIN: Skin turgor slightly reduced. LUNGS: With moderate air entry. No rhonchi or wheezes. CARDIAC: Normal S1, S2. Regular rate and rhythm without murmurs, rubs, or gallops. ABDOMEN: Soft, nontender. No distention. no HSM EXTREMITIES: No cyanosis, clubbing, or edema. NEUROLOGICAL: Confused. Nonverbal overall. same reviewed and edited Labs Test 06/13/18 19:15 06/14/18 05:25 White Blood Count 13.5 K/UL (4.8-10.8) 13.4 K/UL (4.8-10.8) Red Blood Count 1.95 M/UL (4.70-6.10) 2.54 M/UL (4.70-6.10) Hemoglobin 6.2 G/DL (14.2-18.0) 8.0 G/DL (14.2-18.0) Hematocrit 18.7 % (42.0-52.0) 23.2 % (42.0-52.0) Mean Corpuscular Volume 96 FL (80-99) 91 FL (80-99) Mean Corpuscular Hemoglobin 31.7 PG (27.0-31.0) 31.4 PG (27.0-31.0) Mean Corpuscular Hemoglobin Concent 33.1 G/DL (32.0-36.0) 34.4 G/DL (32.0-36.0) Red Cell Distribution Width 15.3 % (11.6-14.8) 15.1 % (11.6-14.8) Platelet Count 455 K/UL (150-450) 390 K/UL (150-450) Mean Platelet Volume 4.9 FL (6.5-10.1) 5.4 FL (6.5-10.1) Neutrophils (%) (Auto) % (45.0-75.0) 76.0 % (45.0-75.0) Lymphocytes (%) (Auto) % (20.0-45.0) 11.2 % (20.0-45.0) Monocytes (%) (Auto) % (1.0-10.0) 9.0 % (1.0-10.0) Eosinophils (%) (Auto) % (0.0-3.0) 2.8 % (0.0-3.0) Basophils (%) (Auto) % (0.0-2.0) 1.0 % (0.0-2.0) Differential Total Cells Counted 100 Neutrophils % (Manual) 80 % (45-75) Lymphocytes % (Manual) 8 % (20-45) Monocytes % (Manual) 9 % (1-10) Eosinophils % (Manual) 2 % (0-3) Basophils % (Manual) 1 % (0-2) Band Neutrophils 0 % (0-8) Platelet Estimate Increased Platelet Morphology Normal Hypochromasia 1+ Anisocytosis 1+ Prothrombin Time 10.6 SEC (9.30-11.50) Prothromb Time International Ratio 1.0 (0.9-1.1) Activated Partial Thromboplast Time 26 SEC (23-33) Sodium Level 126 MMOL/L (136-145) 129 MMOL/L (136-145) Potassium Level 5.5 MMOL/L (3.5-5.1) 5.1 MMOL/L (3.5-5.1) Chloride Level 93 MMOL/L (98-107) 97 MMOL/L (98-107) Carbon Dioxide Level 15 MMOL/L (21-32) 13 MMOL/L (21-32) Anion Gap 19 mmol/L (5-15) 19 mmol/L (5-15) Blood Urea Nitrogen 113 mg/dL (7-18) 112 mg/dL (7-18) Creatinine 6.5 MG/DL (0.55-1.30) 6.5 MG/DL (0.55-1.30) Estimat Glomerular Filtration Rate mL/min (>60) mL/min (>60) Glucose Level 91 MG/DL (74-106) 83 MG/DL (74-106) Calcium Level 8.9 MG/DL (8.5-10.1) 8.7 MG/DL (8.5-10.1) Total Bilirubin 0.3 MG/DL (0.2-1.0) Aspartate Amino Transf (AST/SGOT) 18 U/L (15-37) Alanine Aminotransferase (ALT/SGPT) 10 U/L (12-78) Alkaline Phosphatase 77 U/L (46-116) Total Protein 7.5 G/DL (6.4-8.2) Albumin 2.9 G/DL (3.4-5.0) Globulin 4.6 g/dL Albumin/Globulin Ratio 0.6 (1.0-2.7) Thyroid Stimulating Hormone (TSH) 2.878 uiU/mL (0.358-3.740) IMPRESSION: 1. anemia 2. Leukocytosis. 3. electrolyte imbalance 4. Acute on chronic renal failure. 5. Severe protein-calorie malnutrition. 6. Hyponatremia. 7. Advanced dementia. 8. Acute on chronic encephalopathy. PLAN care noted transfuse hydrate hold antibiotics check cultures discuss with son prior DNR impression, plan, and exam edited and reviewed in detail care discussed with Catracho Blount MD Jun 14, 2018 08:35
--- NOTE | 2018-06-14 08:35 | General Progress Note ---
Subjective Allergies: Coded Allergies: No Known Allergies (Unverified , 02/11/17) info obtained from caregiver Objective Last 24 Hour Vital Signs Date Time Temp Pulse Resp B/P (MAP) Pulse Ox O2 Delivery O2 Flow Rate FiO2 06/14/18 08:00 99.7 81 20 130/80 (97) 98 06/14/18 04:00 98.0 74 20 141/68 (92) 100 06/14/18 04:00 69 06/14/18 00:00 97.5 69 20 157/72 (100) 100 06/13/18 23:57 70 06/13/18 22:41 Nasal Cannula 2.0 06/13/18 22:10 97.7 69 20 157/82 (107) 100 06/13/18 22:06 97.5 67 16 144/67 98 Room Air 06/13/18 21:22 97.7 66 16 141/64 100 Nasal Cannula 2.0 06/13/18 21:15 97.7 66 16 06/13/18 21:00 97.7 70 16 06/13/18 20:55 97.7 69 18 06/13/18 20:50 97.7 69 14 06/13/18 20:45 97.7 68 14 06/13/18 20:22 97.5 67 18 159/67 100 Nasal Cannula 2.0 06/13/18 19:27 63 18 06/13/18 19:22 97.3 63 18 143/82 100 Room Air 06/13/18 18:50 97.3 69 18 152/74 100 Room Air Intake and Output 06/13/18 06/14/18 19:00 07:00 Intake Total 10 ml Balance 10 ml IV Total 10 ml # Voids 2 # Bowel Movements 1 Laboratory Tests 06/13/18 19:15: White Blood Count 13.5H, Red Blood Count 1.95L, Hemoglobin 6.2*L, Hematocrit 18.7L, Mean Corpuscular Volume 96, Mean Corpuscular Hemoglobin 31.7H, Mean Corpuscular Hemoglobin Concent 33.1, Red Cell Distribution Width 15.3H, Platelet Count 455H, Mean Platelet Volume 4.9L, Neutrophils (%) (Auto) , Lymphocytes (%) (Auto) , Monocytes (%) (Auto) , Eosinophils (%) (Auto) , Basophils (%) (Auto) , Differential Total Cells Counted 100, Neutrophils % ( Manual) 80H, Lymphocytes % (Manual) 8L, Monocytes % (Manual) 9, Eosinophils % ( Manual) 2, Basophils % (Manual) 1, Band Neutrophils 0, Platelet Estimate IncreasedH, Platelet Morphology Normal, Hypochromasia 1+, Anisocytosis 1+, Prothrombin Time 10.6, Prothromb Time International Ratio 1.0, Activated Partial Thromboplast Time 26, Sodium Level 126L, Potassium Level 5.5H, Chloride Level 93L, Carbon Dioxide Level 15L, Anion Gap 19H, Blood Urea Nitrogen 113H, Creatinine 6.5H, Estimat Glomerular Filtration Rate , Glucose Level 91, Calcium Level 8.9, Total Bilirubin 0.3, Aspartate Amino Transf (AST/SGOT) 18, Alanine Aminotransferase (ALT/SGPT) 10L, Alkaline Phosphatase 77, Total Protein 7.5, Albumin 2.9L, Globulin 4.6, Albumin/Globulin Ratio 0.6L, Thyroid Stimulating Hormone (TSH) 2.878 06/14/18 05:25: White Blood Count 13.4H, Red Blood Count 2.54L, Hemoglobin 8.0L, Hematocrit 23.2L, Mean Corpuscular Volume 91, Mean Corpuscular Hemoglobin 31.4H, Mean Corpuscular Hemoglobin Concent 34.4, Red Cell Distribution Width 15.1H, Platelet Count 390, Mean Platelet Volume 5.4L, Neutrophils (%) (Auto) 76.0H, Lymphocytes (%) (Auto) 11.2L, Monocytes (%) (Auto) 9.0, Eosinophils (%) (Auto) 2.8, Basophils (%) (Auto) 1.0, Sodium Level 129L, Potassium Level 5.1, Chloride Level 97L, Carbon Dioxide Level 13L, Anion Gap 19H, Blood Urea Nitrogen 112H, Creatinine 6.5H, Estimat Glomerular Filtration Rate , Glucose Level 83, Calcium Level 8.7 Height (Feet): 5 Height (Inches): 8.00 Weight (Pounds): 155 Catracho Marcos MD Jun 14, 2018 08:35
[2018-06-14] MEDS: Ascorbic Acid 500mg tab ORAL SCH ×2 (09:00→17:19)
[2018-06-14] MEDS: Docusate 100mg cap ORAL SCH (09:00)
[2018-06-14] MEDS: Ciprofloxacin 500mg tab ORAL SCH (09:00)
[2018-06-14] MEDS: Levodopa/Carbidopa 25/100 tab ORAL SCH ×3 (09:00→17:19)
--- NOTE | 2018-06-14 11:07 | NUR ---
NURSE NOTES: Call Dr. Marcos regarding patient temperature 100.9, and held the blood transfusion because of temperature. Awaiting exploration geologist back.
[2018-06-14 12:00] VITALS: BP 112/62
--- NOTE | 2018-06-14 12:26 | Cardiology Report ---
APPROVED REPORT EKG Measurement Heart [id number] Normal sinus rhythm Normal ECG
[2018-06-14 16:00] VITALS: BP 123/63
[2018-06-14 20:00] VITALS: BP 128/69
--- NOTE | 2018-06-14 20:00 | NUR ---
HAND-OFF: Report given to Tomeka/GUMARO. Patient in stable condition. Endorsed plan of care.
[2018-06-14] MEDS: Tamsulosin 0.4mg cap ORAL SCH (20:24)
[2018-06-15] VITALS: BP 119/63
[2018-06-15 04:00] VITALS: BP 120/71
--- NOTE | 2018-06-15 07:21 | NUR ---
HAND-OFF: Report given to eyal samaniego.
[2018-06-15 07:27] LABS: BASOPHILS % (AUTO) 1.2 % (0.0-2.0); EOSINOPHILS % (AUTO) 3.4 % (0.0-3.0); HEMATOCRIT 26.1 % (42.0-52.0); HEMOGLOBIN 8.8 G/DL (14.2-18.0); LYMPHOCYTES % (AUTO) 12.2 % (20.0-45.0); MEAN CORPUSCULAR VOLUME 93 FL (80-99); MONOCYTES % (AUTO) 9.9 % (1.0-10.0); NEUTROPHILS % (AUTO) 73.3 % (45.0-75.0); PLATELET COUNT 350 K/UL (150-450); RED BLOOD COUNT 2.81 M/UL (4.70-6.10); RED CELL DISTRIBUTION WIDTH 15.7 % (11.6-14.8); WHITE BLOOD COUNT 12.8 K/UL (4.8-10.8)
--- NOTE | 2018-06-15 07:55 | NUR ---
NURSE NOTES: Received report and patient from Vida NAIK in bed resting, Patient is non-verbal, no s/s of distress noted. IV is intact and patent. Bed is in lowest level and brakes engaged for safety. Family at bedside. Call light within reach. Will continue with the plan of care.
[2018-06-15 08:00] VITALS: BP 118/65
--- NOTE | 2018-06-15 08:14 | NUR ---
NURSE NOTES: Patient has episode of 10 beats v-tach, assessed patient, sleeping , no distress noted. Notified Dr. Marcos for any new orders. Dr. Marcos wants Ming Pope on the case. Will carry out the order.
[2018-06-15] MEDS: Ciprofloxacin 500mg tab ORAL SCH (09:09)
[2018-06-15] MEDS: Levodopa/Carbidopa 25/100 tab ORAL SCH ×3 (09:09→17:29)
[2018-06-15] MEDS: Docusate 100mg cap ORAL SCH (09:09)
[2018-06-15] MEDS: Ascorbic Acid 500mg tab ORAL SCH ×2 (09:14→17:29)
[2018-06-15 12:00] VITALS: BP 131/78
[2018-06-15 16:00] VITALS: BP 131/75
--- NOTE | 2018-06-15 16:12 | NUR ---
CASE MANAGEMENT:REVIEW 06/15/18 SI: SEVERE ANEMIA. HYPERKALEMIA. CKD 97.2 68 20 131/78 99% ON 2L/NC WBC+12.8 H/H-8.8/26.1 IS: FLOMAX PO QHS CIPRO PO Q24 IVF@100/HR : TELEMETRY STATUS DCP: FROM HOME W/CAREGIVER
--- NOTE | 2018-06-15 18:28 | General Progress Note ---
Assessment/Plan Problem List: (1) Obstructive uropathy ICD Codes: N13.9 - Obstructive and reflux uropathy, unspecified SNOMED: 6715814 (2) Encephalopathy acute ICD Codes: G93.40 - Encephalopathy, unspecified SNOMED: 2399864 (3) Acute renal failure ICD Codes: N17.9 - Acute kidney failure, unspecified SNOMED: 65929384 (4) Parkinsonian syndrome ICD Codes: G20 - Parkinson's disease SNOMED: 51270043 (5) Severe anemia ICD Codes: D64.9 - Anemia, unspecified SNOMED: 399608973 (6) Chronic renal disease ICD Codes: N18.9 - Chronic kidney disease, unspecified SNOMED: 662020284 (7) Low hemoglobin ICD Codes: D64.9 - Anemia, unspecified SNOMED: 281084490 Assessment/Plan continue same dc in am monitor HH and [facility] home health on dc conservative care d/w caregiver impression, plan, and exam edited and reviewed in detail care discussed with RN Subjective Allergies: Coded Allergies: No Known Allergies (Unverified , 02/11/17) info obtained from caregiver Subjective overall same bed bound care noted and reviewed s/p transfusion Objective Last 24 Hour Vital Signs Date Time Temp Pulse Resp B/P (MAP) Pulse Ox O2 Delivery O2 Flow Rate FiO2 06/15/18 16:00 55 06/15/18 16:00 97.2 55 20 131/75 (93) 99 06/15/18 12:00 97.2 68 20 131/78 (95) 99 06/15/18 12:00 55 06/15/18 09:00 Nasal Cannula 2.0 06/15/18 08:00 59 06/15/18 08:00 97.2 59 20 118/65 (82) 98 06/15/18 04:00 56 06/15/18 04:00 97.4 56 18 120/71 (87) 97 06/15/18 00:00 97.9 65 18 119/63 (81) 99 06/14/18 21:00 Nasal Cannula 2.0 06/14/18 20:00 97.6 63 18 128/69 (88) 99 06/14/18 20:00 60 Intake and Output 06/14/18 06/15/18 19:00 07:00 Intake Total 480 ml 240 ml Balance 480 ml 240 ml Intake Oral 480 ml 240 ml # Voids 2 1 # Bowel Movements 1 1 Laboratory Tests 06/15/18 06:43: White Blood Count 12.8H, Red Blood Count 2.81L, Hemoglobin 8.8L, Hematocrit 26.1L, Mean Corpuscular Volume 93, Mean Corpuscular Hemoglobin 31.4H, Mean Corpuscular Hemoglobin Concent 33.8, Red Cell Distribution Width 15.7H, Platelet Count 350, Mean Platelet Volume 5.3L, Neutrophils (%) (Auto) 73.3, Lymphocytes (%) (Auto) 12.2L, Monocytes (%) (Auto) 9.9, Eosinophils (%) (Auto) 3.4H, Basophils (%) (Auto) 1.2 Height (Feet): 5 Height (Inches): 8.00 Weight (Pounds): 165 Objective WDWN NAD clear breath sounds bilaterally without rhonchi or wheeze [id number] without MRG NABS nontender no HSM no CCE nonfocal nonverbal bedbound Catracho Marcos MD Jun 15, 2018 18:28
--- NOTE | 2018-06-15 19:32 | NUR ---
HAND-OFF: Report given to GUMARO Horta.
--- NOTE | 2018-06-15 19:42 | NUR ---
NURSE NOTES: Received pt from GUMARO Montanez. Pt asleep. Caregiver at bedside. Bed in lowest position. Call light within reach. Will continue to monitor.
[2018-06-15 20:00] VITALS: BP 128/67
[2018-06-15] MEDS: Tamsulosin 0.4mg cap ORAL SCH (21:34)
[2018-06-16] VITALS: BP 158/103
[2018-06-16 04:00] VITALS: BP 139/67
[2018-06-16 05:24] LABS: BASOPHILS % (AUTO) 1.2 % (0.0-2.0); EOSINOPHILS % (AUTO) 4.7 % (0.0-3.0); HEMATOCRIT 26.8 % (42.0-52.0); HEMOGLOBIN 8.9 G/DL (14.2-18.0); LYMPHOCYTES % (AUTO) 11.6 % (20.0-45.0); MEAN CORPUSCULAR VOLUME 93 FL (80-99); MONOCYTES % (AUTO) 10.3 % (1.0-10.0); NEUTROPHILS % (AUTO) 72.2 % (45.0-75.0); PLATELET COUNT 366 K/UL (150-450); RED BLOOD COUNT 2.89 M/UL (4.70-6.10); WHITE BLOOD COUNT 12.1 K/UL (4.8-10.8)
--- NOTE | 2018-06-16 07:15 | NUR ---
RECEIVED REPORT FROM JESSICA NAIK. PT RESTING IN BED,IN STABLE CONDITION.
--- NOTE | 2018-06-16 07:39 | NUR ---
HAND-OFF: Report given to GUMARO Montanez. Pt stable..
[2018-06-16 08:00] VITALS: BP 151/75
[2018-06-16] MEDS: Docusate 100mg cap ORAL SCH (08:19)
[2018-06-16] MEDS: Ciprofloxacin 500mg tab ORAL SCH (08:19)
[2018-06-16] MEDS: Levodopa/Carbidopa 25/100 tab ORAL SCH ×2 (08:20→12:41)
[2018-06-16] MEDS: Ascorbic Acid 500mg tab ORAL SCH (08:20)
--- NOTE | 2018-06-16 08:33 | General Progress Note ---
Assessment/Plan Problem List: (1) Obstructive uropathy ICD Codes: N13.9 - Obstructive and reflux uropathy, unspecified SNOMED: 7661547 (2) Encephalopathy acute ICD Codes: G93.40 - Encephalopathy, unspecified SNOMED: 2573030 (3) Acute renal failure ICD Codes: N17.9 - Acute kidney failure, unspecified SNOMED: 53874938 (4) Parkinsonian syndrome ICD Codes: G20 - Parkinson's disease SNOMED: 11710307 (5) Severe anemia ICD Codes: D64.9 - Anemia, unspecified SNOMED: 214129162 (6) Chronic renal disease ICD Codes: N18.9 - Chronic kidney disease, unspecified SNOMED: 486878805 (7) Low hemoglobin ICD Codes: D64.9 - Anemia, unspecified SNOMED: 870949160 Assessment/Plan continue same dc today monitor HH and [facility] home health on dc conservative care d/w caregiver impression, plan, and exam edited and reviewed in detail care discussed with RN Subjective Allergies: Coded Allergies: No Known Allergies (Unverified , 02/11/17) info obtained from caregiver Subjective overall same bed bound care noted and reviewed s/p transfusion Objective Last 24 Hour Vital Signs Date Time Temp Pulse Resp B/P (MAP) Pulse Ox O2 Delivery O2 Flow Rate FiO2 06/16/18 04:00 62 06/16/18 04:00 99.1 63 20 139/67 (91) 97 06/16/18 00:00 98.0 65 20 158/103 (121) 97 06/16/18 00:00 63 06/15/18 21:00 Nasal Cannula 2.0 06/15/18 20:00 98.0 70 20 128/67 (87) 96 06/15/18 16:00 55 06/15/18 16:00 97.2 55 20 131/75 (93) 99 06/15/18 12:00 97.2 68 20 131/78 (95) 99 06/15/18 12:00 55 06/15/18 09:00 Nasal Cannula 2.0 Intake and Output 06/15/18 06/16/18 19:00 07:00 Intake Total 750 ml Balance 750 ml Intake Oral 240 ml IV Total 10 ml Blood Product 500 ml # Voids 2 2 # Bowel Movements 2 1 Laboratory Tests 06/16/18 05:05: White Blood Count 12.1H, Red Blood Count 2.89L, Hemoglobin 8.9L, Hematocrit 26.8L, Mean Corpuscular Volume 93, Mean Corpuscular Hemoglobin 30.9, Mean Corpuscular Hemoglobin Concent 33.2, Red Cell Distribution Width 16.0H, Platelet Count 366, Mean Platelet Volume 5.4L, Neutrophils (%) (Auto) 72.2, Lymphocytes (%) (Auto) 11.6L, Monocytes (%) (Auto) 10.3H, Eosinophils (%) (Auto ) 4.7H, Basophils (%) (Auto) 1.2 Height (Feet): 5 Height (Inches): 8.00 Weight (Pounds): 165 Objective WDWN NAD clear breath sounds bilaterally without rhonchi or wheeze [id number] without MRG NABS nontender no HSM no CCE nonfocal nonverbal bedbound Catracho Marcos MD Jun 16, 2018 08:33
[2018-06-16 12:00] VITALS: BP 159/88
--- NOTE | 2018-06-16 12:05 | NUR ---
MD ORDER NOTED FOR DISCHARGE HOME. PT/PT SON (KIRAN KAM) MADE AWARE OF DISCHARGE ORDER.VERBALIZED UNDERSTANDING. PT CAREGIVER (MEGHANN) AT BEDSIDE ALSO NOTIFIED. BELONGINGS SHEET ACKNOWLEDGED AND SIGNED BY CAREGIVER MEGHANN. ALL DISCHARGE ORDERS CARRIED OUT.
--- NOTE | 2018-06-16 12:34 | NUR ---
DISCHARGE PLAN PATIENT IS RETURNING HOME TODAY CLINICALS HAVE BEEN FAXED TO [facility] T: [phone] F: [phone] PATIENT HAS BEEN ON SERVICE WITH THIS PROVIDER
--- NOTE | 2018-06-16 14:30 | NUR ---
PT NOW DISCHARGED VIA AMBULANCE. ID BAND TAKEN OFF PT. IV DISCONTINUED. APPLIED 4X4 DRESSING. ALL BELONGINGS WITH PT. PT FAMILY AWARE OF DISCHARGE.
--- NOTE | 2018-06-20 11:02 | Discharge Summary ---
Discharge Summary Discharge Summary _ DATE OF ADMISSION: 06/13/2018 DATE OF DISCHARGE: 06/16/2018 DISCHARGED BY: Dr. Mary Anne Marcos BRIEF HOSPITAL COURSE: Patient is an 83-year-old debilitated male, who has been failing to thrive. The patient has history of end-stage renal failure and son has opted not to have dialysis. The patient presented with worsening anemia and renal failure. He had prior admissions to [facility] for sepsis, renal failure and anemia. Patient had been failing to thrive and events were fairly acute in nature. He was increasingly weak. He required admission. He has other medical problems like BPH, obstructive uropathy, senile dementia, unsteady gait , hydronephrosis, prior CVA, sepsis and anemia. Sodium was noted to be 126, potassium 5.5, chloride 93. Creatinine was 6.5, BUN 113. He was given IV hydration. Blood work showed severe anemia, hemoglobin 6.2, hematocrit 18. He received a total of 3 units PRBC blood transfusion. He received ciprofloxacin. Hemoglobin improved. Electrolytes improved. Blood cultures did not isolate any growth. He was eventually discharged home with home health. FINAL DIAGNOSES: Failure to thrive with severe weakness and severe anemia, status post blood transfusion Acute on chronic renal failure Obstructive uropathy Acute encephalopathy Parkinson's syndrome DISPOSITION: Home with home health DISCHARGE MEDICATIONS: Refer to Discharge Medication List. DISCHARGE INSTRUCTIONS: Follow-up in a week. I have been assigned to complete a discharge summary on this account, I was not involved with the patient's management. Dana Oneal NP Jun 20, 2018 11:02
== END 2018-06-16 14:30 | disposition home health service (06) | DRG 811 ==
LOC: EMR 19:11 → 2E 19:15 → EDBEDREQ 20:30
PROC: 30233N1 Transfusion of Nonautologous Red Blood Cells into Peripheral Vein, Percutaneous Approach (ICD-10-PCS; principal; 2018-06-13)
DX: D64.9 Anemia, unspecified (principal); E43 Unspecified severe protein-calorie malnutrition; N17.9 Acute kidney failure, unspecified; E87.1 Hypo-osmolality and hyponatremia; G93.40 Encephalopathy, unspecified; N18.9 Chronic kidney disease, unspecified; N13.9 Obstructive and reflux uropathy, unspecified; G20 Parkinson's disease; F02.80 Dementia in other diseases classified elsewhere, unspecified severity, without behavioral disturbance, psychotic disturbance, mood disturbance, and anxiety; R62.7 Adult failure to thrive; N40.0 Benign prostatic hyperplasia without lower urinary tract symptoms; Z86.73 Personal history of transient ischemic attack (TIA), and cerebral infarction without residual deficits
CPT/HCPCS: 36415; 80048; 80053; 84443; 85007; 85025; 85610; 85730; 86850; 86900; 86901; 86920; 87040; 93005; 96374; 99285

== ENCOUNTER 2018-07-27 21:06 | Inpatient (IN) | payer MEDICARE, BC ==
[~2018-07-27] VITALS: Ht 170.2 cm; Wt 73.6 kg
[~2018-07-27 21:06] MED LIST changes: +CIPROFLOXACIN500 M2 ORAL; +COL-RITE100 MG PO; +GINKGO BILOBA120 MG PO; +SINEMET 25-1001 EAC1 ORAL; +VITAMIN C500 M1 ORAL
[2018-07-27] MEDS ORDERED: Albuterol/Ipratropium 3ml neb HHN ONE (21:15)
[2018-07-27] MEDS ORDERED: TRAMADOL HCL50 MG ORAL (21:21)
[2018-07-27] MEDS ORDERED: LINZESS145 MCG PO (21:21)
[2018-07-27] MEDS ORDERED: ALBUTEROL2.5 MG/3 M INH (21:21)
[2018-07-27 21:30] VITALS: BP 150/68
[2018-07-27] MEDS ORDERED: cefTRIAXone 1 GM in NS 55 ML IVPB ONE (21:30)
--- NOTE | 2018-07-27 21:30 | NUR ---
ER Nurse Note: Pt coming from home c/o ALOC. Per caregiver, pt was found more altered around 1230 after labs were drawn. Per caregiver, hgb was around 4 and was told to bring pt to ER. Pt a&ox0, non verbal, pallor, VSS. Pt has audiable wheezes, RT called. Head lac on admission, dry blood noted; per caregiver, pt has skin cancer and occured for examination. Cargiver at bedside; will continue to montior.
--- NOTE | 2018-07-27 21:41 | Emergency Room Report ---
History of Present Illness General Chief Complaint: Abnormal Labs Source: Patient, Caregiver Present Illness HPI Patient is an 83-year-old female brought in by private vehicle for increased generalized weakness and anemia. Patient a prior history of near end-stage renal disease. Patient had previously been noted to have been transfused blood. Patient's decision-maker had previously stated the patient was not to have dialysis.Patient apparently had some recent abnormal laboratory testing is brought to the emergency department for further evaluation. Allergies: Coded Allergies: No Known Allergies (Unverified , 02/11/17) info obtained from caregiver Patient History Past Medical History: see triage record Reviewed Nursing Documentation: PMH: Agreed; PSxH: Agreed Nursing Documentation-PMH Past Medical History: No History, Except For Hx Cancer: No Hx Gastrointestinal Problems: No Hx Dialysis: No - CKD Hx Neurological Problems: Yes Hx Dementia: Yes Hx Parkinson's Disease: Yes Hx Tremors: Yes Hx Weakness: Yes Review of Systems All Other Systems: limited - by mental status Physical Exam Vital Signs Date Time Temp Pulse Resp B/P (MAP) Pulse Ox O2 Delivery O2 Flow Rate FiO2 07/27/18 21:10 97.2 81 16 150/68 (95) 99 Room Air 07/27/18 21:13 21 General Appearance: alert, Chronically Ill ENT: moist mucus membranes Neck: limited range of motion Respiratory: chest non-tender, wheezing Cardiovascular #1: normal peripheral pulses, regular rate, rhythm, no edema Gastrointestinal: normal inspection, normal bowel sounds, non tender, soft Musculoskeletal: decreased range of motion Neurologic: alert, responsive, aphasia, motor weakness Psychiatric: normal inspection Skin: pallor Procedures Critical Care Time Critical Care Time Patient had a critical medical condition which untreated could potentially result in life or limb threatening injury. Total critical care time excluding procedures approximately 45 minutes. Medical Decision Making Diagnostic Impression: Primary Impression: Chronic renal disease Additional Impressions: Parkinsonian syndrome senile dementia, advanced Severe anemia ER Course Patient presented for increased generalized weakness. Differential diagnosis include was not limited to anemia, hyperkalemia, dehydration among others. Because of complexity of patient's case laboratory testing and imaging studies were ordered. Patient was noted to have prior history of chronic renal disease and previously has been noted to have not accepting dialysis. Patient's medical condition was discussed with his son. patient is not to have dialysis. EKG interpreted by me showed normal sinus rhythm with a rate of 78 with some peaking of the T waves. Left her testing showed evidence of severe anemia with a hemoglobin 4.6. White blood count was 22,000. Patient was started on IV fluids. He was typed and crossed for blood. Patient's son verbally consented for blood over the telephone. Patient has had previous transfusions in the past.Patient was noted to have severe anemia. He was started on blood transfusion. He was also given Kayexalate as well as IV bicarb due to hyperkalemia. Dr. Catracho Marcos was contacted for inpatient management. Labs Test 07/27/18 21:11 White Blood Count 22.0 K/UL (4.8-10.8) Red Blood Count 1.41 M/UL (4.70-6.10) Hemoglobin 4.6 G/DL (14.2-18.0) Hematocrit 13.5 % (42.0-52.0) Mean Corpuscular Volume 95 FL (80-99) Mean Corpuscular Hemoglobin 32.7 PG (27.0-31.0) Mean Corpuscular Hemoglobin Concent 34.2 G/DL (32.0-36.0) Red Cell Distribution Width 16.4 % (11.6-14.8) Platelet Count 352 K/UL (150-450) Mean Platelet Volume 4.8 FL (6.5-10.1) Neutrophils (%) (Auto) % (45.0-75.0) Lymphocytes (%) (Auto) % (20.0-45.0) Monocytes (%) (Auto) % (1.0-10.0) Eosinophils (%) (Auto) % (0.0-3.0) Basophils (%) (Auto) % (0.0-2.0) Troponin I 0.026 ng/mL (0.000-0.056) EKG Diagnostic Results Rate: normal Rhythm: NSR ST Segments: no acute changes - Last Vital Signs Date Time Temp Pulse Resp B/P (MAP) Pulse Ox O2 Delivery O2 Flow Rate FiO2 07/27/18 21:30 97.1 86 18 150/68 99 Room Air 21 Status: unchanged Disposition: ADMITTED INPATIENT Condition: Critical Referrals: NOT CHOSEN IPA/,REFERRING (PCP) Migue Tineo MD July 27, 2018 21:40
[2018-07-27 21:45] LABS: HEMATOCRIT 13.5 % (42.0-52.0); MEAN CORPUSCULAR VOLUME 95 FL (80-99); PLATELET COUNT 352 K/UL (150-450); RED BLOOD COUNT 1.41 M/UL (4.70-6.10); RED CELL DISTRIBUTION WIDTH 16.4 % (11.6-14.8)
[2018-07-27 21:52] LABS: HEMOGLOBIN 4.6 G/DL (14.2-18.0)
[2018-07-27 21:55] LABS: ALBUMIN 2.5 G/DL (3.4-5.0); ALBUMIN/GLOBULIN RATIO 0.5 (1.0-2.7); ALKALINE PHOSPHATASE 92 U/L (46-116); ANION GAP 24 mmol/L (5-15); ASPARTATE AMINO TRANSFERASE 20 U/L (15-37); BILIRUBIN,TOTAL 0.5 MG/DL (0.2-1.0); BLOOD UREA NITROGEN 166 mg/dL (7-18); CALCIUM 8.8 MG/DL (8.5-10.1); CARBON DIOXIDE 10 MMOL/L (21-32); CHLORIDE 99 MMOL/L (98-107); CKMB 13.5 NG/ML (0.0-3.6); CREATINE KINASE 416 U/L (26-308); CREATININE 9.4 MG/DL (0.55-1.30); SODIUM 134 MMOL/L (136-145)
[2018-07-27 22:03] LABS: POTASSIUM 6.3 MMOL/L (3.5-5.1)
[2018-07-27 22:04] LABS: ALANINE AMINOTRANSFERASE < 6 U/L (12-78)
[2018-07-27 22:08] LABS: APPEARANCE,URINE CLEAR; BILIRUBIN, URINE NEGATIVE (NEGATIVE); COLOR,URINE PALE YELLOW; GLUCOSE, URINE (UA) 1+ (NEGATIVE); KETONES,URINE NEGATIVE (NEGATIVE); LEUKOCYTE ESTERASE ,URINE 3+ (NEGATIVE); NITRITE,URINE NEGATIVE (NEGATIVE); PH,URINE 5 (4.5-8.0); PROTEIN,URINE 2+ (NEGATIVE); UROBILINOGEN,URINE NORMAL MG/DL (0.0-1.0)
[2018-07-27] MEDS ORDERED: Sodium Bicarbonate 50ml Carp IV ONE (22:15)
[2018-07-27] MEDS ORDERED: Sodium Polystyrene Sulfonate 15gm Powder RECTAL ONE (22:15)
--- NOTE | 2018-07-27 22:20 | NUR ---
ED Nurse Note: Message left for Pt's son, Isidro Bautista [phone], to return call for consent for transfusion.
[2018-07-27 22:33] VITALS: BP 118/66
--- NOTE | 2018-07-27 22:33 | NUR ---
ED Nurse Note: Blood is ready, unable to reach son for consent.
--- NOTE | 2018-07-27 22:38 | NUR ---
ED Nurse Note: Dr. Tineo has spoken to pt's son, telephone consent obtained, for transfusion.
--- NOTE | 2018-07-27 23:25 | NUR ---
ER Nurse Note: Blood started, at 2303, no reactions noted. Pt had 1BM, stool dark and cleaned, skin intact, 4 eye check with GLORIA Pro. Rectal temp at 98.5F, Kayexalate given. Pt stable, VSS, no signs of distress. All safety measures met; will continue to montior.
[2018-07-27 23:33] VITALS: BP 115/61
--- NOTE | 2018-07-27 23:45 | NUR ---
ER Nurse Note: Report given to GUMARO Kim in SDU for continuity of care. Pt stable and clean, infusing blood at 125cc/hr; no A/E. All belongings taken with pt; caregiver at bedside.
--- NOTE | 2018-07-27 23:46 | NUR ---
NURSE NOTES: Received patient from Marija NAIK. Patient is awake in bed with caregiver at bedside. Patient is continuing blood transfusion and it tolerating treatment well. Bed is at its lowest position, call light is in reach, and X3 bed rails are up. Patient shows no signs of acute distress and I will continue to monitor.
--- NOTE | 2018-07-28 01:34 | NUR ---
NURSE NOTES: Left a message with Dr. Marcos for admitting orders.
--- NOTE | 2018-07-28 03:09 | NUR ---
NURSE NOTES: Left a message with Dr Marcos at [phone] to acquire admitting orders. No call back from pervious message. Charged nurse notified.
[2018-07-28 04:00] VITALS: BP 119/72
[2018-07-28] MEDS ORDERED: Acetaminophen 650mg/20.3ml GT PRN (05:00)
[2018-07-28 08:00] VITALS: BP 146/72
--- NOTE | 2018-07-28 08:10 | NUR ---
NURSE NOTES: Report received from Beatrice NAIK.Pt asleep in bed ,on RA,noted no resp distress,no signs of pain or discomfort,SR on the monitor,with IV HL to RT and LT hand with ongoing Blood transfusion 3rd unit of PRBC,tolerating well,no blood transfusion reaction noted,skin warm and dry,,SR up x2 HOB elevated,bed lock in lowest position ,will continue with plans of care.
--- NOTE | 2018-07-28 08:33 | NUR ---
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 SEVERE ANEMIA VS: BP 150/68, P 81, T 97.1, RR 16, SpO2 99 WBC 22.0, RBC 1.41, H&H 4.6/13.5, Na 134, K 6.3, BUN 166, Cr 9.4 IS:NS 500ml IV ALBUTEROL 3ml HHN KAYEXALATE 30gm SODIUM BICARBONATE 100ml IV ADMITTED TO SDU DCP: RETURN HOME
--- NOTE | 2018-07-28 08:34 | NUR ---
NURSE NOTES: Caregiver at bedside,feeding pt,no aspiration noted,able to swallow food with out problem.
--- NOTE | 2018-07-28 08:59 | History & Physical ---
History and Physical History & Physicial HISTORY OF PRESENT ILLNESS: 83-year-old debilitated male who has been failing to thrive and worsening overall at home. The patient with end- stage renal failure and son has opted not to have dialysis- verified. The patient presented with worsening anemia and renal failure as well as elevated K. The patient is noted to have worsening anemia and transferred for transfusion. He is a poor historian. The patient has had prior admissions to [facility] for sepsis, renal failure, and anemia with similar presentations. The patient's care has been discussed with his son and confirms no HD and DNR. The patient was noted to be increasingly weaker overall. The patient's prior history was reviewed with caregiver. PAST MEDICAL HISTORY: obstructive uropathy, benign prostatic hyperplasia, senile dementia advanced, unsteady gait, prior falls, chronic renal failure, hydronephrosis, possible prior CVA, and sepsis, anemia with prior transfusions, hyperkalemia, parkinsons MEDICATIONS: Reviewed. ALLERGIES: Reviewed. SOCIAL HISTORY: He lives with caregiver. Do Not Resuscitate per discussion with son. nonsmoker and nondrinker REVIEW OF SYSTEMS: Unobtainable at this time. PHYSICAL EXAMINATION: GENERAL: A well-developed male, debilitated. nonverbal HEENT: Negative. Oropharynx is dry without thrush NECK: Supple. SKIN: Skin turgor slightly reduced. LUNGS: With moderate air entry. No rhonchi or wheezes. CARDIAC: Normal S1, S2. Regular rate and rhythm without murmurs, rubs, or gallops. ABDOMEN: Soft, nontender. No distention. no HSM; no distention EXTREMITIES: No cyanosis, clubbing, or edema. NEUROLOGICAL: Confused. Nonverbal overall. same reviewed and edited Labs Test 07/27/18 21:11 07/27/18 21:51 07/27/18 22:45 White Blood Count 22.0 K/UL (4.8-10.8) Red Blood Count 1.41 M/UL (4.70-6.10) Hemoglobin 4.6 G/DL (14.2-18.0) Hematocrit 13.5 % (42.0-52.0) Mean Corpuscular Volume 95 FL (80-99) Mean Corpuscular Hemoglobin 32.7 PG (27.0-31.0) Mean Corpuscular Hemoglobin Concent 34.2 G/DL (32.0-36.0) Red Cell Distribution Width 16.4 % (11.6-14.8) Platelet Count 352 K/UL (150-450) Mean Platelet Volume 4.8 FL (6.5-10.1) Neutrophils (%) (Auto) % (45.0-75.0) Lymphocytes (%) (Auto) % (20.0-45.0) Monocytes (%) (Auto) % (1.0-10.0) Eosinophils (%) (Auto) % (0.0-3.0) Basophils (%) (Auto) % (0.0-2.0) Differential Total Cells Counted 100 Neutrophils % (Manual) 87 % (45-75) Lymphocytes % (Manual) 6 % (20-45) Monocytes % (Manual) 4 % (1-10) Eosinophils % (Manual) 2 % (0-3) Basophils % (Manual) 1 % (0-2) Band Neutrophils 0 % (0-8) Platelet Estimate Adequate Platelet Morphology Normal Polychromasia 1+ Hypochromasia 2+ Anisocytosis 2+ Microcytosis 1+ Sodium Level 134 MMOL/L (136-145) Potassium Level 6.3 MMOL/L (3.5-5.1) Chloride Level 99 MMOL/L (98-107) Carbon Dioxide Level 10 MMOL/L (21-32) Anion Gap 24 mmol/L (5-15) Blood Urea Nitrogen 166 mg/dL (7-18) Creatinine 9.4 MG/DL (0.55-1.30) Estimat Glomerular Filtration Rate mL/min (>60) Glucose Level 125 MG/DL (74-106) Lactic Acid Level 2.70 mmol/L (0.4-2.0) 1.70 mmol/L (0.66-2.22) Calcium Level 8.8 MG/DL (8.5-10.1) Phosphorus Level 8.0 MG/DL (2.5-4.9) Magnesium Level 2.7 MG/DL (1.8-2.4) Total Bilirubin 0.5 MG/DL (0.2-1.0) Aspartate Amino Transf (AST/SGOT) 20 U/L (15-37) Alanine Aminotransferase (ALT/SGPT) < 6 U/L (12-78) Alkaline Phosphatase 92 U/L (46-116) Total Creatine Kinase 416 U/L (26-308) Creatine Kinase MB 13.5 NG/ML (0.0-3.6) Creatine Kinase MB Relative Index 3.2 Troponin I 0.026 ng/mL (0.000-0.056) Total Protein 7.7 G/DL (6.4-8.2) Albumin 2.5 G/DL (3.4-5.0) Globulin 5.2 g/dL Albumin/Globulin Ratio 0.5 (1.0-2.7) Urine Color Pale yellow Urine Appearance Clear Urine pH 5 (4.5-8.0) Urine Specific [place] 1.010 (1.005-1.035) Urine Protein 2+ (NEGATIVE) Urine Glucose (UA) 1+ (NEGATIVE) Urine Ketones Negative (NEGATIVE) Urine Blood 4+ (NEGATIVE) Urine Nitrite Negative (NEGATIVE) Urine Bilirubin Negative (NEGATIVE) Urine Urobilinogen Normal MG/DL (0.0-1.0) Urine Leukocyte Esterase 3+ (NEGATIVE) Urine RBC 10-15 /HPF (0 - 0) Urine WBC 5-10 /HPF (0 - 0) Urine Squamous Epithelial Cells None /LPF (NONE/OCC) Urine Bacteria Moderate /HPF (NONE) IMPRESSION acute on chronic renal failure anemia possible GIB leukocytosis possible sepsis dementia chronic encephalopathy toxic metabolic encephalopathy elevated K protein calorie malnutrition PLAN IV hydration transfusion Iv antibiotics check cultures renal and ID to see DNR d/w son as to advance directives ? hospice impression, plan, and exam edited and reviewed in detail care discussed with Catracho Blount MD July 28, 2018 08:59
[2018-07-28] MEDS ORDERED: Acetaminophen 650mg/20.3ml ORAL PRN (09:00)
--- NOTE | 2018-07-28 09:00 | General Progress Note ---
Subjective Allergies: Coded Allergies: No Known Allergies (Unverified , 02/11/17) info obtained from caregiver Objective Last 24 Hour Vital Signs Date Time Temp Pulse Resp B/P (MAP) Pulse Ox O2 Delivery O2 Flow Rate FiO2 07/28/18 04:00 Room Air 07/28/18 04:00 97.9 104 20 119/72 (88) 95 07/28/18 03:25 70 07/28/18 01:00 Room Air 07/28/18 00:19 75 07/28/18 00:00 98.4 81 14 115/61 99 Room Air 21 07/27/18 23:33 98.4 81 14 115/61 99 Room Air 07/27/18 22:33 98.5 84 16 118/66 99 Room Air 07/27/18 21:30 97.1 86 18 150/68 99 Room Air 21 07/27/18 21:23 85 18 99 Room Air 21 07/27/18 21:13 80 18 99 Room Air 21 07/27/18 21:13 80 18 99 Room Air 21 07/27/18 21:10 97.2 81 16 150/68 (95) 99 Room Air Intake and Output 07/27/18 07/28/18 19:00 07:00 Intake Total 1605 ml Balance 1605 ml Intake IV Total 1105 ml Blood Product 500 ml # Voids 1 # Bowel Movements 5 Laboratory Tests 07/27/18 21:11: White Blood Count 22.0H, Red Blood Count 1.41L, Hemoglobin 4.6*L, Hematocrit 13.5L, Mean Corpuscular Volume 95, Mean Corpuscular Hemoglobin 32.7H, Mean Corpuscular Hemoglobin Concent 34.2, Red Cell Distribution Width 16.4H, Platelet Count 352, Mean Platelet Volume 4.8L, Neutrophils (%) (Auto) , Lymphocytes (%) (Auto) , Monocytes (%) (Auto) , Eosinophils (%) (Auto) , Basophils (%) (Auto) , Differential Total Cells Counted 100, Neutrophils % ( Manual) 87H, Lymphocytes % (Manual) 6L, Monocytes % (Manual) 4, Eosinophils % ( Manual) 2, Basophils % (Manual) 1, Band Neutrophils 0, Platelet Estimate Adequate, Platelet Morphology Normal, Polychromasia 1+, Hypochromasia 2+, Anisocytosis 2+, Microcytosis 1+, Sodium Level 134L, Potassium Level 6.3*H, Chloride Level 99, Carbon Dioxide Level 10L, Anion Gap 24H, Blood Urea Nitrogen 166H, Creatinine 9.4H, Estimat Glomerular Filtration Rate , Glucose Level 125H, Lactic Acid Level 2.70H, Calcium Level 8.8, Phosphorus Level 8.0H, Magnesium Level 2.7H, Total Bilirubin 0.5, Aspartate Amino Transf (AST/SGOT) 20, Alanine Aminotransferase (ALT/SGPT) < 6L, Alkaline Phosphatase 92, Total Creatine Kinase 416H, Creatine Kinase MB 13.5H, Creatine Kinase MB Relative Index 3.2, Troponin I 0.026, Total Protein 7.7, Albumin 2.5L, Globulin 5.2, Albumin/ Globulin Ratio 0.5L 07/27/18 21:51: Urine Color Pale yellow, Urine Appearance Clear, Urine pH 5, Urine Specific [place] 1.010, Urine Protein 2+H, Urine Glucose (UA) 1+H, Urine Ketones Negative , Urine Blood 4+H, Urine Nitrite Negative, Urine Bilirubin Negative, Urine Urobilinogen Normal, Urine Leukocyte Esterase 3+H, Urine RBC 10-15H, Urine WBC 5 -10H, Urine Squamous Epithelial Cells None, Urine Bacteria ModerateH 07/27/18 22:45: Lactic Acid Level 1.70 Height (Feet): 5 Height (Inches): 7.00 Weight (Pounds): 150 Catracho Marcos MD July 28, 2018 09:00
[2018-07-28] MEDS: Cefepime HCl 1 GM in D5W 55 ML IVPB SCH (10:34)
--- NOTE | 2018-07-28 11:00 | NUR ---
NURSE NOTES: on going blood transfusion completed,v/s taken,stable,no blood transfusion reaction presented.
--- NOTE | 2018-07-28 11:35 | NUR ---
NURSE NOTES: Transfused 4 th unit of PRBC,V/S taken and recorded,no signs of sob ,chills or chest pain noted,tolerating blood transfusion.
[2018-07-28 12:00] VITALS: BP 132/67
--- NOTE | 2018-07-28 12:06 | Diagnostic Imaging Report ---
Indication: Dyspnea Comparison: 04/19/2018 A single view chest radiograph was obtained. Findings: There is calcific focus just above the left hilum. Heart size is normal. Lungs are clear. Bones are osteopenic. IMPRESSION: No acute disease
[2018-07-28] MEDS: Sodium Bicarbonate 150 ML in D5W 1000ml 1,000 ML IV SCH ×2 (14:48→22:51)
--- NOTE | 2018-07-28 15:30 | NUR ---
NURSE NOTES: NURSE NOTES: Ongoing blood transfusion completed,V/S taken,stable,no signs of blood transfusion reaction noted,caregiver at bedside.
[2018-07-28 16:00] VITALS: BP 149/75
--- NOTE | 2018-07-28 16:45 | Consultation ---
DATE OF CONSULTATION: 07/28/2018 CONSULTING PHYSICIAN: Austin Kat M.D. REFERRING PHYSICIAN: Catracho Marcos M.D. REASON FOR CONSULTATION: 1. Acute kidney injury. 2. Chronic kidney disease, stage 5. 3. Hyperkalemia. 4. Metabolic acidosis. HISTORY OF PRESENT ILLNESS: The patient is an 83-year-old gentleman, well known to my nephrological service with multiple recent admissions over the last 6 months. The patient has known CKD, stage 5 and long discussions with son and [facility] day care center worker had decided on no dialysis than just medical therapy. The patient on this occasion was transferred back to the hospital for further evaluation and care of severe anemia with a hemoglobin of 4.6, was noted to have a BUN of 166, creatinine 9.4, and potassium of 6.3. The patient is somnolent, but arousable and caregivers at bedside. PAST MEDICAL HISTORY: 1. 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 2. Obstructive uropathy. 3. BPH. 4. Senile dementia, advanced. 5. Frequent mechanical falls. 6. CVA. 7. Sepsis. 8. Anemia. 9. Parkinson's. CURRENT MEDICATIONS: Reviewed on medications reconciliation list. ALLERGIES: No known drug allergies. SOCIAL HISTORY: The patient is a DNR. No tobacco, alcohol, illicit drug use. Lives at home with caregiver. REVIEW OF SYSTEMS: Cannot obtain as the patient is not answering questions. LABORATORY DATA: Labs dated 07/27/2018, sodium 134, potassium 6.3, BUN 166, creatinine 9.4, bicarb 10. Hemoglobin 4.6, white cell count 22, platelet count 352. PHYSICAL EXAMINATION: VITAL SIGNS: Blood pressure 119/72, respiratory rate 20, pulse 104, temperature 97.9, 95% oxygen saturation on room air. GENERAL: The patient is awake and alert, not in distress. HEENT: Extraocular muscles intact. No lymphadenopathy noted. CARDIOVASCULAR: S1 and S2. No rubs or gallops. PULMONARY: Clear to auscultation bilaterally. No rales, rhonchi, or wheezes. ABDOMEN: Nondistended and nontender. EXTREMITIES: No edema noted. ASSESSMENT AND PLAN: 1. Acute kidney injury on chronic kidney disease, stage 6. Multiple discussions in the past and currently son has voiced a clear decision for no hemodialysis. We will continue medical therapy. The patient has a history of obstructive uropathy. Mark catheter has been placed with clear urine draining. We will also treat underlying urinary tract infection and hydrate the patient. 2. Metabolic acidosis secondary to renal insufficiency. We will adjust IV fluids and add IV bicarb. Conservative medical therapy going forward. 3. Hyperkalemia. At this time, the patient is receiving a blood transfusion. He was given Kayexalate in the emergency room. Once blood transfusion is complete, we will recheck the potassium level and treat as needed. 4. Severe anemia. Hemoglobin 4.6. The patient being transfused. Defer management to primary care physician. 5. History of obstructive uropathy. Mark catheter has been placed with good urinary output. We will continue IV fluids. Let me take this opportunity to thank Dr. Marcos. Austin Kat MD DR: ALIZA JOB#: [id number] CC:
--- NOTE | 2018-07-28 19:02 | NUR ---
HAND-OFF: Report given to Tracy London RN.
[2018-07-28 19:17] LABS: HEMATOCRIT 25.2 % (42.0-52.0); HEMOGLOBIN 9.1 G/DL (14.2-18.0); MEAN CORPUSCULAR VOLUME 86 FL (80-99); PLATELET COUNT 277 K/UL (150-450); RED BLOOD COUNT 2.92 M/UL (4.70-6.10); WHITE BLOOD COUNT 17.2 K/UL (4.8-10.8)
[2018-07-28 19:20] LABS: ANION GAP 23 mmol/L (5-15); BLOOD UREA NITROGEN 161 mg/dL (7-18); CALCIUM 7.6 MG/DL (8.5-10.1); CARBON DIOXIDE 13 MMOL/L (21-32); CHLORIDE 104 MMOL/L (98-107); CREATININE 9.1 MG/DL (0.55-1.30); POTASSIUM 4.8 MMOL/L (3.5-5.1); SODIUM 139 MMOL/L (136-145)
--- NOTE | 2018-07-28 19:25 | NUR ---
NURSE NOTES: Report received from GUMARO Tidwell. Observed pt sleeping on the bed. No signs of pain and distress noted at this time. SR with awake overnight monitor. On room air with no signs of SOB. Abd soft, round, and non-tender. Condom catheter intact. IV on R AC 20G, asymptomatic. L UA 20G, intact and patent. Bed in the lowest position. Side rails up x3. Will continue to monitor.
[2018-07-28 20:00] VITALS: BP 137/57
[2018-07-28] MEDS: Tamsulosin 0.4mg cap ORAL SCH (20:56)
--- NOTE | 2018-07-28 22:17 | NUR ---
NURSE NOTES: Observed pt sleeping on the bed. Caregiver at the bed side. Reposition done with pillow support. Oral care given. SR with HR of 67 noted on manufacturing development engineer. No signs of distress noted at this time. Will continue to monitor.
[2018-07-29] VITALS: BP 136/69
--- NOTE | 2018-07-29 00:22 | NUR ---
NURSE NOTES: Observed pt sleeping on the bed. No signs of distress noted at this time. VS WNL. SR on night monitor. Reposition done with pillow support. Will continue to monitor.
--- NOTE | 2018-07-29 02:52 | NUR ---
NURSE NOTES: Pt sleeping, appears calm and comfortable. Bed bath given. Reposition done. Blanchable redness on left trochanter area, covered with optifoam. SR with rn cardiac rehab. No signs of distress noted at this time. Will continue to monitor.
[2018-07-29 04:00] VITALS: BP 137/74
[2018-07-29 05:14] LABS: BASOPHILS % (AUTO) 0.4 % (0.0-2.0); EOSINOPHILS % (AUTO) 1.6 % (0.0-3.0); HEMATOCRIT 26.2 % (42.0-52.0); HEMOGLOBIN 9.1 G/DL (14.2-18.0); LYMPHOCYTES % (AUTO) 4.7 % (20.0-45.0); MEAN CORPUSCULAR VOLUME 88 FL (80-99); NEUTROPHILS % (AUTO) 84.3 % (45.0-75.0); PLATELET COUNT 273 K/UL (150-450); RED BLOOD COUNT 2.99 M/UL (4.70-6.10); RED CELL DISTRIBUTION WIDTH 15.5 % (11.6-14.8); WHITE BLOOD COUNT 16.9 K/UL (4.8-10.8)
[2018-07-29 05:37] LABS: ANION GAP 24 mmol/L (5-15); BLOOD UREA NITROGEN 168 mg/dL (7-18); CALCIUM 7.4 MG/DL (8.5-10.1); CARBON DIOXIDE 15 MMOL/L (21-32); CHLORIDE 103 MMOL/L (98-107); CREATININE 9.2 MG/DL (0.55-1.30); POTASSIUM 4.2 MMOL/L (3.5-5.1); SODIUM 142 MMOL/L (136-145)
--- NOTE | 2018-07-29 06:42 | Nephrology Progress Note ---
Assessment/Plan Assessment/Plan: 1. NEENA on CKD stage 6. Multiple discussions in the past and currently son has voiced a clear decision for no hemodialysis. Continue medical therapy. We will also treat underlying urinary tract infection and hydrate the patient. - BUN and Cr remain elevated - monitor conservatively 2. Metabolic acidosis secondary to renal insufficiency. Improving with releief of obstruction (RTA 4 ) and IV bicarb gtt 3. Hyperkalemia. Resolved 4. Severe anemia. Hgb 9.1 post transfusion 5. History of obstructive uropathy. - Mark placed 6. UTI- Abx Subjective Date patient seen: July 29, 2018 Time patient seen: 06:39 ROS Limited/Unobtainable: Yes Allergies: Coded Allergies: No Known Allergies (Unverified , 02/11/17) info obtained from caregiver Subjective Patient in no overt distress. No CP or SOB Objective Last 24 Hour Vital Signs Date Time Temp Pulse Resp B/P (MAP) Pulse Ox O2 Delivery O2 Flow Rate FiO2 07/29/18 04:00 71 07/29/18 04:00 99.7 66 24 137/74 (95) 97 07/29/18 04:00 Room Air 07/29/18 00:00 Room Air 07/29/18 00:00 99.7 66 24 136/69 (91) 96 07/29/18 00:00 71 07/28/18 20:00 Room Air 07/28/18 20:00 99.6 70 24 137/57 (83) 96 07/28/18 20:00 65 07/28/18 16:00 Room Air 07/28/18 16:00 98.2 69 20 149/75 (99) 96 07/28/18 16:00 74 07/28/18 12:00 Room Air 07/28/18 12:00 97.7 69 18 132/67 (88) 97 07/28/18 11:44 70 07/28/18 08:00 97.9 72 18 146/72 (96) 99 07/28/18 08:00 Room Air 07/28/18 07:29 68 Intake and Output 07/28/18 07/29/18 18:59 06:59 Intake Total 955 ml 1230 ml Output Total 300 ml 200 ml Balance 655 ml 1030 ml Intake Oral 30 ml IV Total 455 ml 1200 ml Blood Product 500 ml Output Urine Total 300 ml 200 ml # Voids 2 # Bowel Movements 1 Laboratory Tests 07/28/18 18:34: White Blood Count 17.2H, Red Blood Count 2.92L, Hemoglobin 9.1#L, Hematocrit 25.2#L, Mean Corpuscular Volume 86#, Mean Corpuscular Hemoglobin 31.0, Mean Corpuscular Hemoglobin Concent 36.0, Red Cell Distribution Width 15.0H, Platelet Count 277, Mean Platelet Volume 5.4L, Neutrophils (%) (Auto) , Lymphocytes (%) (Auto) , Monocytes (%) (Auto) , Eosinophils (%) (Auto) , Basophils (%) (Auto) , Differential Total Cells Counted 100, Neutrophils % ( Manual) 78H, Lymphocytes % (Manual) 17L, Monocytes % (Manual) 5, Eosinophils % ( Manual) 0, Basophils % (Manual) 0, Band Neutrophils 0, Platelet Estimate Adequate, Platelet Morphology Normal, Hypochromasia 1+, Anisocytosis 1+, Microcytosis 1+, Sodium Level 139, Potassium Level 4.8, Chloride Level 104, Carbon Dioxide Level 13L, Anion Gap 23H, Blood Urea Nitrogen 161H, Creatinine 9.1H, Estimat Glomerular Filtration Rate , Glucose Level 149H, Calcium Level 7.6L 07/29/18 04:40: White Blood Count 16.9H, Red Blood Count 2.99L, Hemoglobin 9.1L, Hematocrit 26.2L, Mean Corpuscular Volume 88, Mean Corpuscular Hemoglobin 30.5, Mean Corpuscular Hemoglobin Concent 34.8, Red Cell Distribution Width 15.5H, Platelet Count 273, Mean Platelet Volume 5.6L, Neutrophils (%) (Auto) 84.3H, Lymphocytes (%) (Auto) 4.7L, Monocytes (%) (Auto) 9.0, Eosinophils (%) (Auto) 1.6, Basophils (%) (Auto) 0.4, Sodium Level 142, Potassium Level 4.2, Chloride Level 103, Carbon Dioxide Level 15L, Anion Gap 24H, Blood Urea Nitrogen 168H, Creatinine 9.2H, Estimat Glomerular Filtration Rate , Glucose Level 120H, Calcium Level 7.4L Height (Feet): 5 Height (Inches): 7.00 Weight (Pounds): 150 General Appearance: no apparent distress EENT: normal ENT inspection Neck: normal alignment, supple Cardiovascular: normal rate, regular rhythm Respiratory/Chest: lungs clear, normal breath sounds Abdomen: non tender, soft Edema: no edema noted Arm (L), no edema noted Arm (R), no edema noted Leg (L), no edema noted Leg (R), no edema noted Pedal (L), no edema noted Pedal (R), no edema noted Generalized Austin Kat MD July 29, 2018 06:42
--- NOTE | 2018-07-29 07:04 | NUR ---
HAND-OFF: Report given to GUMARO Hassan.
--- NOTE | 2018-07-29 07:21 | NUR ---
NURSE NOTES: Received report from Bolivar London RN. Patient asleep in bed, nonverbal, unable to make needs known. On room air, respirations even and unlabored. Condom catheter in place and draining well. Right AC 20g infusing D5W with sodium bicarbonate @ 100 cc/hr, no s/s of infiltration noted. Left upper arm 20g patent and asymptomatic. Bed locked in lowest position with side rails up x 3. Caregiver at bedside. All needs attended to. Call light within reach. Will continue to monitor.
[2018-07-29 08:00] VITALS: BP 129/70
[2018-07-29] MEDS: Cefepime HCl 1 GM in D5W 55 ML IVPB SCH (08:49)
[2018-07-29] MEDS: Levodopa/Carbidopa 25/100 tab ORAL SCH ×3 (08:50→17:37)
[2018-07-29] MEDS ORDERED: Levodopa/Carbidopa 25/100 tab ORAL SCH (09:00)
[2018-07-29] MEDS: Sodium Bicarbonate 150 ML in D5W 1000ml 1,000 ML IV SCH ×2 (10:30→22:40)
--- NOTE | 2018-07-29 11:15 | NUR ---
RD ASSESSMENT & RECOMMENDATIONS SEE CARE ACTIVITY FOR COMPLETE ASSESSMENT DAILY ESTIMATED NEEDS: Needs based on Renal failure, 71kg 25-30 kcals/kg 3852-8757 total kcals 0.6-0.8 g protein/kg 43-57 g total protein 25-30 mL/kg 0891-3770 total fluid mLs NUTRITION DIAGNOSIS: 1) Altered nutrition related lab values r/t NEENA on CKD 6 as evidenced by elev BUN (168), elev Creat (9.2), elev K (6.2 -> now wnl), elev phos (8.0), elev mag (2.7), no HD per family. CURRENT DIET:RENAL, soft easy chew PO DIET RECOMMENDATIONS: RENAL + 60g protein restriction/ texture per BOARDMARKER ADDITIONAL RECOMMENDATIONS: 1) Calibrate bed scale for accurate CBW 2) Monitor lytes and renal fxn closely- no HD per family 3) Updated phos and mag levels 4) Consider phos binders w/ meals (elev phos) 5) Consider BOARDMARKER eval for appropriate texture- pt on liquify pureed last adm .
--- NOTE | 2018-07-29 11:26 | NUR ---
NURSE NOTES: Received phone call from Doreen from lab. Patient is positive for Gram + cocci in clusters in 2 bottles, reported to Dr. Orourke. Received call back from Dr. Orourke and received telephone order for vancomycin pharmacy to dose, order read back and verified. Pharmacy notified.
[2018-07-29 12:00] VITALS: BP 115/69
[2018-07-29] MEDS ORDERED: Vancomycin 1gm/D5W 275ml IVPB SCH ×2 (13:00)
--- NOTE | 2018-07-29 14:13 | Pulmonology Progress Note ---
Assessment/Plan Assessment/Plan Pulmonary Progress Note HPI: 83-year-old debilitated male who has been failing to thrive and worsening overall at home. The patient with end-stage renal failure and son has opted not to have dialysis- verified. The patient presented with worsening anemia and renal failure as well as elevated K. The patient is noted to have worsening anemia and transferred for transfusion. He is a poor historian. The patient has had prior admissions to [facility] for sepsis, renal failure , and anemia with similar presentations. The patient's care has been discussed with his son and confirms no HD and DNR. The patient was noted to be increasingly weaker overall. The patient's prior history was reviewed with caregiver.Positive BC - GPC - on antibiotics per ID PAST MEDICAL HISTORY: obstructive uropathy, benign prostatic hyperplasia, senile dementia advanced, unsteady gait, prior falls, chronic renal failure, hydronephrosis, possible prior CVA, and sepsis, anemia with prior transfusions, hyperkalemia, parkinsons MEDICATIONS: Reviewed. ALLERGIES: Reviewed. SOCIAL HISTORY: He lives with caregiver. Do Not Resuscitate per discussion with son. nonsmoker and nondrinker REVIEW OF SYSTEMS: Unobtainable at this time. PHYSICAL EXAMINATION: Vital signs noted GENERAL: A well-developed male, debilitated. nonverbal HEENT: Negative. Oropharynx is dry without thrush NECK: Supple. SKIN: Skin turgor slightly reduced. LUNGS: With moderate air entry. No rhonchi or wheezes. CARDIAC: Normal S1, S2. Regular rate and rhythm without murmurs, rubs, or gallops. ABDOMEN: Soft, nontender. No distention. no HSM; no distention EXTREMITIES: No cyanosis, clubbing, or edema. NEUROLOGICAL: Confused. Nonverbal overall. same reviewed and edited Labs Test 07/27/18 21:11 07/27/18 21:51 07/27/18 22:45 White Blood Count 22.0 K/UL (4.8-10.8) Red Blood Count 1.41 M/UL (4.70-6.10) Hemoglobin 4.6 G/DL (14.2-18.0) Hematocrit 13.5 % (42.0-52.0) Mean Corpuscular Volume 95 FL (80-99) Mean Corpuscular Hemoglobin 32.7 PG (27.0-31.0) Mean Corpuscular Hemoglobin Concent 34.2 G/DL (32.0-36.0) Red Cell Distribution Width 16.4 % (11.6-14.8) Platelet Count 352 K/UL (150-450) Mean Platelet Volume 4.8 FL (6.5-10.1) Neutrophils (%) (Auto) % (45.0-75.0) Lymphocytes (%) (Auto) % (20.0-45.0) Monocytes (%) (Auto) % (1.0-10.0) Eosinophils (%) (Auto) % (0.0-3.0) Basophils (%) (Auto) % (0.0-2.0) Differential Total Cells Counted 100 Neutrophils % (Manual) 87 % (45-75) Lymphocytes % (Manual) 6 % (20-45) Monocytes % (Manual) 4 % (1-10) Eosinophils % (Manual) 2 % (0-3) Basophils % (Manual) 1 % (0-2) Band Neutrophils 0 % (0-8) Platelet Estimate Adequate Platelet Morphology Normal Polychromasia 1+ Hypochromasia 2+ Anisocytosis 2+ Microcytosis 1+ Sodium Level 134 MMOL/L (136-145) Potassium Level 6.3 MMOL/L (3.5-5.1) Chloride Level 99 MMOL/L (98-107) Carbon Dioxide Level 10 MMOL/L (21-32) Anion Gap 24 mmol/L (5-15) Blood Urea Nitrogen 166 mg/dL (7-18) Creatinine 9.4 MG/DL (0.55-1.30) Estimat Glomerular Filtration Rate mL/min (>60) Glucose Level 125 MG/DL (74-106) Lactic Acid Level 2.70 mmol/L (0.4-2.0) 1.70 mmol/L (0.66-2.22) Calcium Level 8.8 MG/DL (8.5-10.1) Phosphorus Level 8.0 MG/DL (2.5-4.9) Magnesium Level 2.7 MG/DL (1.8-2.4) Total Bilirubin 0.5 MG/DL (0.2-1.0) Aspartate Amino Transf (AST/SGOT) 20 U/L (15-37) Alanine Aminotransferase (ALT/SGPT) < 6 U/L (12-78) Alkaline Phosphatase 92 U/L (46-116) Total Creatine Kinase 416 U/L (26-308) Creatine Kinase MB 13.5 NG/ML (0.0-3.6) Creatine Kinase MB Relative Index 3.2 Troponin I 0.026 ng/mL (0.000-0.056) Total Protein 7.7 G/DL (6.4-8.2) Albumin 2.5 G/DL (3.4-5.0) Globulin 5.2 g/dL Albumin/Globulin Ratio 0.5 (1.0-2.7) Urine Color Pale yellow Urine Appearance Clear Urine pH 5 (4.5-8.0) Urine Specific [place] 1.010 (1.005-1.035) Urine Protein 2+ (NEGATIVE) Urine Glucose (UA) 1+ (NEGATIVE) Urine Ketones Negative (NEGATIVE) Urine Blood 4+ (NEGATIVE) Urine Nitrite Negative (NEGATIVE) Urine Bilirubin Negative (NEGATIVE) Urine Urobilinogen Normal MG/DL (0.0-1.0) Urine Leukocyte Esterase 3+ (NEGATIVE) Urine RBC 10-15 /HPF (0 - 0) Urine WBC 5-10 /HPF (0 - 0) Urine Squamous Epithelial Cells None /LPF (NONE/OCC) Urine Bacteria Moderate /HPF (NONE) IMPRESSION acute on chronic renal failure anemia possible GIB Sepsis leukocytosis possible sepsis dementia chronic encephalopathy toxic metabolic encephalopathy elevated K protein calorie malnutrition PLAN IV hydration transfusion Iv antibiotics check cultures renal and ID to see DNR d/w son as to advance directives ? hospice impression, plan, and exam edited and reviewed in detail care discussed with RN Subjective ROS Limited/Unobtainable: No Allergies: Coded Allergies: No Known Allergies (Unverified , 02/11/17) info obtained from caregiver Objective Last 24 Hour Vital Signs Date Time Temp Pulse Resp B/P (MAP) Pulse Ox O2 Delivery O2 Flow Rate FiO2 07/29/18 12:00 72 07/29/18 12:00 98.2 69 24 115/69 (84) 96 07/29/18 12:00 Room Air 07/29/18 08:00 62 07/29/18 08:00 Room Air 07/29/18 08:00 98.9 77 22 129/70 (89) 99 07/29/18 04:00 71 07/29/18 04:00 99.7 66 24 137/74 (95) 97 07/29/18 04:00 Room Air 07/29/18 00:00 Room Air 07/29/18 00:00 99.7 66 24 136/69 (91) 96 07/29/18 00:00 71 07/28/18 20:00 Room Air 07/28/18 20:00 99.6 70 24 137/57 (83) 96 07/28/18 20:00 65 07/28/18 16:00 Room Air 07/28/18 16:00 98.2 69 20 149/75 (99) 96 07/28/18 16:00 74 Intake and Output 07/28/18 07/29/18 19:00 07:00 Intake Total 1055 ml 1230 ml Output Total 300 ml 200 ml Balance 755 ml 1030 ml Intake Oral 30 ml IV Total 555 ml 1200 ml Blood Product 500 ml Output Urine Total 300 ml 200 ml # Voids 2 # Bowel Movements 1 Microbiology Date/Time Source Procedure Growth Status 07/27/18 21:15 Blood Blood Culture - Preliminary Resulted 07/27/18 21:00 Blood Blood Culture - Preliminary Resulted 07/28/18 16:20 Urine,Clean Catch Urine Culture - Preliminary NO GROWTH Resulted 07/27/18 21:51 Urine,Clean Catch Urine Culture - Preliminary NO GROWTH AFTER 24 HOURS Resulted 07/27/18 23:40 Rectum Received Laboratory Tests 07/28/18 18:34: White Blood Count 17.2H, Red Blood Count 2.92L, Hemoglobin 9.1#L, Hematocrit 25.2#L, Mean Corpuscular Volume 86#, Mean Corpuscular Hemoglobin 31.0, Mean Corpuscular Hemoglobin Concent 36.0, Red Cell Distribution Width 15.0H, Platelet Count 277, Mean Platelet Volume 5.4L, Neutrophils (%) (Auto) , Lymphocytes (%) (Auto) , Monocytes (%) (Auto) , Eosinophils (%) (Auto) , Basophils (%) (Auto) , Differential Total Cells Counted 100, Neutrophils % ( Manual) 78H, Lymphocytes % (Manual) 17L, Monocytes % (Manual) 5, Eosinophils % ( Manual) 0, Basophils % (Manual) 0, Band Neutrophils 0, Platelet Estimate Adequate, Platelet Morphology Normal, Hypochromasia 1+, Anisocytosis 1+, Microcytosis 1+, Sodium Level 139, Potassium Level 4.8, Chloride Level 104, Carbon Dioxide Level 13L, Anion Gap 23H, Blood Urea Nitrogen 161H, Creatinine 9.1H, Estimat Glomerular Filtration Rate , Glucose Level 149H, Calcium Level 7.6L 07/29/18 04:40: White Blood Count 16.9H, Red Blood Count 2.99L, Hemoglobin 9.1L, Hematocrit 26.2L, Mean Corpuscular Volume 88, Mean Corpuscular Hemoglobin 30.5, Mean Corpuscular Hemoglobin Concent 34.8, Red Cell Distribution Width 15.5H, Platelet Count 273, Mean Platelet Volume 5.6L, Neutrophils (%) (Auto) 84.3H, Lymphocytes (%) (Auto) 4.7L, Monocytes (%) (Auto) 9.0, Eosinophils (%) (Auto) 1.6, Basophils (%) (Auto) 0.4, Sodium Level 142, Potassium Level 4.2, Chloride Level 103, Carbon Dioxide Level 15L, Anion Gap 24H, Blood Urea Nitrogen 168H, Creatinine 9.2H, Estimat Glomerular Filtration Rate , Glucose Level 120H, Calcium Level 7.4L Current Medications Medications (Trade) Dose Ordered Sig/Tracee Route PRN Reason Start Time Stop Time Status Last Admin Dose Admin Acetaminophen (Tylenol) 650 mg Q4H PRN ORAL Mild Pain/Temp > 100.5 07/28/18 09:00 08/27/18 04:59 Al Hydroxide/Mg Hydroxide (Mylanta) 30 ml FOUR TIMES A DAY PRN ORAL Abdominal cramps 07/28/18 05:45 08/27/18 04:59 Carbidopa/Levodopa (Sinemet 25/100) 1 tab THREE TIMES A DAY ORAL 07/29/18 09:00 08/28/18 08:59 07/29/18 13:14 Cefepime HCl 1 gm/ Dextrose 55 ml @ 110 mls/hr Q24H IVPB 07/28/18 09:00 08/04/18 08:59 07/29/18 08:49 Ferrous Sulfate (Feosol) 325 mg Q24H ORAL 07/29/18 11:00 08/28/18 10:59 07/29/18 10:30 Finasteride (Proscar) 5 mg DAILY ORAL 07/29/18 09:00 08/28/18 08:59 07/29/18 08:49 Mirtazapine (Remeron) 15 mg BEDTIME ORAL 07/28/18 21:00 08/27/18 20:59 07/28/18 20:56 Pantoprazole (Protonix) 40 mg DAILY ORAL 07/28/18 09:00 08/27/18 08:59 07/29/18 08:49 Sodium Bicarbonate 150 ml/Dextrose 1,150 ml @ 100 mls/hr [id number] IV 07/28/18 11:30 08/27/18 11:29 07/29/18 10:30 Tamsulosin HCl (Flomax) 0.4 mg QHS ORAL 07/28/18 21:00 08/27/18 20:59 07/28/18 20:56 Vancomycin HCl (Vanco rx to dose) 1 ea DAILY PRN MISC Per rx protocol 07/29/18 11:30 08/28/18 11:29 Vancomycin HCl 1 gm/Dextrose 275 ml @ 183.708 mls/hr ONCE IVPB 07/29/18 13:00 07/29/18 15:00 07/29/18 13:18 Marcin Patel MD July 29, 2018 14:13
--- NOTE | 2018-07-29 15:28 | Cardiology Report ---
APPROVED REPORT EKG Measurement Heart [id number] Sinus rhythm with premature atrial complexes Otherwise normal ECG
[2018-07-29 16:00] VITALS: BP 123/82
--- NOTE | 2018-07-29 17:00 | Consultation ---
DATE OF CONSULTATION: 07/29/2018 INFECTIOUS DISEASE CONSULTATION CONSULTING PHYSICIAN: April Orourke M.D. REFERRING PHYSICIAN: Catracho Marcos M.D. REASON FOR CONSULTATION: Possible pneumonia. HISTORY OF PRESENT ILLNESS: This is an 83-year-old gentleman with history of benign prostatic hyperplasia, dementia, and CVA, who comes in with anemia as well as cough and shortness of breath. He was found to have leukocytosis with a concern for pneumonia and an Infectious Disease consultation has been obtained for antibiotics. PAST MEDICAL HISTORY: 1. History of benign prostatic hypertrophy. 2. Dementia. 3. Obstructive uropathy. 4. Renal failure. 5. Hydronephrosis. 6. CVA. 7. Parkinson disease. SOCIAL HISTORY: No history of smoking, alcohol, or drug use. FAMILY HISTORY: Unknown. REVIEW OF SYSTEMS: RESPIRATORY: No fever or chills. He has a mild cough. He has shortness of breath. No chest pain. CARDIAC: No chest pain. No palpitations. No dizziness. No syncope. GASTROINTESTINAL: No nausea. No vomiting. No abdominal pain or diarrhea. MEDICATIONS: As an inpatient, he is on ferrous sulfate, carbidopa-levodopa, finasteride, mirtazapine, Flomax, sodium bicarbonate, Protonix, cefepime, Tylenol, and Mylanta. ALLERGIES: No known drug allergies. PHYSICAL EXAMINATION: VITAL SIGNS: Temperature 98.9 T-max of 99.7, pulse 77, respiratory rate 22, and blood pressure 129/70. O2 saturation of 99%. HEENT: Pupils are equally reactive to light and accommodation. Mouth appears clean without thrush. NECK: Supple. No adenopathy. No JVD. CARDIOVASCULAR: Regular rate and rhythm. No murmurs. LUNGS: Clear to auscultation bilaterally. No crackles. No wheezes. ABDOMEN: Soft and nontender. No organomegaly. EXTREMITIES: No cyanosis, no clubbing, no edema. LABORATORY AND DIAGNOSTIC DATA: White count 15.9 today. White count of 22, on 07/27/2018. Hemoglobin 9.1, hematocrit 26.2, MCV 88, platelet count of 273. Sodium 142, potassium 4.2, chloride 103, bicarb 15, BUN 168, and creatinine 9.2. Glucose 120. Calcium 7.4. UA showing 5 to 10 white cells. Urine cultures are negative from 07/27/2018 and 07/28/2018. Chest x-ray is showing no acute disease. ASSESSMENT: This is an 83-year-old gentleman with history of renal failure, obstructive uropathy, benign prostatic hypertrophy, and cerebrovascular accident, who comes in with leukocytosis. We would be concerned regarding, 1. Possible pneumonia. 2. Renal failure. 3. Obstructive uropathy. PLAN: 1. Continue cefepime. 2. We will follow up cultures and adjust antibiotics accordingly. 3. We will order sputum for Gram stain and culture. I would like to thank Dr. Marcos for this consultation. April Orourke M.D. DR: NIRAV JOB#: [id number] CC:
--- NOTE | 2018-07-29 18:59 | NUR ---
HAND-OFF: Report given to Hien Melgar RN.
--- NOTE | 2018-07-29 19:00 | NUR ---
NURSE NOTES: BEDSIDE REPORT RECEIVED FROM GUMARO IBARRA. PT IS NONVERBAL, OPENS EYES, OTHERWISE OBTUNDED. [employer] L[employer]ATION [employer]OCIATE IS SHOWING NSR. ON RA, SATING WELL. SKIN IS CLEAN, DRY, DRESSINGS INTACT. CONDOM CATH DRAINING, INTACT. NIRAV 20, RUNNING NAHCO3 @ 100; ASYMPTOMATIC. LABS OK PER RN. SPUTUM CX DUE BUT PT CURRENTLY DRY. WILL ASK RT TO COMPLETE. BED IS LOCKED IN LOWEST POSITION, SR X3, BED ALARM ON, CALL PETERS W/ IN REACH. WILL CONTINUE TO MONITOR AND FOLLOW W/ PLAN OF CARE.
[2018-07-29 20:00] VITALS: BP 110/64
[2018-07-29] MEDS: Tamsulosin 0.4mg cap ORAL SCH (21:55)
[2018-07-30] VITALS (7 sets, daily range): BP systolic 111–146; BP diastolic 57–79
[2018-07-30 06:31] LABS: ANION GAP 19 mmol/L (5-15); BLOOD UREA NITROGEN 159 mg/dL (7-18); CALCIUM 7.4 MG/DL (8.5-10.1); CARBON DIOXIDE 20 MMOL/L (21-32); CHLORIDE 99 MMOL/L (98-107); CREATININE 8.8 MG/DL (0.55-1.30); POTASSIUM 3.8 MMOL/L (3.5-5.1); SODIUM 138 MMOL/L (136-145)
--- NOTE | 2018-07-30 07:13 | NUR ---
NURSE NOTES: Received bedside report from Laurel NAIK. Pt in bed, eyes open, non-verbal. No sign of distress. No grimacing noted. IV site at left upper arm #20g. in placed patent/intact. Dressing in placed at left side forehead. Bed in low position, locked. Call light within reach. Will cont. to monitor.
--- NOTE | 2018-07-30 07:37 | NUR ---
HAND-OFF: Report given to GUMARO LY.
--- NOTE | 2018-07-30 07:38 | NUR ---
NURSE NOTES: Received report from Verito Cowan (eligio) Alejandro. (+) VRE rectum.
[2018-07-30] MEDS: Cefepime HCl 1 GM in D5W 55 ML IVPB SCH (08:24)
[2018-07-30] MEDS: Levodopa/Carbidopa 25/100 tab ORAL SCH ×3 (08:25→17:57)
[2018-07-30] MEDS ORDERED: Vancomycin 1gm/D5W 275ml IVPB ONE ×2 (10:00)
[2018-07-30] MEDS: Sodium Bicarbonate 150 ML in D5W 1000ml 1,000 ML IV SCH (10:09)
--- NOTE | 2018-07-30 11:31 | Nephrology Progress Note ---
Assessment/Plan Assessment/Plan: 1. NEENA on CKD stage 6. Multiple discussions in the past and currently son has voiced a clear decision for no hemodialysis. - BUN and Cr remain slowly improving - monitor conservatively. Will DC IVFs today 2. Metabolic acidosis secondary to renal insufficiency. Improving with relief of obstruction (RTA 4 ). DC IVFs 3. Hyperkalemia. Resolved 4. Severe anemia. Stable. 5. History of obstructive uropathy. - Mark placed 6. UTI- Abx Subjective Date patient seen: July 30, 2018 Time patient seen: 11:28 ROS Limited/Unobtainable: Yes Allergies: Coded Allergies: No Known Allergies (Unverified , 02/11/17) info obtained from caregiver Subjective Patient in no overt distress, is eating and drinking better Objective Last 24 Hour Vital Signs Date Time Temp Pulse Resp B/P (MAP) Pulse Ox O2 Delivery O2 Flow Rate FiO2 07/30/18 08:00 Room Air 07/30/18 08:00 99.2 68 20 123/68 (86) 93 07/30/18 07:39 90 07/30/18 04:00 99.8 77 24 131/64 (86) 94 07/30/18 04:00 99 07/30/18 03:45 Room Air 07/30/18 00:00 Room Air 07/30/18 00:00 67 07/30/18 00:00 99.7 66 24 135/69 (91) 96 07/29/18 20:00 Room Air 07/29/18 20:00 99.1 54 24 110/64 (79) 94 07/29/18 20:00 71 07/29/18 16:00 73 07/29/18 16:00 Room Air 07/29/18 16:00 98.4 68 20 123/82 (96) 96 07/29/18 12:00 72 07/29/18 12:00 98.2 69 24 115/69 (84) 96 07/29/18 12:00 Room Air Intake and Output 07/29/18 07/30/18 18:59 06:59 Intake Total 2270.000 ml 1133.333 ml Output Total 600 ml 400 ml Balance 1670.000 ml 733.333 ml Intake Oral 840 ml IV Total 1430.000 ml 1133.333 ml Output Urine Total 600 ml 400 ml # Bowel Movements 1 Laboratory Tests 07/30/18 05:01: Sodium Level 138, Potassium Level 3.8, Chloride Level 99, Carbon Dioxide Level 20L, Anion Gap 19H, Blood Urea Nitrogen 159H, Creatinine 8.8H, Estimat Glomerular Filtration Rate , Glucose Level 110H, Calcium Level 7.4L, Random Vancomycin Level 11.2 Height (Feet): 5 Height (Inches): 7.00 Weight (Pounds): 150 General Appearance: no apparent distress EENT: normal ENT inspection Neck: normal alignment, supple Cardiovascular: normal rate, regular rhythm Respiratory/Chest: lungs clear, normal breath sounds Abdomen: non tender, soft Edema: no edema noted Arm (L), no edema noted Arm (R), no edema noted Leg (L), no edema noted Leg (R), no edema noted Pedal (L), no edema noted Pedal (R), no edema noted Generalized Austin Kta MD July 30, 2018 11:31
--- NOTE | 2018-07-30 13:15 | NUR ---
NURSE NOTES: Called and left message to Dr. Marcos regarding x1 episode of 5 beats Vtach. Awaiting for response.
--- NOTE | 2018-07-30 13:25 | NUR ---
NURSE NOTES: Dr. Marcos called back "per son he is considering hospice". Will cont. to monitor.
--- NOTE | 2018-07-30 16:44 | Pulmonology Progress Note ---
Assessment/Plan Assessment/Plan Pulmonary Progress Note HPI: 83-year-old debilitated male who has been failing to thrive and worsening overall at home. The patient with end-stage renal failure and son has opted not to have dialysis- verified. The patient presented with worsening anemia and renal failure as well as elevated K. The patient is noted to have worsening anemia and transferred for transfusion. He is a poor historian. The patient has had prior admissions to [facility] for sepsis, renal failure , and anemia with similar presentations. The patient's care has been discussed with his son and confirms no HD and DNR. The patient was noted to be increasingly weaker overall. The patient's prior history was reviewed with caregiver.Positive BC - GPC - on antibiotics per ID PAST MEDICAL HISTORY: obstructive uropathy, benign prostatic hyperplasia, senile dementia advanced, unsteady gait, prior falls, chronic renal failure, hydronephrosis, possible prior CVA, and sepsis, anemia with prior transfusions, hyperkalemia, parkinsons MEDICATIONS: Reviewed. ALLERGIES: Reviewed. SOCIAL HISTORY: He lives with caregiver. Do Not Resuscitate per discussion with son. nonsmoker and nondrinker REVIEW OF SYSTEMS: Unobtainable at this time. PHYSICAL EXAMINATION: Vital signs noted GENERAL: A well-developed male, debilitated. nonverbal HEENT: Negative. Oropharynx is dry without thrush NECK: Supple. SKIN: Skin turgor slightly reduced. LUNGS: With moderate air entry. No rhonchi or wheezes. CARDIAC: Normal S1, S2. Regular rate and rhythm without murmurs, rubs, or gallops. ABDOMEN: Soft, nontender. No distention. no HSM; no distention EXTREMITIES: No cyanosis, clubbing, or edema. NEUROLOGICAL: Confused. Nonverbal overall. same reviewed and edited Labs Test 07/27/18 21:11 07/27/18 21:51 07/27/18 22:45 White Blood Count 22.0 K/UL (4.8-10.8) Red Blood Count 1.41 M/UL (4.70-6.10) Hemoglobin 4.6 G/DL (14.2-18.0) Hematocrit 13.5 % (42.0-52.0) Mean Corpuscular Volume 95 FL (80-99) Mean Corpuscular Hemoglobin 32.7 PG (27.0-31.0) Mean Corpuscular Hemoglobin Concent 34.2 G/DL (32.0-36.0) Red Cell Distribution Width 16.4 % (11.6-14.8) Platelet Count 352 K/UL (150-450) Mean Platelet Volume 4.8 FL (6.5-10.1) Neutrophils (%) (Auto) % (45.0-75.0) Lymphocytes (%) (Auto) % (20.0-45.0) Monocytes (%) (Auto) % (1.0-10.0) Eosinophils (%) (Auto) % (0.0-3.0) Basophils (%) (Auto) % (0.0-2.0) Differential Total Cells Counted 100 Neutrophils % (Manual) 87 % (45-75) Lymphocytes % (Manual) 6 % (20-45) Monocytes % (Manual) 4 % (1-10) Eosinophils % (Manual) 2 % (0-3) Basophils % (Manual) 1 % (0-2) Band Neutrophils 0 % (0-8) Platelet Estimate Adequate Platelet Morphology Normal Polychromasia 1+ Hypochromasia 2+ Anisocytosis 2+ Microcytosis 1+ Sodium Level 134 MMOL/L (136-145) Potassium Level 6.3 MMOL/L (3.5-5.1) Chloride Level 99 MMOL/L (98-107) Carbon Dioxide Level 10 MMOL/L (21-32) Anion Gap 24 mmol/L (5-15) Blood Urea Nitrogen 166 mg/dL (7-18) Creatinine 9.4 MG/DL (0.55-1.30) Estimat Glomerular Filtration Rate mL/min (>60) Glucose Level 125 MG/DL (74-106) Lactic Acid Level 2.70 mmol/L (0.4-2.0) 1.70 mmol/L (0.66-2.22) Calcium Level 8.8 MG/DL (8.5-10.1) Phosphorus Level 8.0 MG/DL (2.5-4.9) Magnesium Level 2.7 MG/DL (1.8-2.4) Total Bilirubin 0.5 MG/DL (0.2-1.0) Aspartate Amino Transf (AST/SGOT) 20 U/L (15-37) Alanine Aminotransferase (ALT/SGPT) < 6 U/L (12-78) Alkaline Phosphatase 92 U/L (46-116) Total Creatine Kinase 416 U/L (26-308) Creatine Kinase MB 13.5 NG/ML (0.0-3.6) Creatine Kinase MB Relative Index 3.2 Troponin I 0.026 ng/mL (0.000-0.056) Total Protein 7.7 G/DL (6.4-8.2) Albumin 2.5 G/DL (3.4-5.0) Globulin 5.2 g/dL Albumin/Globulin Ratio 0.5 (1.0-2.7) Urine Color Pale yellow Urine Appearance Clear Urine pH 5 (4.5-8.0) Urine Specific [place] 1.010 (1.005-1.035) Urine Protein 2+ (NEGATIVE) Urine Glucose (UA) 1+ (NEGATIVE) Urine Ketones Negative (NEGATIVE) Urine Blood 4+ (NEGATIVE) Urine Nitrite Negative (NEGATIVE) Urine Bilirubin Negative (NEGATIVE) Urine Urobilinogen Normal MG/DL (0.0-1.0) Urine Leukocyte Esterase 3+ (NEGATIVE) Urine RBC 10-15 /HPF (0 - 0) Urine WBC 5-10 /HPF (0 - 0) Urine Squamous Epithelial Cells None /LPF (NONE/OCC) Urine Bacteria Moderate /HPF (NONE) IMPRESSION acute on chronic renal failure anemia possible GIB Sepsis leukocytosis possible sepsis dementia chronic encephalopathy toxic metabolic encephalopathy elevated K protein calorie malnutrition PLAN IV hydration transfusion Iv antibiotics check cultures renal and ID following DNR d/w son as to advance directives ? hospice impression, plan, and exam edited and reviewed in detail care discussed with RN Subjective ROS Limited/Unobtainable: No Allergies: Coded Allergies: No Known Allergies (Unverified , 02/11/17) info obtained from caregiver Objective Last 24 Hour Vital Signs Date Time Temp Pulse Resp B/P (MAP) Pulse Ox O2 Delivery O2 Flow Rate FiO2 07/30/18 12:24 96 07/30/18 12:00 Room Air 07/30/18 12:00 99.1 59 23 120/61 (80) 93 07/30/18 11:47 87 07/30/18 08:00 Room Air 07/30/18 08:00 99.2 68 20 123/68 (86) 93 07/30/18 07:39 90 07/30/18 04:00 99.8 77 24 131/64 (86) 94 07/30/18 04:00 99 07/30/18 03:45 Room Air 07/30/18 00:00 Room Air 07/30/18 00:00 67 07/30/18 00:00 99.7 66 24 135/69 (91) 96 07/29/18 20:00 Room Air 07/29/18 20:00 99.1 54 24 110/64 (79) 94 07/29/18 20:00 71 Intake and Output 07/29/18 07/30/18 18:59 06:59 Intake Total 2270.000 ml 1133.333 ml Output Total 600 ml 400 ml Balance 1670.000 ml 733.333 ml Intake Oral 840 ml IV Total 1430.000 ml 1133.333 ml Output Urine Total 600 ml 400 ml # Bowel Movements 1 Microbiology Date/Time Source Procedure Growth Status 07/27/18 21:15 Blood Blood Culture - Preliminary Staphylococcus Sp Coag Neg Resulted 07/27/18 21:00 Blood Blood Culture - Preliminary Staphylococcus Sp Coag Neg Resulted 07/27/18 23:40 Nasal Nares MRSA Culture - Final NO METHICILLIN RESISTANT STAPH AUREUS... Complete 07/28/18 16:20 Urine,Clean Catch Urine Culture - Final Mixed Gram Positive Organism Complete 07/27/18 21:51 Urine,Clean Catch Urine Culture - Final NO GROWTH AFTER 48 HOURS Complete 07/27/18 23:40 Rectum VRE Culture - Final Enterococcus Faecalis - Vre Complete Laboratory Tests 07/30/18 05:01: Sodium Level 138, Potassium Level 3.8, Chloride Level 99, Carbon Dioxide Level 20L, Anion Gap 19H, Blood Urea Nitrogen 159H, Creatinine 8.8H, Estimat Glomerular Filtration Rate , Glucose Level 110H, Calcium Level 7.4L, Random Vancomycin Level 11.2 Current Medications Medications (Trade) Dose Ordered Sig/Tracee Route PRN Reason Start Time Stop Time Status Last Admin Dose Admin Acetaminophen (Tylenol) 650 mg Q4H PRN ORAL Mild Pain/Temp > 100.5 07/28/18 09:00 08/27/18 04:59 Al Hydroxide/Mg Hydroxide (Mylanta) 30 ml FOUR TIMES A DAY PRN ORAL Abdominal cramps 07/28/18 05:45 08/27/18 04:59 Carbidopa/Levodopa (Sinemet 25/) 1 tab THREE TIMES A DAY ORAL 07/29/18 09:00 08/28/18 08:59 07/30/18 13:30 Cefepime HCl 1 gm/ Dextrose 55 ml @ 110 mls/hr Q24H IVPB 07/28/18 09:00 08/04/18 08:59 07/30/18 08:24 Ferrous Sulfate (Feosol) 325 mg Q24H ORAL 07/29/18 11:00 08/28/18 10:59 07/30/18 10:09 Finasteride (Proscar) 5 mg DAILY ORAL 07/29/18 09:00 08/28/18 08:59 07/30/18 08:25 Mirtazapine (Remeron) 15 mg BEDTIME ORAL 07/28/18 21:00 08/27/18 20:59 07/29/18 21:55 Pantoprazole (Protonix) 40 mg DAILY ORAL 07/28/18 09:00 08/27/18 08:59 07/30/18 08:25 Tamsulosin HCl (Flomax) 0.4 mg QHS ORAL 07/28/18 21:00 08/27/18 20:59 07/29/18 21:55 Vancomycin HCl (Vanco rx to dose) 1 ea DAILY PRN MISC Per rx protocol 07/29/18 11:30 08/28/18 11:29 Marcin Patel MD July 30, 2018 16:44
--- NOTE | 2018-07-30 19:08 | NUR ---
HAND-OFF: Report given to Laurel NAIK. Pt. remain stable. medical claims assistant at bedside.
--- NOTE | 2018-07-30 19:09 | NUR ---
NURSE NOTES: BEDSIDE REPORT RECEIVED FROM GUMARO LY. PT IS NONVERBAL, OPENS EYES, OTHERWISE OBTUNDED. NEON SIGN ERECTOR IS SHOWING NSR. ON RA, SATING WELL. SKIN IS CLEAN, DRY, DRESSINGS INTACT. CONDOM CATH DRAINING, INTACT. NIRAV 20, SL; ASYMPTOMATIC. LSON CONSIDERING HOSPICE, NO D/C PLAN AT THIS TIME. 5 BEATS OF VTACH ON AM SHIFT, MD AWARE, NO ORDERS. BED IS LOCKED IN LOWEST POSITION, SR X3, BED ALARM ON, CALL PETERS W/ IN REACH. WILL CONTINUE TO MONITOR AND FOLLOW W/ PLAN OF CARE.
[2018-07-30] MEDS: Tamsulosin 0.4mg cap ORAL SCH (20:19)
[2018-07-31 04:00] VITALS: BP 131/62
[2018-07-31 06:03] LABS: HEMATOCRIT 26.3 % (42.0-52.0); HEMOGLOBIN 9.3 G/DL (14.2-18.0); MEAN CORPUSCULAR VOLUME 87 FL (80-99); PLATELET COUNT 279 K/UL (150-450); RED BLOOD COUNT 3.04 M/UL (4.70-6.10); RED CELL DISTRIBUTION WIDTH 14.8 % (11.6-14.8)
[2018-07-31 06:36] LABS: ANION GAP 19 mmol/L (5-15); BLOOD UREA NITROGEN 165 mg/dL (7-18); CALCIUM 7.6 MG/DL (8.5-10.1); CARBON DIOXIDE 22 MMOL/L (21-32); CHLORIDE 97 MMOL/L (98-107); CREATININE 9.5 MG/DL (0.55-1.30); POTASSIUM 3.7 MMOL/L (3.5-5.1); SODIUM 138 MMOL/L (136-145)
--- NOTE | 2018-07-31 07:10 | NUR ---
HAND-OFF: Report given to GUMARO FERRERA.
--- NOTE | 2018-07-31 07:11 | NUR ---
NURSE NOTES: RECEIVED PATIENT FROM Hien AGUILAR RN. PATIENT IS SEEN LYING IN BED, ASLEEP. HOOKED TO DIETITIAN. ON ROOM AIR. NO SIGNS O DISTRESS. NOTED CONDOM CATH. SKIN ALTERATION NOTED. IV ON L UA G20, SL. CAREGIVER SEEN AT THE BEDSIDE. CALL LIGHT WITHIN REACH. BED AT LOWEST POSITION. SIDE RAILS UP. WILL CONTINUE TO MONITOR.
[2018-07-31 08:00] VITALS: BP 126/54
[2018-07-31] MEDS ORDERED: D5W 275ml ONE (08:07)
[2018-07-31] MEDS ORDERED: Tubing IV Secondary IV ONE (08:07)
[2018-07-31] MEDS ORDERED: NS 275ml ONE (08:07)
[2018-07-31] MEDS: Cefepime HCl 1 GM in D5W 55 ML IVPB SCH (08:11)
[2018-07-31] MEDS: Levodopa/Carbidopa 25/100 tab ORAL SCH ×3 (08:11→17:24)
--- NOTE | 2018-07-31 10:02 | Infectious Diseases Prog Note ---
Assessment/Plan Assessment/Plan A; Pneumonia ESRD Obstructive Uropathy Positive blood culture, likely contamination Dementia Parkinson's disease VRE carrier P: Continue Cefepime Discontinue Vancomycin Poor prognosis Subjective ROS Limited/Unobtainable: Yes Constitutional: Reports: no symptoms Allergies: Coded Allergies: No Known Allergies (Unverified , 02/11/17) info obtained from caregiver Objective Vital Signs Last 24 Hour Vital Signs Date Time Temp Pulse Resp B/P (MAP) Pulse Ox O2 Delivery O2 Flow Rate FiO2 07/31/18 08:00 98.4 67 21 126/54 (78) 95 07/31/18 08:00 Room Air 07/31/18 04:00 Room Air 07/31/18 04:00 99.5 83 16 131/62 (85) 95 07/31/18 04:00 89 07/31/18 00:00 87 07/31/18 00:00 Room Air 07/30/18 23:21 99.5 68 18 111/74 (86) 94 07/30/18 20:00 97.9 94 20 146/79 (101) 94 07/30/18 20:00 Room Air 07/30/18 19:55 104 07/30/18 16:00 Room Air 07/30/18 16:00 98.8 63 22 127/57 (80) 94 07/30/18 15:22 80 07/30/18 12:24 96 07/30/18 12:00 Room Air 07/30/18 12:00 99.1 59 23 120/61 (80) 93 07/30/18 11:47 87 Height (Feet): 5 Height (Inches): 7.00 Weight (Pounds): 150 HEENT: mucous membranes moist Respiratory/Chest: lungs clear Cardiovascular: normal rate Abdomen: soft, non tender Genitourinary: other - Mark catheter Extremities: no edema Skin: ulcers, other - left temporal area Neurologic/Psychiatric: unresponsiveness Microbiology Date/Time Source Procedure Growth Status 07/30/18 04:00 Sputum Gram Stain - Final Resulted 07/30/18 04:00 Sputum Sputum Culture Pending Resulted 07/28/18 16:20 Urine,Clean Catch Urine Culture - Final Mixed Gram Positive Organism Complete Laboratory Tests Test 07/31/18 04:22 White Blood Count 18.0 K/UL (4.8-10.8) H Red Blood Count 3.04 M/UL (4.70-6.10) L Hemoglobin 9.3 G/DL (14.2-18.0) L Hematocrit 26.3 % (42.0-52.0) L Mean Corpuscular Volume 87 FL (80-99) Mean Corpuscular Hemoglobin 30.4 PG (27.0-31.0) Mean Corpuscular Hemoglobin Concent 35.1 G/DL (32.0-36.0) Red Cell Distribution Width 14.8 % (11.6-14.8) Platelet Count 279 K/UL (150-450) Mean Platelet Volume 5.3 FL (6.5-10.1) L Neutrophils (%) (Auto) % (45.0-75.0) Lymphocytes (%) (Auto) % (20.0-45.0) Monocytes (%) (Auto) % (1.0-10.0) Eosinophils (%) (Auto) % (0.0-3.0) Basophils (%) (Auto) % (0.0-2.0) Differential Total Cells Counted 100 Neutrophils % (Manual) 84 % (45-75) H Lymphocytes % (Manual) 7 % (20-45) L Monocytes % (Manual) 8 % (1-10) Eosinophils % (Manual) 1 % (0-3) Basophils % (Manual) 0 % (0-2) Band Neutrophils 0 % (0-8) Platelet Estimate Adequate Platelet Morphology Normal Anisocytosis 1+ Sodium Level 138 MMOL/L (136-145) Potassium Level 3.7 MMOL/L (3.5-5.1) Chloride Level 97 MMOL/L (98-107) L Carbon Dioxide Level 22 MMOL/L (21-32) Anion Gap 19 mmol/L (5-15) H Blood Urea Nitrogen 165 mg/dL (7-18) H Creatinine 9.5 MG/DL (0.55-1.30) H Estimat Glomerular Filtration Rate mL/min (>60) Glucose Level 97 MG/DL (74-106) Calcium Level 7.6 MG/DL (8.5-10.1) L Current Medications Medications (Trade) Dose Ordered Sig/Tracee Route PRN Reason Start Time Stop Time Status Last Admin Dose Admin Acetaminophen (Tylenol) 650 mg Q4H PRN ORAL Mild Pain/Temp > 100.5 07/28/18 09:00 08/27/18 04:59 Al Hydroxide/Mg Hydroxide (Mylanta) 30 ml FOUR TIMES A DAY PRN ORAL Abdominal cramps 07/28/18 05:45 08/27/18 04:59 Carbidopa/Levodopa (Sinemet 25/100) 1 tab THREE TIMES A DAY ORAL 07/29/18 09:00 08/28/18 08:59 07/31/18 08:11 Cefepime HCl 1 gm/ Dextrose 55 ml @ 110 mls/hr Q24H IVPB 07/28/18 09:00 08/04/18 08:59 07/31/18 08:11 Ferrous Sulfate (Feosol) 325 mg Q24H ORAL 07/29/18 11:00 08/28/18 10:59 07/30/18 10:09 Finasteride (Proscar) 5 mg DAILY ORAL 07/29/18 09:00 08/28/18 08:59 07/31/18 08:11 Mirtazapine (Remeron) 15 mg BEDTIME ORAL 07/28/18 21:00 08/27/18 20:59 07/30/18 20:19 Pantoprazole (Protonix) 40 mg DAILY ORAL 07/28/18 09:00 08/27/18 08:59 07/31/18 08:11 Tamsulosin HCl (Flomax) 0.4 mg QHS ORAL 07/28/18 21:00 08/27/18 20:59 07/30/18 20:19 Vancomycin HCl (Vanco rx to dose) 1 ea DAILY PRN MISC Per rx protocol 07/29/18 11:30 08/28/18 11:29 Eloy Amaya MD July 31, 2018 10:02
[2018-07-31 12:00] VITALS: BP 138/77
--- NOTE | 2018-07-31 12:24 | Nephrology Progress Note ---
Assessment/Plan Assessment/Plan: 1. NEENA on CKD stage 6. - Multiple discussions in the past and currently son has voiced a clear decision for no hemodialysis. - monitor conservatively. 2. Metabolic acidosis secondary to renal insufficiency. Improving with relief of obstruction (RTA 4 ) Resolved 3. Hyperkalemia. Resolved 4. Severe anemia. Stable. 5. History of obstructive uropathy. - Mark placed 6. UTI- Abx per ID Subjective Date patient seen: July 31, 2018 Time patient seen: 12:18 ROS Limited/Unobtainable: Yes Allergies: Coded Allergies: No Known Allergies (Unverified , 02/11/17) info obtained from caregiver Subjective Patient stable, no overt distress Objective Last 24 Hour Vital Signs Date Time Temp Pulse Resp B/P (MAP) Pulse Ox O2 Delivery O2 Flow Rate FiO2 07/31/18 08:00 98.4 67 21 126/54 (78) 95 07/31/18 08:00 Room Air 07/31/18 08:00 89 07/31/18 04:00 Room Air 07/31/18 04:00 99.5 83 16 131/62 (85) 95 07/31/18 04:00 89 07/31/18 00:00 87 07/31/18 00:00 Room Air 07/30/18 23:21 99.5 68 18 111/74 (86) 94 07/30/18 20:00 97.9 94 20 146/79 (101) 94 07/30/18 20:00 Room Air 07/30/18 19:55 104 07/30/18 16:00 Room Air 07/30/18 16:00 98.8 63 22 127/57 (80) 94 07/30/18 15:22 80 07/30/18 12:24 96 Intake and Output 07/30/18 07/31/18 18:59 06:59 Intake Total 550 ml 120 ml Output Total 300 ml Balance 550 ml -180 ml Intake Oral 550 ml 120 ml Output Urine Total 300 ml # Voids 2 1 Laboratory Tests 07/31/18 04:22: White Blood Count 18.0H, Red Blood Count 3.04L, Hemoglobin 9.3L, Hematocrit 26.3L, Mean Corpuscular Volume 87, Mean Corpuscular Hemoglobin 30.4, Mean Corpuscular Hemoglobin Concent 35.1, Red Cell Distribution Width 14.8, Platelet Count 279, Mean Platelet Volume 5.3L, Neutrophils (%) (Auto) , Lymphocytes (%) ( Auto) , Monocytes (%) (Auto) , Eosinophils (%) (Auto) , Basophils (%) (Auto) , Differential Total Cells Counted 100, Neutrophils % (Manual) 84H, Lymphocytes % (Manual) 7L, Monocytes % (Manual) 8, Eosinophils % (Manual) 1, Basophils % ( Manual) 0, Band Neutrophils 0, Platelet Estimate Adequate, Platelet Morphology Normal, Anisocytosis 1+, Sodium Level 138, Potassium Level 3.7, Chloride Level 97L, Carbon Dioxide Level 22, Anion Gap 19H, Blood Urea Nitrogen 165H, Creatinine 9.5H, Estimat Glomerular Filtration Rate , Glucose Level 97, Calcium Level 7.6L Height (Feet): 5 Height (Inches): 7.00 Weight (Pounds): 150 General Appearance: no apparent distress, alert Neck: normal alignment, supple Cardiovascular: normal rate, regular rhythm Respiratory/Chest: lungs clear, normal breath sounds Abdomen: non tender, soft Edema: no edema noted Arm (L), no edema noted Arm (R), no edema noted Leg (L), no edema noted Leg (R), no edema noted Pedal (L), no edema noted Pedal (R), no edema noted Generalized Austin Kat MD July 31, 2018 12:24
--- NOTE | 2018-07-31 14:35 | NUR ---
CASE MANAGEMENT: REVIEW 07/31/2018 SI:SEPSIS. TOXIC ENCEPHALOPATHY. T 99 HR 72 RR 25 B/P 138/77 SATS 94% ON RA WBC 18 CL 97 BUN 165 CR 9.5 CA 7.6 IS: REMERON PO QHS PROTONIX PO QD PROSCAR PO QD CEFEPIME IV Q24H FEOSOL PO Q24H FLOMAX PO QHS SINEMET PO TID SDU PLAN OF CARE: CONTINUE CEFEPIME
--- NOTE | 2018-07-31 15:50 | NUR ---
HAND-OFF: Report given to Yovani Zavala RN.
[2018-07-31 16:00] VITALS: BP 121/70
--- NOTE | 2018-07-31 18:29 | NUR ---
NURSE NOTES: LEFT A MESSAGE TO DR IRWIN if he wants to order St eval for this patient. awaits callback and new order as of this time.
--- NOTE | 2018-07-31 18:42 | Pulmonology Progress Note ---
Assessment/Plan Assessment/Plan Pulmonary Progress Note HPI: 83-year-old debilitated male who has been failing to thrive and worsening overall at home. The patient with end-stage renal failure and son has opted not to have dialysis- verified. The patient presented with worsening anemia and renal failure as well as elevated K. The patient is noted to have worsening anemia and transferred for transfusion. He is a poor historian. The patient has had prior admissions to [facility] for sepsis, renal failure , and anemia with similar presentations. The patient's care has been discussed with his son and confirms no HD and DNR. The patient was noted to be increasingly weaker overall. The patient's prior history was reviewed with caregiver.Positive BC - GPC - on antibiotics per ID PAST MEDICAL HISTORY: obstructive uropathy, benign prostatic hyperplasia, senile dementia advanced, unsteady gait, prior falls, chronic renal failure, hydronephrosis, possible prior CVA, and sepsis, anemia with prior transfusions, hyperkalemia, parkinsons MEDICATIONS: Reviewed. ALLERGIES: Reviewed. SOCIAL HISTORY: He lives with caregiver. Do Not Resuscitate per discussion with son. nonsmoker and nondrinker REVIEW OF SYSTEMS: Unobtainable at this time. PHYSICAL EXAMINATION: Vital signs noted GENERAL: A well-developed male, debilitated. nonverbal HEENT: Negative. Oropharynx is dry without thrush NECK: Supple. SKIN: Skin turgor slightly reduced. LUNGS: With moderate air entry. No rhonchi or wheezes. CARDIAC: Normal S1, S2. Regular rate and rhythm without murmurs, rubs, or gallops. ABDOMEN: Soft, nontender. No distention. no HSM; no distention EXTREMITIES: No cyanosis, clubbing, or edema. NEUROLOGICAL: Confused. Nonverbal overall. same reviewed and edited Labs Test 07/27/18 21:11 07/27/18 21:51 07/27/18 22:45 White Blood Count 22.0 K/UL (4.8-10.8) Red Blood Count 1.41 M/UL (4.70-6.10) Hemoglobin 4.6 G/DL (14.2-18.0) Hematocrit 13.5 % (42.0-52.0) Mean Corpuscular Volume 95 FL (80-99) Mean Corpuscular Hemoglobin 32.7 PG (27.0-31.0) Mean Corpuscular Hemoglobin Concent 34.2 G/DL (32.0-36.0) Red Cell Distribution Width 16.4 % (11.6-14.8) Platelet Count 352 K/UL (150-450) Mean Platelet Volume 4.8 FL (6.5-10.1) Neutrophils (%) (Auto) % (45.0-75.0) Lymphocytes (%) (Auto) % (20.0-45.0) Monocytes (%) (Auto) % (1.0-10.0) Eosinophils (%) (Auto) % (0.0-3.0) Basophils (%) (Auto) % (0.0-2.0) Differential Total Cells Counted 100 Neutrophils % (Manual) 87 % (45-75) Lymphocytes % (Manual) 6 % (20-45) Monocytes % (Manual) 4 % (1-10) Eosinophils % (Manual) 2 % (0-3) Basophils % (Manual) 1 % (0-2) Band Neutrophils 0 % (0-8) Platelet Estimate Adequate Platelet Morphology Normal Polychromasia 1+ Hypochromasia 2+ Anisocytosis 2+ Microcytosis 1+ Sodium Level 134 MMOL/L (136-145) Potassium Level 6.3 MMOL/L (3.5-5.1) Chloride Level 99 MMOL/L (98-107) Carbon Dioxide Level 10 MMOL/L (21-32) Anion Gap 24 mmol/L (5-15) Blood Urea Nitrogen 166 mg/dL (7-18) Creatinine 9.4 MG/DL (0.55-1.30) Estimat Glomerular Filtration Rate mL/min (>60) Glucose Level 125 MG/DL (74-106) Lactic Acid Level 2.70 mmol/L (0.4-2.0) 1.70 mmol/L (0.66-2.22) Calcium Level 8.8 MG/DL (8.5-10.1) Phosphorus Level 8.0 MG/DL (2.5-4.9) Magnesium Level 2.7 MG/DL (1.8-2.4) Total Bilirubin 0.5 MG/DL (0.2-1.0) Aspartate Amino Transf (AST/SGOT) 20 U/L (15-37) Alanine Aminotransferase (ALT/SGPT) < 6 U/L (12-78) Alkaline Phosphatase 92 U/L (46-116) Total Creatine Kinase 416 U/L (26-308) Creatine Kinase MB 13.5 NG/ML (0.0-3.6) Creatine Kinase MB Relative Index 3.2 Troponin I 0.026 ng/mL (0.000-0.056) Total Protein 7.7 G/DL (6.4-8.2) Albumin 2.5 G/DL (3.4-5.0) Globulin 5.2 g/dL Albumin/Globulin Ratio 0.5 (1.0-2.7) Urine Color Pale yellow Urine Appearance Clear Urine pH 5 (4.5-8.0) Urine Specific [place] 1.010 (1.005-1.035) Urine Protein 2+ (NEGATIVE) Urine Glucose (UA) 1+ (NEGATIVE) Urine Ketones Negative (NEGATIVE) Urine Blood 4+ (NEGATIVE) Urine Nitrite Negative (NEGATIVE) Urine Bilirubin Negative (NEGATIVE) Urine Urobilinogen Normal MG/DL (0.0-1.0) Urine Leukocyte Esterase 3+ (NEGATIVE) Urine RBC 10-15 /HPF (0 - 0) Urine WBC 5-10 /HPF (0 - 0) Urine Squamous Epithelial Cells None /LPF (NONE/OCC) Urine Bacteria Moderate /HPF (NONE) IMPRESSION acute on chronic renal failure anemia possible GIB Sepsis leukocytosis possible sepsis dementia chronic encephalopathy toxic metabolic encephalopathy elevated K protein calorie malnutrition PLAN IV hydration transfusion Iv antibiotics check cultures renal and ID following DNR d/w son as to advance directives ? hospice impression, plan, and exam edited and reviewed in detail care discussed with RN Subjective ROS Limited/Unobtainable: No Allergies: Coded Allergies: No Known Allergies (Unverified , 02/11/17) info obtained from caregiver Objective Last 24 Hour Vital Signs Date Time Temp Pulse Resp B/P (MAP) Pulse Ox O2 Delivery O2 Flow Rate FiO2 07/31/18 16:00 99.5 65 23 121/70 (87) 95 07/31/18 16:00 79 07/31/18 16:00 Room Air 07/31/18 12:00 Room Air 07/31/18 12:00 94 07/31/18 12:00 99.0 72 25 138/77 (97) 94 07/31/18 08:00 98.4 67 21 126/54 (78) 95 07/31/18 08:00 Room Air 07/31/18 08:00 89 07/31/18 04:00 Room Air 07/31/18 04:00 99.5 83 16 131/62 (85) 95 07/31/18 04:00 89 07/31/18 00:00 87 07/31/18 00:00 Room Air 07/30/18 23:21 99.5 68 18 111/74 (86) 94 07/30/18 20:00 97.9 94 20 146/79 (101) 94 07/30/18 20:00 Room Air 07/30/18 19:55 104 Intake and Output 07/30/18 07/31/18 19:00 07:00 Intake Total 550 ml 120 ml Output Total 300 ml Balance 550 ml -180 ml Intake Oral 550 ml 120 ml Output Urine Total 300 ml # Voids 2 1 Microbiology Date/Time Source Procedure Growth Status 07/30/18 04:00 Sputum Gram Stain - Final Resulted 07/30/18 04:00 Sputum Sputum Culture Pending Resulted Laboratory Tests 07/31/18 04:22: White Blood Count 18.0H, Red Blood Count 3.04L, Hemoglobin 9.3L, Hematocrit 26.3L, Mean Corpuscular Volume 87, Mean Corpuscular Hemoglobin 30.4, Mean Corpuscular Hemoglobin Concent 35.1, Red Cell Distribution Width 14.8, Platelet Count 279, Mean Platelet Volume 5.3L, Neutrophils (%) (Auto) , Lymphocytes (%) ( Auto) , Monocytes (%) (Auto) , Eosinophils (%) (Auto) , Basophils (%) (Auto) , Differential Total Cells Counted 100, Neutrophils % (Manual) 84H, Lymphocytes % (Manual) 7L, Monocytes % (Manual) 8, Eosinophils % (Manual) 1, Basophils % ( Manual) 0, Band Neutrophils 0, Platelet Estimate Adequate, Platelet Morphology Normal, Anisocytosis 1+, Sodium Level 138, Potassium Level 3.7, Chloride Level 97L, Carbon Dioxide Level 22, Anion Gap 19H, Blood Urea Nitrogen 165H, Creatinine 9.5H, Estimat Glomerular Filtration Rate , Glucose Level 97, Calcium Level 7.6L Current Medications Medications (Trade) Dose Ordered Sig/Tracee Route PRN Reason Start Time Stop Time Status Last Admin Dose Admin Acetaminophen (Tylenol) 650 mg Q4H PRN ORAL Mild Pain/Temp > 100.5 07/28/18 09:00 08/27/18 04:59 Al Hydroxide/Mg Hydroxide (Mylanta) 30 ml FOUR TIMES A DAY PRN ORAL Abdominal cramps 07/28/18 05:45 08/27/18 04:59 Carbidopa/Levodopa (Sinemet 25/100) 1 tab THREE TIMES A DAY ORAL 07/29/18 09:00 08/28/18 08:59 07/31/18 17:24 Cefepime HCl 1 gm/ Dextrose 55 ml @ 110 mls/hr Q24H IVPB 07/28/18 09:00 08/04/18 08:59 07/31/18 08:11 Ferrous Sulfate (Feosol) 325 mg Q24H ORAL 07/29/18 11:00 08/28/18 10:59 07/31/18 12:29 Finasteride (Proscar) 5 mg DAILY ORAL 07/29/18 09:00 08/28/18 08:59 07/31/18 08:11 Mirtazapine (Remeron) 15 mg BEDTIME ORAL 07/28/18 21:00 08/27/18 20:59 07/30/18 20:19 Pantoprazole (Protonix) 40 mg DAILY ORAL 07/28/18 09:00 08/27/18 08:59 07/31/18 08:11 Tamsulosin HCl (Flomax) 0.4 mg QHS ORAL 07/28/18 21:00 08/27/18 20:59 07/30/18 20:19 Marcin Patel MD July 31, 2018 18:42
--- NOTE | 2018-07-31 19:22 | NUR ---
HAND-OFF: Report given to lou lei rn.
--- NOTE | 2018-07-31 19:30 | NUR ---
Received bedside report from Jessie Zavala RN. Pt. sleeping. Easily awaked to touch. In no apparent distress. On room air. No SOB noted. Denies pain or discomfort at present moment. HL at left upper #20g. in placed, patent/intact. SR on media monitor. Bed in low position. Bed alarm engaged. Private CG at bedside. Call light within reach. Will continue POC.
[2018-07-31 20:00] VITALS: BP 122/69
[2018-07-31] MEDS: Tamsulosin 0.4mg cap ORAL SCH (22:34)
[2018-08-01] VITALS: BP 131/70
--- NOTE | 2018-08-01 | NUR ---
NURSE NOTES: Pt sleeping. Easily aroused to touch. In no apparent or acute distress. SR on pool finisher. Episodes of V-tach noted. MD aware of previous V-tach episodes with no intervention done. Bed in low position. Bed alarm engaged. Call light within reach. Will continue POC.
[2018-08-01] MEDS ORDERED: traMADol 50mg tab ORAL PRN ×2 (00:45→16:40)
[2018-08-01 05:51] VITALS: BP 116/69
--- NOTE | 2018-08-01 06:00 | NUR ---
NURSE NOTES: Pt sleeping. Respirations even and unlabored. VSS. Afebrile. In no apparent or acute distress. SR on front desk monitor.Private CG in room assiting with feeding and turning. Bed in low position. Bed alarm engaged. Call light within reach. Will continue POC.
--- NOTE | 2018-08-01 07:20 | NUR ---
NURSE NOTES: Received bedside report from Kashif NAIK. Pt. in bed, asleep but response to tactile stimuli. No sign of distress. No grimacing noted. IV site #20g. in placed at left upper arm. publishing agent at bedside. Bed in low position, locked. Call light within reach. Will cont. to monitor.
--- NOTE | 2018-08-01 07:21 | NUR ---
HAND-OFF: Report given to Asha Callejas RN.
[2018-08-01 08:00] VITALS: BP 135/63
[2018-08-01] MEDS: Cefepime HCl 1 GM in D5W 55 ML IVPB SCH (09:11)
[2018-08-01] MEDS: Levodopa/Carbidopa 25/100 tab ORAL SCH ×3 (09:12→17:18)
--- NOTE | 2018-08-01 09:22 | General Progress Note ---
Assessment/Plan Assessment/Plan: IMPRESSION acute on chronic renal failure anemia possible GIB leukocytosis possible sepsis dementia chronic encephalopathy toxic metabolic encephalopathy elevated K protein calorie malnutrition PLAN IV hydration transfusion- completed Iv antibiotics check cultures renal and ID noted DNR d/w son as to advance directives hope to initiate hospice and dc home impression, plan, and exam edited and reviewed in detail care discussed with RN Subjective Allergies: Coded Allergies: No Known Allergies (Unverified , 02/11/17) info obtained from caregiver Subjective d/w son to initiated hospice notes no benefit from repeated transfusions Objective Last 24 Hour Vital Signs Date Time Temp Pulse Resp B/P (MAP) Pulse Ox O2 Delivery O2 Flow Rate FiO2 08/01/18 08:00 99.4 69 24 135/63 (87) 95 08/01/18 08:00 Room Air 08/01/18 05:51 98.2 62 20 116/69 (85) 91 08/01/18 04:00 Room Air 08/01/18 04:00 84 08/01/18 00:00 Room Air 08/01/18 00:00 81 22 131/70 (90) 93 08/01/18 00:00 85 07/31/18 20:00 80 07/31/18 20:00 Room Air 07/31/18 20:00 99.0 75 20 122/69 (86) 95 07/31/18 16:00 99.5 65 23 121/70 (87) 95 07/31/18 16:00 79 07/31/18 16:00 Room Air 07/31/18 12:00 Room Air 07/31/18 12:00 94 07/31/18 12:00 99.0 72 25 138/77 (97) 94 Intake and Output 07/31/18 08/01/18 19:00 07:00 Intake Total 350 ml Output Total 200 ml 500 ml Balance 150 ml -500 ml Intake Oral 240 ml IV Total 110 ml Output Urine Total 200 ml 500 ml # Voids 1 Height (Feet): 5 Height (Inches): 7.00 Weight (Pounds): 150 Objective WDWN NAD clear breath sounds bilaterally without rhonchi or wheeze [id number] without MRG NABS nontender no HSM no CCE nonfocal reduced LOC no distress Catracho Marcos MD August 01, 2018 09:22
[2018-08-01 12:00] VITALS: BP 118/75
--- NOTE | 2018-08-01 12:30 | Nephrology Progress Note ---
Assessment/Plan Assessment/Plan: 1. NEENA on CKD stage 6. - Multiple discussions in the past and currently son has voiced a clear decision for no hemodialysis. - monitor conservatively. 2. Metabolic acidosis secondary to renal insufficiency. Improving with relief of obstruction (RTA 4 ) Resolved 3. Hyperkalemia. Resolved 4. Severe anemia. Stable. 5. History of obstructive uropathy. - Mark placed 6. UTI- Abx per ID Subjective Date patient seen: August 01, 2018 Time patient seen: 12:29 ROS Limited/Unobtainable: Yes Allergies: Coded Allergies: No Known Allergies (Unverified , 02/11/17) info obtained from caregiver Subjective Caregiver giving lunch. Patient in no oevrt distress Objective Last 24 Hour Vital Signs Date Time Temp Pulse Resp B/P (MAP) Pulse Ox O2 Delivery O2 Flow Rate FiO2 08/01/18 08:00 99.4 69 24 135/63 (87) 95 08/01/18 08:00 Room Air 08/01/18 07:44 80 08/01/18 05:51 98.2 62 20 116/69 (85) 91 08/01/18 04:00 Room Air 08/01/18 04:00 84 08/01/18 00:00 Room Air 08/01/18 00:00 81 22 131/70 (90) 93 08/01/18 00:00 85 07/31/18 20:00 80 07/31/18 20:00 Room Air 07/31/18 20:00 99.0 75 20 122/69 (86) 95 07/31/18 16:00 99.5 65 23 121/70 (87) 95 07/31/18 16:00 79 07/31/18 16:00 Room Air Intake and Output 07/31/18 08/01/18 19:00 07:00 Intake Total 350 ml Output Total 200 ml 500 ml Balance 150 ml -500 ml Intake Oral 240 ml IV Total 110 ml Output Urine Total 200 ml 500 ml # Voids 1 Height (Feet): 5 Height (Inches): 7.00 Weight (Pounds): 150 General Appearance: no apparent distress EENT: normal ENT inspection Neck: normal alignment, supple Cardiovascular: normal rate, regular rhythm Respiratory/Chest: lungs clear, normal breath sounds Abdomen: non tender, soft Edema: no edema noted Arm (L), no edema noted Arm (R), no edema noted Leg (L), no edema noted Leg (R), no edema noted Pedal (L), no edema noted Pedal (R), no edema noted Generalized Austin Kat MD August 01, 2018 12:30
[2018-08-01 15:33] LABS: ANION GAP 20 mmol/L (5-15); BLOOD UREA NITROGEN 174 mg/dL (7-18); CALCIUM 7.8 MG/DL (8.5-10.1); CARBON DIOXIDE 22 MMOL/L (21-32); CHLORIDE 99 MMOL/L (98-107); CREATININE 10.8 MG/DL (0.55-1.30); POTASSIUM 3.9 MMOL/L (3.5-5.1); SODIUM 141 MMOL/L (136-145)
--- NOTE | 2018-08-01 16:05 | NUR ---
HAND-OFF: Report given to Cathy NAIK. Pt. remain stable. Pt. with representative personal service at bedside for support.
--- NOTE | 2018-08-01 16:27 | NUR ---
NURSE NOTES: Received pt from GUMARO Barry([facility]) with stable condition. Caregiver at bedside. pt is breathing regular and unlabored. denies pain at this time. IV intact and patent. all belongings checked and kept at bedside. no respiratory distress noted. bed in lowest position. call light within reach at all time. will continue to monitor.
[2018-08-01 16:39] VITALS: BP 128/72
--- NOTE | 2018-08-01 19:30 | NUR ---
HAND-OFF: Report given to GUMARO Rogers.
[2018-08-01 20:00] VITALS: BP 117/59
--- NOTE | 2018-08-01 20:00 | NUR ---
NURSE NOTES: Patient received in bed, asleep, no acute distress at this time, noted with intermittent tremors d/t parkinsons. melting supervisor at bedside. Will continue to monitor.
[2018-08-01] MEDS: Tamsulosin 0.4mg cap ORAL SCH (21:00)
--- NOTE | 2018-08-01 22:00 | NUR ---
NURSE NOTES: Oral care provided.
[2018-08-02] VITALS: BP 125/72
[2018-08-02 04:00] VITALS: BP 146/73
[2018-08-02 06:26] LABS: BASOPHILS % (AUTO) 0.7 % (0.0-2.0); EOSINOPHILS % (AUTO) 5.7 % (0.0-3.0); HEMATOCRIT 26.7 % (42.0-52.0); LYMPHOCYTES % (AUTO) 8.8 % (20.0-45.0); MEAN CORPUSCULAR VOLUME 91 FL (80-99); MONOCYTES % (AUTO) 9.8 % (1.0-10.0); PLATELET COUNT 286 K/UL (150-450); RED BLOOD COUNT 2.94 M/UL (4.70-6.10); RED CELL DISTRIBUTION WIDTH 15.4 % (11.6-14.8); WHITE BLOOD COUNT 13.9 K/UL (4.8-10.8)
[2018-08-02 07:10] LABS: ANION GAP 22 mmol/L (5-15); BLOOD UREA NITROGEN 176 mg/dL (7-18); CALCIUM 8.1 MG/DL (8.5-10.1); CARBON DIOXIDE 19 MMOL/L (21-32); CHLORIDE 100 MMOL/L (98-107); CREATININE 11.2 MG/DL (0.55-1.30); POTASSIUM 4.4 MMOL/L (3.5-5.1); SODIUM 141 MMOL/L (136-145)
--- NOTE | 2018-08-02 07:34 | NUR ---
HAND-OFF: Report given to Ruben NAIK.
--- NOTE | 2018-08-02 07:35 | NUR ---
NURSE NOTES: Patient sitting in bed eating breakfast. No signs and symptoms of pain or distress at this time. Addendum: 08/02/18 at 0749 by LISA GRANT RN Caregiver at bedside. IV dressing intact and dry. Bed lowest position. Call light within reach. Will continue to monitor.
--- NOTE | 2018-08-02 07:53 | General Progress Note ---
Assessment/Plan Assessment/Plan: IMPRESSION acute on chronic renal failure anemia possible GIB leukocytosis possible sepsis dementia chronic encephalopathy toxic metabolic encephalopathy elevated K protein calorie malnutrition PLAN IV hydration ID to clear noted cultures renal and ID noted DNR d/w son as to advance directives hope to initiate hospice and dc home- prognosis poor impression, plan, and exam edited and reviewed in detail care discussed with RN Subjective ROS Limited/Unobtainable: Yes Allergies: Coded Allergies: No Known Allergies (Unverified , 02/11/17) info obtained from caregiver Subjective d/w son await decision re: hospice notes no benefit from repeated transfusions Objective Last 24 Hour Vital Signs Date Time Temp Pulse Resp B/P (MAP) Pulse Ox O2 Delivery O2 Flow Rate FiO2 08/02/18 04:00 99.2 80 18 146/73 (97) 95 08/02/18 00:00 97.3 70 22 125/72 (89) 91 08/01/18 20:00 99.1 72 17 117/59 (78) 94 08/01/18 16:39 99.0 75 22 128/72 (90) 94 08/01/18 12:00 99.3 71 24 118/75 (89) 94 08/01/18 12:00 Room Air 08/01/18 11:52 79 08/01/18 08:00 99.4 69 24 135/63 (87) 95 08/01/18 08:00 Room Air Intake and Output 08/01/18 08/02/18 19:00 07:00 Intake Total 360 ml Balance 360 ml Intake Oral 360 ml # Voids 2 Laboratory Tests 08/01/18 14:34: Sodium Level 141, Potassium Level 3.9, Chloride Level 99, Carbon Dioxide Level 22, Anion Gap 20H, Blood Urea Nitrogen 174H, Creatinine 10.8H, Estimat Glomerular Filtration Rate , Glucose Level 134H, Calcium Level 7.8L 08/02/18 05:45: Sodium Level 141, Potassium Level 4.4, Chloride Level 100, Carbon Dioxide Level 19L, Anion Gap 22H, Blood Urea Nitrogen 176H, Creatinine 11.2H, Estimat Glomerular Filtration Rate , Glucose Level 96, Calcium Level 8.1L, White Blood Count 13.9H, Red Blood Count 2.94L, Hemoglobin 9.0L, Hematocrit 26.7L, Mean Corpuscular Volume 91, Mean Corpuscular Hemoglobin 30.6, Mean Corpuscular Hemoglobin Concent 33.6, Red Cell Distribution Width 15.4H, Platelet Count 286, Mean Platelet Volume 6.2L, Neutrophils (%) (Auto) 75.0, Lymphocytes (%) (Auto) 8.8L, Monocytes (%) (Auto) 9.8, Eosinophils (%) (Auto) 5.7H, Basophils (%) (Auto ) 0.7 Height (Feet): 5 Height (Inches): 7.00 Weight (Pounds): 150 Objective WDWN NAD clear breath sounds bilaterally without rhonchi or wheeze [id number] without MRG NABS nontender no HSM no CCE nonfocal reduced LOC no distress Catracho Marcos MD August 02, 2018 07:53
[2018-08-02 08:00] VITALS: BP 131/67
[2018-08-02] MEDS: Levodopa/Carbidopa 25/100 tab ORAL SCH ×3 (08:22→17:51)
[2018-08-02] MEDS: Acetaminophen 650mg/20.3ml ORAL PRN (08:25)
[2018-08-02] MEDS ORDERED: Cefepime HCl 1 GM in D5W 55 ML IVPB SCH (09:00)
--- NOTE | 2018-08-02 10:55 | Infectious Diseases Prog Note ---
Assessment/Plan Assessment/Plan antibiotics : cefepime A 1. fever 2. UTI 3. + blood culture with coag neg staph likely contaminated 4. renal failure 5. rectal VRE colonization P 1. start zosyn 2. d/c cefepime 3. will follow up cultures Subjective Constitutional: Denies: fever, chills Respiratory: Denies: shortness of breath, dry cough Gastrointestinal/Abdominal: Denies: nausea, vomiting, diarrhea Musculoskeletal: Denies: pain Allergies: Coded Allergies: No Known Allergies (Unverified , 02/11/17) info obtained from caregiver Objective Vital Signs Last 24 Hour Vital Signs Date Time Temp Pulse Resp B/P (MAP) Pulse Ox O2 Delivery O2 Flow Rate FiO2 08/02/18 08:55 99.7 08/02/18 08:00 101.1 85 26 131/67 (88) 93 08/02/18 04:00 99.2 80 18 146/73 (97) 95 08/02/18 00:00 97.3 70 22 125/72 (89) 91 08/01/18 20:00 99.1 72 17 117/59 (78) 94 08/01/18 16:39 99.0 75 22 128/72 (90) 94 08/01/18 12:00 99.3 71 24 118/75 (89) 94 08/01/18 12:00 Room Air 08/01/18 11:52 79 Height (Feet): 5 Height (Inches): 7.00 Weight (Pounds): 150 Respiratory/Chest: lungs clear Cardiovascular: normal rate, regular rhythm, no gallop/murmur Abdomen: soft, non tender Extremities: no edema Neurologic/Psychiatric: other - tremors Laboratory Tests Test 08/01/18 14:34 08/02/18 05:45 Sodium Level 141 MMOL/L (136-145) 141 MMOL/L (136-145) Potassium Level 3.9 MMOL/L (3.5-5.1) 4.4 MMOL/L (3.5-5.1) Chloride Level 99 MMOL/L (98-107) 100 MMOL/L (98-107) Carbon Dioxide Level 22 MMOL/L (21-32) 19 MMOL/L (21-32) L Anion Gap 20 mmol/L (5-15) H 22 mmol/L (5-15) H Blood Urea Nitrogen 174 mg/dL (7-18) H 176 mg/dL (7-18) H Creatinine 10.8 MG/DL (0.55-1.30) H 11.2 MG/DL (0.55-1.30) H Estimat Glomerular Filtration Rate mL/min (>60) mL/min (>60) Glucose Level 134 MG/DL (74-106) H 96 MG/DL (74-106) Calcium Level 7.8 MG/DL (8.5-10.1) L 8.1 MG/DL (8.5-10.1) L White Blood Count 13.9 K/UL (4.8-10.8) H Red Blood Count 2.94 M/UL (4.70-6.10) L Hemoglobin 9.0 G/DL (14.2-18.0) L Hematocrit 26.7 % (42.0-52.0) L Mean Corpuscular Volume 91 FL (80-99) Mean Corpuscular Hemoglobin 30.6 PG (27.0-31.0) Mean Corpuscular Hemoglobin Concent 33.6 G/DL (32.0-36.0) Red Cell Distribution Width 15.4 % (11.6-14.8) H Platelet Count 286 K/UL (150-450) Mean Platelet Volume 6.2 FL (6.5-10.1) L Neutrophils (%) (Auto) 75.0 % (45.0-75.0) Lymphocytes (%) (Auto) 8.8 % (20.0-45.0) L Monocytes (%) (Auto) 9.8 % (1.0-10.0) Eosinophils (%) (Auto) 5.7 % (0.0-3.0) H Basophils (%) (Auto) 0.7 % (0.0-2.0) Current Medications Medications (Trade) Dose Ordered Sig/Tracee Route PRN Reason Start Time Stop Time Status Last Admin Dose Admin Acetaminophen (Tylenol) 650 mg Q4H PRN ORAL Mild Pain/Temp > 100.5 08/01/18 16:39 08/27/18 16:38 08/02/18 08:25 Al Hydroxide/Mg Hydroxide (Mylanta) 30 ml QID PRN ORAL Abdominal cramps 08/01/18 16:40 08/31/18 16:39 Carbidopa/Levodopa (Sinemet 25/100) 1 tab THREE TIMES A DAY ORAL 08/01/18 18:00 08/28/18 08:59 08/02/18 08:22 Cefepime HCl 1 gm/ Dextrose 55 ml @ 110 mls/hr Q24H IVPB 08/02/18 09:00 08/04/18 08:59 08/02/18 09:24 Ferrous Sulfate (Feosol) 325 mg Q24H ORAL 08/02/18 11:00 08/28/18 10:59 Finasteride (Proscar) 5 mg DAILY ORAL 08/02/18 09:00 08/28/18 08:59 08/02/18 08:23 Mirtazapine (Remeron) 15 mg BEDTIME ORAL 08/01/18 21:00 08/27/18 20:59 08/01/18 21:00 Pantoprazole (Protonix) 40 mg DAILY ORAL 08/02/18 09:00 08/27/18 08:59 08/02/18 08:22 Tamsulosin HCl (Flomax) 0.4 mg QHS ORAL 08/01/18 21:00 08/27/18 20:59 08/01/18 21:00 Tramadol HCl (Ultram) 50 mg Q6H PRN ORAL For Pain 08/01/18 16:40 08/08/18 16:39 April Orourke MD August 02, 2018 10:55
--- NOTE | 2018-08-02 11:13 | NUR ---
SWALLOW/SPEECH THERAPY NOTE: REFERRED BY DR SANTOS [facility] SEE FULL REPORT TO FOLLOW. DYSPHAGIA RISK FACTORS FOR THIS 83 Y.O.M.: ACUTE ISSUES: GEN WEAKNESS, ANEMIA, LUNGS ARE CLEAR NOW RELEVANT MEDS: LEVODOPA 3X/DAY (TRY TO GIVE 30 MIN PRIOR TO MEAL), REMERON, AND GERD MEDS. CO-MORBIDIES: ADVANCED SENILE DEMENTIA, PARKINSON'S DZ AND SYNDROME, CKD NO POLST/AD IN CHART REGARDING TUBE FEEDING PREFERENCE BUT WAS ON ORAL GRAT AT ONE TIME PER CAREGIVER, AVIVA. H/O SIGNIFICANT [place]OPHARYNGEAL D[place] [facility] [place] AND PLACED ON A LIQUIFIED PUREED LIKE NECTAR THICK SOUP DIET WITH POSTED ASP PRECAUTIONS. GOOD INTAKE AT THAT TIME BUT VERY SLOW. MOD BARIUM SWALLOW STUDY RECOMMENDED BUT NOT COMPLETED. CURRENTLY ON A RENAL SOFT CHEW DIET WITH VARIABLE INTAKE 25-75%. PER RN, LYN, POCKETING HIS SCRAMBLED EGGS AND COUGHS WITH LIQUID TYLENOL (BETWEEN THIN AND NECTAR THICK CONSISTENCY). PER CG, PATIENT SLEEPY, HAS NOT SLEPT MUCH AT NIGHT. REMOVED MILD AMOUNTS OF SCRAMBLED EGG PIECES FROM ORAL CAVITY RIGHT MORE THAN LEFT. EYES CLOSED BUT DOES TAKE PO WITH EYES CLOSED. ON ROOM AIR, NONVERBAL AND HAS ENOUGH BUT POOR DENTITION. INITIAL IMPRESSIONS: S/S OF A SIGNIFICANT AND PERSISTENT ORAL PREP AND OROPHARYNGEAL DYSPHAGIA WITH MILD TO MODERATELY INCREASED TRANSIT TIMES. DID NOT FOLLOW ORAL COMMANDS AND MAY LEAVE MOUTH OPEN AT REST. ADEQUATE LIP CLOSURE WITH TSP. HOLD ON THIN LIQUIDS FOR NOW SINCE HAD COUGH WITH LIQUID TYLENOL. GIVEN TSP NECTAR THICK LIQUID, CHEWED FOR 5-10 SECONDS AND SWALLOWED WITH FAIR HYOLARYNGEAL EXCURSION. WILL SOMETIMES KEEP MOUTH CLOSED BUT IS RESPONSIVE TO SPOON PLACED ON LOWER LIP WITH SLIGHT PRESSURE APPLIED. NO ORAL RESIDUE AND NO OVERT S/S OF ASPIRATION. GIVEN TSP OF PUREED, CHEWED LONGER FOR 10-15 SECONDS BUT SWALLOWED WHEN VERBALLY CUED BY LABORER LIVESTOCK, HAD FAIR HYOLARYNGEAL EXCURSION W/O ORAL RESIDUE AND OVERT ASPIRATION. RECOMMENDATIONS: COMPLETED MOD BARIUM SWALLOW STUDY IP OR OP IF DC TO FURTHER ASSESS SWALLOW,DETERMINE SILENT ASP RISK, AND ATTEMPT TRIAL TX TECHNIQUES. CONTINUE WITH PO FOR QUALITY OF LIFE (HAS ADVANCED DEMENTIA AND PER CG FAMILY WANTS PT TO HAVE PO) BUT DOWNGRADE TO A RENAL LIQUIFIED PUREED LIKE NECTAR THICK LIQUID DIET WITH TSP ONLY AND OTHER POSTED ASP/REFLUX PRECAUTIONS AND ONE TO ONE FEEDING. SKILLED DYSPHAGIA MANAGEMENT AND TX (SEE GOALS IN REPORT) AND COG-COM EVAL/TX FOR COMMUNICATION TIPS.
[2018-08-02] MEDS: Piperacillin/Tazobactam 3.375 GM in NS 110 ML IVPB SCH ×2 (11:34→20:40)
[2018-08-02 12:00] VITALS: BP 119/64
--- NOTE | 2018-08-02 12:56 | Nephrology Progress Note ---
Assessment/Plan Assessment/Plan: 1. NEENA on CKD stage 6. - Multiple discussions in the past and currently son has voiced a clear decision for no hemodialysis. - BUN/Cr worsened, will start gentle hydration and monitor 2. Metabolic acidosis secondary to renal insufficiency. Improving with relief of obstruction (RTA 4 ) conservative monitoring for now 3. Hyperkalemia. Resolved 4. Severe anemia. Stable. 5. History of obstructive uropathy. - Mark placed 6. UTI- Abx per ID Subjective Date patient seen: August 02, 2018 Time patient seen: 12:54 ROS Limited/Unobtainable: Yes Allergies: Coded Allergies: No Known Allergies (Unverified , 02/11/17) info obtained from caregiver Subjective Caregiver giving lunch again. Patient in mild distress little agitated Objective Last 24 Hour Vital Signs Date Time Temp Pulse Resp B/P (MAP) Pulse Ox O2 Delivery O2 Flow Rate FiO2 08/02/18 08:55 99.7 08/02/18 08:00 101.1 85 26 131/67 (88) 93 08/02/18 04:00 99.2 80 18 146/73 (97) 95 08/02/18 00:00 97.3 70 22 125/72 (89) 91 08/01/18 20:00 99.1 72 17 117/59 (78) 94 08/01/18 16:39 99.0 75 22 128/72 (90) 94 Intake and Output 08/01/18 08/02/18 19:00 07:00 Intake Total 360 ml Balance 360 ml Intake Oral 360 ml # Voids 2 Laboratory Tests 08/01/18 14:34: Sodium Level 141, Potassium Level 3.9, Chloride Level 99, Carbon Dioxide Level 22, Anion Gap 20H, Blood Urea Nitrogen 174H, Creatinine 10.8H, Estimat Glomerular Filtration Rate , Glucose Level 134H, Calcium Level 7.8L 08/02/18 05:45: Sodium Level 141, Potassium Level 4.4, Chloride Level 100, Carbon Dioxide Level 19L, Anion Gap 22H, Blood Urea Nitrogen 176H, Creatinine 11.2H, Estimat Glomerular Filtration Rate , Glucose Level 96, Calcium Level 8.1L, White Blood Count 13.9H, Red Blood Count 2.94L, Hemoglobin 9.0L, Hematocrit 26.7L, Mean Corpuscular Volume 91, Mean Corpuscular Hemoglobin 30.6, Mean Corpuscular Hemoglobin Concent 33.6, Red Cell Distribution Width 15.4H, Platelet Count 286, Mean Platelet Volume 6.2L, Neutrophils (%) (Auto) 75.0, Lymphocytes (%) (Auto) 8.8L, Monocytes (%) (Auto) 9.8, Eosinophils (%) (Auto) 5.7H, Basophils (%) (Auto ) 0.7 Height (Feet): 5 Height (Inches): 7.00 Weight (Pounds): 150 General Appearance: mild distress EENT: normal ENT inspection Neck: normal alignment, supple Cardiovascular: normal rate, regular rhythm Respiratory/Chest: rhonchi - bilaterally Abdomen: non tender, soft Edema: no edema noted Arm (L), no edema noted Arm (R), no edema noted Leg (L), no edema noted Leg (R), no edema noted Pedal (L), no edema noted Pedal (R), no edema noted Generalized Austin Kat MD August 02, 2018 12:56
[2018-08-02 16:00] VITALS: BP 140/63
--- NOTE | 2018-08-02 19:00 | NUR ---
HAND-OFF: Report given to Sue NAIK. Patient in stable condition.
[2018-08-02 20:00] VITALS: BP 115/69
--- NOTE | 2018-08-02 20:00 | NUR ---
NURSE NOTES: Patient received in bed, awake, HOB elevated, being fed by caregiver. Suction at bedside available. No acute distress at this time. Will continue to monitor.
[2018-08-02] MEDS: Tamsulosin 0.4mg cap ORAL SCH (20:24)
[2018-08-03] VITALS: BP 137/79
[2018-08-03] MEDS: Acetaminophen 650mg/20.3ml ORAL PRN ×3 (00:40→22:10)
[2018-08-03 04:00] VITALS: BP 120/65
[2018-08-03 07:08] LABS: ANION GAP 21 mmol/L (5-15); BLOOD UREA NITROGEN 179 mg/dL (7-18); CARBON DIOXIDE 20 MMOL/L (21-32); CHLORIDE 103 MMOL/L (98-107); POTASSIUM 4.8 MMOL/L (3.5-5.1); SODIUM 144 MMOL/L (136-145)
--- NOTE | 2018-08-03 07:08 | NUR ---
NURSE NOTES: received report from GUMARO Rogers. patient in bed. sleeping. no respiratory distress noted in room air. IV on LH running fluid 75ml/hr. condom cath in place. draining. bed in the lowest position. call light within reach. alarm on. will continue to monitor.
--- NOTE | 2018-08-03 07:09 | NUR ---
HAND-OFF: Report given to Austin NAIK.
[2018-08-03 08:00] VITALS: BP 113/80
--- NOTE | 2018-08-03 08:01 | Nephrology Progress Note ---
Assessment/Plan Assessment/Plan: Spoke at length with son yesterday. He has decided on on hospice comfort care only. No further lab draws. Will sign off. Please call back if circumstances change Subjective Date patient seen: August 03, 2018 Time patient seen: 07:59 Allergies: Coded Allergies: No Known Allergies (Unverified , 02/11/17) info obtained from caregiver Objective Last 24 Hour Vital Signs Date Time Temp Pulse Resp B/P (MAP) Pulse Ox O2 Delivery O2 Flow Rate FiO2 08/03/18 04:00 99.9 76 18 120/65 (83) 98 08/03/18 01:10 98.9 08/03/18 00:00 100.7 84 18 137/79 (98) 97 08/02/18 21:00 Room Air 08/02/18 20:00 99.5 69 18 115/69 (84) 94 08/02/18 16:00 100.1 74 20 140/63 (88) 95 08/02/18 12:00 99.9 72 20 119/64 (82) 95 08/02/18 08:00 101.1 85 26 131/67 (88) 93 Intake and Output 08/02/18 08/03/18 19:00 07:00 Intake Total 895 ml 620.0 ml Output Total 600 ml 450 ml Balance 295 ml 170.0 ml Intake Oral 820 ml IV Total 75 ml 620.0 ml Output Urine Total 600 ml 450 ml # Voids 1 Laboratory Tests 08/03/18 06:10: Sodium Level 144, Potassium Level 4.8, Chloride Level 103, Carbon Dioxide Level 20L, Anion Gap 21H, Blood Urea Nitrogen 179H, Creatinine 11.0H, Estimat Glomerular Filtration Rate , Glucose Level 89, Calcium Level 8.0L Height (Feet): 5 Height (Inches): 7.00 Weight (Pounds): 162 Austin Kat MD August 03, 2018 08:01
[2018-08-03] MEDS: Piperacillin/Tazobactam 3.375 GM in NS 110 ML IVPB SCH ×2 (08:32→21:57)
[2018-08-03] MEDS: Levodopa/Carbidopa 25/100 tab ORAL SCH ×3 (08:54→18:27)
--- NOTE | 2018-08-03 10:29 | Pulmonology Progress Note ---
Assessment/Plan Assessment/Plan Pulmonary Progress Note HPI: 83-year-old debilitated male who has been failing to thrive and worsening overall at home. The patient with end-stage renal failure and son has opted not to have dialysis- verified. The patient presented with worsening anemia and renal failure as well as elevated K. The patient is noted to have worsening anemia and transferred for transfusion. He is a poor historian. The patient has had prior admissions to [facility] for sepsis, renal failure , and anemia with similar presentations. The patient's care has been discussed with his son and confirms no HD and DNR. The patient was noted to be increasingly weaker overall. The patient's prior history was reviewed with caregiver.Positive BC - [facility] - on antibiotics per ID PAST MEDICAL HISTORY: obstructive uropathy, benign prostatic hyperplasia, senile dementia advanced, unsteady gait, prior falls, chronic renal failure, hydronephrosis, possible prior CVA, and sepsis, anemia with prior transfusions, hyperkalemia, parkinsons MEDICATIONS: Reviewed. ALLERGIES: Reviewed. SOCIAL HISTORY: He lives with caregiver. Do Not Resuscitate per discussion with son. nonsmoker and nondrinker REVIEW OF SYSTEMS: Unobtainable at this time. PHYSICAL EXAMINATION: Vital signs noted GENERAL: A well-developed male, debilitated. nonverbal HEENT: Negative. Oropharynx is dry without thrush NECK: Supple. SKIN: Skin turgor slightly reduced. LUNGS: With moderate air entry. No rhonchi or wheezes. CARDIAC: Normal S1, S2. Regular rate and rhythm without murmurs, rubs, or gallops. ABDOMEN: Soft, nontender. No distention. no HSM; no distention EXTREMITIES: No cyanosis, clubbing, or edema. NEUROLOGICAL: Confused. Nonverbal overall. same reviewed and edited Labs Noted IMPRESSION acute on chronic renal failure anemia Sepsis leukocytosis possible sepsis dementia chronic encephalopathy toxic metabolic encephalopathy protein calorie malnutrition PLAN IV hydration prn transfusion Iv antibiotics check cultures renal and ID following DNR d/w son as to advance directives ? hospice impression, plan, and exam edited and reviewed in detail care discussed with RN Subjective ROS Limited/Unobtainable: No Allergies: Coded Allergies: No Known Allergies (Unverified , 02/11/17) info obtained from caregiver Objective Last 24 Hour Vital Signs Date Time Temp Pulse Resp B/P (MAP) Pulse Ox O2 Delivery O2 Flow Rate FiO2 08/03/18 08:00 98.6 80 18 113/80 (91) 95 08/03/18 04:00 99.9 76 18 120/65 (83) 98 08/03/18 01:10 98.9 08/03/18 00:00 100.7 84 18 137/79 (98) 97 08/02/18 21:00 Room Air 08/02/18 20:00 99.5 69 18 115/69 (84) 94 08/02/18 16:00 100.1 74 20 140/63 (88) 95 08/02/18 12:00 99.9 72 20 119/64 (82) 95 Intake and Output 08/02/18 08/03/18 19:00 07:00 Intake Total 895 ml 620.0 ml Output Total 600 ml 450 ml Balance 295 ml 170.0 ml Intake Oral 820 ml IV Total 75 ml 620.0 ml Output Urine Total 600 ml 450 ml # Voids 1 Laboratory Tests 08/03/18 06:10: Sodium Level 144, Potassium Level 4.8, Chloride Level 103, Carbon Dioxide Level 20L, Anion Gap 21H, Blood Urea Nitrogen 179H, Creatinine 11.0H, Estimat Glomerular Filtration Rate , Glucose Level 89, Calcium Level 8.0L Current Medications Medications (Trade) Dose Ordered Sig/Tracee Route PRN Reason Start Time Stop Time Status Last Admin Dose Admin Acetaminophen (Tylenol) 650 mg Q4H PRN ORAL Mild Pain/Temp > 100.5 08/01/18 16:39 08/27/18 16:38 08/03/18 00:40 Al Hydroxide/Mg Hydroxide (Mylanta) 30 ml QID PRN ORAL Abdominal cramps 08/01/18 16:40 08/31/18 16:39 Carbidopa/Levodopa (Sinemet 25/100) 1 tab THREE TIMES A DAY ORAL 08/01/18 18:00 08/28/18 08:59 08/03/18 08:54 Ferrous Sulfate (Feosol) 325 mg Q24H ORAL 08/02/18 11:00 08/28/18 10:59 08/03/18 10:22 Finasteride (Proscar) 5 mg DAILY ORAL 08/02/18 09:00 08/28/18 08:59 08/03/18 08:54 Mirtazapine (Remeron) 15 mg BEDTIME ORAL 08/01/18 21:00 08/27/18 20:59 08/02/18 20:24 Pantoprazole (Protonix) 40 mg DAILY ORAL 08/02/18 09:00 08/27/18 08:59 08/03/18 08:54 Piperacillin Sod/ Tazobactam Sod 3.375 gm/Sodium Chloride 110 ml @ 27.5 mls/hr Q12HR IVPB 08/02/18 11:00 08/09/18 10:59 08/03/18 08:32 Sodium Chloride 1,000 ml @ 75 mls/hr [id number] IV 08/02/18 13:00 09/01/18 12:59 08/03/18 02:20 Tamsulosin HCl (Flomax) 0.4 mg QHS ORAL 08/01/18 21:00 08/27/18 20:59 08/02/18 20:24 Tramadol HCl (Ultram) 50 mg Q6H PRN ORAL For Pain 08/01/18 16:40 08/08/18 16:39 08/03/18 10:23 Marcin Patel MD August 03, 2018 10:29
[2018-08-03 12:00] VITALS: BP 146/71
--- NOTE | 2018-08-03 14:02 | NUR ---
NURSE NOTES: received call from [facility], spoke with Judd([phone]) ordered the hospice upon dc home. will send documents for hospice admission.
--- NOTE | 2018-08-03 14:43 | NUR ---
ST NOTES: SWALLOW STATUS: PT ALERT NOW (SLEEPING EARLIER PER CG). NONVERBAL AND HAVING LUNCH WITH CG. CG EDUCATED/TRAINED IN POSTED ASPIRATION PRECAUTIONS AND NEEDED CUES TO ALLOW PATIENT MORE TIME TO SWALLOW AND TO PALPATE HIS THROAT (SHE WAS ONLY LOOKING AT THIS THROAT) TO KNOW WHEN HE SWALLOWED. TAKES 5 TO 10 SECONDS TO SWALLOW TSP OF NECTAR THICK LIQUIDS. MILD POCKETING ON THE RIGHT AND NEEDS ANOTHER CUED AND DELAYED SWALLOW TO CLEAR THIS ORAL RESIDUE. NO OVERT S/S OF ASPIRATION AND HYOLARYNGEAL ELEVATION APPEARS AT LEAST MILDLY REDUCED. TONGUE DOES NOT MOVE POSTERIOR AND GRAVITY AND JAW UPWARD AND REPETITIVE MOVEMENTS TEND TO MOVE BOLUS BACK. SWALLOW WITH MOUTH OPEN AT TIMES. GOALS MET FOR STAFF AND CG TRAINED AND EDUCATED ABOUT ASP PREC. GOALS NOT CONSISTENTLY MET FOR INTAKE AND IT IS VERY SLOW 10, 75,100%. GAVE CG INFORMATION ON THICKENER TO USE AT HOME. RD TO GIVE PT INFORMATION ON HOW TO COUNT CALORIES. ADDED SHERBET (A THIN LIQUID) TO ORDER FOR PT PREFERENCE AND TO USE 1/2 TSP OK). UNABLE TO COMPLETE MOD BARIUM SWALLOW STUDY DUE TO SCHEDULE CONFLICTS. PLAN: CONTINUE WITH PLAN OF CARE.
--- NOTE | 2018-08-03 14:48 | NUR ---
RD ASSESSMENT & RECOMMENDATIONS SEE CARE ACTIVITY FOR COMPLETE ASSESSMENT DAILY ESTIMATED NEEDS: Needs based on Renal failure, 71kg 25-30 kcals/kg 2714-6625 total kcals 0.6-0.8 g protein/kg 43-57 g total protein 25-30 mL/kg 3545-9116 total fluid mLs NUTRITION DIAGNOSIS: 1) Altered nutrition related lab values r/t NEENA on CKD 6 as evidenced by elev BUN (179), elev Creat (11.0), elev K (6.2 -> now wnl), elev phos (8.0), elev mag (2.7), no HD per family. CURRENT DIET: RENAL, liquify puree NTL PO DIET RECOMMENDATIONS: RENAL + 60g protein restriction/ texture per REHEAT FURNACE OPERATOR ADDITIONAL RECOMMENDATIONS: 1) Calibrate bed scale for accurate CBW 2) Monitor lytes and renal fxn closely- no HD per family 3) Updated phos and mag levels 4) Consider phos binders w/ meals (elev phos) 5) Consider REHEAT FURNACE OPERATOR eval for appropriate texture- pt on liquify pureed last adm 6) W/ cont poor po intake, rec Nepro TID w/ meals
--- NOTE | 2018-08-03 14:49 | Infectious Diseases Prog Note ---
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 P: Continue Zosyn Poor prognosis Subjective ROS Limited/Unobtainable: Yes Constitutional: Reports: fever Neurologic: Reports: other - tremor Allergies: Coded Allergies: No Known Allergies (Unverified , 02/11/17) info obtained from caregiver Objective Vital Signs Last 24 Hour Vital Signs Date Time Temp Pulse Resp B/P (MAP) Pulse Ox O2 Delivery O2 Flow Rate FiO2 08/03/18 12:00 97.8 95 19 146/71 (96) 97 08/03/18 09:00 Room Air 08/03/18 08:00 98.6 80 18 113/80 (91) 95 08/03/18 04:00 99.9 76 18 120/65 (83) 98 08/03/18 01:10 98.9 08/03/18 00:00 100.7 84 18 137/79 (98) 97 08/02/18 21:00 Room Air 08/02/18 20:00 99.5 69 18 115/69 (84) 94 08/02/18 16:00 100.1 74 20 140/63 (88) 95 Height (Feet): 5 Height (Inches): 7.00 Weight (Pounds): 162 General Appearance: no acute distress HEENT: mucous membranes moist Respiratory/Chest: lungs clear Cardiovascular: normal rate Abdomen: soft, non tender Extremities: no edema Neurologic/Psychiatric: aphasia, other - tremor Laboratory Tests Test 08/03/18 06:10 Sodium Level 144 MMOL/L (136-145) Potassium Level 4.8 MMOL/L (3.5-5.1) Chloride Level 103 MMOL/L (98-107) Carbon Dioxide Level 20 MMOL/L (21-32) L Anion Gap 21 mmol/L (5-15) H Blood Urea Nitrogen 179 mg/dL (7-18) H Creatinine 11.0 MG/DL (0.55-1.30) H Estimat Glomerular Filtration Rate mL/min (>60) Glucose Level 89 MG/DL (74-106) Calcium Level 8.0 MG/DL (8.5-10.1) L Current Medications Medications (Trade) Dose Ordered Sig/Tracee Route PRN Reason Start Time Stop Time Status Last Admin Dose Admin Acetaminophen (Tylenol) 650 mg Q4H PRN ORAL Mild Pain/Temp > 100.5 08/01/18 16:39 08/27/18 16:38 08/03/18 00:40 Al Hydroxide/Mg Hydroxide (Mylanta) 30 ml QID PRN ORAL Abdominal cramps 08/01/18 16:40 08/31/18 16:39 Carbidopa/Levodopa (Sinemet 25/100) 1 tab THREE TIMES A DAY ORAL 08/01/18 18:00 08/28/18 08:59 08/03/18 13:09 Ferrous Sulfate (Feosol) 325 mg Q24H ORAL 08/02/18 11:00 08/28/18 10:59 08/03/18 10:22 Finasteride (Proscar) 5 mg DAILY ORAL 08/02/18 09:00 08/28/18 08:59 08/03/18 08:54 Mirtazapine (Remeron) 15 mg BEDTIME ORAL 08/01/18 21:00 08/27/18 20:59 08/02/18 20:24 Pantoprazole (Protonix) 40 mg DAILY ORAL 08/02/18 09:00 08/27/18 08:59 08/03/18 08:54 Piperacillin Sod/ Tazobactam Sod 3.375 gm/Sodium Chloride 110 ml @ 27.5 mls/hr Q12HR IVPB 08/02/18 11:00 08/09/18 10:59 08/03/18 08:32 Sodium Chloride 1,000 ml @ 75 mls/hr [id number] IV 08/02/18 13:00 09/01/18 12:59 08/03/18 02:20 Tamsulosin HCl (Flomax) 0.4 mg QHS ORAL 08/01/18 21:00 08/27/18 20:59 08/02/18 20:24 Tramadol HCl (Ultram) 50 mg Q6H PRN ORAL For Pain 08/01/18 16:40 08/08/18 16:39 08/03/18 10:23 Eloy Amaya MD August 03, 2018 14:49
[2018-08-03 16:00] VITALS: BP 105/77
--- NOTE | 2018-08-03 19:28 | NUR ---
NURSE NOTES: RECEIVED PT FROM GUMARO RANGEL. PT IS AAOX0, ON ROOM AIR, NO ACUTE DISTRESS NOTED. CAREGIVER AT BEDSIDE. BED IS LOCKED AT THE LOWEST POSITION, BED ALARMS ACTIVE, SIDE RAILS UP X2, AND CALL LIGHT IS WITHIN REACH. WILL CONTINUE TO MONITOR.
--- NOTE | 2018-08-03 19:29 | NUR ---
HAND-OFF: Report given to GUMARO Fish.
[2018-08-03 20:00] VITALS: BP 113/54
[2018-08-03] MEDS: Tamsulosin 0.4mg cap ORAL SCH (21:57)
[2018-08-04] VITALS: BP 143/93
[2018-08-04 04:00] VITALS: BP 119/75
--- NOTE | 2018-08-04 07:29 | NUR ---
HAND-OFF: Report given to GUMARO GONZALEZ.
--- NOTE | 2018-08-04 07:30 | NUR ---
NURSE NOTES: Received pt from RN KEVIN. Pt is nonverbal. pt is in RA, No SOB or acute respiratory distress noted. a private critical care educator is feeding him. pt has tremor. pt has condom cath in place is running well. pt has RH 22G is running well. pt has scab on NIRAV AND LEFT FORE HEAD. All needs attended, bed is locked and is in the lowest position, call light within easy reach. will continue to monitor.
[2018-08-04 08:00] VITALS: BP 118/83
--- NOTE | 2018-08-04 09:00 | NUR ---
NURSE NOTES: pt is shaking all body and T 100.8 and HR 109, Dr qiu notified , visited pt and ordered to give him tylenol, carried out. will continue to monitor.
[2018-08-04] MEDS: Piperacillin/Tazobactam 3.375 GM in NS 110 ML IVPB SCH (09:01)
[2018-08-04] MEDS: Levodopa/Carbidopa 25/100 tab ORAL SCH ×2 (09:01→12:00)
[2018-08-04] MEDS: Acetaminophen 650mg/20.3ml ORAL PRN (09:01)
[2018-08-04 12:00] VITALS: BP 156/87
[2018-08-04 12:41] VITALS: BP 156/87
--- NOTE | 2018-08-04 13:10 | General Progress Note ---
Assessment/Plan Assessment/Plan: IMPRESSION acute on chronic renal failure anemia possible GIB leukocytosis possible sepsis dementia chronic encephalopathy toxic metabolic encephalopathy elevated K protein calorie malnutrition tremor PLAN DNR hospice all arrnaged prognosis poor hope to initiate hospice and dc home- prognosis poor impression, plan, and exam edited and reviewed in detail care discussed with RN Subjective Allergies: Coded Allergies: No Known Allergies (Unverified , 02/11/17) info obtained from caregiver Subjective d/w son await decision re: hospice arranged notes no benefit from repeated transfusions Objective Last 24 Hour Vital Signs Date Time Temp Pulse Resp B/P (MAP) Pulse Ox O2 Delivery O2 Flow Rate FiO2 08/04/18 12:41 156/87 08/04/18 12:00 99.5 104 20 156/87 (110) 95 08/04/18 09:31 100.0 08/04/18 09:00 Room Air 08/04/18 08:00 100.8 109 20 118/83 (95) 97 08/04/18 04:00 98.6 78 18 119/75 (90) 97 08/04/18 00:00 100.6 96 20 143/93 (110) 98 08/03/18 21:00 Room Air 08/03/18 20:00 100.9 80 18 113/54 (73) 97 08/03/18 16:00 100.5 105 21 105/77 (86) 90 Intake and Output 08/03/18 08/04/18 19:00 07:00 Intake Total 705.0 ml 260.0 ml Output Total 400 ml 100 ml Balance 305.0 ml 160.0 ml Intake Oral 220 ml IV Total 485.0 ml 260.0 ml Output Urine Total 400 ml 100 ml # Bowel Movements 2 2 Height (Feet): 5 Height (Inches): 7.00 Weight (Pounds): 162 Objective WDWN NAD clear breath sounds bilaterally without rhonchi or wheeze [id number] without MRG NABS nontender no HSM no CCE nonfocal reduced LOC no distress Catracho Marcos MD August 04, 2018 13:10
--- NOTE | 2018-08-04 13:20 | NUR ---
NURSE NOTES: at 1230 Dr qiu notified about V/S and ordered to give clonidine 0.1 once and then discharge pt to [facility], orders noted and carried out. pt is still shaking T 99.5 HR 104, Dr qiu is aware. all discharge assessments and instructions done and pt's rn care manager MEGHANN HARRELL verbalized confirmed to understand all. iv access D/C, condom cath DC, all belongings are with rn care manager, and she is aware about [facility] ph: [phone]. pt left hospital with accompany of ambulance personnel.
--- NOTE | 2018-08-05 12:18 | Discharge Summary ---
Discharge Summary Discharge Summary _ DATE OF ADMISSION: 07/27/2018 DATE OF DISCHARGE: 08/04/2018 DISCHARGED BY: Dr. Marcos REASON FOR ADMISSION: 83 years old male with past medical history of BPH, obstructive uropathy, advanced senile dementia, recurrent falls, chronic renal failure, hydronephrosis , history of CVA, sepsis, anemia with prior transfusion, Parkinson disease, DNR/ DNI status, presented to emergency department with worsening anemia, hyperkalemia and renal failure. Patient severely debilitated, with failure to thrive and overall worsening condition. Son opted prior not to have dialysis. Upon evaluation hemoglobin 4.6, hematocrit 13.5. WBC 22. Potassium 6.3. BUN 166, creatinine 9.4. Albumin 2.5. Urinalysis revealed evidence of moderate bacteria and pyuria. Chest x-ray revealed no acute cardiopulmonary pathology. Patient subsequently was admitted for further management. CONSULTANTS: neurologist Dr.De Al ID specialist Dr. Orourke HOSPITAL COURSE: Patient admitted and started on the IV hydration. Patient was transfused with total of 4 units of packed red blood cells , while in the hospital. Hemoglobin up to 9.1, hematocrit 25.2. Nephrology and ID consults were requested. Patient started on empiric antibiotics. Blood culture revealed Staph hemolyticus and Staph epidermidis. Urine culture revealed no growth. Repeated urine culture revealed mixed gram-positive organisms. Sputum culture revealed Nelly. Patient was on empiric antibiotic as per ID specialist recommendation. Per ID specialist , positive blood culture were likely contaminated. Leukocytosis trended down , but patient remain febrile. [facility] [employer] R[employer] followed. Renal parameters and electrolytes were closely monitored, electrolytes corrected as needed and nephrotoxins were avoided. Patient had acute on chronic kidney disease stage . Multiply discussion in the past and at this admission with patient's son, but son voiced a clear decision not to have dialysis. Patient was on gentle hydration. Patient also had evidence of metabolic acidosis secondary to renal insufficiency. At this point computing architect recommended conservative monitoring. Hyperkalemia was treated. Severe anemia resolved. Mark catheter was placed for obstructive uropathy. Supplemental oxygen was on board as needed to keep pulse oximetry above 92%. GI prophylaxis provided. Patient was continued to Flomax and Proscar. Sinemet continued. Supportive care provided. Pain management addressed. Bowel regimen instituted. Family decided on hospice care . All arrangements were made. Patient subsequently was discharged home with the hospice services. FINAL DIAGNOSES: Acute kidney injury on chronic kidney disease stage Metabolic acidosis secondary to renal insufficiency Severe anemia Hyperkalemia Urinary tract infection Obstructive uropathy Possible GI bleeding Leukocytosis Possible sepsis Toxic metabolic encephalopathy Dementia Protein calorie malnutrition Parkinson disease DISCHARGE MEDICATIONS: See Medication Reconciliation list. DISCHARGE INSTRUCTIONS: Patient was discharged home with hospice services I have been assigned to dictate discharge summary for this account. I was not involved in the patient's management. Yasmeen Yin NP August 05, 2018 12:18
== END 2018-08-04 13:20 | disposition hospice, home (50) | DRG 871 ==
LOC: EMR 21:33 → 2W 21:56 → EDBEDREQSVC 22:00 → EDBEDREQ 22:04 → 4E 08-01 16:00
PROC: 30233N1 Transfusion of Nonautologous Red Blood Cells into Peripheral Vein, Percutaneous Approach (ICD-10-PCS; principal; 2018-07-28)
DX: A41.9 Sepsis, unspecified organism (principal); G92 Toxic encephalopathy; N18.6 End stage renal disease; K92.2 Gastrointestinal hemorrhage, unspecified; E46 Unspecified protein-calorie malnutrition; N17.9 Acute kidney failure, unspecified; N39.0 Urinary tract infection, site not specified; N13.8 Other obstructive and reflux uropathy; E87.5 Hyperkalemia; Z66 Do not resuscitate; R29.6 Repeated falls; Z86.73 Personal history of transient ischemic attack (TIA), and cerebral infarction without residual deficits; D64.9 Anemia, unspecified; R62.7 Adult failure to thrive; G20 Parkinson's disease; F02.80 Dementia in other diseases classified elsewhere, unspecified severity, without behavioral disturbance, psychotic disturbance, mood disturbance, and anxiety; N40.1 Benign prostatic hyperplasia with lower urinary tract symptoms; R26.9 Unspecified abnormalities of gait and mobility
CPT/HCPCS: 36415; 71045; 80048; 80053; 80202; 81003; 82550; 82553; 83605; 83735; 84100; 84484; 85007; 85025; 86850; 86900; 86901; 86920; 87040; 87070; 87081; 87086; 87181; 87205; 93005; 94640; 94664; 96365; 96375; 99291; J7620